=== PATIENT | female | born 1930 | race Caucasian/White ===

== ENCOUNTER → 2017-08-15 | Outpatient (CLI) | payer MEDICARE ==
--- NOTE | 2017-08-18 09:15 | Diagnostic Imaging Report ---
Bilateral screening mammogram 2D views with tomosynthesis The current study was also evaluated with a Computer Aided Detection (CAD) system. Indication: Screening. No current complaints stated on the questionnaire. COMPARISON: 08/09/2016. Findings: The breasts are composed of suggested dense parenchyma which may decrease mammographic sensitivity. Benign-appearing calcifications are seen. Allowing for technique and positional differences, no suspicious change is seen. IMPRESSION: Dense breasts with no definite change. ACR BI-RADS Category 2: Benign findings. Result letter will be mailed to the patient. Note: At least 10% of breast cancer is not imaged by mammography. Dictated by: Dictated on workstation # [id number]
== END ==
LOC: RAD 10:02
PROVIDERS: ATTEND Internal Medicine
DX: Z12.31 Encounter for screening mammogram for malignant neoplasm of breast (principal)
CPT/HCPCS: 77067

== ENCOUNTER 2017-08-25 09:01 | Emergency (ER) | payer MEDICARE ==
[~2017-08-25] VITALS: Ht 154.9 cm; Wt 49.9 kg
--- OUTSIDE RECORDS SUMMARY | 2017-08-25 09:06 | XMS REPORT | Continuity of Care Document ---
Author Author [facility] Organization [facility] Address Unknown Phone Unavailable Allergies There is no data. Medications There is no data. Problems Date Dx Coded Attending Type Code Diagnosis Diagnosed By 08/08/2014 ELVIA ARAUJO APRN Ot V76.12 02/02/2015 AI SYED MD Ot 599.0 08/08/2015 Ot V76.12 08/08/2015 Ot 611.72 08/08/2015 Ot V76.12 08/08/2015 Ot 793.80 08/08/2015 Ot V76.12 08/08/2015 AI SYED MD Ot 786.2 08/08/2015 Heena PASTRANA MD Ot 595.2 08/08/2015 GUERITA CID DO Ot 590.9 08/08/2015 Heena PASTRANA MD Ot 595.9 08/08/2015 AI SYED MD Ot V76.12 08/08/2015 ELVIA ARAUJO APRN Ot V76.12 08/08/2015 AI SYED MD Ot 599.0 08/31/2015 ELVIA ARAUJO APRN Ot Z12.31 05/16/2016 Ot 611.72 LUMP OR MASS IN BREAST 05/16/2016 Ot V76.12 OTH SCREEN MAMMO-MALIGN NEOPLASM OF EVA 05/16/2016 Ot 793.80 UNSPEC ABNORMAL MAMMOGRAM 05/16/2016 Ot V76.12 OTH SCREEN MAMMO-MALIGN NEOPLASM OF EVA 05/16/2016 AI SYED MD Ot 786.2 COUGH 05/16/2016 Heena PASTRANA MD Ot 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 05/16/2016 GUERITA CID DO Ot 590.9 INFECTION OF KIDNEY NOS 05/16/2016 Heena PASTRANA MD Ot 595.9 CYSTITIS NOS 05/16/2016 AI SYED MD Ot V76.12 OTH SCREEN MAMMO-MALIGN NEOPLASM OF EVA 05/16/2016 ELVIA ARAUJO APRN Ot V76.12 OTH SCREEN MAMMO-MALIGN NEOPLASM OF EVA 05/16/2016 AI SYED MD Ot 599.0 URIN TRACT INFECTION NOS 05/16/2016 ELVIA ARAUJO APRN Ot Z12.31 ENCNTR SCREEN MAMMOGRAM FOR MALIGNANT NE 05/20/2016 Heena PASTRANA MD Ot N39.0 URINARY TRACT INFECTION, SITE NOT SPECIF 05/20/2016 Heena PASTRANA MD Ot N95.2 POSTMENOPAUSAL ATROPHIC VAGINITIS 05/20/2016 Heena PASTRANA MD Ot R39.14 FEELING OF INCOMPLETE BLADDER EMPTYING 05/21/2016 Heena PASTRANA MD Ot N39.0 URINARY TRACT INFECTION, SITE NOT SPECIF 05/21/2016 Heena PASTRANA MD Ot N95.2 POSTMENOPAUSAL ATROPHIC VAGINITIS 05/21/2016 Heena PASTRANA MD Ot R39.14 FEELING OF INCOMPLETE BLADDER EMPTYING 06/06/2016 Heena PASTRANA MD Ot N39.0 URINARY TRACT INFECTION, SITE NOT SPECIF 06/06/2016 Heena PASTRANA MD Ot N95.2 POSTMENOPAUSAL ATROPHIC VAGINITIS 06/06/2016 Heena PASTRANA MD Ot R39.14 FEELING OF INCOMPLETE BLADDER EMPTYING 06/13/2016 Heena PASTRANA MD Ot N39.0 URINARY TRACT INFECTION, SITE NOT SPECIF 06/13/2016 Heena PASTRANA MD Ot N95.2 POSTMENOPAUSAL ATROPHIC VAGINITIS 06/13/2016 Heena PASTRANA MD Ot R39.14 FEELING OF INCOMPLETE BLADDER EMPTYING 08/09/2016 Ot 611.72 LUMP OR MASS IN BREAST 08/09/2016 Ot V76.12 OTH SCREEN MAMMO-MALIGN NEOPLASM OF EVA 08/09/2016 Ot 793.80 UNSPEC ABNORMAL MAMMOGRAM 08/09/2016 Ot V76.12 OTH SCREEN MAMMO-MALIGN NEOPLASM OF EVA 08/09/2016 AI SYED MD Ot 786.2 COUGH 08/09/2016 Heena PASTRANA MD Ot 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 08/09/2016 GUERITA CID DO Ot 590.9 INFECTION OF KIDNEY NOS 08/09/2016 Heena PASTRANA MD Ot 595.9 CYSTITIS NOS 08/09/2016 AI SYED MD Ot V76.12 OTH SCREEN MAMMO-MALIGN NEOPLASM OF EVA 08/09/2016 ELVIA ARAUJO APRN Ot V76.12 OTH SCREEN MAMMO-MALIGN NEOPLASM OF EVA 08/09/2016 AI SYED MD Ot 599.0 URIN TRACT INFECTION NOS 08/09/2016 ELVIA ARAUJO FIRE PROTECTION FABRICATOR Ot Z12.31 ENCNTR SCREEN MAMMOGRAM FOR MALIGNANT NE 08/09/2016 Heena PASTRANA MD Ot N39.0 URINARY TRACT INFECTION, SITE NOT SPECIF 08/09/2016 Heena PASTRANA MD Ot N95.2 POSTMENOPAUSAL ATROPHIC VAGINITIS 08/09/2016 Heena PASTRANA MD Ot R39.14 FEELING OF INCOMPLETE BLADDER EMPTYING 08/09/2016 ELVIA ARAUJO FIRE PROTECTION FABRICATOR Ot Z12.31 ENCNTR SCREEN MAMMOGRAM FOR MALIGNANT NE 08/12/2016 ELVIA ARAUJO APRN Ot Z12.31 ENCNTR SCREEN MAMMOGRAM FOR MALIGNANT NE 08/13/2016 ELVIA ARAUJO APRN Ot Z12.31 ENCNTR SCREEN MAMMOGRAM FOR MALIGNANT NE 08/15/2016 ELVIA ARAUJO APRN Ot Z12.31 ENCNTR SCREEN MAMMOGRAM FOR MALIGNANT NE 09/06/2016 ELVIA ARAUJO APRN Ot Z12.31 ENCNTR SCREEN MAMMOGRAM FOR MALIGNANT NE Procedures There is no data. Results There is no data. Encounters ACCT No. Visit Date/Time Discharge Status Pt. Type Provider Facility Loc./Unit Complaint [id number] 08/07/2017 15:15:00 08/07/2017 23:59:59 CLS Preadmit AI SYED MD [facility] RAD SCREENING [id number] 08/09/2016 10:29:00 08/09/2016 23:59:59 CLS Outpatient ELVIA ARAUJO APRN [facility] RAD SCREENING [id number] 05/16/2016 10:22:00 05/16/2016 23:59:59 CLS Outpatient Heena PASTRANA MD [facility] RAD UTI, INCOMPLETE BLADDER EMPTYING, VAGINAL ATROPHY [id number] 08/08/2015 13:57:00 08/08/2015 23:59:59 CLS Outpatient ELVIA ARAUJO APRN [facility] RAD SCREENING [id number] 01/11/2015 11:21:00 01/11/2015 23:59:59 CLS Outpatient AI SYED MD [facility] LAB UTI [id number] 07/13/2014 09:16:00 07/13/2014 23:59:59 CLS Outpatient ELVIA ARAUJO APRN [facility] RAD SCREENING [id number] 07/12/2013 11:23:00 07/12/2013 23:59:59 CLS Outpatient Heena PASTRANA MD [facility] RAD BLADDER INFECTION [id number] 07/12/2013 11:21:00 07/12/2013 23:59:59 CLS Outpatient AI SYED MD [facility] RAD SCREENING [id number] 06/07/2013 13:47:00 06/07/2013 23:59:59 CLS Outpatient GUERITA CID DO [facility] LAB FREQUENT KIDNEY INFECTIONS [id number] 05/04/2013 10:46:00 05/04/2013 23:59:59 CLS Outpatient Heena PASTRANA MD [facility] RAD CHRONIC CYSTITIS [id number] 04/12/2013 13:01:00 04/12/2013 23:59:59 CLS Outpatient AI SYED MD [facility] RAD PERSISTANT COUGH [id number] 07/10/2012 10:51:00 Document Registration [id number] 07/02/2011 14:11:00 Document Registration [id number] 06/14/2011 09:17:00 Document Registration [id number] 06/11/2010 07:31:00 Document Registration
[2017-08-25] MEDS ORDERED: ATOR20TA66 (09:25)
[2017-08-25] MEDS ORDERED: TRIM100T (09:25)
--- NOTE | 2017-08-25 10:01 | Diagnostic Imaging Report ---
INDICATION: Cough and cold. Study compared 04/12/2013 FINDINGS: Air trapping and COPD are chronic findings. No focal pneumonia is evident. There is no failure, effusion or pneumothorax. IMPRESSION: COPD, no acute finding. Dictated by: Dictated on workstation # [id number]
--- NOTE | 2017-08-25 10:13 | ED Respiratory ---
General Chief Complaint: Cough/Cold/Flu Symptoms Stated Complaint: COUGH;FLU SYMPTOMS Nursing Triage Note: PT CO OF OF COLD AND COUGH SX SINCE FRIDAY, DENIES FEVER Source: patient Exam Limitations: no limitations Allergies and Home Medications Allergies Coded Allergies: No Known Drug Allergies (Unverified , 08/25/17) Home Medications Atorvastatin Calcium 20 Mg Tablet, (Reported) Trimethoprim 100 Mg Tablet, (Reported) Past Fapnxpf-Tytelz-Zaidzb Hx Patient Social History Alcohol Use: Denies Use Recreational Drug Use: No Smoking Status: Never a Smoker Recent Foreign Travel: No Contact w/Someone Who Travel: No Recent Infectious Disease Expo: No Recent Hopitalizations: No Physical Abuse: No Sexual Abuse: No Surgeries History of Surgeries: Yes Surgeries: Gallbladder, Hysterectomy Respiratory History of Respiratory Disorde: No Cardiovascular History of Cardiac Disorders: Yes Cardiac Disorders: High Cholesterol Neurological History of Neurological Disord: No Genitourinary History of Genitourinary Disor: Yes (UNSURE OF WHAT KIND TAKES MEDS DAILY FOR URINARY SX) Gastrointestinal History of Gastrointestinal Di: No Musculoskeletal History of Musculoskeletal Dis: No Endocrine History of Endocrine Disorders: No HEENT History of HEENT Disorders: No Cancer History of Cancer: No Psychosocial History of Psychiatric Problem: No Suicide Risk Score: 0 Integumentary History of Skin or Integumenta: No Physical Exam Vital Signs Vital Sign - Last 12Hours 08/25/17 09:05 Temp 96.2 Pulse 104 Resp 18 B/P (MAP) 145/89 (107) Pulse Ox 98 Capillary Refill : Less Than 3 Seconds Progress/Results/Core Measures Suspected Sepsis Recent Fever Within 48 Hours: No Infection Criteria Present: None New/Unexplained Altered Menta: No Sepsis Screen: No Definite Risk Sepsis Diagnosis: SIRS Temperature:96.2 Pulse: 104 Respiratory Rate: 18 Blood Pressure 145 /89 Mean: 107 Results/Orders My Orders Orders - GIBRAN JOSHI MD Chest Pa/Lat (2 View) (08/25/17 09:17) Vital Signs/I&O Vital Sign - Last 12Hours 08/25/17 09:05 Temp 96.2 Pulse 104 Resp 18 B/P (MAP) 145/89 (107) Pulse Ox 98 Capillary Refill : Less Than 3 Seconds Blood Pressure Mean: 107 Diagnostic Imaging Diagonstic Imaging: Xray Plain Films/CT/US/NM/MRI: chest Comments Chest x-ray viewed by me and report reviewed. See report below: NAME: LORRIE CHAVEZ [facility] REC#: [id number] PT STATUS: REG ER : 1930 PHYSICIAN: GIBRAN JOSHI MD ADMIT DATE: 08/25/17/ER Draft Date of Exam:08/25/17 CHEST PA/LAT (2 VIEW) INDICATION: Cough and cold. Study compared 04/12/2013 FINDINGS: Air trapping and COPD are chronic findings. No focal pneumonia is evident. There is no failure, effusion or pneumothorax. IMPRESSION: COPD, no acute finding. Dictated on workstation # [id number] Dict: 08/25/17 0958 Trans: 08/25/17 1000 RAVINDER [id number] Interpreted by: RAZA HEBERT Departure Impression Impression: Primary Impression: Upper respiratory infection Qualified Codes: J06.9 - Acute upper respiratory infection, unspecified Additional Impression: Cough Disposition: HOME, SELF-CARE Condition: Improved Departure-Patient Inst. Decision time for Depature: 10:10 Referrals: AI SYED MD (PCP/Family) Primary Care Physician Patient Instructions: Viral Upper Respiratory Infection, Adult (DC) Add. Discharge Instructions: Drink plenty of clear liquids, especially water. You may continue using over- the-counter cough and cold medications as prescribed. Fill the prescription for Tessalon Perles if you feel necessary. Return to the ER if symptoms worsen. All discharge instructions reviewed with patient and/or family. Voiced understanding. Scripts Benzonatate (Benzonatate) 200 Mg Capsule 200 MG PO TID Y for COUGH, #20 CAP Prov: GIBRAN JOSHI MD 08/25/17 GIBRAN JOSHI MD Aug 25, 2017 10:13
[2017-08-25] MEDS ORDERED: BENZ200C51 PO (10:21)
[2017-08-25 10:25] VITALS: BP 145/89
== END 2017-08-25 10:25 | disposition home or self-care (01) ==
LOC: EDUNIT# 09:01 → ER 09:03
DX: J06.9 Acute upper respiratory infection, unspecified (principal); E78.00 Pure hypercholesterolemia, unspecified; Z90.710 Acquired absence of both cervix and uterus
CPT/HCPCS: 71046; 99282

== ENCOUNTER 2017-11-18 16:17 | Emergency (ER) | payer MEDICARE ==
[~2017-11-18] VITALS: Ht 152.4 cm; Wt 49.9 kg
[~2017-11-18 16:17] MED LIST: ATOR20TA66; BENZ200C51 PO; TRIM100T
--- NOTE | 2017-11-18 16:31 | ED Head Injury ---
General Chief Complaint: Head/Cervical Problems Stated Complaint: FALL;HEAD INJ History of Present Illness Date Seen by Provider: Nov 18, 2017 Time Seen by Provider: 16:29 Initial Comments Patient is an 86-year-old female who presents to emergency room with complaints of all and hitting her head just prior to arrival. She reports that she was walking up the steps in her garage when she slipped causing her to fall backwards and hit her head. She denies LOC, dizziness, lightheadedness, and nausea and vomiting. Occurred: just prior to arrival Severity: mild Associated Systoms: Denies Symptoms Allergies and Home Medications Allergies Coded Allergies: No Known Drug Allergies (Unverified , 08/25/17) Home Medications Benzonatate 200 Mg Capsule, 200 MG PO TID PRN for COUGH Prescribed by: GIBRAN KING on 08/25/17 1021 Patient Home Medication List Home Medication List Reviewed: Yes Constitutional: no symptoms reported, see HPI Eyes: No Symptoms Reported, See HPI Ears, Nose, Mouth, Throat: no symptoms reported, see HPI Respiratory: no symptoms reported, see HPI Cardiovascular: no symptoms reported, see HPI Gastrointestinal: no symptoms reported, see HPI Genitourinary: no symptoms reported, see HPI Musculoskeletal: no symptoms reported, see HPI Skin: no symptoms reported, see HPI Psychiatric/Neurological: No Symptoms Reported, See HPI Endocrine: No Symptoms Reported Hematologic/Lymphatic: No Symptoms Reported Past Tduovxl-Vccmda-Zmpvuc Hx Patient Social History Recent Foreign Travel: No Contact w/Someone Who Travel: No Recent Hopitalizations: No Surgeries History of Surgeries: Yes Surgeries: Gallbladder, Hysterectomy Respiratory History of Respiratory Disorde: No Cardiovascular History of Cardiac Disorders: Yes Cardiac Disorders: High Cholesterol Neurological History of Neurological Disord: No Genitourinary History of Genitourinary Disor: Yes (UNSURE OF WHAT KIND TAKES MEDS DAILY FOR URINARY SX) Gastrointestinal History of Gastrointestinal Di: No Musculoskeletal History of Musculoskeletal Dis: No Endocrine History of Endocrine Disorders: No HEENT History of HEENT Disorders: No Cancer History of Cancer: No Psychosocial History of Psychiatric Problem: No Integumentary History of Skin or Integumenta: No Physical Exam Vital Signs Capillary Refill : General Appearance: WD/WN, no apparent distress HEENT: PERRL/EOMI Neck: non-tender, full range of motion, supple, normal inspection Cardiovascular: normal peripheral pulses, regular rate, rhythm, no edema, no gallop, no JVD, no murmur Respiratory: chest non-tender, lungs clear, normal breath sounds, no respiratory distress, no accessory muscle use Gastrointestinal: normal bowel sounds, non tender, soft, no organomegaly, no pulsatile mass Back: normal inspection, no CVA tenderness, no vertebral tenderness Extremities: normal range of motion, non-tender, normal inspection, no pedal edema, no calf tenderness, normal capillary refill Psychiatric: alert, oriented x 3 Crainal Nerves: normal hearing, normal speech Skin: normal color, warm/dry Lymphatic: no adenopathy Progress/Results/Core Measures Results/Orders My Orders Orders - JC GONZALEZ APRN Ct Head/Cervical Spine Wo (11/18/17 16:32) Departure Impression Impression: Primary Impression: Contusion of head Disposition: 01 HOME, SELF-CARE Condition: Stable/Unchanged Departure-Patient Inst. Referrals: AI SYED MD (PCP/Family) Primary Care Physician Patient Instructions: Minor Head Injury (DC) Add. Discharge Instructions: Follow up with you doctor in one week for a recheck. Return back to the emergency room if symptoms worsen. All discharge instructions reviewed with patient and/or family. Voiced understanding. JC GONZALEZ APRN Nov 18, 2017 16:31
--- NOTE | 2017-11-18 17:13 | Diagnostic Imaging Report ---
CLINICAL INDICATION: Patient fell this p.m. and struck posterior aspect of the head. Patient has no complaints. EXAM: Head CT without IV contrast. Axial CT scan of the cervical spine with sagittal and coronal reformations. COMPARISON: None. FINDINGS: HEAD CT: There is no evidence of acute cerebral infarct, intracranial hemorrhage, or gross mass effect. There is diffuse brain parenchymal volume loss. 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 There is normal cuellar-white matter distinction. There is no significant midline shift or herniation. There is no evidence of hydrocephalus. The basal cisterns are unremarkable. The skull, extracranial soft tissue, and orbits are unremarkable. There is mild mucosal thickening in the sphenoid sinus. Temporal bones show no significant abnormality. CERVICAL SPINE CT: There is no evidence of acute cervical spine fracture. There is grade 1 anterolisthesis of C3 on C4, C4 on C5, and C7 on T1. There is grade 1 retrolisthesis of C5 on C6. There is multilevel cervical spine degenerative disease which is worse at the C5-C6 level. There is severe loss of intervertebral disc height, endplate irregularity and hypertrophic spurs involving the C5-C6 level with at least moderate central canal narrowing and severe right neural foraminal narrowing. There is bilateral apical pleural-parenchymal thickening/scarring. There is no significant neck soft tissue abnormality. IMPRESSION: 1: There is no evidence of acute intracranial process. There is no skull fracture. 2: There is no acute cervical spine fracture. 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 4: There is multilevel cervical spine degenerative disease which is worse at the C5-C6 level. There is multilevel anterolisthesis seen from the C3-C4, C4-C5, and C7-T1 levels. There is grade 1 retrolisthesis of C5 on C6. Dictated by: Dictated on workstation # [id number]
[2017-11-18 17:23] VITALS: BP 152/90
== END 2017-11-18 17:23 | disposition home or self-care (01) ==
LOC: EDUNIT# 16:17 → ER 16:18
DX: S00.83XA Contusion of other part of head, initial encounter (principal); E78.00 Pure hypercholesterolemia, unspecified; Z90.710 Acquired absence of both cervix and uterus; W10.9XXA Fall (on) (from) unspecified stairs and steps, initial encounter; Y92.008 Other place in unspecified non-institutional (private) residence as the place of occurrence of the external cause
CPT/HCPCS: 70450; 72125; 99282

== ENCOUNTER 2018-01-14 10:59 | Emergency (ER) | payer MEDICARE ==
[~2018-01-14] VITALS: Ht 152.4 cm; Wt 48.5 kg
--- OUTSIDE RECORDS SUMMARY | 2018-01-14 11:06 | XMS REPORT | Continuity of Care Document ---
Author Author [facility] Organization [facility] Address Unknown Phone Unavailable Allergies Active Description Code Type Severity Reaction Onset Reported/Identified Relationship to Patient Clinical Status Yes No Known Drug Allergies [id number] Drug Allergy Unknown N/A 08/25/2017 Medications There is no data. 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 05/16/2016 JOSE ROBERTO DRISCOLL GUERITA Ot 590.9 INFECTION OF KIDNEY NOS 05/16/2016 Heena PASTRANA MD Ot 595.9 CYSTITIS NOS 05/16/2016 AI SYED MD Ot V76.12 OTH SCREEN MAMMO-MALIGN NEOPLASM OF EVA 05/16/2016 ELVIA ARAUJO APRN Ot V76.12 OTH SCREEN MAMMO-MALIGN NEOPLASM OF EVA 05/16/2016 AI SYED MD Ot 599.0 URIN TRACT INFECTION NOS 05/16/2016 ELVIA ARAUJO PAPER MACHINE BACK TENDER Ot Z12.31 ENCNTR SCREEN MAMMOGRAM FOR MALIGNANT NE 05/20/2016 Heena PASTRNAA MD Ot N39.0 URINARY TRACT INFECTION, SITE [...] URIN TRACT INFECTION NOS 08/09/2016 ELVIA ARAUJO PAPER MACHINE BACK TENDER Ot Z12.31 ENCNTR SCREEN MAMMOGRAM FOR MALIGNANT NE 08/09/2016 Heena PASTRANA MD Ot N39.0 URINARY TRACT INFECTION, SITE NOT SPECIF 08/09/2016 Heena PASTRANA MD Ot N95.2 POSTMENOPAUSAL ATROPHIC VAGINITIS 08/09/2016 Heena PASTRANA MD Ot R39.14 FEELING OF INCOMPLETE BLADDER EMPTYING 08/09/2016 ELVIA ARAUJO PAPER MACHINE BACK TENDER Ot Z12.31 ENCNTR SCREEN MAMMOGRAM FOR MALIGNANT NE 08/12/2016 ELVIA ARAUJO PAPER MACHINE BACK TENDER Ot Z12.31 ENCNTR SCREEN MAMMOGRAM FOR MALIGNANT NE 08/13/2016 ELVIA ARAUJO PAPER MACHINE BACK TENDER Ot Z12.31 ENCNTR SCREEN MAMMOGRAM FOR MALIGNANT NE 08/15/2016 ELVIA ARAUJO PAPER MACHINE BACK TENDER Ot Z12.31 ENCNTR SCREEN MAMMOGRAM FOR MALIGNANT NE 09/06/2016 ELVIA ARAUJO PAPER MACHINE BACK TENDER Ot Z12.31 ENCNTR SCREEN MAMMOGRAM FOR MALIGNANT NE 08/25/2017 GIBRAN JOSHI MD Ot E78.00 PURE HYPERCHOLESTEROLEMIA, UNSPECIFIED 08/25/2017 GIBRAN JOSHI MD Ot J06.9 ACUTE UPPER RESPIRATORY INFECTION, UNSPE 08/25/2017 GIBRAN JOSHI MD T Ot R05 COUGH 08/25/2017 GIBRAN JOSHI MD Ot Z90.710 ACQUIRED ABSENCE OF BOTH CERVIX AND UTER 08/31/2017 GIBRAN JOSHI MD Ot E78.00 PURE HYPERCHOLESTEROLEMIA, UNSPECIFIED 08/31/2017 GIBRAN JOSHI MD Ot J06.9 ACUTE UPPER RESPIRATORY INFECTION, UNSPE 08/31/2017 GIBRAN JOSHI MD Ot R05 COUGH 08/31/2017 GIBRAN JOSHI MD Ot Z90.710 ACQUIRED ABSENCE OF BOTH CERVIX AND UTER 09/05/2017 AI SYED MD Ot Z12.31 ENCNTR SCREEN MAMMOGRAM FOR MALIGNANT NE 11/18/2017 JC GONZALEZ APRN Ot E78.00 PURE HYPERCHOLESTEROLEMIA, UNSPECIFIED 11/18/2017 JC GONZALEZ APRN Ot S00.83XA CONTUSION OF OTHER PART OF HEAD, INITIAL 11/18/2017 JC GONZALEZ APRN Ot S09.90XA UNSPECIFIED INJURY OF HEAD, INITIAL ENCO 11/18/2017 JC GONZALEZ APRN Ot W10.9XXA FALL (ON) (FROM) UNSPECIFIED STAIRS AND 11/18/2017 JC GONZALEZ APRN Ot Y92.[address] [facility] (PRIVATE) 11/18/2017 JC GONZALEZ APRN Ot Z90.710 ACQUIRED ABSENCE OF BOTH CERVIX AND UTER 11/20/2017 JC GONZALEZ APRN Ot E78.00 PURE HYPERCHOLESTEROLEMIA, UNSPECIFIED 11/20/2017 JC GONZALEZ APRN Ot S00.83XA CONTUSION OF OTHER PART OF HEAD, INITIAL 11/20/2017 JC GONZALEZ APRN Ot S09.90XA UNSPECIFIED INJURY OF HEAD, INITIAL ENCO 11/20/2017 JC GONZALEZ APRN Ot W10.9XXA FALL (ON) (FROM) UNSPECIFIED STAIRS AND 11/20/2017 JC GONZALEZ APRN Ot Y92.[address] [facility] 11/20/2017 JC GONZALEZ APRN Ot Z90.710 ACQUIRED ABSENCE OF BOTH CERVIX AND UTER Procedures There is no data. Results There is no data. Encounters ACCT No. Visit Date/Time Discharge Status Pt. Type Provider Facility Loc./Unit Complaint [id number] 11/18/2017 16:18:00 11/18/2017 17:23:00 DIS Emergency JC GONZALEZ APRN [facility] ER FALL;HEAD INJ [id number] 08/25/2017 09:03:00 08/25/2017 10:25:00 DIS Emergency GIBRAN JOSHI MD [facility] ER COUGH;FLU SYMPTOMS [id number] 08/15/2017 10:02:00 08/15/2017 23:59:59 CLS Outpatient AI SYED MD [facility] RAD SCREENING [id number] 08/09/2016 10:29:00 08/09/2016 23:59:59 CLS Outpatient ELVIA ARAUJO PAPER MACHINE BACK TENDER [facility] RAD SCREENING [id number] 05/16/2016 10:22:00 05/16/2016 23:59:59 CLS Outpatient Heena PASTRANA MD [facility] RAD UTI, INCOMPLETE BLADDER EMPTYING, VAGINAL ATROPHY [id number] 08/08/2015 13:57:00 08/08/2015 23:59:59 CLS Outpatient ELVIA ARAUJO APRN [facility] RAD SCREENING [id number] 01/11/2015 11:21:00 01/11/2015 23:59:59 CLS Outpatient AI SYED MD [facility] LAB UTI [id number] 07/13/2014 09:16:00 07/13/2014 23:59:59 CLS Outpatient ELVIA ARAUJO APRN [facility] RAD SCREENING [id number] 07/12/2013 11:23:00 07/12/2013 23:59:59 CLS Outpatient Heena PASTRANA MD [facility] RAD BLADDER INFECTION [id number] 07/12/2013 11:21:00 07/12/2013 23:59:59 CLS Outpatient AI SYED MD [facility] RAD SCREENING [id number] 06/07/2013 13:47:00 06/07/2013 23:59:59 CLS Outpatient GUERITA CID DO [facility] LAB FREQUENT KIDNEY INFECTIONS [id number] 05/04/2013 10:46:00 05/04/2013 23:59:59 CLS Outpatient Heena PASTRANA MD [facility] RAD CHRONIC CYSTITIS [id number] 04/12/2013 13:01:00 04/12/2013 23:59:59 CLS Outpatient AI SYED MD [facility] RAD PERSISTANT COUGH [id number] 07/10/2012 10:51:00 Document Registration [id number] 07/02/2011 14:11:00 Document Registration [id number] 06/14/2011 09:17:00 Document Registration [id number] 06/11/2010 07:31:00 Document Registration [id number] 01/11/2015 11:24:22 ACT Document Registration
--- NOTE | 2018-01-14 12:27 | ED Neurological Problem ---
General Chief Complaint: Dizziness/Syncope Stated Complaint: DIZZINESS Nursing Triage Note: AMBULATED TO ROOM 07 WITHOUT DIFFICULTY. COMPLAINS OF OFF AND ON DIZZINESS X3 DAYS ALONG WITH NECK PAIN. FELL AND HIT HEAD 2 MONTHS AGO AND WAS SEEN HERE THEN. Nursing Sepsis Screen: No Definite Risk Source: patient, spouse Exam Limitations: no limitations History of Present Illness Date Seen by Provider: January 14, 2018 Time Seen by Provider: 12:15 Initial Comments The patient resistance to the room with a chief complaint of dizziness feeling the room spinning around her. She has no near-syncope or imbalance issues. Says these occur usually episodes of about 10:15 seconds usually after changing positions such as standing or rolling from one side or the other in bed. She's never been prescribed with vertigo before but she has been prescribed meclizine which she took her last dose today. She says 2 months ago she had dizziness episodes similar to this because her to fall and strike her head against the concrete floor. She was seen at the ER worked up and did not have any problems fractures or bleeds at that time but she is to having some soreness in her neck specially when she takes her head all the way to the left or right. She's not having any nausea, fevers, chills, weakness, facial droop, speech changes. She' s never had a stroke or heart attack. She does not take aspirin. She is not on any blood thinners. For the grittiness and tenderness in her neck is made worse by movement she has been taking Tylenol. She says it gives marginal relief. She reports she's been having these dizzy spells for many months off and on. She feels that recently they've become more frequent. Allergies and Home Medications Allergies Coded Allergies: No Known Drug Allergies (Unverified , 08/25/17) Home Medications Benzonatate 200 Mg Capsule, 200 MG PO TID PRN for COUGH Prescribed by: GIBARN KING on 08/25/17 1021 Patient Home Medication List Home Medication List Reviewed: Yes Review of Systems Constitutional: No chills, No diaphoresis Eyes: Denies Blindness, Denies Blurred Vision, Denies Drainage, Denies Pain, Denies Photophobia Ears, Nose, Mouth, Throat: denies ear pain, denies ear discharge, denies nose pain, denies nose discharge Respiratory: No cough, No short of breath Cardiovascular: No chest pain, No edema Gastrointestinal: No abdominal pain, No constipation, No diarrhea, No nausea Genitourinary: No discharge, No dysuria Musculoskeletal: No back pain, No joint pain; neck pain Skin: No pruritus, No rash Past Mctldub-Nnahhl-Bzjywz Hx Patient Social History Alcohol Use: Denies Use Recreational Drug Use: No Smoking Status: Never a Smoker Recent Foreign Travel: No Contact w/Someone Who Travel: No Recent Infectious Disease Expo: No Recent Hopitalizations: No Past Medical History Surgeries: Yes Gallbladder, Hysterectomy Respiratory: No Cardiac: Yes High Cholesterol Neurological: No Genitourinary: Yes (UNSURE OF WHAT KIND TAKES MEDS DAILY FOR URINARY SX) Gastrointestinal: No Musculoskeletal: No Endocrine: No HEENT: No Cancer: No Psychosocial: No Integumentary: No Physical Exam Vital Signs Vital Signs - First Documented 01/14/18 11:25 Temp 98.0 Pulse 82 Resp 18 B/P (MAP) 135/87 (103) Pulse Ox 99 O2 Delivery Room Air Capillary Refill : Less Than 3 Seconds General Appearance: WD/WN, no apparent distress HEENT: PERRL/EOMI, normal ENT inspection, TMs normal, pharynx normal Neck: full range of motion, supple, normal inspection, tender lateral (brittney) Respiratory: chest non-tender, lungs clear, normal breath sounds, no respiratory distress, no accessory muscle use Cardiovascular: normal peripheral pulses, regular rate, rhythm, no edema Peripheral Pulses: 2+ Radial Pulses (R), 2+ Radial Pulses (L) Gastrointestinal: normal bowel sounds, non tender, soft 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 No crepitus could be palpated nor was there any step-off or deformity. CT scan from November 18 demonstrated osteoarthritic changes but no fracture. She had no positive nystagmus and a normal chest askew. She has no other neurologic symptoms. This likely is a peripheral lesion. Both of her Jimenez-Hallpike left and right were positive after about 30 seconds, mild with only mild nystagmus seen torsionally on the left gaze. Were happy to refill her meclizine as well as teach her how to do Giuseppe's and have her follow-up with Dr. Ortiz outpatient because she will likely need physical therapy to help her with this due to frailty. We have encouraged her to use ibuprofen in addition to Tylenol, heating pads, Capsaicin oil or Biofreeze for her neck. Departure Impression Primary Impression: BPPV (benign paroxysmal positional vertigo) Qualified Codes: H81.13 - Benign paroxysmal vertigo, bilateral Disposition: 01 HOME, SELF-CARE Condition: Stable Departure-Patient Inst. Decision time for Depature: 12:31 Referrals: AI ORTIZ MD (PCP/Family) Primary Care Physician Patient Instructions: Vertigo (a Type of Dizziness) (DC) Add. Discharge Instructions: Review the Giuseppe maneuvers and up attempt to perform them up to 10 times with every episode of dizziness to help treat your dizziness. Make an appointment to follow-up with Dr. Ortiz and discussed the role of physical therapy and a tilt table test. You can also use the meclizine as prescribed. Your neck pain seems to be from worsened arthritis probably due to your recent fall 2 months ago. You can use Tylenol 1000 g every 8 hours in addition to ibuprofen 800 mg every 8 hours and heating pads, Capsaicin oil or Biofreeze. All discharge instructions reviewed with patient and/or family. Voiced understanding. Scripts Meclizine HCl (Meclizine HCl) 25 Mg Tablet 25 MG PO Q6H PRN for DIZZINESS, #30 TAB 0 Refills Prov: ANIBAL BELL 01/14/18 Copy Copies To 1: AI ORTIZ MD, TITUS J January 14, 2018 12:27
[2018-01-14] MEDS ORDERED: MECL-106 PO (12:34)
[2018-01-14 12:45] VITALS: BP 120/68
== END 2018-01-14 12:45 | disposition home or self-care (01) ==
LOC: EDUNIT# 10:59 → ER 11:00
DX: H81.10 Benign paroxysmal vertigo, unspecified ear (principal); E78.00 Pure hypercholesterolemia, unspecified; Z90.710 Acquired absence of both cervix and uterus

== ENCOUNTER → 2018-08-20 | Outpatient (CLI) | payer MEDICARE ==
[~2018-08-20] MED LIST changes: +MECL-106 PO
--- NOTE | 2018-08-20 19:11 | Diagnostic Imaging Report ---
INDICATION: Routine screening. Comparison is made with prior mammograms from 08/15/2017 and 08/09/2016. 2-D and 3-D bilateral screening mammography was performed with Computer Aided Detection (CAD) system. FINDINGS: Both breasts are heterogeneously dense, limiting the sensitivity of mammography. Benign calcifications are identified bilaterally. The overall parenchymal pattern is stable. No dominant mass or malignant-appearing microcalcifications are seen. The axillae are unremarkable. IMPRESSION: No mammographic features suspicious for malignancy are identified. ACR BI-RADS Category 2: Benign findings. Result letter will be mailed to the patient. Note: At least 10% of breast cancer is not imaged by mammography. Dictated by: Dictated on workstation # [id number]
== END ==
LOC: RAD 10:19
PROVIDERS: ATTEND Physician Assistant
DX: Z12.31 Encounter for screening mammogram for malignant neoplasm of breast (principal)
CPT/HCPCS: 77067

== ENCOUNTER → 2018-11-26 | Outpatient (CLI) | payer MEDICARE ==
--- NOTE | 2018-11-26 20:09 | Diagnostic Imaging Report ---
EXAMINATION: Cervical spine. INDICATION: Neck pain. AP, lateral, and odontoid views were obtained. FINDINGS: The previous CT cervical spine exam performed on 11/18/2017 noted multilevel degenerative disease including severe degenerative disc and bony disease at C5-6. On the lateral view of this exam, those degenerative changes are again evident and do not seem to have progressed significantly. There is no fracture or acute bony abnormality appreciated. There is no sign of retropharyngeal edema. The lung apices are clear. IMPRESSION: 1. There is no evidence for an acute bony abnormality. 2. There is degenerative disc and bony disease throughout the cervical spine, particularly at the C5-6 level. These findings seem similar to the previous exam. 3. If there is clinical concern regarding spinal stenosis or nerve root encroachment, then MRI would be recommended for further evaluation. Dictated by: Dictated on workstation # [id number]
== END ==
LOC: RAD 11:20
PROVIDERS: ATTEND Internal Medicine
DX: M50.322 Other cervical disc degeneration at C5-C6 level (principal); M89.9 Disorder of bone, unspecified
CPT/HCPCS: 72040

== ENCOUNTER → 2018-12-03 | Outpatient (CLI) | payer MEDICARE ==
--- NOTE | 2018-12-03 19:29 | Diagnostic Imaging Report ---
PROCEDURE: MR imaging of the brain without contrast. TECHNIQUE: Multiplanar, multisequence MR imaging of the brain was performed without contrast. INDICATION: Head and neck pain after fall. FINDINGS: There is prominence of the ventricles and sulci. There is marked abnormal increased T2 signal intensity within the periventricular white matter and subcortical white matter bilaterally. There are no areas of diffusion restriction appreciated to suggest an acute CVA. There is no hydrocephalus. There is no midline shift. There is no intracranial mass, hemorrhage, or extra-axial fluid collection. Sinuses and mastoid air cells are clear. The globes and intraorbital structures are unremarkable. The central arterial and dural venous sinus flow voids are preserved. IMPRESSION: 1. Atrophy and [id number] chronic microvascular ischemic disease without evidence of diffusion restriction to suggest an acute CVA. 2. No other acute intracranial abnormality. Dictated by: Dictated on workstation # [id number]
== END ==
LOC: RAD 15:19
PROVIDERS: ATTEND Internal Medicine
DX: G31.9 Degenerative disease of nervous system, unspecified (principal); I67.82 Cerebral ischemia; R51 Headache; W19.XXXA Unspecified fall, initial encounter
CPT/HCPCS: 70551

== ENCOUNTER → 2019-02-23 | Outpatient (CLI) | payer MEDICARE ==
--- NOTE | 2019-02-23 15:26 | Diagnostic Imaging Report ---
INDICATION: Low back pain. Three views were obtained. FINDINGS: The bones are osteopenic. There is an age-indeterminate compression fracture involving the inferior endplate of L4. There is no spondylolysis or spondylolisthesis. There is some lower lumbar hypertrophic degenerative facet disease. IMPRESSION: Age-indeterminate compression fracture involving the inferior endplate of L4. If there is high clinical concern that this may be acute, further evaluation with MRI should be considered. Osteopenia with some diffuse lumbar spondylosis. Dictated by: Dictated on workstation # [id number]
== END ==
LOC: RAD 14:34
PROVIDERS: ATTEND Nurse Practitioner
DX: S32.040A Wedge compression fracture of fourth lumbar vertebra, initial encounter for closed fracture (principal); M47.816 Spondylosis without myelopathy or radiculopathy, lumbar region; M85.88 Other specified disorders of bone density and structure, other site
CPT/HCPCS: 72100

== ENCOUNTER 2019-03-10 03:27 | Observation (INO) | payer MEDICARE ==
[~2019-03-10] VITALS: Ht 152.4 cm; Wt 46.9 kg
[~2019-03-10 03:27] MED LIST changes: -ATOR20TA66; +ATOR20TA66 PO; -TRIM100T; +TRIM100T PO
[2019-03-10] MEDS ORDERED: LACTATED RINGERS 1,000 ML IV ONE (03:33)
[2019-03-10] MEDS ORDERED: fentaNYL INJECTION 100 MCG/2 ML AMP IVP STA (03:38)
[2019-03-10 03:43] LABS: BASOPHILS % (AUTO) 0 % (0-10); EOSINOPHILS % (AUTO) 1 % (0-10); HEMATOCRIT 38 % (35-52); HEMOGLOBIN 12.6 G/DL (11.5-16.0); LYMPHOCYTES # (AUTO) 0.5 X 10^3 (1.0-4.0); LYMPHOCYTES % (AUTO) 7 % (12-44); MEAN CORPUSCULAR HEMOGLOBIN 30 PG (25-34); MEAN CORPUSCULAR HGB CONC 33 G/DL (32-36); MEAN CORPUSCULAR VOLUME 91 FL (80-99); MEAN PLATELET VOLUME 9.1 FL (7.4-10.4); MONOCYTES # (AUTO) 0.5 X 10^3 (0.0-1.0); MONOCYTES % (AUTO) 8 % (0-12); NEUTROPHILS % (AUTO) 85 % (42-75); PLATELET COUNT 183 10^3/uL (130-400); RED CELL DISTRIBUTION WIDTH 13.6 % (10.0-14.5); WHITE BLOOD COUNT 7.1 10^3/uL (4.3-11.0)
[2019-03-10] MEDS ORDERED: ONDANSETRON 4 MG/2 ML (SDV) Z0FRAN IVP ONE (03:45)
[2019-03-10 04:02] LABS: ALANINE AMINOTRANSFERASE 32 U/L (0-55); ALKALINE PHOSPHATASE 123 U/L (40-136); BILIRUBIN,TOTAL 0.8 MG/DL (0.1-1.0); BUN/CREATININE RATIO 13; CALCIUM 10.2 MG/DL (8.5-10.1); CARBON DIOXIDE 24 MMOL/L (21-32); CHLORIDE 88 MMOL/L (98-107); CREATININE SERUM 0.83 MG/DL (0.60-1.30); GFR ESTIMATED > 60; GLUCOSE 152 MG/DL (70-105); POTASSIUM 3.7 MMOL/L (3.6-5.0); SODIUM 126 MMOL/L (135-145); TOTAL PROTEIN 7.2 GM/DL (6.4-8.2)
[2019-03-10] MEDS ORDERED: NS IV 1000 ML 1,000 ML IV ONE (04:09)
--- NOTE | 2019-03-10 04:20 | ED Back Pain ---
General Chief Complaint: Back Problems Stated Complaint: BACK PAIN,WEAKNESS Nursing Triage Note: PT PRESENTS FROM HOME, STATES SHE WAS RELEASED FROM [facility] STATES YESTERDAY FOLLOWING A FUSION OF L4 AND L5, STATES HER PAIN IS UNCONTROLLED BY HER PERSCRIBED PAIN MEDS. PT ALSO VERBALIZES INTERMITTENT NAUSEA THAT OCCURRED SHORTLY AFTER SHE TOOK HER PAIN MEDS ON AN EMPTY STOMACH. Nursing Sepsis Screen: No Definite Risk Source of Information: Patient, Family History of Present Illness Date Seen by Provider: Mar 10, 2019 Time Seen by Provider: 03:33 Initial Comments PT ARRIVES VIA EMS FROM HOME, WITH AND SON ARRIVING SHORTLY AFTERWARD PT HAD L4 KYPHOPLASTY FOR COMPRESSION FRACTURE DONE YESTERDAY BY DR. HOLM AT [facility] STATES PT HAS CHRONIC BACK PAIN AND TAKES TRAMADOL 1 PILL EVERY 4-6 HOURS NORMALLY ( STATES IT DOES NOT WORK WELL ANYWAY, FOR HER PAIN) , AND TRIED TO TAKE IT YESTERDAY AFTER SURGERY, BUT HAS HAD NAUSEA AND DRY HEAVES FROM PAIN, AFTER TAKING HER TRAMADOL ON EMPTY STOMACH YESTERDAY AFTERNOON STATES SHE IS ABLE TO KEEP LIQUIDS DOWN, AND IS VOIDING NORMALLY HAS NOT HAD BM SINCE SURGERY NO FEVER NO PARESTHESIAS OR MOTOR DEFICITS PT WITH GENERALIZED WEAKNESS, AND IS UNABLE TO AMBULATE ON HER OWN ( TRIED USING A WALKER YESTERDAY) AND HAVING DIFFICULTY MAKING IT TO BATHROOM Other Comments PCP: DR. SYED ORTHOPEDIC SURGEON: DR. HOLM Allergies and Home Medications Allergies Coded Allergies: cephalexin (Verified Allergy, Mild, 03/10/19) ciprofloxacin (Verified Allergy, Mild, 03/10/19) nitrofurantoin (Verified Allergy, Mild, 03/10/19) Uncoded Allergies: BACTRIUM (Allergy, Mild, 03/10/19) CODIENE (Allergy, Mild, 03/10/19) Home Medications Benzonatate 200 Mg Capsule, 200 MG PO TID PRN for COUGH Prescribed by: GIBRAN KING on 08/25/17 1021 Meclizine HCl 25 Mg Tablet, 25 MG PO Q6H PRN for DIZZINESS Prescribed by: ANIBAL BELL on 01/14/18 1234 Patient Home Medication List Home Medication List Reviewed: Yes Review of Systems Constitutional: no symptoms reported Respiratory: no symptoms reported Gastrointestinal: see HPI; No abdominal pain; nausea (DRY HEAVES) Genitourinary: no symptoms reported Musculoskeletal: see HPI, back pain Skin: no symptoms reported Psychiatric/Neurological: No Symptoms Reported Past Skmtjpj-Qmeksm-Xicmpm Hx Patient Social History Recent Foreign Travel: No Contact w/Someone Who Travel: No Recent Infectious Disease Expo: No Recent Hopitalizations: No Past Medical History Surgeries: Yes (L4 KYPHOPLASTY 03/09/[address] 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 oz. 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 as Tested Skin: Normal Color, Warm/Dry Progress/Results/Core Measures Results/Orders Lab Results Laboratory Tests Test 03/10/19 03:35 Range/Units White Blood Count 7.1 4.3-11.0 10^3/uL Red Blood Count 4.14 L 4.35-5.85 10^6/uL Hemoglobin 12.6 11.5-16.0 G/DL Hematocrit 38 35-52 % Mean Corpuscular Volume 91 80-99 FL Mean Corpuscular Hemoglobin 30 25-34 PG Mean Corpuscular Hemoglobin Concent 33 32-36 G/DL Red Cell Distribution Width 13.6 10.0-14.5 % Platelet Count 183 130-400 10^3/uL Mean Platelet Volume 9.1 7.4-10.4 FL Neutrophils (%) (Auto) 85 H 42-75 % Lymphocytes (%) (Auto) 7 L 12-44 % Monocytes (%) (Auto) 8 0-12 % Eosinophils (%) (Auto) 1 0-10 % Basophils (%) (Auto) 0 0-10 % Neutrophils # (Auto) 6.0 1.8-7.8 X 10^3 Lymphocytes # (Auto) 0.5 L 1.0-4.0 X 10^3 Monocytes # (Auto) 0.5 0.0-1.0 X 10^3 Eosinophils # (Auto) 0.0 0.0-0.3 10^3/uL Basophils # (Auto) 0.0 0.0-0.1 10^3/uL Sodium Level 126 L 135-145 MMOL/L Potassium Level 3.7 3.6-5.0 MMOL/L Chloride Level 88 L 98-107 MMOL/L Carbon Dioxide Level 24 21-32 MMOL/L Anion Gap 14 5-14 MMOL/L Blood Urea Nitrogen 11 7-18 MG/DL Creatinine 0.83 0.60-1.30 MG/DL Estimat Glomerular Filtration Rate > 60 BUN/Creatinine Ratio 13 Glucose Level 152 H 70-105 MG/DL Calcium Level 10.2 H 8.5-10.1 MG/DL Corrected Calcium 10.2 H 8.5-10.1 MG/DL Total Bilirubin 0.8 0.1-1.0 MG/DL Aspartate Amino Transf (AST/SGOT) 39 H 5-34 U/L Alanine Aminotransferase (ALT/SGPT) 32 0-55 U/L Alkaline Phosphatase 123 40-136 U/L Total Protein 7.2 6.4-8.2 GM/DL Albumin 4.0 3.2-4.5 GM/DL My Orders Orders - TONA AUGUSTINE DO Ed Iv/Invasive Line Start (03/10/19 03:33) Cbc With Automated Diff (03/10/19 03:33) Comprehensive Metabolic Panel (03/10/19 03:33) Ed Iv/Invasive Line Start (03/10/19 03:33) Lactated Ringers (Lr 1000 Ml Iv Solution (03/10/19 03:33) Ondansetron Injection (Zofran Injectio (03/10/19 03:45) Fentanyl Injection (Sublimaze Injection (03/10/19 03:38) Ed Iv/Invasive Line Start (03/10/19 04:09) Ns Iv 1000 Ml (Sodium Chloride 0.9%) (03/10/19 04:09) Medications Given in ED Current Medications Medications Dose Ordered Sig/Suleman Route Start Time Stop Time Status Last Admin Dose Admin Lactated Ringer's 1,000 ml @ 0 mls/hr Q0M ONCE IV 03/10/19 03:33 03/10/19 03:34 DC 03/10/19 04:15 1,000 MLS/HR Ondansetron HCl 4 mg ONCE ONCE IVP 03/10/19 03:45 03/10/19 03:46 DC 03/10/19 04:12 4 MG Sodium Chloride 1,000 ml @ 0 mls/hr Q0M ONCE IV 03/10/19 04:09 03/10/19 04:42 DC 03/10/19 04:50 1,000 MLS/HR Vital Signs/I&O 03/10/19 03:33 Temp 97.8 Pulse 94 Resp 20 B/P (MAP) 186/102 (130) Pulse Ox 96 O2 Delivery Room Air Blood Pressure Mean: 130 Progress Progress Note : Progress Note NAUSEA RESOLVED WITH ZOFRAN, AND PAIN SIGNIFICANTLY IMPROVED WITH FENTANYL PT STILL WITH GENERALIZED WEAKNESS, AND UNABLE TO STAND OR USE WALKER WITHOUT A SSIST PT INCONTINENT OF URINE--STATES IS NORMAL FOR HER, ESPECIALLY ON STANDING PT AND FAMILY DO NOT FEEL COMFORTABLE TAKING HER HOME DUE TO GENERALIZED WEAKNESS, AND CONCERNS FOR PAIN CONTROL AT HOME Departure Communication (Admissions) [id number]--SPOKE WITH DR. MAYA, HOSPITALIST SIGNAL OPERATOR TECHNICAL. ACCEPTS PT FOR ADMIT Impression Primary Impression: Post-op pain Additional Impressions: Postoperative back pain Hyponatremia Nausea and vomiting Generalized weakness Disposition: ADMITTED INPATIENT Condition: Improved Admissions Decision to Admit Reason: Admit from ER (General) Decision to Admit/Date: Mar 10, 2019 Time/Decision to Admit Time: 05:15 Departure-Patient Inst. Referrals: AI SEYD MD (PCP/Family) Primary Care Physician TONA AUGUSTINE DO Mar 10, 2019 04:20
[2019-03-10 05:31] LABS: BILIRUBIN,URINE NEGATIVE (NEGATIVE); CLARITY,URINE CLEAR; COLOR,URINE YELLOW; GLUCOSE, URINE (UA) NEGATIVE (NEGATIVE); KETONES,URINE 2+ (NEGATIVE); LEUKOCYTE ESTERASE ,URINE NEGATIVE (NEGATIVE); NITRITE,URINE NEGATIVE (NEGATIVE); PH,URINE 7 (5-9); PROTEIN,URINE NEGATIVE (NEGATIVE); UROBILINOGEN,URINE NORMAL (NORMAL)
--- OUTSIDE RECORDS SUMMARY | 2019-03-10 05:34 | XMS REPORT | Continuity of Care Document ---
Author Organization Unknown Address Unknown Allergies Active Description Code Type Severity Reaction Onset Reported/Identified Relationship to Patient Clinical Status Yes No Known Drug Allergies [id number] Drug Allergy Unknown N/A 08/25/2017 Medications There is no data. Problems Date Dx Coded Attending Type Code Diagnosis Diagnosed By 07/24/1623 AI SYED MD Ot R26.81 UNSTEADINESS ON FEET 07/24/1623 AI SYED MD Ot R42 DIZZINESS AND GIDDINESS 08/08/2014 ELVIA ARAUJO APRN Ot V76.12 02/02/2015 [...] IN BREAST 05/16/2016 Ot V76.12 OTH SCREEN MAMMO- MALIGN NEOPLASM OF EVA 05/16/2016 Ot 793.80 UNSPEC ABNORMAL MAMMOGRAM 05/16/2016 Ot V76.12 OTH SCREEN MAMMO- MALIGN NEOPLASM OF EVA 05/16/2016 AI SYED MD [...] IN BREAST 08/09/2016 Ot V76.12 OTH SCREEN MAMMO- MALIGN NEOPLASM OF EVA 08/09/2016 Ot 793.80 UNSPEC ABNORMAL MAMMOGRAM 08/09/2016 Ot V76.12 OTH SCREEN MAMMO- MALIGN NEOPLASM OF EVA 08/09/2016 AI SYED MD Ot 786.2 COUGH 08/09/2016 Heena PASTRANA MD Ot 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 08/09/2016 GUERITA CID DO Ot 590.9 INFECTION OF KIDNEY NOS 08/09/2016 VICTORIANO MATTHEWS, Heena ERAZO Ot 595.9 CYSTITIS NOS 08/09/2016 YAHAIRA MATTHEWS, AI Bowers Ot V76.12 OTH SCREEN MAMMO-MALIGN NEOPLASM OF EVA 08/09/2016 ELVIA ARAUJO APRN Ot V76.12 OTH SCREEN MAMMO-MALIGN NEOPLASM OF EVA 08/09/2016 YAHAIRA MATTHEWS, AI Bowers Ot 599.0 URIN TRACT INFECTION NOS 08/09/2016 ELVIA ARAUJO APRN Ot Z12.31 ENCNTR SCREEN MAMMOGRAM FOR MALIGNANT NE 08/09/2016 VICTORIANO MATTHEWS, Heena ERAZO Ot N39.0 URINARY TRACT INFECTION, SITE NOT SPECIF 08/09/2016 VICTORIANO MATTHEWS, Heena ERAZO Ot N95.2 POSTMENOPAUSAL ATROPHIC VAGINITIS 08/09/2016 VICTORIANO MATTHEWS, Heena ERAZO Ot R39.14 FEELING OF INCOMPLETE BLADDER EMPTYING 08/09/2016 ELVIA ARAUJO SIGN POSTER Ot Z12.31 ENCNTR SCREEN MAMMOGRAM FOR MALIGNANT NE 08/12/2016 ELVIA ARAUJO SIGN POSTER Ot Z12.31 ENCNTR SCREEN MAMMOGRAM FOR MALIGNANT NE 08/13/2016 ELVIA ARAUJO APRN Ot Z12.31 ENCNTR SCREEN MAMMOGRAM FOR MALIGNANT NE 08/15/2016 ELVIA ARAUJO SIGN POSTER Ot Z12.31 ENCNTR SCREEN MAMMOGRAM FOR MALIGNANT NE 09/06/2016 ELVIA ARAUJO APRN Ot Z12.31 ENCNTR SCREEN MAMMOGRAM FOR MALIGNANT NE 08/25/2017 ADI MATTHEWS, GIBRAN Stubbs Ot E78.00 PURE HYPERCHOLESTEROLEMIA, UNSPECIFIED 08/25/2017 GIBRAN JOSHI MD Ot J06.9 ACUTE UPPER RESPIRATORY INFECTION, UNSPE 08/25/2017 GIBRAN JOSHI MD Ot R05 COUGH 08/25/2017 GIBRAN JOSHI MD Ot Z90.710 ACQUIRED ABSENCE OF BOTH CERVIX AND UTER 08/31/2017 GIBRAN JOSHI MD Ot E78.00 PURE HYPERCHOLESTEROLEMIA, UNSPECIFIED 08/31/2017 GIBRAN JOSHI MD Ot J06.9 ACUTE UPPER RESPIRATORY INFECTION, UNSPE 08/31/2017 GIBRAN JOSHI MD Ot R05 COUGH 08/31/2017 GIBRAN JOSHI MD T Ot Z90.710 ACQUIRED ABSENCE OF BOTH CERVIX AND UTER 09/05/2017 YAHAIRA MATTHEWS, AI Bowers Ot Z12.31 ENCNTR SCREEN MAMMOGRAM FOR MALIGNANT NE 11/18/2017 JC GONZALEZ APRN Ot E78.00 PURE HYPERCHOLESTEROLEMIA, UNSPECIFIED 11/18/2017 JC GONZALEZ APRN Ot S00.83XA CONTUSION OF OTHER PART OF HEAD, INITIAL 11/18/2017 JC GONZALEZ APRN Ot S09.90XA UNSPECIFIED INJURY OF HEAD, INITIAL ENCO 11/18/2017 JC GONZALEZ APRN Ot W10.9XXA FALL (ON) (FROM) UNSPECIFIED STAIRS AND 11/18/2017 JC GONZALEZ APRN Ot Y92.[address] IN [facility] NON-INSTITUT (PRIVATE) 11/18/2017 JC GONZALEZ APRN Ot Z90.710 [...] GONZALEZ APRN Ot Y92.[address] IN [facility] NON-INSTITUT (PRIVATE) 11/20/2017 JC GONZALEZ APRN Ot Z90.710 ACQUIRED ABSENCE OF BOTH CERVIX AND UTER 01/14/2018 ANIBAL BELL MD Ot E78.00 PURE HYPERCHOLESTEROLEMIA, UNSPECIFIED 01/14/2018 ANIBAL BELL MD Ot H81.10 BENIGN PAROXYSMAL VERTIGO, UNSPECIFIED E 01/14/2018 ANIBAL BELL MD Ot R42 DIZZINESS AND GIDDINESS 01/14/2018 ANIBAL BELL MD Ot Z90.710 ACQUIRED ABSENCE OF BOTH CERVIX AND UTER 01/16/2018 ANIBAL BELL MD Ot E78.00 PURE HYPERCHOLESTEROLEMIA, UNSPECIFIED 01/16/2018 ANIBAL BELL MD Ot H81.10 BENIGN PAROXYSMAL VERTIGO, UNSPECIFIED E 01/16/2018 ANIBAL BELL MD Ot R42 DIZZINESS AND GIDDINESS 01/16/2018 ANIBAL BELL MD Ot Z90.710 ACQUIRED ABSENCE OF BOTH CERVIX AND UTER 03/13/2018 AI SYED MD Ot R26.81 UNSTEADINESS ON FEET 03/13/2018 AI SYED MD Ot R42 DIZZINESS AND GIDDINESS 04/14/2018 AI SYED MD Ot R26.81 UNSTEADINESS ON FEET 04/14/2018 AI SYED MD, Ot R42 DIZZINESS AND GIDDINESS 08/19/2018 DEUCE ASHLEY Ot Z12.31 ENCNTR SCREEN MAMMOGRAM FOR MALIGNANT NE 08/21/2018 DEUCE ASHLEY Ot Z12.31 ENCNTR SCREEN MAMMOGRAM FOR MALIGNANT NE 09/15/2018 DEUCE ASHLEY Ot Z12.31 ENCNTR SCREEN MAMMOGRAM FOR MALIGNANT NE 12/02/2018 Heena PASTRANA MD Ot 595.9 CYSTITIS NOS 12/02/2018 AI SYED MD Ot V76.12 OTH SCREEN MAMMO-MALIGN NEOPLASM OF EVA 12/02/2018 ELVIA ARAUJO APRN Ot V76.12 OTH SCREEN MAMMO-MALIGN NEOPLASM OF EVA 12/02/2018 AI SYED MD Ot 599.0 URIN TRACT INFECTION NOS 12/02/2018 ELVIA ARAUJO SIGN POSTER Ot Z12.31 ENCNTR SCREEN MAMMOGRAM FOR MALIGNANT NE 12/02/2018 Heena PASTRANA MD Ot N39.0 URINARY TRACT INFECTION, SITE NOT SPECIF 12/02/2018 Heena PASTRANA MD Ot N95.2 POSTMENOPAUSAL ATROPHIC VAGINITIS 12/02/2018 Heena PASTRANA MD Ot R39.14 FEELING OF INCOMPLETE BLADDER EMPTYING 12/02/2018 ELVIA ARAUJO SIGN POSTER Ot Z12.31 ENCNTR SCREEN MAMMOGRAM FOR MALIGNANT NE 12/02/2018 AI SYED MD Ot Z12.31 ENCNTR SCREEN MAMMOGRAM FOR MALIGNANT NE 12/02/2018 DEUCE ASHLEY Ot Z12.31 ENCNTR SCREEN MAMMOGRAM FOR MALIGNANT NE 12/02/2018 AI SYED MD Ot 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 12/02/2018 AI SYED MD Ot M89.9 DISORDER OF BONE, UNSPECIFIED 12/02/2018 Heena PASTRANA MD Ot 595.9 CYSTITIS NOS 12/02/2018 AI SYED MD Ot V76.12 OTH SCREEN MAMMO-MALIGN NEOPLASM OF EVA 12/02/2018 ELVIA ARAUJO APRN Ot V76.12 OTH SCREEN MAMMO-MALIGN NEOPLASM OF EVA 12/02/2018 AI SYED MD Ot 599.0 URIN TRACT INFECTION NOS 12/02/2018 ELVIA ARAUJO SIGN POSTER Ot Z12.31 ENCNTR SCREEN MAMMOGRAM FOR MALIGNANT NE 12/02/2018 Heena PASTRANA MD Ot N39.0 URINARY TRACT INFECTION, SITE NOT SPECIF 12/02/2018 Heena PASTRANA MD Ot N95.2 POSTMENOPAUSAL ATROPHIC VAGINITIS 12/02/2018 Heena PASTRANA MD Ot R39.14 FEELING OF INCOMPLETE BLADDER EMPTYING 12/02/2018 ELVIA ARAUJO SIGN POSTER Ot Z12.31 ENCNTR SCREEN MAMMOGRAM FOR MALIGNANT NE 12/02/2018 AI SYED MD Ot Z12.31 ENCNTR SCREEN MAMMOGRAM FOR MALIGNANT NE 12/02/2018 DEUCE ASHLEY Ot Z12.31 ENCNTR SCREEN MAMMOGRAM FOR MALIGNANT NE 12/02/2018 AI SYED MD Ot 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 12/02/2018 AI SYED MD Ot M89.9 DISORDER OF BONE, UNSPECIFIED 12/04/2018 AI SYED MD Ot 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, 12/04/2018 AI SYED MD Ot I67.82 CEREBRAL ISCHEMIA 12/04/2018 AI SYED MD Ot R51 HEADACHE 12/04/2018 AI SYED MD Ot W19.XXXA UNSPECIFIED FALL, INITIAL ENCOUNTER 12/18/2018 AI SYED MD Ot 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 12/18/2018 AI SYED MD Ot M89.9 DISORDER OF BONE, UNSPECIFIED 12/24/2018 AI SYED MD Ot 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 Results There is no data. Encounters ACCT No. Visit Date/Time Discharge Status Pt. Type Provider Facility Loc./Unit Complaint [id number] 02/23/2019 14:34:00 02/23/2019 23:59:59 CLS Outpatient ELVIA ARAUJO APRN [facility] RAD LOW BACK PAIN [id number] 12/03/2018 15:19:00 12/03/2018 23:59:59 CLS Outpatient AI SYED MD [facility] RAD DIZZINESS [id number] 11/26/2018 11:20:00 11/26/2018 23:59:59 CLS Outpatient AI SYED MD [facility] RAD NECK PAIN [id number] 08/20/2018 10:19:00 08/20/2018 23:59:59 CLS Outpatient DEUCE ASHLEY [facility] RAD SCREENING [id number] 04/14/2018 14:12:00 04/14/2018 16:24:00 DIS Outpatient AI SYED MD [facility] REHAB VERTIGO;GAIT STABILIZATION [id number] 01/14/2018 11:00:00 01/14/2018 12:45:00 DIS Emergency ANIBAL BELL MD [facility] ER DIZZINESS [id number] 11/18/2017 16:18:00 11/18/2017 17:23:00 DIS Emergency JC GONZALEZ APRN [facility] ER FALL;HEAD INJ [id number] 08/25/2017 09:03:00 08/25/2017 10:25:00 DIS Emergency GIBRAN JOSHI MD [facility] ER COUGH;FLU SYMPTOMS [id number] 08/15/2017 10:02:00 08/15/2017 23:59:59 CLS Outpatient AI SYED MD [facility] RAD SCREENING [id number] 08/09/2016 10:29:00 08/09/2016 23:59:59 CLS Outpatient ELVIA ARAUJO APRN [facility] RAD SCREENING [id number] 05/16/2016 10:22:00 05/16/2016 23:59:59 CLS Outpatient Heena PASTRANA MD [facility] RAD UTI, INCOMPLETE BLADDER EMPTYING, VAGINAL ATROPHY [id number] 08/08/2015 13:57:00 08/08/2015 23:59:59 CLS Outpatient ELVIA ARAUJO APRN [facility] RAD SCREENING [id number] 01/11/2015 11:21:00 01/11/2015 23:59:59 CLS Outpatient AI SYED MD [facility] LAB UTI [id number] 07/13/2014 09:16:00 07/13/2014 23:59:59 CLS Outpatient ELVIA ARAUJO APRN [facility] RAD SCREENING [id number] 07/12/2013 11:23:00 07/12/2013 23:59:59 CLS Outpatient Heena PASTRANA MD [facility] RAD BLADDER INFECTION [id number] 07/12/2013 11:21:00 07/12/2013 23:59:59 CLS Outpatient AI SYED MD [facility] RAD SCREENING [id number] 06/07/2013 13:47:00 06/07/2013 23:59:59 CLS Outpatient GUERITA CID DO [facility] LAB FREQUENT KIDNEY INFECTIONS [id number] 05/04/2013 10:46:00 05/04/2013 23:59:59 CLS Outpatient Heena PASTRANA MD [facility] RAD CHRONIC CYSTITIS [id number] 04/12/2013 13:01:00 04/12/2013 23:59:59 CLS Outpatient AI SYED MD [facility] RAD PERSISTANT COUGH [id number] 07/10/2012 10:51:00 Document Registration [id number] 07/02/2011 14:11:00 Document Registration [id number] 06/14/2011 09:17:00 Document Registration [id number] 06/11/2010 07:31:00 Document Registration
[2019-03-10 05:43] LABS: BACTERIA,URINE LARGE /HPF; SQUAMOUS EPITHELIAL CELL,UR 0-2 /HPF; WBC,URINE 0-2 /HPF
[2019-03-10 06:00] VITALS: BP_SYST 132; BP_SYST 152; BP_DIAS 66
--- NOTE | 2019-03-10 06:00 | NUR ---
LORRIE CHAVEZ admitted to room 433-1, with an admitting diagnosis of Postop back pain; s/p L4 Kyphoplasty; hyponatremia, generalized weakness; nausea/vomiting, on 03/10/19 from ER via bed, accompanied by KAMRAN Wall. LORRIE CHAVEZ introduced to surroundings, call light, bed controls, phone, TV, temperature control, lights, meal times, smoking policy, visitor policy, side rail policy, bathrooms and showers. Patient Rights given to patient in the handbook. LORRIE CHAVEZ verbalizes understanding that [facility] is not responsible for the loss or damage to any personal effects or valuables that are kept in the patients possession during their hospitalization.
[2019-03-10 06:15] VITALS: BP 152/66
[2019-03-10] MEDS ORDERED: NS IV 1000 ML 1,000 ML ONE (06:22)
[2019-03-10] MEDS ORDERED: NS IV 1000 ML 1,000 ML IV SCH (06:45)
[2019-03-10] MEDS ORDERED: ONDANSETRON 4 MG/2 ML (SDV) Z0FRAN IV PRN (06:45)
[2019-03-10] MEDS ORDERED: fentaNYL INJECTION 100 MCG/2 ML AMP IV PRN (06:45)
--- NOTE | 2019-03-10 06:54 | NUR ---
SUDEEP Pitts notified of Dr. Moreno consult.
[2019-03-10 08:00] VITALS: BP 148/65
[2019-03-10] MEDS ORDERED: POLY15DR14 OU (09:34)
[2019-03-10] MEDS ORDERED: MECL-106 PO (09:34)
[2019-03-10] MEDS ORDERED: TRAM50TA2 PO (09:34)
[2019-03-10] MEDS ORDERED: EST30C VG (09:34)
--- NOTE | 2019-03-10 09:35 | NUR ---
SPOKE WITH THE PATIENT ABOUT HER MEDICATIONS. SHE LISTED WHAT SHE IS TAKING AND I VERIFIED IT WITH THE EXT MED HX. SHE STATES SHE IS NO LONGER TAKING TIZANIDINE. SHE TAKES MECLIZINE PRN AND ARTIFICIAL TEARS OTC PRN.
--- NOTE | 2019-03-10 10:25 | Short Stay Summary-Hospitalist ---
History of Present Illness HPI/Chief Complaint Pt is an 88yoCF who underwent lumbar surgery at [place] [address] Moreno presented to the ER due to weakness. She states that she was discharged following surgery and had progressive generalized weakness. Her helped her to the bathroom and it took around 20m to do this so they decided to bring her to the ER for evaluation. She states her pain is better today and rates it a 5/10 whereas yesterday it was 10/10. She has not yet worked with therapy but is already requesting discharge home. Source: patient Exam Limitations: no limitations Date Seen 03/10/19 Time Seen by a Provider: 10:21 Attending Physician Eduardo Ozuna MD PCP Reji Ortiz MD Referring Physician Date of Admission Mar 10, 2019 at 5:15 am Home Medications & Allergies Home Medications Reviewed patient Home Medication Reconciliation performed by pharmacy medication reconciliations air and hydronic balancing technician and/or nursing. Patients Allergies have been reviewed. Allergies Allergies Coded Allergies cephalexin (Verified Allergy, Mild, 03/10/19) ciprofloxacin (Verified Allergy, Mild, 03/10/19) nitrofurantoin (Verified Allergy, Mild, 03/10/19) codeine (Verified Allergy, Unknown, 03/10/19) sulfamethoxazole (Verified Allergy, Unknown, 03/10/19) trimethoprim (Verified Allergy, Unknown, 03/10/19) Past [place] Hx Past Med/Social Hx: Reviewed Nursing Past Med/Soc Hx Patient Social History Marrital Status: Alcohol Use: Denies Use Recreational Drug Use: No Smoking Status: Never a Smoker Recent Foreign Travel: No Contact w/other who traveled: No Recent Hopitalizations: No Recent Infectious Disease Expo: No Immunizations Up To Date Tetanus Booster (TDap): Less than 5yrs Pediatric: Yes Date of Pneumonia Vaccine: May 25, 2015 Past Medical History Surgeries: Gallbladder, Hysterectomy, Orthopedic Cardiac: High Cholesterol : No Menopausal Musculoskeletal: Chronic Back Pain, Fractures Family History Reviewed Nursing Family Hx Arthritis 19 FATHER Kidney disease 19 MOTHER Review of Systems Constitutional: No fever; weakness EENTM: no symptoms reported Respiratory: no symptoms reported Cardiovascular: no symptoms reported Gastrointestinal: no symptoms reported Genitourinary: no symptoms reported Musculoskeletal: back pain, muscle weakness Skin: no symptoms reported Psychiatric/Neurological: No Symptoms Reported Physical Exam Physical Exam Vital Signs Vital Signs - First Documented 03/10/19 03:33 Temp 97.8 Pulse 94 Resp 20 B/P (MAP) 186/102 (130) Pulse Ox 96 O2 Delivery Room Air Capillary Refill : NONELess Than 3 Seconds Height, Weight, BMI Height: 5'0.00" Weight: 103lbs. 6.4oz. 46.547671qn; 20.2 BMI Method:Stated General Appearance: No Apparent Distress, WD/WN HEENT: Moist Mucous Membranes; No Scleral Icterus (L), No Scleral Icterus (R) Neck: Normal Inspection, Supple; No Thyromegaly Respiratory: Lungs Clear, No Accessory Muscle Use, No Respiratory Distress Cardiovascular: Regular Rate, Rhythm, No Edema, No Murmur Gastrointestinal: Normal Bowel Sounds, Non Tender, Soft Back: Other (TENDERNESS TO LUMBAR AREA./SURGICAL SITE) Extremity: Normal Inspection, No Calf Tenderness, No Pedal Edema Neurologic/Psychiatric: Alert, Oriented x3, Normal Mood/Affect; No Aphasia, No Facial Droop Skin: Normal Color, Warm/Dry Results Results/Procedures Labs Laboratory Tests 03/10/19 03:35 Patient resulted labs reviewed. Short Stay Diagnosis Discharge Diagnosis-Short Stay Admission Diagnosis Postoperative pain Final Discharge Diagnosis Postoperative pain Conclusion Plan Postoperative pain Generalized weakness Plan PT/OT Pain control Appropriate candidate for IRU which I recommended to patient Can DC to IRU if agreeable Diagnosis/Problems Diagnosis/Problems (1) Postoperative back pain Status: Acute Clinical Quality Measures DVT/VTE Risk/Contraindication: Risk Factor Score Per Nursin RFS Level Per Nursing on Admit: 4+=Very High ANASTASIA BROTHERS MD Mar 10, 2019 10:25 am
[2019-03-10] MEDS ORDERED: MECLIZINE 25 MG (ANTIVERT) TAB PO PRN (11:00)
[2019-03-10] MEDS ORDERED: ARTIFICAL TEARS 0.4 ML UNIT DOSE (REFRESH PLUS) OU PRN (11:15)
[2019-03-10 12:00] VITALS: BP 164/91
--- NOTE | 2019-03-10 13:39 | NUR ---
CM/SS patient is a candidate for IRF and is agreeable to go after some consideration and conversations with her spouse and her son. Attempted to refer patient's spouse to the Meals on Wheels program with no answer. Provided the number for [employer] Whe[employer] to the son for them to make arrangements. Patient's son also stops in on a daily basis to check on them.
[2019-03-10] MEDS ORDERED: ATORVASTATIN 20 MG (LIPITOR) TABLET PO SCH (21:00)
[2019-03-15] MEDS ORDERED: POTA10TA36 PO (09:07)
[2019-03-15] MEDS ORDERED: ACET-77 PO (09:07)
== END 2019-03-10 13:15 ==
LOC: EDUNIT# 03:27 → ER 03:29 → UNDOADMOB 05:15 → 4TH 05:15 → UNDODISOB 14:00
PROVIDERS: ADMIT Internal Medicine; ATTEND Internal Medicine
DX: G89.18 Other acute postprocedural pain (principal); M62.81 Muscle weakness (generalized); M54.9 Dorsalgia, unspecified; E87.1 Hypo-osmolality and hyponatremia; E78.00 Pure hypercholesterolemia, unspecified; Z98.1 Arthrodesis status; Z90.710 Acquired absence of both cervix and uterus; Z88.1 Allergy status to other antibiotic agents; Z88.2 Allergy status to sulfonamides; Z88.5 Allergy status to narcotic agent; Z79.52 Long term (current) use of systemic steroids; Z82.61 Family history of arthritis; Z84.1 Family history of disorders of kidney and ureter; Z79.891 Long term (current) use of opiate analgesic; Z79.899 Other long term (current) drug therapy
CPT/HCPCS: 36415; 80053; 81000; 85025; 87077; 87088; 87186; 96361; 96374; 96375; G0378

== ENCOUNTER 2019-03-10 13:00 | Inpatient (IN) | payer MEDICARE ==
[~2019-03-10] VITALS: Ht 152.4 cm; Wt 50.9 kg
[~2019-03-10 13:00] MED LIST changes: +EST30C VG; +POLY15DR14 OU; +TRAM50TA2 PO
[2019-03-10 14:30] VITALS: BP 173/91
--- NOTE | 2019-03-10 14:30 | NUR ---
LORRIE CHAVEZ admitted to room 227-1, with an admitting diagnosis of S/P KYPHOPLASTY, on 03/10/[address] [facility] [address] via , accompanied by STAFF AND FAMILY. LORRIE CHAVEZ introduced to surroundings, call light, bed controls, phone, TV, temperature control, lights, meal times, smoking policy, visitor policy, side rail policy, bathrooms and showers. Patient Rights given to patient in the handbook.LORRIE CHAVEZ verbalizes understanding that [facility] is not responsible for the loss or damage to any personal effects or valuables that are kept in the patients posession during their hospitalization. The following Patient Care Plans were discussed with the PT: Discharge Planning AND BACK PAIN. LORRIE CHAVEZ verbalizes understanding of Interdisciplinary Patient Education. Patient received Patient Rights Booklet, which includes Privacy Act Statement and Data Collection Information Summary. FAMILY AT BEDSIDE. DENIES PAIN AT THIS TIME. IS HYPERTENSIVE AT 194/74 - WILL CONTINUE TO MONITOR.
[2019-03-10 14:45] VITALS: BP 152/53
--- NOTE | 2019-03-10 14:48 | NUR ---
REVIEWED MED REC IT WAS REPORTED UPON ADMISSION TO 4TH FLOOR. NO CHANGES WERE MADE WHEN THE PATIENT DISCHARGED TO REHAB.
--- OUTSIDE RECORDS SUMMARY | 2019-03-10 14:59 | XMS REPORT | Continuity of Care Document ---
Author Organization Unknown Address Unknown Allergies Active Description Code Type Severity Reaction Onset Reported/Identified Relationship to Patient Clinical Status Yes No Known Drug Allergies [id number] Drug Allergy Unknown N/A 08/25/2017 Medications There [...] SCREEN MAMMO-MALIGN NEOPLASM OF EVA 08/09/2016 YAHAIRA MATTHESW, AI Bowers Ot 599.0 URIN TRACT INFECTION NOS 08/09/2016 ELVIA ARAUJO APRN Ot Z12.31 ENCNTR SCREEN MAMMOGRAM FOR MALIGNANT NE 08/09/2016 VICTORIANO MATTHEWS, Heena ERAZO Ot N39.0 URINARY TRACT INFECTION, SITE NOT SPECIF 08/09/2016 VICTORIANO MATTHEWS, Heena ERAZO Ot N95.2 POSTMENOPAUSAL ATROPHIC VAGINITIS 08/09/2016 VICTORIANO MATTHEWS, Heena ERAZO Ot R39.14 FEELING OF INCOMPLETE BLADDER EMPTYING 08/09/2016 ELVIA ARAUJO ASSOCIATE FINANCIAL ANALYST Ot Z12.31 ENCNTR SCREEN MAMMOGRAM FOR MALIGNANT NE 08/12/2016 ELVIA ARAUJO ASSOCIATE FINANCIAL ANALYST Ot Z12.31 ENCNTR SCREEN MAMMOGRAM FOR MALIGNANT NE 08/13/2016 ELVIA ARAUJO APRN Ot Z12.31 ENCNTR SCREEN MAMMOGRAM FOR MALIGNANT NE 08/15/2016 ELVIA ARAUJO ASSOCIATE FINANCIAL ANALYST Ot Z12.31 ENCNTR SCREEN MAMMOGRAM FOR MALIGNANT [...] GONZALEZ APRN Ot Y92.[address] IN [facility] NON-INSTIT[facility] (PRIVATE) 11/18/2017 JC GONZALEZ APRN Ot [...] GONZALEZ APRN Ot Y92.[address] IN [facility] NON[facility] (PRIVATE) 11/20/2017 JC GONZALEZ APRN Ot [...] URIN TRACT INFECTION NOS 12/02/2018 ELVIA ARAUJO ASSOCIATE FINANCIAL ANALYST Ot Z12.31 ENCNTR SCREEN MAMMOGRAM FOR MALIGNANT NE 12/02/2018 Heena PASTRANA MD Ot N39.0 URINARY TRACT INFECTION, SITE NOT SPECIF 12/02/2018 Heena PASTRANA MD Ot N95.2 POSTMENOPAUSAL ATROPHIC VAGINITIS 12/02/2018 Heena PASTRANA MD Ot R39.14 FEELING OF INCOMPLETE BLADDER EMPTYING 12/02/2018 ELVIA ARAUJO ASSOCIATE FINANCIAL ANALYST Ot Z12.31 ENCNTR SCREEN MAMMOGRAM FOR MALIGNANT [...] 599.0 URIN TRACT INFECTION NOS 12/02/2018 ELVIA RAAUJO ASSOCIATE FINANCIAL ANALYST Ot Z12.31 ENCNTR SCREEN MAMMOGRAM FOR MALIGNANT NE 12/02/2018 Heena PASTRANA MD Ot N39.0 URINARY TRACT INFECTION, SITE NOT SPECIF 12/02/2018 Heena PASTRANA MD Ot N95.2 POSTMENOPAUSAL ATROPHIC VAGINITIS 12/02/2018 Heena PASTRANA MD Ot R39.14 FEELING OF INCOMPLETE BLADDER EMPTYING 12/02/2018 ELVIA ARAUJO ASSOCIATE FINANCIAL ANALYST Ot Z12.31 ENCNTR SCREEN MAMMOGRAM FOR MALIGNANT [...] LUM Procedures There is no data. Results Test Result Range Complete blood count (CBC) with automated white blood cell (WBC) differential - 03/10/19 03:35 Blood leukocytes automated count (number/volume) 7.1 10*3/uL 4.3-11.0 Blood erythrocytes automated count (number/volume) 4.14 10*6/uL 4.35-5.85 Venous blood hemoglobin measurement (mass/volume) 12.6 g/dL 11.5-16.0 Blood hematocrit (volume fraction) 38 % 35-52 Automated erythrocyte mean corpuscular volume 91 [foz_us] 80-99 Automated erythrocyte mean corpuscular hemoglobin (mass per erythrocyte) 30 pg 25-34 Automated erythrocyte mean corpuscular hemoglobin concentration measurement (mass/volume) 33 g/dL 32-36 Automated erythrocyte distribution width ratio 13.6 % 10.0- 14.5 Automated blood platelet count (count/volume) 183 10*3/uL 130-400 Automated blood platelet mean volume measurement 9.1 [foz_us] 7.4-10.4 Automated blood neutrophils/100 leukocytes 85 % 42-75 Automated blood lymphocytes/100 leukocytes 7 % 12-44 Blood monocytes/100 leukocytes 8 % 0-12 Automated blood eosinophils/100 leukocytes 1 % 0-10 Automated blood basophils/100 leukocytes 0 % 0-10 Blood neutrophils automated count (number/volume) 6.0 10*3 1.8-7.8 Blood lymphocytes automated count (number/volume) 0.5 10*3 1.0-4.0 Blood monocytes automated count (number/volume) 0.5 10*3 0.0- 1.0 Automated eosinophil count 0.0 10*3/uL 0.0-0.3 Automated blood basophil count (count/volume) 0.0 10*3/uL 0.0-0.1 Comprehensive metabolic panel - 03/10/19 03:35 Serum or plasma sodium measurement (moles/volume) 126 mmol/L 135-145 Serum or plasma potassium measurement (moles/volume) 3.7 mmol/L 3.6-5.0 Serum or plasma chloride measurement (moles/volume) 88 mmol/L 98-107 Carbon dioxide 24 mmol/L 21-32 Serum or plasma anion gap determination (moles/volume) 14 mmol/L 5-14 Serum or plasma urea nitrogen measurement (mass/volume) 11 mg/dL 7-18 Serum or plasma creatinine measurement (mass/volume) 0.83 mg/dL 0.60-1.30 Serum or plasma urea nitrogen/creatinine mass ratio 13 NRG Serum or plasma creatinine measurement with calculation of estimated glomerular filtration rate > NRG Serum or plasma glucose measurement (mass/volume) 152 mg/dL 70-105 Serum or plasma calcium measurement (mass/volume) 10.2 mg/dL 8.5-10.1 Serum or plasma total bilirubin measurement (mass/volume) 0.8 mg/dL 0.1-1.0 Serum or plasma alkaline phosphatase measurement (enzymatic activity/volume) 123 U/L 40-136 Serum or plasma aspartate aminotransferase measurement (enzymatic activity/volume) 39 U/L 5-34 Serum or plasma alanine aminotransferase measurement (enzymatic activity/volume) 32 U/L 0-55 Serum or plasma protein measurement (mass/volume) 7.2 g/dL 6.4-8.2 Serum or plasma albumin measurement (mass/volume) 4.0 g/dL 3.2-4.5 CALCIUM CORRECTED 10.2 mg/dL 8.5-10.1 Complete urinalysis with reflex to culture - 03/10/19 05:22 Urine color determination YELLOW NRG Urine clarity determination CLEAR NRG Urine pH measurement by test strip 7 5-9 Specific gravity of urine by test strip 1.010 1.016-1.022 Urine protein assay by test strip, semi-quantitative NEGATIVE NEGATIVE Urine glucose detection by automated test strip NEGATIVE NEGATIVE Erythrocytes detection in urine sediment by light microscopy NEGATIVE NEGATIVE Urine ketones detection by automated test strip 2+ NEGATIVE Urine nitrite detection by test strip NEGATIVE NEGATIVE Urine total bilirubin detection by test strip NEGATIVE NEGATIVE Urine urobilinogen measurement by automated test strip (mass/volume) NORMAL NORMAL Urine leukocyte esterase detection by dipstick NEGATIVE NEGATIVE Automated urine sediment erythrocyte count by microscopy (number/high power field) NONE NRG Automated urine sediment leukocyte count by microscopy (number/high power field) [HPF] NRG Bacteria detection in urine sediment by light microscopy LARGE NRG Squamous epithelial cells detection in urine sediment by light microscopy 0-2 NRG Crystals detection in urine sediment by light microscopy NONE NRG Casts detection in urine sediment by light microscopy NONE NRG Mucus detection in urine sediment by light microscopy NEGATIVE NRG Complete urinalysis with reflex to culture YES NRG Encounters ACCT No. Visit Date/Time Discharge Status Pt. Type Provider Facility Loc./Unit Complaint [id number] 02/23/2019 14:34:00 02/23/2019 23:59:59 CLS Outpatient ELVIA ARAUJO APRN [facility] RAD LOW BACK PAIN [id number] 12/03/2018 15:19:00 12/03/2018 23:59:59 CLS Outpatient AI SYED MD [facility] RAD DIZZINESS [id number] 11/26/2018 11:20:00 11/26/2018 23:59:59 CLS Outpatient AI SYED MD [facility] RAD NECK PAIN [id number] 08/20/2018 10:19:00 08/20/2018 23:59:59 CLS Outpatient EDUCE ASHLEY [facility] RAD SCREENING [id number] 04/14/2018 14:12:00 04/14/2018 16:24:00 DIS Outpatient AI SYED MD [facility] REHAB VERTIGO;GAIT STABILIZATION [id number] 01/14/2018 11:00:00 01/14/2018 12:45:00 DIS Emergency ANIBAL BELL MD [facility] ER DIZZINESS [id number] 11/18/2017 16:18:00 11/18/2017 17:23:00 DIS Emergency JC GONZALEZ APRN [facility] ER FALL;HEAD INJ [id number] 08/25/2017 09:03:00 08/25/2017 10:25:00 DIS Emergency GIBRAN JOSHI MD [facility] ER COUGH;FLU SYMPTOMS [id number] 08/15/2017 10:02:00 08/15/2017 23:59:59 CLS Outpatient AI SYED MD [facility] RAD SCREENING [id number] 08/09/2016 10:29:00 08/09/2016 23:59:59 CLS Outpatient ELVIA ARAUJO APRN [facility] RAD SCREENING [id number] 05/16/2016 10:22:00 05/16/2016 23:59:59 CLS Outpatient Heena PASTRANA MD [facility] RAD UTI, INCOMPLETE BLADDER EMPTYING, VAGINAL ATROPHY [id number] 08/08/2015 13:57:00 08/08/2015 23:59:59 CLS Outpatient ELVIA ARAUJO APRN [facility] RAD SCREENING [id number] 01/11/2015 11:21:00 01/11/2015 23:59:59 CLS Outpatient AI SYED MD [facility] LAB UTI [id number] 07/13/2014 09:16:00 07/13/2014 23:59:59 CLS Outpatient ELVIA ARAUJO APRN [facility] RAD SCREENING [id number] 07/12/2013 11:23:00 07/12/2013 23:59:59 CLS Outpatient Heena PASTRANA MD [facility] RAD BLADDER INFECTION [id number] 07/12/2013 11:21:00 07/12/2013 23:59:59 CLS Outpatient AI SYED MD [facility] RAD SCREENING [id number] 06/07/2013 13:47:00 06/07/2013 23:59:59 CLS Outpatient GUERITA CID DO [facility] LAB FREQUENT KIDNEY INFECTIONS [id number] 05/04/2013 10:46:00 05/04/2013 23:59:59 CLS Outpatient Heena PASTRANA MD [facility] RAD CHRONIC CYSTITIS [id number] 04/12/2013 13:01:00 04/12/2013 23:59:59 CLS Outpatient AI SYED MD [facility] RAD PERSISTANT COUGH [id number] 03/10/2019 03:44:00 Document Registration [id number] 07/10/2012 10:51:00 Document Registration [id number] 07/02/2011 14:11:00 Document Registration [id number] 06/14/2011 09:17:00 Document Registration [id number] 06/11/2010 07:31:00 Document Registration
--- NOTE | 2019-03-10 15:40 | Occupational Therapy Eval ---
OT Evaluation-General/PLF Medical Diagnosis Admission Date Mar 10, 2019 at 14:00 Medical Diagnosis: Kyphoplasty Onset Date: Mar 09, 2019 Therapy Diagnosis Therapy Diagnosis: Weakness Height/Weight Height (Feet): 5 Height (Inches): 0.00 Weight (Pounds): 103 Weight (Ounces): 6.4 Weight Bear Status Weight Bearing Restriction: Weight Bearing/Tolerated Referral Physician: Giovani Referral Reason: Activity Tolerance, Self Care, Evaluation/Treatment, Strengthe jeni/ROM Medical History Current History Per pt. and family report, pt. has had significant back pain for three weeks. Underwent kyphoplasty and then released home. Became very weak and nauseated. Family called ambulance at 3:00 in a.m. Reviewed History: Yes Social History Home: Single Level Current Living Status: Spouse Entry Into Home: Stairs With Railing Steps Into Home: 2 ADL-Prior Level of Function Therapy Code Descriptions/Definitions Functional Bryan Measure: 0=Not Assessed/NA 4=Minimal Assistance 1=Total Assistance 5=Supervision or Setup 2=Maximal Assistance 6=Modified Bryan 3=Moderate Assistance 7=Complete Bryan Therapy Quality Codes: 6 Independent with activity with or without an assistive device 5 Patient requires set up or clean up by helper. Patient completes activity by themselves 4 Supervision or touching assist (CGA). [place] provide cues , steadying assist 3 The helper provides less than half the effort to complete the activity 2 The helper provides more than half the effort to complete the activity 1 Dependent. The helper does all the effort to complete an activity 7 Patient refused to complete or attempt activity 9 The patient did not perform the activity before the current illness or injury 88 Not attempted due to Medical conditions or safety concerns Functional Abilities and Goals: Independent: Patient completed the activities by him/herself, with or without an assistive device, with no assistance from a helper. Needed Some Help: Patient needed partial assistance from another person to co mplete activities. Dependent: A helper completed the activities for the patient. Unknown: Not Applicable: ADL PLOF Comments Pt. was independent previous to this hospitalization with basic ADL skills. Self Care: Independent Functional Cognition: Independent DME/Equipment: Bath Chair, Tub/Shower DME/Equipment Comments Pt. has a 4 wheeled walker and cane. 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 reports no pain, but states that she feels nauseated and weak. Nursing aware and monitoring pt. Appearance Pt. up in chair when OT entered room. Mental Status/Objective Patient Orientation: Person Current Glasses/Contacts: Yes ADL-Treatment Lower Body Dressing (FIM): 4 (CGA while seated to bring foot up to her to doff/don slipper socks. CGA on toilet to don fresh depend brief.) Lower Body Dressing (QC): 4 On/Off Footwear (QC): 4 Toileting (FIM): 4 Toileting Hygiene (QC): 4 Transfers (B, C, W/C) (FIM): 4 Toilet/Commode Transfer (FIM): 4 Toilet Transfer (QC): 4 Pt. declines showering or sponge bathing, as she is nauseated. OT/PT completed co-treat due to pt's fatigue and illness issues. OT facilitated transfer training with LE ADLs, toileting, while PT initiated balance strategies while in stance for ADLs, as well as mobility for independence. PT initiated correct transfer training while OT encouraged back safety and proper precautions to keep back from hurting. At end of treatment, pt. back in bed with all needs met. Pt. and family is educated about OT goals and rehab goals. Education OT Patient Education: Correct positioning, Energy conservation, Modified ADL techniques, Progress toward Goal/Update tx plan, Purpose of tx/functional activities, Reviewed precautions, Rehab process, Transfer techniques Teaching Recipient: Patient Teaching Methods: Demonstration, Discussion Response to Teaching: Verbalize Understanding, Return Demonstration OT Short Term Goals Short Term Goals Time Frame: Mar 17, 2019 Eating(FIM): 6 Grooming(FIM): 5 Bathing(FIM): 4 Upper Body Dressing(FIM): 5 Lower Body Dressing(FIM): 5 Toileting(FIM): 5 Transfers (B,C,W/C) (FIM): 5 Toilet/Commode Transfer(FIM): 5 Shower Transfer(FIM): 4 Additional Short Term Goals: 1-Demonstrate ADL Tasks, 2-Verbalize Understanding, 3-ImproveStrength/Ayleen 1=Demonstrate adherence to instructed precautions during ADL tasks. 2=Patient will verbalize/demonstrate understanding of assistive devices/m odifications for ADL. 3=Patient will improve strength/tolerance for activity to enable patient to perform ADL's. OT Penitentiary Goals Penitentiary Goals Time Frame: Mar 24, 2019 Eating (FIM): 6 Eating (QC): 6 Groomin Oral Hygiene (QC): 6 Bathing(FIM): 5 Shower/Bathe Self (QC): 4 Upper Body Dressing(FIM): 6 Upper Body Dressing (QC): 6 Lower Body Dressing(FIM): 6 Lower Body Dressing (QC): 6 On/Off Footwear (QC): 6 Toileting(FIM): 6 Toileting Hygiene (QC): 6 Transfers (B,C,W/C) (FIM): 6 Toilet/Commode Transfer(FIM): 6 Toilet/Commode Transfer (QC): 6 Shower Transfer(FIM): 5 Additional Goals: 1-Demonstrate ADL Tasks, 2-Verbalize Understanding, 3- ImproveStrength/Ayleen 1=Demonstrate adherence to instructed precautions during ADL tasks. 2=Patient will verbalize/demonstrate understanding of assistive devices/modifications for ADL. 3=Patient will improve strength/tolerance for activity to enable patient to perform ADL's. OT Education/Plan Problem List/Assessment Assessment: Decreased Activ Tolerance, Decreased UE Strength, Dependent Transfers, Impaired Bed Mobility, Impaired Funct Balance, Impaired I ADL's, Impaired Self-Care Skills Discharge Recommendations Plan/Recommendations: Continue POC Therapy D/C Recommendations: Home w/ Family Support, Occupational Therapy Home Care Treatment Plan/Plan of Care Treatment,Training & Education: Yes Patient would benefit from OT for education, treatment and training to promote independence in ADL's, mobility, safety and/or upper extremity function for ADL's. Plan of Care: ADL Retraining, Functional Mobility, Group Exercise/Act as Ind, UE Funct Exercise/Act Treatment Duration: Mar 24, 2019 Frequency: At least 5 of 7 days/Wk (IRF) Estimated Hrs Per Day: 1.5 hours per day Agreement: Yes Rehab Potential: Good Time/GCodes Start Time: 14:10 Stop Time: 15:30 Total Time Billed (hr/min): 80 Billed Treatment Time [id number] 1, EVM x 10minutes [id number] ADL x 35minutes, FA x 35minutes- co-treat with PT. Please see above note for designated roles. JOSE RAMON CÁRDENAS OT Mar 10, 2019 15:40
--- NOTE | 2019-03-10 15:48 | Physical Therapy Evaluation ---
PT Evaluation-General Medical Diagnosis Admission Date Mar 10, 2019 at 14:00 Medical Diagnosis: Lumbar kyphoplasty (L4) Onset Date: Mar 10, 2019 Therapy Diagnosis Therapy Diagnosis: abnormal gait Height/Weight Height (Feet): 5 Height (Inches): 0.00 Weight (Pounds): 112 Weight (Ounces): 4.0 Precautions Precautions/Isolations: Standard Precautions Referral Physician: Giovani Reason for Referral: Evaluation/Treatment Medical History Additional Medical History High cholesterol Current History Pt reports she sustained a fall approximately 1 year ago and has experienced back pain since that time. She reports that she underwent a L4 kyphoplasty at [address] yesterday (03/09/19) and was discharged home post operatively. She reports in the night, she was experiencing weakness, pain and nausea and was transported to [facility] via ambulance. She has been admitted to ARU for skilled therapy services Reviewed History: Yes Social History Home: Single Level Current Living Status: Spouse Entry Into Home: Stairs With Railing PT Steps Into Home: 3 Prior/Core FIM Prior Level of Function Therapy Code Descriptions/Definitions Functional [place] Measure: 0=Not Assessed/NA 4=Minimal Assistance 1=Total Assistance 5=Supervision or Setup 2=Maximal Assistance 6=Modified [place] 3=Moderate Assistance 7=Complete [place] Therapy Quality Codes: 6 Independent with activity with or without an assistive device 5 Patient requires set up or clean up by helper. Patient completes activity by themselves 4 Supervision or touching assist (CGA). [place] provide cues , steadying assist 3 The helper provides less than half the effort to complete the activity 2 The helper provides more than half the effort to complete the activity 1 Dependent. The helper does all the effort to complete an activity 7 Patient refused to complete or attempt activity 9 The patient did not perform the activity before the current illness or injury 88 Not attempted due to Medical conditions or safety concerns Functional Abilities and Goals: Independent: Patient completed the activities by him/herself, with or without an assistive device, with no assistance from a helper. Needed Some Help: Patient needed partial assistance from another person to compl ete activities. Dependent: A helper completed the activities for the patient. Unknown: Not Applicable: Bed Mobility: 7 Transfers (B,C,W/C) (FIM): 7 Gait: 6 (has recently began using a cane for mobility and it eased her back pain with gait) Stairs: 6 Indoor Mobility (Ambulation): Independent Prior Devices Use: Walker Prior Device Use: Pt has a 4WW and a cane at home Pt is mobile in her home and has been using a cane. She and her spouse report her out of home mobility has decreased in the recent past but she reports they do still go to hoahaoism as often as possible. PT Evaluation-Current Subjective Pt agreeable to PT. Reports intermittent nausea throughout treatment. Objective Patient Orientation: Person, Place, Time, Situation Problem Solving: Fair ROM/Strength ROM Lower Extremities WFL Strenght Lower Extremities grossly 4-/5 throughout Integumentary/Posture Integumentary refer to nursing notes Bowel Incontinence: No Bladder Incontinence: Yes Posture rounded shoulders with slight thoracic kyphosis Neuromuscular (Tone, Coordination, Reflexes) intact and functional Sensory Vision: Functional Hearing: Functional Hand Dominance: Right Sensation Right Lower Extremit: Intact Sensation Left Lower Extremity: Intact Transfers Therapy Code Descriptions/Definitions Functional [place] Measure: 0=Not Assessed/NA 4=Minimal Assistance 1=Total Assistance 5=Supervision or Setup 2=Maximal Assistance 6=Modified [place] 3=Moderate Assistance 7=Complete [place] Therapy Quality Codes: 6 Independent with activity with or without an assistive device 5 Patient requires set up or clean up by helper. Patient completes activity by themselves 4 Supervision or touching assist (CGA). [place] provide cues , steadying assist 3 The helper provides less than half the effort to complete the activity 2 The helper provides more than half the effort to complete the activity 1 Dependent. The helper does all the effort to complete an activity 7 Patient refused to complete or attempt activity 9 The patient did not perform the activity before the current illness or injury 88 Not attempted due to Medical conditions or safety concerns Transfers (B, C, W/C) (FIM): 2 Scootin Rollin Roll Left to Right (QC): 3 Supine to/from Sit: 3 Sit to/from Stand: 4 Sit to Lying (QC): 3 Lying to Sitting/Side of Bed(Q: 3 Sit to Stand (QC): 4 Chair/Cyk-wk-Bzdms Xfer(QC): 4 Car Transfer (QC): 88 Pt requires heavy cues to sequence and for technique with transfers. ; Worked on bed mobility and pt had difficulty carrying out the cues provided for log roll technique. Gait Does the Patient Walk?: Yes Mode of Locomotion: Walk Anticipated Mode of Locomotion: Walk Gait (FIM): 2 Distance (FIM): 8=644-83 ft Walk 10 feet (QC): 4 Walk 50 ft with 2 Turns(QC): 4 Walk 150 ft (QC): 88 Walking 10ft/uneven surface-QC: 4 Distance: 50 ft x 2 Gait Level of Assist: 4 Gait Assistive Device: FWW Comments/Gait Description slow gait with intermittent assist to guide walker, especially with turning. Wheelchair Training Does the Pt Use a Wheelchair?: No Stairs Stairs (FIM): 1 #of Steps: 1 Level of Assist: 4 1 Step (curb) (QC): 4 4 Steps (QC): 88 Assistive Device: Walker 12 Steps (QC): 88 skilled cues for sequencing and safety Balance Sitting Static: Fair Sitting Dynamic: Fair Standing Static: Fair Standing Dynamic: Fair Picking up an Object (QC): 88 (lumbar surgery) Treatment Co treat with OT due to need for 2 clinicians due to decreased problem solving skills and heavy cues / assist needed. As pt completed ADL tasks such as toilet transfer or seated dressing tasks PT addressed functional balance in sitting and standing as well as static and dynamic; between OT and PT heavy cues provided for sequencing and problem solving. For bed mobility as PT provided skilled cues to complete the task, OT assisted with the mobilty. Multiple transfers completed during the course of treatment. Pt required skill of 2 clinicians to safely and effectively carry out tasks this date. Assessment/Needs Pt presents post lumbar kyphoplasty with failed managment at home after discharge from [address] She presents with functional weakness and tramaine ce deficits as well as difficulty with task initiation and problem solving that all impact functional transfers, bed mobilty and gait; rendering her unsafe to be home at this time. She will benefit from skilled services to address her deficits to allow her to become mod indep with mobility to allow her to return home with her spouse as before. Rehab Potential: Good PT Short Term Goals Short Term Goals Time Frame: Mar 17, 2019 Transfers (B,C,W/C) (FIM): 4 Gait (FIM): 4 PT Fci Goals Riverboat Master Goals PT Riverboat Master Goals Time Frame: Mar 31, 2019 Transfers (B,C,W/C) (FIM): 7 Sit to Lying (QC): 6 Lying-Sitting on Side/Bed(QC): 6 Sit to Stand (QC): 6 Roll Left to Right (QC): 6 Chair/Cmx-xn-Qlkmw Xfer(QC): 6 Car Transfer (QC): 5 Does the Patient Walk: Yes Gait (FIM): 6 Gait distance (FIM): 3=150 ft Walk 10 feet (QC): 6 Walk 10ft-Uneven Surface(QC): 5 Walk 50ft with 2 Turns (QC): 6 Walk 150 ft (QC): 6 Gait Assistive Device: FWW Does the Pt use WC or Scooter?: No Stairs (FIM): 5 # of Steps: 4 1 Step (curb) (QC): 6 4 Steps (QC): 6 12 Steps (QC): 88 Picking up an Object (QC): 88 goal is for pt to be mod indep withfunctional mobiltiy to allow her to return home with her spouse. PT Plan Problem List Problem List: Activity Tolerance, Functional Strength, Safety, Balance, Gait, Transfer, Bed Mobility Treatment/Plan Treatment Plan: Continue Plan of Care Treatment Plan: Bed Mobility, Education, Functional Activity [place], Functional Strength, Group Therapy, Gait, Safety, Therapeutic Exercise, Transfers Treatment Duration: Mar 31, 2019 Frequency: At least 5 of 7 days/Wk (IRF) Estimated Hrs Per Day: 1.5 hours per day Patient and/or Family Agrees t: Yes Safety Risks/Education Patient Education: Gait Training, Transfer Techniques, Safety Issues Teaching Recipient: Patient Teaching Methods: Demonstration, Discussion Response to Teaching: Reinforcement Needed Discharge Recommendations Therapy D/C Recommendations: Physical Therapy Home Care Time/GCodes Time In: 1400 Time Out: 1530 (OT eval 1410-1420Co treat [id number]) Total Billed Treatment Time: 80 Total Billed Treatment visit EVM 10 FA 70 VENITA FISCHER PT Mar 10, 2019 15:48
--- NOTE | 2019-03-10 15:56 | ST Cognitive Linguistic Eval ---
Speech Evaluation-General Medical Diagnosis Kyphoplasty Onset Date: Mar 09, 2019 Therapy Diagnosis Therapy Diagnosis: Cognitive-communication Medical History Reviewed History: Yes Speech PLF-Current Status Prior Level of Function The patient lives at home with her . She has other family support. Subjective The patient was pleasant and cooperative with the cognitive evaluation, Language Eval: Auditory Comprehends Simple Yes/No Ques: Functional Indent/Objects Multiple Zaidi: Functional Ident/Pics in Multiple Zaidi: Functional Follows 1-Step Commands: Functional Follows Complex Directions: Mild Follows General Conversations: Mild Language Eval: Verbal Language Completes Spontaneous Greeting: Functional Produces Auto, Serial Info: Functional Imitates Simple Words/Phrases: Functional Word Finding: Mild Requests Basic Needs: Functional States Basic Personal Info: Functional Expresses Complex Ideas: Moderate Objective Cognitive Domain Attention: WNL Memory: Mild Problem Solving: Mild Executive Functions: Mild Visuospatial Skills: Mild Composite Severity Rating: Mild Clock Drawing Severity Rating: Mild Objective Formal/Standardized Tests [facility] Status ([facility]) Results The patient scored 16/30 which places her in the dementia range of function. Oral Motor/Speech Production Within Functional Limits Impression The patient is a pleasant 88 year old woman who was admitted to the [facility] s/p kyphoplasty on 03/09/19. The patient was given the SLUMS with a score of 16/30, placing her in the dementia range of function. The patient has deficits in the areas of memory, problem solving and safety awareness. The patient will receive skilled ST services in order for her to return home safely. Communication/Social Cognition Comprehension: 5 Expression: 5 Social Interaction: 5 Problem Solvin Memory: 4 Speech Patient Assess Expression of Ideas/Wants: Exhibits (3) Understanding Verbal Content: Sometimes Understands(2) Brief Interview-Mental Status: Yes Repetition of Three Words: Three (3) Temporal Orientation: Year: Missed by 1 year (2) Temporal Orientation: Month: Accurate within 5 days(2) Temporal Orientation: Day: Incorrect or No Answer(0) Recall : Wear to say "Sock": No, could not recall (0) Recall : Color: No, could not recall (0) Recall : Bed: Yes,after cueing (1) Memory/Recall Ability: Current season, That he or she is in a hsp/hsp unit Speech Short Term Goals Short Term Goals Short Term Goals 1) The patient will complete memory tasks with 80% or greater with minimal cues. 2) The patient will complete problem solving tasks with 80% or greater with minimal cues. 3) The patient will complete safety awareness tasks with 80% or greater with minimal cues. Speech Draw Tender Goals Draw Tender Goals The patient will improve safety awareness and independence in order to return home safely. Speech-Plan Patient/Family Goals Patient/Family Goals: The patient plans on returning to her home with her . She will have other family support as well. Treatment Plan Speech Therapy Treatment Plan: Continue Plan of Care The patient will receive skilled ST services for cognitive function Treatment Duration: Mar 19, 2019 Frequency: 5 times per week Estimated Hrs Per Day: .5 hour per day Rehab Potential: Good Barriers to Learning: Patient has cognitive deficits in the dementia range. Pt/Family Agrees to Plan: Yes Safety Risks/Education Teaching Recipient: Patient, Family, Significant Other Teaching Methods: Discussion Response to Teaching: Verbalize Understanding Education Topics Provided: Safety within her room and utilization of the call light as needed. Time Speech Therapy Time In: 15:30 Speech Therapy Time Out: 15:50 Total Billed Time: 20 Billed Treatment Time 1, VANNDLEV Ward Mar 10, 2019 15:56
--- NOTE | 2019-03-10 16:12 | PM&R H&P / Post Admit Assess ---
History of Present Illness HPI/Chief Complaint CC: Debility following kyphoplasty of L4 HPI: This is an 88yoWF who resides at home with her who has a PMH of HTN and HLP who presents after uncomplicated kyphoplasty of L4 by Dr. Moreno at [address]. She reports that the back pain was acute on chronic back pain that she had presented to her doctor's office Dr. Ortiz who preceded on with getting an MRI on 02/23/19 showing a possible subacute compression fracture. She was given pain medication and conservative support which continued to plague her causing significant problems with ambulation and just overall getting around and remaining at home and repeat MRI showed compression fracture that was continuing to progress and worsens so she underwent the uncomplicated procedure with Dr. Moreno at [facility] in [place] yesterday and was discharged at 1100 and at 0300 she was unable to get to the bathroom because she was so sore and had so much pain. She was found to have nausea and vomiting, placed in the hospital for pain control and currently, she is in need of inpatient rehab, an intensive regimen in order to return home with her and family. Her two sons are at the bedside and very involved in her care. She was noted to have a sodium level of [address] on fluid restriction and will restart her home meds. She has not had a BM for two days so will initiate bowel regimen and monitor closely in the meantime. 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 Source: patient, family, RN/MD, old records Exam Limitations: no limitations Date Seen 03/10/19 Time Seen by a Provider: 15:00 Attending Physician Breanna Matute DO PCP Reji Ortiz MD Referring Physician Date of Admission Mar 10, 2019 at 14:00 Home Medications & Allergies Home Medications Reviewed patient Home Medication Reconciliation performed by pharmacy medication reconciliations offshore wind turbine technician and/or nursing. Patients Allergies have been reviewed. Allergies Allergies Coded Allergies cephalexin (Verified Allergy, Mild, 03/10/19) ciprofloxacin (Verified Allergy, Mild, 03/10/19) nitrofurantoin (Verified Allergy, Mild, 03/10/19) codeine (Verified Allergy, Unknown, pt takes Tramadol at home, 03/10/19) sulfamethoxazole (Verified Allergy, Unknown, 03/10/19) trimethoprim (Verified Allergy, Unknown, 03/10/19) Past Zorurbc-Fytsxs-Kgwirw Hx Past Med/Social Hx: Reviewed Nursing Past Med/Soc Hx, Reviewed and Corrections made Patient Social History Marrital Status: Employed/Student: retired Alcohol Use: Denies Use Smoking Status: Never a Smoker Recent Foreign Travel: No Contact w/other who traveled: No Recent Hopitalizations: No Recent Infectious Disease Expo: No Immunizations Up To Date Tetanus Booster (TDap): Less than 5yrs Pediatric: Yes Date of Pneumonia Vaccine: May 25, 2015 Past Medical History Surgeries: Gallbladder, Hysterectomy, Orthopedic Cardiac: High Cholesterol Neurological: Dementia (just dx on admit IRF) Menopausal Genitourinary: Bladder Infection Musculoskeletal: Degenerate Disk Disease, Osteoporosis, Arthritis, Chronic Back Pain, Fractures Family History Arthritis 19 FATHER Kidney disease 19 MOTHER Review of Systems Constitutional: see HPI, dizziness, malaise, weakness EENTM: no symptoms reported Respiratory: no symptoms reported Cardiovascular: no symptoms reported Gastrointestinal: constipation Genitourinary: no symptoms reported Musculoskeletal: back pain Skin: no symptoms reported Psychiatric/Neurological: Anxiety, Depressed, Emotional Problems All Other Systems Reviewed Negative Unless Noted: Yes Physical Exam Exam Vital Signs Vital Signs Date Time Temp Pulse Resp B/P (MAP) Pulse Ox O2 Delivery O2 Flow Rate FiO2 03/10/19 18:17 Room Air 03/10/19 17:46 99.4 69 20 152/76 (101) 96 Capillary Refill : General Appearance: No Apparent Distress, Anxious, Chronically ill, Thin HEENT: PERRL/EOMI, Normal ENT Inspection, Pharynx Normal, Moist Mucous Membranes Neck: Full Range of Motion, Normal Inspection, Non Tender, Supple Respiratory: Chest Non Tender, Lungs Clear, Normal Breath Sounds, No Accessory Muscle Use, No Respiratory Distress Cardiovascular: Regular Rate, Rhythm, No Edema, No Gallop, No JVD, No Murmur Gastrointestinal: Normal Bowel Sounds, No Organomegaly, No Pulsatile Mass, Non Tender, Soft Back: Decreased Range of Motion, Muscle Spasm, Vertebral Tenderness Extremity: Normal Capillary Refill, Normal Inspection, Normal Range of Motion, Non Tender, No Calf Tenderness, No Pedal Edema Neurologic/Psychiatric: Alert, Oriented x3, No Motor/Sensory Deficits, Normal Mood/Affect, Disoriented (subtle poor recall) Skin: Normal Color, Warm/Dry Lymphatic: No Adenopathy Results Results/Procedures Labs Patient resulted labs reviewed. Assessment/Plan Assessment and Plan Assess & Plan/Chief Complaint Assessment: s/p kyphoplasty POD # 1 Compression fracture L4 Dementia high risk for delirium and slow recovery HLP Recurrent UTI Constipation Debility Frail status Hyponatremia Plan: Pain control Delirium management BM regimen PT/OT Frail status Fluid restriction (1) S/P kyphoplasty (2) Dementia (3) Hyperlipidemia (4) Osteoporosis (5) Constipation (6) Recurrent UTI (7) Delirium (8) Postoperative back pain (9) Nausea and vomiting (10) Hyponatremia (11) Generalized weakness Post Admission Physician Asses Date seen by provider: Mar 10, 2019 Time seen by provider: 15:00 Admisison Dx: (1) S/P kyphoplasty The preadmission screen agrees with the post admission assessment that the patient is a good candidate for inpatient rehabilitation. The patient will have a comprehensive program of inpatient rehabilitation with a goal of maximizing level of functional independence prior to discharge home with family. The patient will have PT/OT ninety minutes per day, each discipline, five days a week for gait, strengthening, conditioning, balance, ADLs, any patient/family/caregiver training as necessary. Speech therapy to do cognitive assessment and treat as indicated. Rehabilitation nursing to assist with bowel, bladder, skin, wound care, medication administration, pain management. Proofsheet Corrector to assist with discharge planning, community reentry. SCD's for DVT prophylaxis. She appears to be well motivated to participate in three hours of therapy a day. She should be able to tolerate three hours of therapy a day from a medical standpoint. She should benefit from the three hours of therapy a day. She has a reasonable discharge plan, reasonable discharge rehabilitation goals and a supportive family. She has various comorbidities that need to be closely monitored with medications and treatments adjusted on a daily basis as needed. These include: Barriers to discharge for this patient who had been independent prior to this are for her to be modified independent to supervision for ADLs and mobility s kills prior to discharge home with family, so as to lessen the burden of the caregivers. Risks for this patient include: 1. Fall 2. Fracture 3. DVT 4. Pulmonary embolism 5. Wound infection 6. Skin breakdown 7. Contractures 8. Poorly controlled pain 9. Urinary retention 10. UTI 11. Respiratory infection 12. Aspiration Estimated Length of Stay: 7 days Prognosis: Rehab prognosis appears good for goal of discharge home with family modified independent to supervision for ADLs and mobility skills. BREANNA MATUET DO Mar 10, 2019 16:12
[2019-03-10] MEDS ORDERED: CALCIUM CARBONATE 500 MG (TUMS) TAB.CHEW PO PRN (16:15)
[2019-03-10] MEDS ORDERED: diphenhydrAMINE 25 MG TAB (BENADRYL) PO PRN (16:15)
[2019-03-10] MEDS ORDERED: MECLIZINE 25 MG (ANTIVERT) TAB PO PRN (16:15)
[2019-03-10] MEDS ORDERED: RX-TRAMADOL 50 MG (ULTRAM) TAB PPK#4 PO PRN (16:15)
[2019-03-10] MEDS ORDERED: NON-FORMULARY MEDICATION 1 EA EA (Polyvinyl Alcohol/Povidone (Artificial Tears Drops) 1 DR OU PRN (16:15)
[2019-03-10] MEDS ORDERED: ARTIFICAL TEARS 0.4 ML UNIT DOSE (REFRESH PLUS) OU PRN (16:30)
[2019-03-10] MEDS ORDERED: PATIENT MAY USE OWN MED,SINGLE MED PO SCH (17:15)
[2019-03-10 17:46] VITALS: BP 152/76
[2019-03-10] MEDS: DOCUSATE SODIUM 100 MG (COLACE) CAP PO SCH ×2 (18:08→21:47)
--- NOTE | 2019-03-10 18:30 | NUR ---
PATIENT ASSISTED UP TO BATHROOM WITH WALKER. DID NOT VOID. BRIEF DRY. INFORMED OF FLUID RESTRICTION. LOWER EXT. EDEMA NOTED. BP STABLE. CONTINUES TO DENY PAIN AND NAUSEA. LOW GRADE TEMP.
--- NOTE | 2019-03-10 19:10 | NUR ---
bedside report received from ELENA ANDREW
--- NOTE | 2019-03-10 19:30 | NUR ---
TRIMETHOPRIM IS LISTED ON ALLERGIES, BUT PATIENT IS TAKING THIS MED AND HAS BEEN ON IT SINCE NOVEMBER. SON STATES WILL DOUBLE-CHECK WITH NURSE PRACTITIONER TOMORROW TO CLARIFY.
[2019-03-10] MEDS ORDERED: NON-FORMULARY MEDICATION 1 EA EA (Trimethoprim 100 MG) PO SCH (21:00)
--- NOTE | 2019-03-10 21:00 | NUR ---
assessments & interventions completed, see assessments & interventions
--- NOTE | 2019-03-10 21:10 | NUR ---
c/o neck pain level 03/03 offered Ultram 50mg, son at bedside states told him she could have ultram 50-100mg & feels like 50mg just will not be enough
--- NOTE | 2019-03-10 21:24 | NUR ---
contacted & told sons wishes orders received for ultram 50-100mg or hydrocodone 2.5mg po q 6hrs son felt like she needed Ultram 100mg, pt refused Colace & Senokot stating already took Colace this evening, ultram 100mg given
[2019-03-10] MEDS: ATORVASTATIN 20 MG (LIPITOR) TABLET PO SCH (21:27)
[2019-03-10] MEDS: MELATONIN 3 MG TABLET PO PRN (21:27)
[2019-03-10] MEDS: ESTROGENS CONJ. CREAM 30 GM (PREMARIN) TUBE VG SCH (21:30)
--- NOTE | 2019-03-10 21:40 | NUR ---
pt now nauseated after taking meds & few sips of miralax, refused anymore miralax & vag suppository now
[2019-03-10] MEDS: TRIMETHOPRIM 100 MG TAB (PROLOPRIM) NON-FORMULARY PO SCH (21:43)
[2019-03-10] MEDS: ONDANSETRON 4 MG (ZOFRAN) ORAL DISSOLVE TAB PO PRN (21:46)
--- NOTE | 2019-03-10 21:46 | NUR ---
zofran 4mg po given
[2019-03-10] MEDS: SENNA W/DOCUSATE (SENOKOT S) TABLET PO SCH (21:47)
[2019-03-10] MEDS: POLYETHYLENE GLYCOL 17 GM (MIRALAX) PACK PO SCH (21:47)
[2019-03-10] MEDS ORDERED: risperiDONE 0.25 MG (RisperDAL) TAB PO PRN (22:00)
[2019-03-10] MEDS ORDERED: HYDROcodone/APAP 5 MG/325 MG (LORTAB) TAB PO PRN (22:00)
[2019-03-10] MEDS ORDERED: HALOPERIDOL 5 MG/ML (HALDOL) AMP IM PRN (22:00)
--- NOTE | 2019-03-10 22:30 | NUR ---
resting quietly in bed, pain level 0/10 on flacc scale
--- NOTE | 2019-03-10 23:50 | NUR ---
got pt up to commode too drowsy to ambulate to bathroom, pt wakes up but goes immediately back to sleep, back to bed, repositioned on side
[2019-03-11] MEDS: HYDROcodone/APAP 5 MG/325 MG (LORTAB) TAB PO PRN ×2 (03:22→10:34)
--- NOTE | 2019-03-11 03:22 | NUR ---
up to commode to void, back to bed, son wanting pt to have pain med, pt states pain level 7/10 on numeric scale, hydrocodone 2.5mg given
--- NOTE | 2019-03-11 04:10 | NUR ---
resting quietly in bed, pain level 0/10 on flacc scale
[2019-03-11 05:40] VITALS: BP 140/71
[2019-03-11 06:14] LABS: BASOPHILS % (AUTO) 0 % (0-10); EOSINOPHILS % (AUTO) 0 % (0-10); HEMATOCRIT 34 % (35-52); HEMOGLOBIN 11.2 G/DL (11.5-16.0); LYMPHOCYTES # (AUTO) 0.4 X 10^3 (1.0-4.0); LYMPHOCYTES % (AUTO) 7 % (12-44); MEAN CORPUSCULAR HEMOGLOBIN 30 PG (25-34); MEAN CORPUSCULAR HGB CONC 33 G/DL (32-36); MEAN CORPUSCULAR VOLUME 91 FL (80-99); MEAN PLATELET VOLUME 9.6 FL (7.4-10.4); MONOCYTES # (AUTO) 0.3 X 10^3 (0.0-1.0); MONOCYTES % (AUTO) 5 % (0-12); NEUTROPHILS # (AUTO) 5.3 X 10^3 (1.8-7.8); NEUTROPHILS % (AUTO) 88 % (42-75); PLATELET COUNT 155 10^3/uL (130-400); RED CELL DISTRIBUTION WIDTH 13.9 % (10.0-14.5)
[2019-03-11 06:42] LABS: ALANINE AMINOTRANSFERASE 31 U/L (0-55); ALBUMIN 3.2 GM/DL (3.2-4.5); ALKALINE PHOSPHATASE 101 U/L (40-136); BILIRUBIN,TOTAL 0.5 MG/DL (0.1-1.0); BUN/CREATININE RATIO 17; CARBON DIOXIDE 26 MMOL/L (21-32); CHLORIDE 91 MMOL/L (98-107); CREATININE SERUM 0.71 MG/DL (0.60-1.30); GFR ESTIMATED > 60; GLUCOSE 134 MG/DL (70-105); TOTAL PROTEIN 5.8 GM/DL (6.4-8.2)
[2019-03-11 06:55] LABS: SODIUM 125 MMOL/L (135-145)
--- NOTE | 2019-03-11 07:08 | NUR ---
bedside report given to RAVEN ANDREW
[2019-03-11 07:13] LABS: BAND NEUTROPHILS 14 %; BASOPHILS % (MANUAL) 0 %; EOSINOPHILS % (MANUAL) 1 %; LYMPHOCYTES % (MANUAL) 8 %; MONOCYTES % (MANUAL) 3 %; NEUTROPHILS % (MANUAL) 74 %; RBC MORPH NORMAL
[2019-03-11] MEDS: ATORVASTATIN 20 MG (LIPITOR) TABLET PO SCH ×2 (07:34→21:17)
[2019-03-11] MEDS: DOCUSATE SODIUM 100 MG (COLACE) CAP PO SCH ×2 (07:34→21:17)
[2019-03-11] MEDS: POLYETHYLENE GLYCOL 17 GM (MIRALAX) PACK PO SCH ×2 (07:35→21:17)
[2019-03-11] MEDS: SENNA W/DOCUSATE (SENOKOT S) TABLET PO SCH ×2 (08:51→21:17)
--- NOTE | 2019-03-11 08:51 | PM&R Progress Note ---
Subjective HPI/CC On Admission Date Seen by Provider: Mar 11, 2019 Time Seen by Provider: 08:45 CC: Debility following kyphoplasty of L4 HPI: This is an 88yoWF who resides at home with her who has a PMH of HTN and HLP who presents after uncomplicated kyphoplasty of L4 by Dr. Moreno at [address] She reports that the back pain was acute on chronic back pain that she had presented to her doctor's office Dr. Ortiz who preceded on with getting an MRI on 02/23/19 showing a possible subacute compression fracture. She was given pain medication and conservative support which continued to plague her causing significant problems with ambulation and just overall getting around and remaining at home and repeat MRI showed compression fracture that was continuing to progress and worsens so she underwent the uncomplicated procedure with Dr. Moreno at [facility] in [place] yesterday and was discharged at 1100 and at 0300 she was unable to get to the bathroom because she was so sore and had so much pain. She was found to have nausea and vomiting, placed in the hospital for pain control and currently, she is in need of inpatient rehab, an intensive regimen in order to return home with her and family. Her two sons are at the bedside and very involved in her care. She was noted to have a sodium level of [address] on fluid restriction and will restart her home meds. She has not had a BM for two days so will initiate bowel regimen and monitor closely in the meantime. 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 Subjective/Events-last exam Pt had a pretty rough night with the pain, Ultram of 100 Mg given and she was sleeping for five hours but did kind of over-sedate her per her son. SIDH diagnosed with sodium level 125 maintain on fluid restriction. No BM yet but medications are given she refused Senna but accepts the MiraLax and other meds. Dementia noted so will monitor for delirium, get her back in the rhythm and control pain and participate in all therapy. Checked meds and labs. Conferred with RN. Reviewed therapy noted. Updated Pt and family. Review of Systems General: Fatigue Musculoskeletal: back pain Neurological: Confusion Objective Exam Vital Signs Vital Signs Date Time Temp Pulse Resp B/P (MAP) Pulse Ox O2 Delivery O2 Flow Rate FiO2 03/11/19 15:41 98.6 78 14 130/72 (91) 95 Room Air Capillary Refill : General Appearance: No Apparent Distress, Anxious, Chronically ill, Thin HEENT: PERRL/EOMI, Normal ENT Inspection, Pharynx Normal, Moist Mucous Membranes Neck: Full Range of Motion, Normal Inspection, Non Tender, Supple Respiratory: Chest Non Tender, Lungs Clear, Normal Breath Sounds, No Accessory Muscle Use, No Respiratory Distress Cardiovascular: Regular Rate, Rhythm, No Edema, No Gallop, No JVD, No Murmur Gastrointestinal: Normal Bowel Sounds, No Organomegaly, No Pulsatile Mass, Non Tender, Soft Back: Decreased Range of Motion, Muscle Spasm, Vertebral Tenderness Extremity: Normal Capillary Refill, Normal Inspection, Normal Range of Motion, Non Tender, No Calf Tenderness, No Pedal Edema Neurologic/Psychiatric: Alert, Oriented x3, No Motor/Sensory Deficits, Normal Mood/Affect, Disoriented (subtle poor recall) Skin: Normal Color, Warm/Dry Lymphatic: No Adenopathy Results/Procedures Lab Laboratory Tests 03/11/19 05:35 Patient resulted labs reviewed. FIM Transfers Therapy Code Descriptions/Definitions Functional [place] Measure: 0=Not Assessed/NA 4=Minimal Assistance 1=Total Assistance 5=Supervision or Setup 2=Maximal Assistance 6=Modified [place] 3=Moderate Assistance 7=Complete [place] Therapy Quality Codes: 6 Independent with activity with or without an assistive device 5 Patient requires set up or clean up by helper. Patient completes activity by themselves 4 Supervision or touching assist (CGA). [place] provide cues , steadying assist 3 The helper provides less than half the effort to complete the activity 2 The helper provides more than half the effort to complete the activity 1 Dependent. The helper does all the effort to complete an activity 7 Patient refused to complete or attempt activity 9 The patient did not perform the activity before the current illness or injury 88 Not attempted due to Medical conditions or safety concerns Transfers (B, C, W/C) (FIM): 2 Scootin Rollin Roll Left to Right (QC): 3 Supine to/from Sit: 3 Sit to/from Stand: 4 Sit to Lying (QC): 3 Sit to Stand (QC): 4 Chair/Qga-bi-Wqmme Xfer(QC): 4 Car Transfer (QC): 88 Gait Training Does the Patient Walk?: Yes Gait (FIM): 2 Distance (FIM): 4=720-03 ft Walk 10 feet (QC): 4 Walk 50 ft with 2 Turns(QC): 4 Walk 150 ft (QC): 88 Walking 10ft/uneven surface-QC: 4 Gait Level of Assist: 4 Gait Assistive Device: FWW Wheelchair Training Does the Pt Use a Wheelchair?: No Stair Training Stairs (FIM): 1 #of Steps: 1 1 Step (curb) (QC): 4 4 Steps (QC): 88 12 Steps (QC): 88 Level of Assist: 4 Balance Picking up an Object (QC): 88 (lumbar surgery) Mental Status/Objective Comprehension: 5 Expression: 5 Social Interaction: 5 Problem Solvin Memory: 4 ADL-Treatment Lower Extremity Dressin (CGA while seated to bring foot up to her to doff/don slipper socks. CGA on toilet to don fresh depend brief.) Lower Body Dressing (QC): 4 On/Off Footwear (QC): 4 Toiletin Toileting Hygiene (QC): 4 Toilet/Commode Transfer: 4 Toilet Transfer (QC): 4 Assessment/Plan Assessment and Plan Assess & Plan/Chief Complaint Assessment: s/p kyphoplasty POD # 2 Compression fracture L4 Dementia high risk for delirium and slow recovery HLP Recurrent UTI Constipation Debility Frail status Hyponatremia Plan: Pain control Delirium management BM regimen PT/OT Frail status Fluid restriction (1) S/P kyphoplasty (2) Constipation (3) Osteoporosis (4) Delirium (5) Dementia (6) Hyperlipidemia (7) Recurrent UTI (8) Hyponatremia (9) Nausea and vomiting (10) Postoperative back pain (11) Generalized weakness ROSSI WASHINGTON DO Mar 11, 2019 08:51
--- NOTE | 2019-03-11 08:51 | Individualized Plan of Care ---
Individualized Plan of Care Rehab Nursing IPOC Order Admission Date Mar 10, 2019 at 14:00 Current Orders Orders Admission Order(Inpt,Obs,Sdc) (03/10/19 13:13) Vital Signs: Per Unit Policy ( 08,16,00 (03/10/19 13:13) Technical Sourcing Recruiter-Inpt Rehab Con (03/10/19 13:13) Rehab Nursing Orders-Ipoc (03/10/19 13:13) Physical Therapy Rehab Orders (03/10/19 13:13) Occupational Therapy Rehab Ord (03/10/19 13:13) Speech Therapy Rehab Orders (03/10/19 13:13) Intake & Output 06,14,22 (03/10/19 13:13) Precautions (Aru) (03/10/19 13:13) Weekly Weight (Lbs) WEEK (03/10/19 13:13) Rehab-Intensity Of Therapy (03/10/19 13:13) Initiate Admission Nursing Pro .admission (03/10/19 13:13) Admission Arrival Bed Request (03/10/19 14:00) General/Regular (03/10/19 Dinner) Patient Visit (03/10/19 ) Pt Eval Moderate Complexity (03/10/19 ) Functional Activities, Ea 15 (03/10/19 ) Patient Visit (03/10/19 ) Speech Sound Lang Comp (03/10/19 ) Fluid Restriction (03/10/19 16:07) Acetaminophen Tablet (Tylenol Tablet) (03/10/19 16:15) Calcium Carbonate Chew Tablet (Antacid C (03/10/19 16:15) Diphenhydramine Tablet (Benadryl Tablet) (03/10/19 16:15) Docusate Sodium Capsule (Colace Capsule) (03/10/19 16:15) Melatonin Tablet (Melatonin Tablet) (03/10/19 16:15) Polyethylene Glycol Powder Pkt (Miralax (03/10/19 21:00) Ondansetron Oral Dissolve Tab (Zofran (03/10/19 16:15) Rx-Tramadol Hcl (Rx-Ultram) (03/10/19 16:15) Senna S Tablet (Senokot S Tablet) (03/10/19 21:00) Cbc With Automated Diff (03/11/19 06:00) Comprehensive Metabolic Panel (03/11/19 06:00) Atorvastatin Tablet (Lipitor Tablet) (03/10/19 21:00) Estrogens Conjugated Vag Cream (Premarin (03/10/19 21:00) Meclizine Tablet (Antivert Tablet) (03/10/19 16:15) Tramadol Tablet (Ultram Tablet) (03/10/19 16:15) (Nf) Polyvinyl Alcohol/Povidone (Artific (03/10/19 16:15) (Nf) Trimethoprim (03/10/19 21:00) Tramadol Tablet (Ultram Tablet) (03/10/19 16:30) Carboxymethylcell Ophth Soln (Refresh Pl (03/10/19 16:30) Code/Resuscitation (03/10/19 16:29) Ambulate 08,12,20 (03/10/19 16:42) Sequential Compression Device 08,20 (03/10/19 16:42) Dvt/Vte Risk - Notifiy Physici 08 (03/10/19 16:42) Patient May Use Own Med,Single (Patient (03/10/19 17:15) Trimethoprim (Non-Formulary) (Proloprim (03/10/19 21:00) Tramadol Tablet (Ultram Tablet) (03/10/19 21:45) Tramadol Tablet (Ultram Tablet) (03/10/19 22:00) Hydrocodone/Apap 5/325 Tablet (Lortab 5 (03/10/19 22:00) Hydrocodone/Apap 5/325 Tablet (Lortab 5 (03/10/19 22:00) Risperidone Tablet (Risperdal Tablet) (03/10/19 22:00) Haloperidol Injection (Haldol Injectio (03/10/19 22:00) Manual Differential (03/11/19 05:35) Potassium Chloride (Tablet) (Klor Con Ta (03/11/19 17:00) Potassium Chloride (Tablet) (Klor Con Ta (03/11/19 13:15) Patient Visit (03/11/19 ) Treat. Speech/Lang/Voice (03/11/19 ) Patient Visit (03/11/19 ) Gait Training, Ea 15 Min (03/11/19 ) Functional Activities, Ea 15 (03/11/19 ) Patient Visit (03/11/19 ) Exercise Therap, Ea 15 Min (03/11/19 ) Functional Activities, Ea 15 (03/11/19 ) Rehab Nursing Orders: Ongoing Assess. of Cognitive Status, Ongoing Assess. of Function Status, Bladder Training, Bowel Management, Disease Management & Educaiton, DVT Prophylaxis, Fall Prevention, Fluid/Electrolyte/Nutrition Mgmt, Medication Management & Education, Management of Risks & Complications, Management of Skin Intergrity, Nutrition Management, Pain Management, Patient/Family Support, Safety Management Intensity of Therapy to be met Patient to be seen: Min.3h per day/5 of 7d PT IPOC Problem List: Activity Tolerance, Functional Strength, Safety, Balance, Gait, Transfer, Bed Mobility Treatment Plan: Continue Plan of Care Bed Mobility, Education, Functional Activity Ayleen, Functional Strength, Group Therapy, Gait, Safety, Therapeutic Exercise, Transfers Treatment Duration: Mar 31, 2019 Frequency: At least 5 of 7 days/Wk (IRF) Estimated Hrs Per Day: 1.5 hours per day OT IPOC Problems: Decreased Activ Tolerance, Decreased UE Strength, Dependent Transfers, Impaired Bed Mobility, Impaired Funct Balance, Impaired I ADL's, Impaired Self-Care Skills OT Treatment, Training and Edu: Yes Plan of Care: ADL Retraining, Functional Mobility, Group Exercise/Act as Ind, UE Funct Exercise/Act Treatment Duration: Mar 24, 2019 Frequency: At least 5 of 7 days/Wk (IRF) Estimated Hrs Per Day: 1.[address] IPOC Speech Therapy Treatment Plan: Continue Plan of Care Treatment Duration: Mar 19, 2019 Frequency: 5 times per week Estimated Hrs Per Day: .5 hour per day Technical Sourcing Recruiter/Case Mgmt Technical Sourcing Recruiter/Case Managemen: Discharge Planning Dietitian/Welding Machine Operator Helper Gas Dietitian/Welding Machine Operator Helper Gas to monitor nutritional status and make changes and/or recommendations as needed and work with speech pathology on dietary upgrades as the occur. Physician IPOC Medical Issues being managed closely and that require the 24 hour availability of a physician: Advanced age individual with frail status with hyponatremia high risk for severe delirium with additional falls and high risk for bowel dysfunction Medical Issues: Bowel/Bladder Function, DVT Prophylaxis, Falls Precautions, Fluid/Electrolyte/Nutrition Balance, Infection Protection, Pain Management Brief Synthesis of Preadmission Screen, Post-Admission Evaluation, and Therapy Evaluations: Nursing staff will monitor fluid restriction and try to reorient to treat delirium Physical therapy will work on ambulation and work through back pain from kyphoplasty Occupational Therapy will focus on independent ADLs and additional skills to help independence to lessen the burden on family Speech therapy will focus on confusion and cognition Medical Prognosis: Good Anticipated Length of Stay: 10 days ROSSI WASHINGTON DO Mar 11, 2019 08:51
--- NOTE | 2019-03-11 10:18 | Physical Therapy Daily Note ---
PT Daily Note-Current Subjective Patient in bed pre tx, agrees to PT, has 5/10 pain in her back, has to use the restroom. She needs mod assist to get brief on/off, needs new brief, she is able to wipe herself. Appearance Patient in wheelchair post tx with nurse call, phone, tray, all needs met, family in the room. Mental Status Patient Orientation: Person, Confused Transfers Therapy Code Descriptions/Definitions Functional [place] Measure: 0=Not Assessed/NA 4=Minimal Assistance 1=Total Assistance 5=Supervision or Setup 2=Maximal Assistance 6=Modified [place] 3=Moderate Assistance 7=Complete [place] Therapy Quality Codes: 6 Independent with activity with or without an assistive device 5 Patient requires set up or clean up by helper. Patient completes activity by themselves 4 Supervision or touching assist (CGA). [place] provide cues , steadying assist 3 The helper provides less than half the effort to complete the activity 2 The helper provides more than half the effort to complete the activity 1 Dependent. The helper does all the effort to complete an activity 7 Patient refused to complete or attempt activity 9 The patient did not perform the activity before the current illness or injury 88 Not attempted due to Medical conditions or safety concerns Transfers (B, C, W/C) (FIM): 4 Scootin Rollin Supine to/from Sit: 4 Sit to/from Stand: 4 Bed to/from Chair: 4 Car Transfer (QC): 3 (min assist) Min assist for sit to stand, cues for hand placement with every transfer or s tand, patient seems to get stuck/confused and needs cues and sometimes tactile cues on how to turn or to keep doing what she is doing, etc. Gait Training Gait (FIM): 1 Distance: 40'x2 Gait Level of Assist: 4 Gait Persons Needed: 1 Gait Assistive Device: FWW very slow, gets distracted easily, needs assist to help guide walker Wheelchair Training Does the Pt Use a Wheelchair?: Yes Wheelchair (FIM): 1 Exercises Seated Therapy Exercises: Ankle pumps, Long arc quads, Hip flexion Seated Reps: 20 Treatments bed mobility and transfers, ambulation, toileting, LE exercise, car transfer Assessment Current Status: Fair Progress patient gets distracted easily, very slow mobility, gets confused about what she is supposed to do PT Short Term Goals Short Term Goals Time Frame: Mar 17, 2019 Transfers (B,C,W/C) (FIM): 4 Gait (FIM): 4 PT Intermediate Goals Cutter Operator Helper Goals PT Cutter Operator Helper Goals Time Frame: Mar 31, 2019 Transfers (B,C,W/C) (FIM): 7 Sit to Lying (QC): 6 Lying-Sitting on Side/Bed(QC): 6 Sit to Stand (QC): 6 Rollin Roll Left to Right (QC): 6 Chair/Zns-kp-Msyob Xfer(QC): 6 Car Transfer (QC): 5 Does the Patient Walk: Yes Gait (FIM): 6 Gait distance (FIM): 3=150 ft Walk 10 feet (QC): 6 Walk 10ft-Uneven Surface(QC): 5 Walk 50ft with 2 Turns (QC): 6 Walk 150 ft (QC): 6 Gait Assistive Device: FWW Does the Pt use WC or Scooter?: No Stairs (FIM): 5 # of Steps: 4 1 Step (curb) (QC): 6 4 Steps (QC): 6 12 Steps (QC): 88 Picking up an Object (QC): 88 PT Plan Problem List Problem List: Activity Tolerance, Functional Strength, Safety, Balance, Gait, Transfer, Bed Mobility, ROM Treatment/Plan Treatment Plan: Continue Plan of Care Treatment Plan: Bed Mobility, Education, Functional Activity Ayleen, Functional Strength, Group Therapy, Gait, Safety, Therapeutic Exercise, Transfers Treatment Duration: Mar 31, 2019 Frequency: At least 5 of 7 days/Wk (IRF) Estimated Hrs Per Day: 1.5 hours per day Patient and/or Family Agrees t: Yes Safety Risks/Education Patient Education: Gait Training, Transfer Techniques, Correct Positioning, Safety Issues Teaching Recipient: Patient Teaching Methods: Demonstration, Discussion Response to Teaching: Reinforcement Needed Time/GCodes Time In: 0915 Time Out: 1000 Total Billed Treatment Time: 45 Total Billed Treatment 1 visit GT 25' FA 20' ENOC ZHAO PT Mar 11, 2019 10:18
--- NOTE | 2019-03-11 10:39 | Speech Therapy Daily Note ---
Speech Daily Progress Note Subjective Date Seen by Provider: Mar 11, 2019 Time Seen by Provider: 00:30 The patient was resting in her wheelchair following her PT. Her and a family friend were present. Objective The patient completed general information memory tasks with 80% given min to mod verbal cues. Assessment Assessment Current Status: Good Progress Treatment Plan Continue Plan of Care Communication Comprehension: 5 Expression: 5 Social Cognition Social Interaction: 5 Problem Solvin Memory: 4 Speech Short Term Goals Short Term Goals Short Term Goals 1) The patient will complete memory tasks with 80% or greater with minimal cues. 2) The patient will complete problem solving tasks with 80% or greater with minimal cues. 3) The patient will complete safety awareness tasks with 80% or greater with minimal cues. Speech Net Programmer Analyst Goals Half-Way Goals The patient will improve safety awareness and independence in order to return home safely. Speech-Plan Patient/Family Goals Patient/Family Goals: The patient plans on returning home with her post rehab. Treatment Plan Speech Therapy Treatment Plan: Continue Plan of Care The patient is progressing well. Treatment Duration: Mar 19, 2019 Frequency: 5 times per week Estimated Hrs Per Day: .5 hour per day Rehab Potential: Good Barriers to Learning: The patient has mild cognitive deficits. Pt/Family Agrees to Plan: Yes Safety Risks/Education Teaching Recipient: Patient Teaching Methods: Discussion Response to Teaching: Verbalize Understanding Education Topics Provided: Safety within her room. Time Speech Therapy Time In: 10:00 Speech Therapy Time Out: 10:30 Total Billed Time: 30 Billed Treatment Time [address] Mar 11, 2019 10:39
--- NOTE | 2019-03-11 12:04 | Occupational Ther Daily Note ---
OT Current Status-Daily Note Subjective Pt seen in room, up in wheelchair, agreeable to OT. Pain reported 0/10. Appearance Somewhat sleepy, cooperative Mental Status/Objective Patient Orientation: Person, Confused, Place, Situation Therapy Code Descriptions/Definitions Functional [place] Measure: 0=Not Assessed/NA 4=Minimal Assistance 1=Total Assistance 5=Supervision or Setup 2=Maximal Assistance 6=Modified [place] 3=Moderate Assistance 7=Complete [place] ADL-Treatment Pt brushed teeth at sink, with supervision, setup. Very sleepy and moved toothbrush extremely slowly. Transferred from w/c to shower with CGA, cues for hand placement. Cues for sequencing for undressing for shower. Washed and dried all parts except back, using shower bench, grab bars, hand held shower, with CGA when standing. Cues for sequencing and next steps. Assist to put soap on washcloth and help with washing her hair. Cues for drying. Transferred back to w/c with CGA, grab bars, cues for hand placement. In room, put on top with setup. Needed help to get R foot into Depends and pants. CGA for standing to pull pants up, FWW, cues for hand placement. Able to get slipper socks on with setup. Stood with CGA, FWW, cues and walked a few steps to bed, cues for hand placement. Able to get feet into bed herself and scoot over. 4 rails up, all needs met. Pt reported that she has been able to feed herself but friend said that she needs prompting. Lunch ordered. Therapy Code Descriptions/Definitions Functional [place] Measure: 0=Not Assessed/NA 4=Minimal Assistance 1=Total Assistance 5=Supervision or Setup 2=Maximal Assistance 6=Modified [place] 3=Moderate Assistance 7=Complete [place] Therapy Quality Codes: 6 Independent with activity with or without an assistive device 5 Patient requires set up or clean up by helper. Patient completes activity by themselves 4 Supervision or touching assist (CGA). [place] provide cues , steadying assist 3 The helper provides less than half the effort to complete the activity 2 The helper provides more than half the effort to complete the activity 1 Dependent. The helper does all the effort to complete an activity 7 Patient refused to complete or attempt activity 9 The patient did not perform the activity before the current illness or injury 88 Not attempted due to Medical conditions or safety concerns Eating (FIM): 5 (supervision (prompting)) Eating (QC): 4 (Supervision) Grooming (FIM): 5 (Supervision, seated at sink, to brush teeth. Setup to brush hair.) Oral Hygiene (QC): 4 Bathing (FIM): 4 (CGA, supervision, cues) Shower/Bathe Self (QC): 4 (supervision, cues) Upper Body (FIM): 5 (setup) Upper Body Dressing (QC): 5 Lower Body Dressing (FIM): 3 (Help to get R foot into Depends and pants. CGA for standing, FWW) Lower Body Dressing (QC): 4 (CGA) On/Off Footwear (QC): 5 (setup) Transfers (B, C, W/C) (FIM): 4 (CGA, FWW) Shower Transfer(FIM): 4 (CGA, cues) Education OT Patient Education: Modified ADL techniques, Progress toward Goal/Update tx plan, Purpose of tx/functional activities, Safety issues, Transfer techniques Teaching Recipient: Patient Teaching Methods: Demonstration, Discussion Response to Teaching: Verbalize Understanding, Return Demonstration, Reinforc ement Needed OT Short Term Goals Short Term Goals Time Frame: Mar 17, 2019 Eating(FIM): 6 Grooming(FIM): 5 Bathing(FIM): 4 Upper Body Dressing(FIM): 5 Lower Body Dressing(FIM): 5 Toileting(FIM): 5 Transfers (B,C,W/C) (FIM): 4 Toilet/Commode Transfer(FIM): 5 Shower Transfer(FIM): 4 Additional Short Term Goals: 1-Demonstrate ADL Tasks, 2-Verbalize Understanding, 3-ImproveStrength/Ayleen 1=Demonstrate adherence to instructed precautions during ADL tasks. 2=Patient will verbalize/demonstrate understanding of assistive devices/modifications for ADL. 3=Patient will improve strength/tolerance for activity to enable patient to perf orm ADL's. OT Cobol Developer Goals Care Home Goals Time Frame: Mar 24, 2019 Eating (FIM): 6 Eating (QC): 6 Groomin Oral Hygiene (QC): 6 Bathing(FIM): 5 Shower/Bathe Self (QC): 4 Upper Body Dressing(FIM): 6 Upper Body Dressing (QC): 6 Lower Body Dressing(FIM): 6 Lower Body Dressing (QC): 6 On/Off Footwear (QC): 6 Toileting(FIM): 6 Toileting Hygiene (QC): 6 Transfers (B,C,W/C) (FIM): 6 Toilet/Commode Transfer(FIM): 6 Toilet/Commode Transfer (QC): 6 Shower Transfer(FIM): 5 Additional Goals: 1-Demonstrate ADL Tasks, 2-Verbalize Understanding, 3- ImproveStrength/Ayleen 1=Demonstrate adherence to instructed precautions during ADL tasks. 2=Patient will verbalize/demonstrate understanding of assistive devices/mo difications for ADL. 3=Patient will improve strength/tolerance for activity to enable patient to perform ADL's. OT Education/Plan Discharge Recommendations Plan/Recommendations: Continue POC Treatment Plan/Plan of Care Patient would benefit from OT for education, treatment and training to promote independence in ADL's, mobility, safety and/or upper extremity function for ADL's. Plan of Care: ADL Retraining, Functional Mobility, Group Exercise/Act as Ind, UE Funct Exercise/Act Treatment Duration: Mar 24, 2019 Frequency: At least 5 of 7 days/Wk (IRF) Estimated Hrs Per Day: 1.5 hours per day Agreement: Yes Rehab Potential: Good Time/GCodes Start Time: 10:30 Stop Time: 11:45 Total Time Billed (hr/min): 75 Billed Treatment Time visit, 75 minutes ADL VIKAS ELLISON OT Mar 11, 2019 12:04
--- NOTE | 2019-03-11 12:13 | NUR ---
EXAMINATION PROCTOR met with patient and spouse to complete initial assessment. Patient was alert, oriented and agreeable to assessment. Prior to current hospitalization, patient and spouse resided in [place], [place]. The home is one level with two steps with railing at the entrance. [facility] home yesterday, following an outpatient Kyphoplasty at [facility]. Patient presented to [facility] ED with nausea and increased pain. Patient now presents to ARU for strengthening. Prior to surgery, patient was independent with ADLs and ambulation with use of a cane. Patient also has a rollator walker, and shower seat. PCP identified as Dr. Reji Ortiz. Patient identifies primary contacts as spouse, Leroy at [phone] and secondary contacts as sonBoy of [place] at [phone] and sonMatt of [place] at [phone]. Insurance verified as Medicare and BCBS Supplement with [employer] prescription coverage. Patient and spouse also have a medical terminologist care policy. Patient utilizes [facility] for local pharmacy needs. EXAMINATION PROCTOR reviewed typical rehabilitation length of stay and weekly team conferences with patient, she expressed no concerns at this time, but states she was told she could discharge on 03/15. EXAMINATION PROCTOR will follow patients progress to determine appropriate length of stay and appropriate discharge needs.
[2019-03-11] MEDS ORDERED: KCL 10 MEQ TAB (MICRO K) PO NR (13:15)
--- NOTE | 2019-03-11 14:14 | Physical Therapy Daily Note ---
PT Daily Note-Current Subjective Agrees to PT. Transfers Therapy Code Descriptions/Definitions Functional [place] Measure: 0=Not Assessed/NA 4=Minimal Assistance 1=Total Assistance 5=Supervision or Setup 2=Maximal Assistance 6=Modified [place] 3=Moderate Assistance 7=Complete [place] Therapy Quality Codes: 6 Independent with activity with or without an assistive device 5 Patient requires set up or clean up by helper. Patient completes activity by themselves 4 Supervision or touching assist (CGA). [place] provide cues , steadying assist 3 The helper provides less than half the effort to complete the activity 2 The helper provides more than half the effort to complete the activity 1 Dependent. The helper does all the effort to complete an activity 7 Patient refused to complete or attempt activity 9 The patient did not perform the activity before the current illness or injury 88 Not attempted due to Medical conditions or safety concerns Treatments Supine to from sit with min assist. CGA sit to stand. Sit to stand from multiple surfaces with CGA including the toilet. Pt walked x 50 ft x 2 with FWW with CGA. Nu step x 10 minutes to increase functional activity tolerance. Pt in bed post treatment with needs met. Assessment Current Status: Good Progress Improved bed mobility and transfers. PT Short Term Goals Short Term Goals Time Frame: Mar 17, 2019 Transfers (B,C,W/C) (FIM): 4 Gait (FIM): 4 PT Meter Changes Records Clerk Goals [facility] Goals PT Meter Changes Records Clerk Goals Time Frame: Mar 31, 2019 Transfers (B,C,W/C) (FIM): 7 Sit to Lying (QC): 6 Lying-Sitting on Side/Bed(QC): 6 Sit to Stand (QC): 6 Rollin Roll Left to Right (QC): 6 Chair/Lpk-jh-Exlpe Xfer(QC): 6 Car Transfer (QC): 5 Does the Patient Walk: Yes Gait (FIM): 6 Gait distance (FIM): 3=150 ft Walk 10 feet (QC): 6 Walk 10ft-Uneven Surface(QC): 5 Walk 50ft with 2 Turns (QC): 6 Walk 150 ft (QC): 6 Gait Assistive Device: FWW Does the Pt use WC or Scooter?: No Stairs (FIM): 5 # of Steps: 4 1 Step (curb) (QC): 6 4 Steps (QC): 6 12 Steps (QC): 88 Picking up an Object (QC): 88 PT Plan Problem List Problem List: Activity Tolerance, Functional Strength, Safety Treatment/Plan Treatment Plan: Continue Plan of Care Treatment Plan: Bed Mobility, Education, Functional Activity Ayleen, Functional Strength, Group Therapy, Gait, Safety, Therapeutic Exercise, Transfers Treatment Duration: Mar 31, 2019 Frequency: At least 5 of 7 days/Wk (IRF) Estimated Hrs Per Day: 1.5 hours per day Patient and/or Family Agrees t: Yes Safety Risks/Education Patient Education: Safety Issues Teaching Recipient: Patient Teaching Methods: Discussion Response to Teaching: Reinforcement Needed Discharge Recommendations Therapy D/C Recommendations: Physical Therapy Home Care Time/GCodes Time In: 1245 Time Out: 1315 Total Billed Treatment Time: 30 Total Billed Treatment visit EX 10 FA 20 VENITA FISCHER PT Mar 11, 2019 14:14
[2019-03-11 15:41] VITALS: BP 130/72
[2019-03-11] MEDS: KCL 10 MEQ TAB (MICRO K) PO SCH (17:17)
[2019-03-11] MEDS: ONDANSETRON 4 MG (ZOFRAN) ORAL DISSOLVE TAB PO PRN (19:10)
[2019-03-11] MEDS: TRIMETHOPRIM 100 MG TAB (PROLOPRIM) NON-FORMULARY PO SCH (21:18)
[2019-03-11] MEDS ORDERED: BISACODYL 10 MG SUPP (DULCOLAX) ONE (23:20)
--- NOTE | 2019-03-11 23:20 | NUR ---
Pt up to bathroom to try to have bm. Pt has been nauseous on and off all day and and pt think it's because pt has not had a bm in almost 5 days.
--- NOTE | 2019-03-11 23:22 | NUR ---
Pt unable to have bm. Dr. Matute notified and new order received for dulcolax supp. Cont to monitor.
[2019-03-11] MEDS ORDERED: BISACODYL 10 MG SUPP (DULCOLAX) PR PRN (23:30)
--- NOTE | 2019-03-12 00:05 | NUR ---
Pt vomited 100 cc of emesis at this time. Cont to monitor.
--- NOTE | 2019-03-12 00:46 | NUR ---
Up to bathroom. Small bm noted. Cont to monitor.
[2019-03-12 05:10] VITALS: BP 183/82
[2019-03-12] MEDS: KCL 10 MEQ TAB (MICRO K) PO SCH ×2 (06:10→20:36)
[2019-03-12] MEDS: ONDANSETRON 4 MG (ZOFRAN) ORAL DISSOLVE TAB PO PRN ×2 (06:11→19:00)
--- NOTE | 2019-03-12 09:01 | PM&R Progress Note ---
Subjective HPI/CC On Admission Date Seen by Provider: Mar 12, 2019 Time Seen by Provider: 09:00 CC: Debility following kyphoplasty of L4 HPI: This is an 88yoWF who resides at home with her who has a PMH of HTN and HLP who presents after uncomplicated kyphoplasty of L4 by Dr. Moreno at [address] She reports that the back pain was acute on chronic back pain that she had presented to her doctor's office Dr. Ortiz who preceded on with getting an MRI on 02/23/19 showing a possible subacute compression fracture. She was given pain medication and conservative support which continued to plague her causing significant problems with ambulation and just overall getting around and rem aining at home and repeat MRI showed compression fracture that was continuing to progress and worsens so she underwent the uncomplicated procedure with Dr. Moreno at [facility] in [place] yesterday and was discharged at 1100 and at 0300 she was unable to get to the bathroom because she was so sore and had so much pain. She was found to have nausea and vomiting, placed in the hospital for pain control and currently, she is in need of inpatient rehab, an intensive regimen in order to return home with her and family. Her two sons are at the bedside and very involved in her care. She was noted to have a sodium level of [address] on fluid restriction and will restart her home meds. She has not had a BM for two days so will initiate bowel regimen and monitor closely in the meantime. 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 Subjective/Events-last exam Nausea continues likely result from Ultram use Talked to patient and she is willing to do only Tylenol to prevent the nausea Son and states the night and her with her 17/03 which appears to be affecting her therapy performance Patient and looking at assisted living since they do have long-term care insurance Sodium level will be monitored but on fluid restriction and we are supplementing potassium Had a small bowel movement the nurse requested a suppository 1 o'clock this morning so we'll continue working towards resolution of that Family very protective and it appears that she does have significant cognitive deficits with slums score of 16/30 which family is compensating for Tried to reassure the family and patient and she was working very well with therapy and not complaining of any back pain Checked meds and labs Review therapy notes Conferred with stereotyper of Systems Gastrointestinal: Nausea, Constipation Musculoskeletal: back pain Objective Exam Vital Signs Vital Signs Date Time Temp Pulse Resp B/P (MAP) Pulse Ox O2 Delivery O2 Flow Rate FiO2 03/12/19 08:00 Room Air 03/12/19 05:10 98.3 71 18 183/82 (115) 93 Capillary Refill : General Appearance: No Apparent Distress, Anxious, Chronically ill, Thin HEENT: PERRL/EOMI, Normal ENT Inspection, Pharynx Normal, Moist Mucous Membranes Neck: Full Range of Motion, Normal Inspection, Non Tender, Supple Respiratory: Chest Non Tender, Lungs Clear, Normal Breath Sounds, No Accessory Muscle Use, No Respiratory Distress Cardiovascular: Regular Rate, Rhythm, No Edema, No Gallop, No JVD, No Murmur Gastrointestinal: Normal Bowel Sounds, No Organomegaly, No Pulsatile Mass, Non Tender, Soft Back: Decreased Range of Motion, Muscle Spasm, Vertebral Tenderness Extremity: Normal Capillary Refill, Normal Inspection, Normal Range of Motion, Non Tender, No Calf Tenderness, No Pedal Edema Neurologic/Psychiatric: Alert, Oriented x3, No Motor/Sensory Deficits, Normal Mood/Affect, Disoriented (subtle poor recall) Skin: Normal Color, Warm/Dry Lymphatic: No Adenopathy Results/Procedures Lab Patient resulted labs reviewed. FIM Transfers Therapy Code Descriptions/Definitions Functional [place] Measure: 0=Not Assessed/NA 4=Minimal Assistance 1=Total Assistance 5=Supervision or Setup 2=Maximal Assistance 6=Modified [place] 3=Moderate Assistance 7=Complete [place] Therapy Quality Codes: 6 Independent with activity with or without an assistive device 5 Patient requires set up or clean up by helper. Patient completes activity by themselves 4 Supervision or touching assist (CGA). [place] provide cues , steadying assist 3 The helper provides less than half the effort to complete the activity 2 The helper provides more than half the effort to complete the activity 1 Dependent. The helper does all the effort to complete an activity 7 Patient refused to complete or attempt activity 9 The patient did not perform the activity before the current illness or injury 88 Not attempted due to Medical conditions or safety concerns Transfers (B, C, W/C) (FIM): 4 (CGA, FWW) Scootin Rollin Roll Left to Right (QC): 3 Supine to/from Sit: 4 Sit to/from Stand: 4 Sit to Lying (QC): 3 Sit to Stand (QC): 4 Chair/Uyb-ow-Hcnld Xfer(QC): 4 Bed to/from Chair: 4 Car Transfer (QC): 3 (min assist) Gait Training Does the Patient Walk?: Yes Gait (FIM): 1 Distance (FIM): 3=291-54 ft Distance: 40'x2 Walk 10 feet (QC): 4 Walk 50 ft with 2 Turns(QC): 4 Walk 150 ft (QC): 88 Walking 10ft/uneven surface-QC: 4 Gait Level of Assist: 4 Gait Persons Needed: 1 Gait Assistive Device: FWW Wheelchair Training Does the Pt Use a Wheelchair?: Yes Wheelchair (FIM): 1 Stair Training Stairs (FIM): 1 #of Steps: 1 1 Step (curb) (QC): 4 4 Steps (QC): 88 12 Steps (QC): 88 Level of Assist: 4 Balance Picking up an Object (QC): 88 (lumbar surgery) Mental Status/Objective Comprehension: 5 Expression: 5 Social Interaction: 5 Problem Solvin Memory: 4 ADL-Treatment Feedin (supervision (prompting)) Eating (QC): 4 (Supervision) Groomin (Supervision, seated at sink, to brush teeth. Setup to brush hair.) Oral Hygiene (QC): 4 Bathin (CGA, supervision, cues) Shower/Bathe Self (QC): 4 (supervision, cues) Upper Extremity Dressin (setup) Upper Body Dressing (QC): 5 Lower Extremity Dressin (Help to get R foot into Depends and pants. CGA for standing, FWW) Lower Body Dressing (QC): 4 (CGA) On/Off Footwear (QC): 5 (setup) Toiletin Toileting Hygiene (QC): 4 Toilet/Commode Transfer: 4 Toilet Transfer (QC): 4 Shower: 4 (CGA, cues) Assessment/Plan Assessment and Plan Assess & Plan/Chief Complaint Assessment: s/p kyphoplasty POD # 3 Compression fracture L4 Dementia high risk for delirium and slow recovery HLP Recurrent UTI Constipation Debility Frail status Hyponatremia Plan: Pain control Delirium management BM regimen to continue until resolved PT/OT Frail status and family very protective Fluid restriction to continue (1) S/P kyphoplasty (2) Constipation (3) Osteoporosis (4) Delirium (5) Dementia (6) Hyperlipidemia (7) Recurrent UTI (8) Hyponatremia (9) Nausea and vomiting (10) Postoperative back pain (11) Generalized weakness ROSSI WASHINGTON DO Mar 12, 2019 09:01
--- NOTE | 2019-03-12 09:14 | NUR ---
WATERWORKS EMPLOYEE received notification from RN that patient has complaints of nausea and that family has decided that she will not work with therapy until nausea resolves and until she has a bm. WATERWORKS EMPLOYEE and Dr. Matute met with patient and family to discuss potential causes for constipation and nausea, and the need for patient to participate in all therapies. It was decided that Dr. Matute would dc Tramadol and intervene as needed for a bm. Patient's son inquired about potential arrangements for [facility] for both patient and spouse. Spouse states they toured [facility] over a year ago and had their LTC policy reviewed. They were fond of the facility, and were informed that their LTC policy would cover all costs. They have requested WATERWORKS EMPLOYEE to send referral. Per Tena at [facility], they do have two single rooms available and can install a door in between the two. WATERWORKS EMPLOYEE has requested that patient and family discuss further if this is the option they would like to move forward with, and has asked family to provide the LTC to [place] for further review. Addendum: 03/12/19 at 1530 by JEFF WALDRON Per therapy progress today, patient may be appropriate for discharge on Friday.
--- NOTE | 2019-03-12 10:05 | Physical Therapy Daily Note ---
PT Daily Note-Current Subjective Pt. up in recliner, agrees to Rx, states her family are far more concerned about her not having a BM than she is, stating she just doesnt eat that much so she wouldnt have that many BMs. Pain Location: No Pain Reported Mental Status Patient Orientation: Normal For Age Transfers Therapy Code Descriptions/Definitions Functional [place] Measure: 0=Not Assessed/NA 4=Minimal Assistance 1=Total Assistance 5=Supervision or Setup 2=Maximal Assistance 6=Modified [place] 3=Moderate Assistance 7=Complete [place] Therapy Quality Codes: 6 Independent with activity with or without an assistive device 5 Patient requires set up or clean up by helper. Patient completes activity by themselves 4 Supervision or touching assist (CGA). [place] provide cues , steadying assist 3 The helper provides less than half the effort to complete the activity 2 The helper provides more than half the effort to complete the activity 1 Dependent. The helper does all the effort to complete an activity 7 Patient refused to complete or attempt activity 9 The patient did not perform the activity before the current illness or injury 88 Not attempted due to Medical conditions or safety concerns Transfers (B, C, W/C) (FIM): 5 Scootin Rollin Supine to/from Sit: 5 Sit to/from Stand: 5 Gait Training Does the Patient Walk?: Yes Gait (FIM): 4 Distance (FIM): 3=150 ft (160x2) Gait Level of Assist: 4 Gait Persons Needed: 1 Gait Assistive Device: FWW needs assist to steer FWW at times, and instruction for position in FWW as well as velocity and step length Exercises Supine Ex: Bridging, Ankle pumps, Quad Set, Rolling, Glut sets, Heel Slides, Short Arc Quads, Scooting, Straight leg raise, Hip abd/add Supine Reps: 15 Seated Therapy Exercises: Ankle pumps, Sit to stand, Long arc quads, Hip f lexion Seated Reps: 12 NuStep Minutes: 9 NuStep Workload: 4 Assessment Current Status: Good Progress PT Short Term Goals Short Term Goals Time Frame: Mar 17, 2019 Transfers (B,C,W/C) (FIM): 4 Gait (FIM): 4 PT Usp Goals Reinforcing Steel Worker Wire Mesh Goals PT Usp Goals Time Frame: Mar 31, 2019 Transfers (B,C,W/C) (FIM): 7 Sit to Lying (QC): 6 Lying-Sitting on Side/Bed(QC): 6 Sit to Stand (QC): 6 Rollin Roll Left to Right (QC): 6 Chair/Mly-ly-[place]gz[place] Xfer(QC): 6 Car Transfer (QC): 5 Does the Patient Walk: Yes Gait (FIM): 6 Gait distance (FIM): 3=150 ft Walk 10 feet (QC): 6 Walk 10ft-Uneven Surface(QC): 5 Walk 50ft with 2 Turns (QC): 6 Walk 150 ft (QC): 6 Gait Assistive Device: FWW Does the Pt use WC or Scooter?: No Stairs (FIM): 5 # of Steps: 4 1 Step (curb) (QC): 6 4 Steps (QC): 6 12 Steps (QC): 88 Picking up an Object (QC): 88 PT Plan Treatment/Plan Treatment Plan: Continue Plan of Care Treatment Plan: Bed Mobility, Education, Functional Activity A[place], Functional Strength, Group Therapy, Gait, Safety, Therapeutic Exercise, Transfers Treatment Duration: Mar 31, 2019 Frequency: At least 5 of 7 days/Wk (IRF) Estimated Hrs Per Day: 1.5 hours per day Patient and/or Family Agrees t: Yes Safety Risks/Education Patient Education: Gait Training, Transfer Techniques, Correct Positioning, Disease Process, Safety Issues Teaching Recipient: Patient Teaching Methods: Demonstration, Discussion Response to Teaching: Verbalize Understanding, Return Demonstration, Reinforcement Needed Time/GCodes Time In: 900 Time Out: 1000 Total Billed Treatment Time: 60 Total Billed Treatment 1,EX15,GT15,FA15 G Codes Necessary: No CHRIS CISNEROS EMERGENCY SERVICE WORKER Mar 12, 2019 10:05
[2019-03-12] MEDS: POLYETHYLENE GLYCOL 17 GM (MIRALAX) PACK PO SCH ×2 (10:55→21:13)
[2019-03-12] MEDS: SENNA W/DOCUSATE (SENOKOT S) TABLET PO SCH ×2 (10:57→21:13)
[2019-03-12] MEDS: DOCUSATE SODIUM 100 MG (COLACE) CAP PO SCH ×2 (10:57→21:14)
--- NOTE | 2019-03-12 11:11 | Occupational Ther Daily Note ---
OT Current Status-Daily Note Subjective Pt seen in room, up in recliner, agreeable to OT. No pain mentioned. Appearance More alert, cooperative Mental Status/Objective Therapy Code Descriptions/Definitions Functional [place] Measure: 0=Not Assessed/NA 4=Minimal Assistance 1=Total Assistance 5=Supervision or Setup 2=Maximal Assistance 6=Modified [place] 3=Moderate Assistance 7=Complete [place] ADL-Treatment Pt got up from recliner with CGA and walked to bathroom with CGA, FWW. Cues for hand placement x 2. Cues for hand placement toilet transfer (BSC over toilet, CGA) and cue to lower pants before sitting on toilet. Pt needed max assist to get wet Depends off. Pt educ to dress R leg first and was able to get Depends and slacks on with Supervision, CGA for standing. Dressed upper body with supervision, setup. Walked CGA, FWW to sink and stood SBA, leaning on counter to brush teeth. Cues for hand placement to sit in w/c. Therapy Code Descriptions/Definitions Functional [place] Measure: 0=Not Assessed/NA 4=Minimal Assistance 1=Total Assistance 5=Supervision or Setup 2=Maximal Assistance 6=Modified [place] 3=Moderate Assistance 7=Complete [place] Therapy Quality Codes: 6 Independent with activity with or without an assistive device 5 Patient requires set up or clean up by helper. Patient completes activity by themselves 4 Supervision or touching assist (CGA). [place] provide cues , steadying assist 3 The helper provides less than half the effort to complete the activity 2 The helper provides more than half the effort to complete the activity 1 Dependent. The helper does all the effort to complete an activity 7 Patient refused to complete or attempt activity 9 The patient did not perform the activity before the current illness or injury 88 Not attempted due to Medical conditions or safety concerns Grooming (FIM): 5 (SBA) Upper Body (FIM): 5 (supervision) Lower Body Dressing (FIM): 3 (Max assist to get pants off. Cues and pt educ mod technique to don pants and Depends. FWW.) Toileting (FIM): 4 (CGA for clothing management, with cues. Able to complete hygiene with supervision) Other Treatment Pt transported to gym and completed bilat arc activity with 1/2# weight on each arm, 2 sets. To strengthen arms to help with transfers. Pt returned to room and got up from w/c with CGA, recalling hand placement, and walked CGA, FWW to bed. Able to get feet into bed herself and scoot over. Pt left up in bed, 4 rails up, all needs met. Education OT Patient Education: Modified ADL techniques, Progress toward Goal/Update tx plan, Purpose of tx/functional activities, Safety issues, Transfer techniques Teaching Recipient: Patient Teaching Methods: Demonstration, Discussion Response to Teaching: Verbalize Understanding, Return Demonstration, Reinf orcement Needed OT Short Term Goals Short Term Goals Time Frame: Mar 17, 2019 Eating(FIM): 6 Grooming(FIM): 5 Bathing(FIM): 4 Upper Body Dressing(FIM): 5 Lower Body Dressing(FIM): 5 Toileting(FIM): 5 Transfers (B,C,W/C) (FIM): 4 Toilet/Commode Transfer(FIM): 5 Shower Transfer(FIM): 4 Additional Short Term Goals: 1-Demonstrate ADL Tasks, 2-Verbalize Understanding, 3-ImproveStrength/[place]en 1=Demonstrate adherence to instructed precautions during ADL tasks. 2=Patient will verbalize/demonstrate understanding of assistive devices/modifications for ADL. 3=Patient will improve strength/tolerance for activity to enable patient to p erform ADL's. OT Asset Management Lead Goals Half-Way Goals Time Frame: Mar 24, 2019 Eating (FIM): 6 Eating (QC): 6 Groomin Oral Hygiene (QC): 6 Bathing(FIM): 5 Shower/Bathe Self (QC): 4 Upper Body Dressing(FIM): 6 Upper Body Dressing (QC): 6 Lower Body Dressing(FIM): 6 Lower Body Dressing (QC): 6 On/Off Footwear (QC): 6 Toileting(FIM): 6 Toileting Hygiene (QC): 6 Transfers (B,C,W/C) (FIM): 6 Toilet/Commode Transfer(FIM): 6 Toilet/Commode Transfer (QC): 6 Shower Transfer(FIM): 5 Additional Goals: 1-Demonstrate ADL Tasks, 2-Verbalize Understanding, 3- ImproveStrength/[place]yleen 1=Demonstrate adherence to instructed precautions during ADL tasks. 2=Patient will verbalize/demonstrate understanding of assistive devices /modifications for ADL. 3=Patient will improve strength/tolerance for activity to enable patient to perform ADL's. OT Education/Plan Discharge Recommendations Plan/Recommendations: Continue POC Treatment Plan/Plan of Care Patient would benefit from OT for education, treatment and training to promote independence in ADL's, mobility, safety and/or upper extremity function for ADL's. Plan of Care: ADL Retraining, Functional Mobility, Group Exercise/Act as Ind, UE Funct Exercise/Act Treatment Duration: Mar 24, 2019 Frequency: At least 5 of 7 days/Wk (IRF) Estimated Hrs Per Day: 1.5 hours per day Agreement: Yes Rehab Potential: Good Time/GCodes Start Time: 10:05 Stop Time: 10:55 Total Time Billed (hr/min): 50 Billed Treatment Time visit, 30 minutes ADL, 20 minutes exercise VIKAS ELLISON OT Mar 12, 2019 11:11
--- NOTE | 2019-03-12 14:22 | Therapy Group Daily Note ---
Therapy Daily Group Note Patient Education Topic Other List Below (ARU orientation and expectations) Exercises LE Seated Exercise, UE Exercise Session Ratio (pt:therapist): 3:1 Goal of Session: Education on ARU Expectations, UE/LE Strengthing Goal Met for this Session: Yes Pt Benefit of Group: Contributions to Others, Increased Functional Strength, Recognition of Peers, Socialization Other/Notes Pt. participated in group PT OT session this date. Pt. required CGA for gait to and from group. Pt. was pleasant, introducing herself and participating in pt. lead exercises she read form written illustrated cardex. Pts. each rolled large foam dice to determine the # of reps the exercise they demonstrated would requi re. Pt.s were jovial sharing their names, home town as well as their favorite refreshing drink. ARU education was covered with regard to expectations , schedule, 3 hr requirement and goals. pt to room after group with assist, in bed with call swain at hand. Start Time: 12:45 Stop Time: 13:00 Total Billed Treatment Time: 75 Total Billed Treatment 1,GRP CHRIS CISNEROS AIR CARGO AGENT Mar 12, 2019 14:22
--- NOTE | 2019-03-12 16:11 | Speech Therapy Daily Note ---
Speech Daily Progress Note Subjective Date Seen by Provider: Mar 12, 2019 Time Seen by Provider: 00:15 The patient was tired after group and was taking a nap when I entered her room. Objective The patient completed a series of memory tasks related to her daily routine with 80% accuracy given min verbal and/or visual cues. Assessment Assessment Current Status: Good Progress Treatment Plan Continue Plan of Care Communication Comprehension: 5 Expression: 5 Social Cognition Social Interaction: 5 Problem Solvin Memory: 4 Speech Short Term Goals Short Term Goals Short Term Goals 1) The patient will complete memory tasks with 80% or greater with minimal cues. 2) The patient will complete problem solving tasks with 80% or greater with minimal cues. 3) The patient will complete safety awareness tasks with 80% or greater with minimal cues. Speech Snf Goals Snf Goals The patient will improve safety awareness and independence in order to return home safely. Speech-Plan Patient/Family Goals Patient/Family Goals: The patient plans on returning to her home where she lives with her post rehab. Treatment Plan Speech Therapy Treatment Plan: Continue Plan of Care The patient is progressing. Treatment Duration: Mar 19, 2019 Frequency: 5 times per week Estimated Hrs Per Day: .5 hour per day Rehab Potential: Good Barriers to Learning: Patient is experiencing a lot of pain. Pt/Family Agrees to Plan: Yes Safety Risks/Education Teaching Recipient: Patient Teaching Methods: Discussion Response to Teaching: Verbalize Understanding Education Topics Provided: Continued safety within her room. Time Speech Therapy Time In: 15:45 Speech Therapy Time Out: 16:00 Total Billed Time: 15 Billed Treatment Time [address] Mar 12, 2019 16:10
[2019-03-12 17:05] VITALS: BP 169/71
[2019-03-12] MEDS: ESTROGENS CONJ. CREAM 30 GM (PREMARIN) TUBE VG SCH (21:15)
[2019-03-12] MEDS: TRIMETHOPRIM 100 MG TAB (PROLOPRIM) NON-FORMULARY PO SCH (21:15)
[2019-03-12] MEDS: ACETAMINOPHEN 500 MG TAB (TYLENOL) PO PRN (21:49)
[2019-03-13 05:07] LABS: BASOPHILS % (AUTO) 0 % (0-10); EOSINOPHILS # (AUTO) 0.1 10^3/uL (0.0-0.3); EOSINOPHILS % (AUTO) 1 % (0-10); HEMATOCRIT 37 % (35-52); HEMOGLOBIN 12.5 G/DL (11.5-16.0); LYMPHOCYTES # (AUTO) 0.8 X 10^3 (1.0-4.0); LYMPHOCYTES % (AUTO) 11 % (12-44); MEAN CORPUSCULAR HEMOGLOBIN 30 PG (25-34); MEAN CORPUSCULAR HGB CONC 34 G/DL (32-36); MEAN CORPUSCULAR VOLUME 90 FL (80-99); MEAN PLATELET VOLUME 9.4 FL (7.4-10.4); MONOCYTES # (AUTO) 0.5 X 10^3 (0.0-1.0); MONOCYTES % (AUTO) 6 % (0-12); NEUTROPHILS % (AUTO) 81 % (42-75); PLATELET COUNT 157 10^3/uL (130-400); RED CELL DISTRIBUTION WIDTH 13.8 % (10.0-14.5); WHITE BLOOD COUNT 7.4 10^3/uL (4.3-11.0)
[2019-03-13 05:16] LABS: ALANINE AMINOTRANSFERASE 41 U/L (0-55); ALBUMIN 3.2 GM/DL (3.2-4.5); ALKALINE PHOSPHATASE 111 U/L (40-136); BILIRUBIN,TOTAL 0.8 MG/DL (0.1-1.0); BUN/CREATININE RATIO 14; CARBON DIOXIDE 31 MMOL/L (21-32); CHLORIDE 87 MMOL/L (98-107); CREATININE SERUM 0.74 MG/DL (0.60-1.30); GFR ESTIMATED > 60; GLUCOSE 110 MG/DL (70-105); MAGNESIUM 1.5 MG/DL (1.8-2.4); POTASSIUM 3.7 MMOL/L (3.6-5.0); SODIUM 128 MMOL/L (135-145); TOTAL PROTEIN 5.8 GM/DL (6.4-8.2)
[2019-03-13 05:55] VITALS: BP 142/70
[2019-03-13] MEDS: KCL 10 MEQ TAB (MICRO K) PO SCH ×2 (08:31→17:24)
[2019-03-13] MEDS: POLYETHYLENE GLYCOL 17 GM (MIRALAX) PACK PO SCH ×2 (08:32→20:08)
[2019-03-13] MEDS: DOCUSATE SODIUM 100 MG (COLACE) CAP PO SCH ×2 (08:32→20:08)
[2019-03-13] MEDS: SENNA W/DOCUSATE (SENOKOT S) TABLET PO SCH ×2 (08:32→20:08)
[2019-03-13] MEDS: ACETAMINOPHEN 500 MG TAB (TYLENOL) PO PRN ×2 (10:20→19:39)
--- NOTE | 2019-03-13 12:52 | PM&R Progress Note ---
Subjective HPI/CC On Admission Date Seen by Provider: Mar 13, 2019 Time Seen by Provider: 11:30 CC: Debility following kyphoplasty of L4 HPI: This is an 88yoWF who resides at home with her who has a PMH of HTN and HLP who presents after uncomplicated kyphoplasty of L4 by Dr. Moreno at [address] She reports that the back pain was acute on chronic back pain that she had presented to her doctor's office Dr. Ortiz who preceded on with getting an MRI on 02/23/19 showing a possible subacute compression fracture. She was given pain medication and conservative support which continued to plague her causing significant problems with ambulation and just overall getting around and remaining at home and repeat MRI showed compression fracture that was continuing to progress and worsens so she underwent the uncomplicated procedure with Dr. Moreno at [facility] in [place] yesterday and was discharged at 1100 and at 0300 she was unable to get to the bathroom because she was so sore and had so much pain. She was found to have nausea and vomiting, placed in the hospital for pain control and currently, she is in need of inpatient rehab, an intensive regimen in order to return home with her and family. Her two sons are at the bedside and very involved in her care. She was noted to have a sodium level of [address] on fluid restriction and will restart her home meds. She has not had a BM for two days so will initiate bowel regimen and monitor closely in the meantime. 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 Subjective/Events-last exam Nausea improved since discontinuing Ultram and now relying on Tylenol for pain which is adequate Multiple family members at the bedside including and son and other relatives Patient and looking at assisted living since they do have long-term care insurance and that was discussed yesterday and I think that is a good plan Sodium level much improved at 128 with fluid restriction along the potassium of 3.7 was supplemented Now having loose stools since constipation resolved and multiple metastases were given to get that started Dementia noted on slum score Checked meds and labs Review therapy notes Conferred with mining helper of Systems General: Fatigue Musculoskeletal: back pain Neurological: Confusion Objective Exam Vital Signs Vital Signs Date Time Temp Pulse Resp B/P (MAP) Pulse Ox O2 Delivery O2 Flow Rate FiO2 03/13/19 09:00 Room Air 03/13/19 05:55 97.9 63 18 142/70 (94) 95 Capillary Refill : General Appearance: No Apparent Distress, Anxious, Chronically ill, Thin HEENT: PERRL/EOMI, Normal ENT Inspection, Pharynx Normal, Moist Mucous Membranes Neck: Full Range of Motion, Normal Inspection, Non Tender, Supple Respiratory: Chest Non Tender, Lungs Clear, Normal Breath Sounds, No Accessory Muscle Use, No Respiratory Distress Cardiovascular: Regular Rate, Rhythm, No Edema, No Gallop, No JVD, No Murmur Gastrointestinal: Normal Bowel Sounds, No Organomegaly, No Pulsatile Mass, Non Tender, Soft Back: Decreased Range of Motion, Muscle Spasm, Vertebral Tenderness Extremity: Normal Capillary Refill, Normal Inspection, Normal Range of Motion, Non Tender, No Calf Tenderness, No Pedal Edema Neurologic/Psychiatric: Alert, Oriented x3, No Motor/Sensory Deficits, Normal Mood/Affect, Disoriented (subtle poor recall) Skin: Normal Color, Warm/Dry Lymphatic: No Adenopathy Results/Procedures Lab Laboratory Tests 03/13/19 04:50 Patient resulted labs reviewed. FIM Transfers Therapy Code Descriptions/Definitions Functional [place] Measure: 0=Not Assessed/NA 4=Minimal Assistance 1=Total Assistance 5=Supervision or Setup 2=Maximal Assistance 6=Modified [place] 3=Moderate Assistance 7=Complete [place] Therapy Quality Codes: 6 Independent with activity with or without an assistive device 5 Patient requires set up or clean up by helper. Patient completes activity by themselves 4 Supervision or touching assist (CGA). [place] provide cues , steadying assist 3 The helper provides less than half the effort to complete the activity 2 The helper provides more than half the effort to complete the activity 1 Dependent. The helper does all the effort to complete an activity 7 Patient refused to complete or attempt activity 9 The patient did not perform the activity before the current illness or injury 88 Not attempted due to Medical conditions or safety concerns Transfers (B, C, W/C) (FIM): 5 Scootin Rollin Roll Left to Right (QC): 3 Supine to/from Sit: 5 Sit to/from Stand: 5 Sit to Lying (QC): 3 Sit to Stand (QC): 4 Chair/Nip-qj-Figad Xfer(QC): 4 Bed to/from Chair: 4 Car Transfer (QC): 3 (min assist) Gait Training Does the Patient Walk?: Yes Gait (FIM): 4 Distance (FIM): 3=150 ft (160x2) Distance: 40'x2 Walk 10 feet (QC): 4 Walk 50 ft with 2 Turns(QC): 4 Walk 150 ft (QC): 88 Walking 10ft/uneven surface-QC: 4 Gait Level of Assist: 4 Gait Persons Needed: 1 Gait Assistive Device: FWW Wheelchair Training Does the Pt Use a Wheelchair?: Yes Wheelchair (FIM): 1 Stair Training Stairs (FIM): 1 #of Steps: 1 1 Step (curb) (QC): 4 4 Steps (QC): 88 12 Steps (QC): 88 Level of Assist: 4 Balance Picking up an Object (QC): 88 (lumbar surgery) Mental Status/Objective Comprehension: 5 Expression: 5 Social Interaction: 5 Problem Solvin Memory: 4 ADL-Treatment Feedin (supervision (prompting)) Eating (QC): 4 (Supervision) Groomin (SBA) Oral Hygiene (QC): 4 Bathin (CGA, supervision, cues) Shower/Bathe Self (QC): 4 (supervision, cues) Upper Extremity Dressin (supervision) Upper Body Dressing (QC): 5 Lower Extremity Dressin (Max assist to get pants off. Cues and pt educ mod technique to don pants and Depends. FWW.) Lower Body Dressing (QC): 4 (CGA) On/Off Footwear (QC): 5 (setup) Toiletin (CGA for clothing management, with cues. Able to complete hygiene with supervision) Toileting Hygiene (QC): 4 Toilet/Commode Transfer: 4 Toilet Transfer (QC): 4 Shower: 4 (CGA, cues) Assessment/Plan Assessment and Plan Assess & Plan/Chief Complaint Assessment: s/p kyphoplasty POD # 4 Compression fracture L4 Dementia high risk for delirium and slow recovery HLP Recurrent UTI Constipation Debility Frail status Hyponatremia improved Hypokalemia Plan: Pain control Delirium management BM regimen to continue PT/OT Frail status and family very protective Fluid restriction to continue (1) S/P kyphoplasty (2) Constipation (3) Osteoporosis (4) Delirium (5) Dementia (6) Hyperlipidemia (7) Recurrent UTI (8) Hyponatremia (9) Nausea and vomiting (10) Postoperative back pain (11) Generalized weakness ROSSI WASHINGTON DO Mar 13, 2019 12:52
--- NOTE | 2019-03-13 13:43 | Physical Therapy Daily Note ---
PT Daily Note-Current Subjective Pt declines out of bed stating " I have been constipated. They gave me medicine and it just broke loose last night. I have been up/down to the bathroom several times already." Pt agrees to ther ex in bed reluctantly. Pt rates (R) hip pain 8/10 and requests pain med. Nurse notified. Pt did not voice complaint of pain during the ther ex. Mental Status Patient Orientation: Person, Place, Situation Transfers Therapy Code Descriptions/Definitions Functional [place] Measure: 0=Not Assessed/NA 4=Minimal Assistance 1=Total Assistance 5=Supervision or Setup 2=Maximal Assistance 6=Modified [place] 3=Moderate Assistance 7=Complete [place] Therapy Quality Codes: 6 Independent with activity with or without an assistive device 5 Patient requires set up or clean up by helper. Patient completes activity by themselves 4 Supervision or touching assist (CGA). [place] provide cues , steadying assist 3 The helper provides less than half the effort to complete the activity 2 The helper provides more than half the effort to complete the activity 1 Dependent. The helper does all the effort to complete an activity 7 Patient refused to complete or attempt activity 9 The patient did not perform the activity before the current illness or injury 88 Not attempted due to Medical conditions or safety concerns Treatments Pt performed AP, QS, hip abd, hip add isometrics, SAQ, marches x 15 each Assessment Current Status: Fair Progress Pt perez ther ex in bed well. Pt in bed resting post therapy with all needs met. Call light in reach PT Short Term Goals Short Term Goals Time Frame: Mar 17, 2019 Transfers (B,C,W/C) (FIM): 4 Gait (FIM): 4 PT Molding Utility Worker Goals Molding Utility Worker Goals PT Chcf Goals Time Frame: Mar 31, 2019 Transfers (B,C,W/C) (FIM): 7 Sit to Lying (QC): 6 Lying-Sitting on Side/Bed(QC): 6 Sit to Stand (QC): 6 Rollin Roll Left to Right (QC): 6 Chair/Tso-ma-Zyulh Xfer(QC): 6 Car Transfer (QC): 5 Does the Patient Walk: Yes Gait (FIM): 6 Gait distance (FIM): 3=150 ft Walk 10 feet (QC): 6 Walk 10ft-Uneven Surface(QC): 5 Walk 50ft with 2 Turns (QC): 6 Walk 150 ft (QC): 6 Gait Assistive Device: FWW Does the Pt use WC or Scooter?: No Stairs (FIM): 5 # of Steps: 4 1 Step (curb) (QC): 6 4 Steps (QC): 6 12 Steps (QC): 88 Picking up an Object (QC): 88 PT Plan Treatment/Plan Treatment Plan: Continue Plan of Care Treatment Plan: Bed Mobility, Education, Functional Activity Ayleen, Functional Strength, Group Therapy, Gait, Safety, Therapeutic Exercise, Transfers Treatment Duration: Mar 31, 2019 Frequency: At least 5 of 7 days/Wk (IRF) Estimated Hrs Per Day: 1.5 hours per day Patient and/or Family Agrees t: Yes Time/GCodes Time In: 940 Time Out: 1003 Total Billed Treatment Time: 23 Total Billed Treatment 1, ther ex 23' KWASI SCHROEDER CPTA Mar 13, 2019 13:43
--- NOTE | 2019-03-13 14:28 | NUR ---
Vidhya is an 88 yo female currently present on ARU kyphoplasty completed by Dr. Moreno on 03/09. Patient is currently A&O X 3 and has reported mild pain in right hip, relieved by Tylenol. Patient has been experiencing diarrhea today due to previously being constipated and receiving bowel medications. Dr. Matute aware and no new orders. Patient is also currently on a fluid restrictions of 1500ml due to hyponatremia, which has improved since , Current sodium level is 128, Dr. Matute aware and no new orders received, continuing with current treatment of fluid restrictions. No further issues noted with patient, this nurse will continue to monitor patient throughout shift.
[2019-03-13 15:46] VITALS: BP 126/60
[2019-03-13] MEDS: TRIMETHOPRIM 100 MG TAB (PROLOPRIM) NON-FORMULARY PO SCH (20:55)
[2019-03-13] MEDS: ATORVASTATIN 20 MG (LIPITOR) TABLET PO SCH (20:56)
[2019-03-14] MEDS: ACETAMINOPHEN 500 MG TAB (TYLENOL) PO PRN ×4 (00:54→20:26)
[2019-03-14] MEDS: MELATONIN 3 MG TABLET PO PRN ×2 (00:54→20:27)
[2019-03-14 05:06] VITALS: BP 159/84
--- NOTE | 2019-03-14 06:00 | NUR ---
pt rested most of noc with eyes closed resp reg et easy, assist to b/r amb with slow steady gait with walker sba. pt cheerful. pt son at bedside. lower back dressing d/i. tylenol po given for pain with relief noted.
[2019-03-14] MEDS: SENNA W/DOCUSATE (SENOKOT S) TABLET PO SCH ×2 (08:19→19:41)
[2019-03-14] MEDS: POLYETHYLENE GLYCOL 17 GM (MIRALAX) PACK PO SCH ×2 (08:19→19:41)
[2019-03-14] MEDS: DOCUSATE SODIUM 100 MG (COLACE) CAP PO SCH ×2 (08:19→19:40)
[2019-03-14] MEDS: KCL 10 MEQ TAB (MICRO K) PO SCH ×2 (08:30→16:46)
--- NOTE | 2019-03-14 08:30 | NUR ---
MEDICATED WITH TYLENOL FOR BACK AND RIGHT HIP DISCOMFORT. STATES ADEQUATE PAIN RELIEF WITH TYLENOL. DENIES ANY FURTHER NAUSEA. SON AT BEDSIDE STATES THEY HAVE DECIDED AGAINST SKILLED FACILITY AT THIS TIME AND WILL REMAIN AT HOME LONG POSSIBLE. PATIENT HAS A POOR APPETITE - SON STATES WAS THIS WAY AT HOME ALSO.
--- NOTE | 2019-03-14 12:37 | PM&R Progress Note ---
Subjective HPI/CC On Admission Date Seen by Provider: Mar 14, 2019 Time Seen by Provider: 12:15 CC: Debility following kyphoplasty of L4 HPI: This is an 88yoWF who resides at home with her who has a PMH of HTN and HLP who presents after uncomplicated kyphoplasty of L4 by Dr. Moreno at [address] She reports that the back pain was acute on chronic back pain that she had presented to her doctor's office Dr. Ortiz who preceded on with getting an MRI on 02/23/19 showing a possible subacute compression fracture. She was given pain medication and conservative support which continued to plague her causing significant problems with ambulation and just overall getting around and rem aining at home and repeat MRI showed compression fracture that was continuing to progress and worsens so she underwent the uncomplicated procedure with Dr. Moreno at [facility] in [place] yesterday and was discharged at 1100 and at 0300 she was unable to get to the bathroom because she was so sore and had so much pain. She was found to have nausea and vomiting, placed in the hospital for pain control and currently, she is in need of inpatient rehab, an intensive regimen in order to return home with her and family. Her two sons are at the bedside and very involved in her care. She was noted to have a sodium level of [address] on fluid restriction and will restart her home meds. She has not had a BM for two days so will initiate bowel regimen and monitor closely in the meantime. 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 Subjective/Events-last exam Nausea improved since discontinuing Ultram and now relying on Tylenol for pain which is adequate Q6hrs scheduled at the bedside asking multiple questions They have decided against assisted living and patient will return home at [place] from [facility] Sodium level along with potassium will be checked prn Loose stools improved after laxatives stopped Frail status noted and falls back a lot when she is at the bedside sitting and when in bathroom SCD's for DVT PPx Mag is 1.5 so will start a small supplement Mag Ox 400mg daily Dementia noted on slum score Checked meds and labs Review therapy notes Conferred with rack production worker of Systems General: Fatigue Musculoskeletal: back pain Neurological: Confusion Objective Exam Vital Signs Vital Signs Date Time Temp Pulse Resp B/P (MAP) Pulse Ox O2 Delivery O2 Flow Rate FiO2 7/21/19 09:00 Room Air 03/14/19 05:06 97.7 66 16 159/84 (109) 94 Capillary Refill : General Appearance: No Apparent Distress, Anxious, Chronically ill, Thin HEENT: PERRL/EOMI, Normal ENT Inspection, Pharynx Normal, Moist Mucous Membranes Neck: Full Range of Motion, Normal Inspection, Non Tender, Supple Respiratory: Chest Non Tender, Lungs Clear, Normal Breath Sounds, No Accessory Muscle Use, No Respiratory Distress Cardiovascular: Regular Rate, Rhythm, No Edema, No Gallop, No JVD, No Murmur Gastrointestinal: Normal Bowel Sounds, No Organomegaly, No Pulsatile Mass, Non Tender, Soft Back: Decreased Range of Motion, Muscle Spasm, Vertebral Tenderness Extremity: Normal Capillary Refill, Normal Inspection, Normal Range of Motion, Non Tender, No Calf Tenderness, No Pedal Edema Neurologic/Psychiatric: Alert, Oriented x3, No Motor/Sensory Deficits, Normal Mood/Affect, Disoriented (subtle poor recall) Skin: Normal Color, Warm/Dry Lymphatic: No Adenopathy Results/Procedures Lab Patient resulted labs reviewed. FIM Transfers Therapy Code Descriptions/Definitions Functional [place] Measure: 0=Not Assessed/NA 4=Minimal Assistance 1=Total Assistance 5=Supervision or Setup 2=Maximal Assistance 6=Modified [place] 3=Moderate Assistance 7=Complete [place] Therapy Quality Codes: 6 Independent with activity with or without an assistive device 5 Patient requires set up or clean up by helper. Patient completes activity by themselves 4 Supervision or touching assist (CGA). [place] provide cues , steadying assist 3 The helper provides less than half the effort to complete the activity 2 The helper provides more than half the effort to complete the activity 1 Dependent. The helper does all the effort to complete an activity 7 Patient refused to complete or attempt activity 9 The patient did not perform the activity before the current illness or injury 88 Not attempted due to Medical conditions or safety concerns Transfers (B, C, W/C) (FIM): 5 Scootin Rollin Roll Left to Right (QC): 3 Supine to/from Sit: 5 Sit to/from Stand: 5 Sit to Lying (QC): 3 Sit to Stand (QC): 4 Chair/Ksf-su-Rkiuy Xfer(QC): 4 Bed to/from Chair: 4 Car Transfer (QC): 3 (min assist) Gait Training Does the Patient Walk?: Yes Gait (FIM): 4 Distance (FIM): 3=150 ft (160x2) Distance: 40'x2 Walk 10 feet (QC): 4 Walk 50 ft with 2 Turns(QC): 4 Walk 150 ft (QC): 88 Walking 10ft/uneven surface-QC: 4 Gait Level of Assist: 4 Gait Persons Needed: 1 Gait Assistive Device: FWW Wheelchair Training Does the Pt Use a Wheelchair?: Yes Wheelchair (FIM): 1 Stair Training Stairs (FIM): 1 #of Steps: 1 1 Step (curb) (QC): 4 4 Steps (QC): 88 12 Steps (QC): 88 Level of Assist: 4 Balance Picking up an Object (QC): 88 (lumbar surgery) Mental Status/Objective Comprehension: 5 Expression: 5 Social Interaction: 5 Problem Solvin Memory: 4 ADL-Treatment Feedin (supervision (prompting)) Eating (QC): 4 (Supervision) Groomin (SBA) Oral Hygiene (QC): 4 Bathin (CGA, supervision, cues) Shower/Bathe Self (QC): 4 (supervision, cues) Upper Extremity Dressin (supervision) Upper Body Dressing (QC): 5 Lower Extremity Dressin (Max assist to get pants off. Cues and pt educ mod technique to don pants and Depends. FWW.) Lower Body Dressing (QC): 4 (CGA) On/Off Footwear (QC): 5 (setup) Toiletin (CGA for clothing management, with cues. Able to complete hygiene with supervision) Toileting Hygiene (QC): 4 Toilet/Commode Transfer: 4 Toilet Transfer (QC): 4 Shower: 4 (CGA, cues) Assessment/Plan Assessment and Plan Assess & Plan/Chief Complaint Assessment: s/p kyphoplasty POD # 5 Compression fracture L4 Dementia high risk for delirium and slow recovery HLP Recurrent UTI Constipation Debility Frail status Hyponatremia improved Hypokalemia Plan: Pain control Delirium management BM regimen to continue PT/OT Frail status and family very protective Fluid restriction to continue (1) S/P kyphoplasty (2) Constipation (3) Osteoporosis (4) Delirium (5) Dementia (6) Hyperlipidemia (7) Recurrent UTI (8) Hyponatremia (9) Nausea and vomiting (10) Postoperative back pain (11) Generalized weakness ROSSI WASHINGTON DO Mar 14, 2019 12:37
[2019-03-14] MEDS: MAGNESIUM OXIDE (MAG-OX)400 MG TAB PO SCH (13:03)
[2019-03-14 17:04] VITALS: BP 150/75
[2019-03-14] MEDS: ATORVASTATIN 20 MG (LIPITOR) TABLET PO SCH (20:26)
[2019-03-14] MEDS: TRIMETHOPRIM 100 MG TAB (PROLOPRIM) NON-FORMULARY PO SCH (20:27)
[2019-03-15] MEDS: ACETAMINOPHEN 500 MG TAB (TYLENOL) PO PRN ×2 (02:03→09:58)
[2019-03-15 05:42] VITALS: BP 147/79
[2019-03-15 07:02] LABS: BUN/CREATININE RATIO 16; CALCIUM 9.2 MG/DL (8.5-10.1); CARBON DIOXIDE 29 MMOL/L (21-32); CHLORIDE 94 MMOL/L (98-107); CREATININE SERUM 0.82 MG/DL (0.60-1.30); GFR ESTIMATED > 60; GLUCOSE 100 MG/DL (70-105); POTASSIUM 4.2 MMOL/L (3.6-5.0); SODIUM 133 MMOL/L (135-145)
[2019-03-15 07:49] VITALS: BP 157/81
[2019-03-15] MEDS: KCL 10 MEQ TAB (MICRO K) PO SCH (07:58)
--- NOTE | 2019-03-15 08:00 | NUR ---
DENIES PAIN AT THIS TIME. IS EMOTIONAL. WENT TO ED LAST NIGHT AND IS BACK AT HOME NOW, BUT PATIENT WORRIED ABOUT HIM. WANTS TO GO HOME.
[2019-03-15] MEDS: MAGNESIUM OXIDE (MAG-OX)400 MG TAB PO SCH (08:06)
[2019-03-15] MEDS: SENNA W/DOCUSATE (SENOKOT S) TABLET PO SCH (08:09)
[2019-03-15] MEDS: DOCUSATE SODIUM 100 MG (COLACE) CAP PO SCH (08:09)
[2019-03-15] MEDS: POLYETHYLENE GLYCOL 17 GM (MIRALAX) PACK PO SCH (08:09)
--- NOTE | 2019-03-15 08:47 | Physical Therapy Daily Note ---
PT Daily Note-Current Subjective Pt. up in chair with nursing at her side, pt. emotional and states her has been in the ER and is now at home and she is very concerned and anxious to go home. Pt. states their anniversary is Friday. Pain Location: No Pain Reported Appearance emotional Mental Status Patient Orientation: Normal For Age Transfers Therapy Code Descriptions/Definitions Functional [place] Measure: 0=Not Assessed/NA 4=Minimal Assistance 1=Total Assistance 5=Supervision or Setup 2=Maximal Assistance 6=Modified [place] 3=Moderate Assistance 7=Complete [place] Therapy Quality Codes: 6 Independent with activity with or without an assistive device 5 Patient requires set up or clean up by helper. Patient completes activity by themselves 4 Supervision or touching assist (CGA). [place] provide cues , steadying assist 3 The helper provides less than half the effort to complete the activity 2 The helper provides more than half the effort to complete the activity 1 Dependent. The helper does all the effort to complete an activity 7 Patient refused to complete or attempt activity 9 The patient did not perform the activity before the current illness or injury 88 Not attempted due to Medical conditions or safety concerns Transfers (B, C, W/C) (FIM): 6 Scootin Rollin Roll Left to Right (QC): 6 Supine to/from Sit: 6 Sit to/from Stand: 6 Sit to Lying (QC): 6 Sit to Stand (QC): 6 Chair/Nhe-mb-Kcoln Xfer(QC): 6 Bed to/from Chair: 6 Car Transfer (QC): 5 Gait Training Does the Patient Walk?: Yes Gait (FIM): 5 Distance (FIM): 3=150 ft (165x2, 50) Walk 10 feet (QC): 5 Walk 50 ft with 2 Turns(QC): 5 Walk 150 ft (QC): 5 Walking 10ft/uneven surface-QC: 5 Gait Level of Assist: 5 Gait Persons Needed: 1 Gait Assistive Device: FWW pts. gait improved this date with some veering to the left but greatly improved. Pt. needs SBA to guide to destination but this PUBLIC RELATIONS feels this would be better in her own home environment which pt. is very familiar with Stair Training Stair Training: Handrails/: 2 handrails Stairs (FIM): 5 #of Steps: 4 1 Step (curb) (QC): 5 4 Steps (QC): 5 Stairs: Pattern: Reciprocal Level of Assist: 5 household exception Balance Picking up an Object (QC): 5 Exercises Supine Ex: Bridging, Rolling, Heel Slides, Scooting, Straight leg raise, Hip abd/add Supine Reps: 8 Seated Therapy Exercises: Sit to stand, Long arc quads Seated Reps: 8 Assessment Current Status: Good Progress This pt. is very emotional and would likely profit from DC to home with under familys watch at this time PT Short Term Goals Short Term Goals Time Frame: Mar 17, 2019 Transfers (B,C,W/C) (FIM): 4 Gait (FIM): 4 PT Skilled Nursing Goals Skilled Nursing Goals PT Guest Service Supervisor Goals Time Frame: Mar 31, 2019 Transfers (B,C,W/C) (FIM): 7 Sit to Lying (QC): 6 Lying-Sitting on Side/Bed(QC): 6 Sit to Stand (QC): 6 Rollin Roll Left to Right (QC): 6 Chair/Hvz-kg-Euiji Xfer(QC): 6 Car Transfer (QC): 5 Does the Patient Walk: Yes Gait (FIM): 6 Gait distance (FIM): 3=150 ft Walk 10 feet (QC): 6 Walk 10ft-Uneven Surface(QC): 5 Walk 50ft with 2 Turns (QC): 6 Walk 150 ft (QC): 6 Gait Assistive Device: FWW Does the Pt use WC or Scooter?: No Stairs (FIM): 5 # of Steps: 4 1 Step (curb) (QC): 6 4 Steps (QC): 6 12 Steps (QC): 88 Picking up an Object (QC): 88 PT Plan Treatment/Plan Treatment Plan: Continue Plan of Care Treatment Plan: Bed Mobility, Education, Functional Activity Ayleen, Functional Strength, Group Therapy, Gait, Safety, Therapeutic Exercise, Transfers Treatment Duration: Mar 31, 2019 Frequency: At least 5 of 7 days/Wk (IRF) Estimated Hrs Per Day: 1.5 hours per day Patient and/or Family Agrees t: Yes Safety Risks/Education Patient Education: Gait Training, Transfer Techniques, Steps, Correct Positioning, Disease Process, Safety Issues Teaching Recipient: Patient Teaching Methods: Demonstration, Discussion Response to Teaching: Verbalize Understanding, Return Demonstration, Reinforcement Needed Time/GCodes Time In: 805 Time Out: 850 Total Billed Treatment Time: 45 Total Billed Treatment 1,GT15m,FA30m G Codes Necessary: CHRIS Lion PUBLIC RELATIONS Mar 15, 2019 08:47
--- NOTE | 2019-03-15 08:54 | NUR ---
SEED TESTER met with team to discuss patient's progress and tentative discharge. Team feels patient is appropriate to discharge home today, which is also what the patient prefers. SEED TESTER will meet with patient and son to discuss.
[2019-03-15] MEDS ORDERED: ACET-77 PO (09:07)
[2019-03-15] MEDS ORDERED: POTA10TA36 PO (09:07)
--- NOTE | 2019-03-15 09:10 | D/C HH Face to Face Order ---
D/C Face to Face Orders Instructions for Patient Via [facility], Patient Instructions/FollowUp: Dr Ortiz in 1 week Physician to follow Patient: Dr Ortiz Discharge Diet for Home: No Restrictions Patient Problems: Compression fracture lumbar spine Goals for Patient: Return to independent living Patient Data-Allergies,Ht & Wt Patient Allergies: Coded Allergies: cephalexin (Verified Allergy, Mild, 03/10/19) ciprofloxacin (Verified Allergy, Mild, 03/10/19) nitrofurantoin (Verified Allergy, Mild, 03/10/19) codeine (Verified Allergy, Unknown, pt takes Tramadol at home, 03/10/19) sulfamethoxazole (Verified Allergy, Unknown, 03/10/19) trimethoprim (Verified Allergy, Unknown, 03/10/19) Height (Feet): 5 Height (Inches): 0.00 Weight (Pounds): 112 Weight (Ounces): 4.0 Home Health Need/Face to Face Date of Face to Face: Mar 15, 2019 Clinical Findings: Generalized weakness and fatigue, Instability, Muscle weakness, Pain with ambulation, Unsteady gait I have seen Pt [id number]: Yes Discharged To: Home Diagnosis/Conditions: Compression fracture lumbar spine Patient is Homebound due to: CognItive deficits, Gideon fall risk due to instabilty, Muscle weakness, Pain w/ambulation Homebound Status Due to the above stated illness, injury or surgical procedure (medical condition or diagnosis) and associated clinical findings, the patient is homebound because of his/her inability to leave home except with aid of a supportive device and/or person AND leaving the home requires a considerable and taxing effort or is medically contraindicated. Pt req the following assistanc: Walker Home Health Nursing Orders Home Health Services Order: Nursing Services (monintor BP, Maintain fluid restriction 1500cc/daily), Residential Team Leader-Evaluate & Treat, Physical Therapy- Evaluate & Treat Certify Stmt I certify that this patient is under my care and that I, a nurse practitioner or a physician; a blood bank assistant working with me, had a face to face encounter that - meets the physician face to face encounter requirements with this patient as dated. ROSSI WASHINGTON DO Mar 15, 2019 09:10
--- NOTE | 2019-03-15 09:11 | Discharge Summary ---
Diagnosis/Chief Complaint Date of Admission Mar 10, 2019 at 14:00 Date of Discharge Discharge Date: Mar 15, 2019 Discharge Diagnosis Assessment: s/p kyphoplasty POD # 6 Compression fracture L4 Dementia high risk for delirium and slow recovery HLP Recurrent UTI Constipation Debility Frail status Hyponatremia improved Hypokalemia Plan: Pain control Delirium management BM regimen to continue PT/OT Frail status and family very protective Fluid restriction to continue (1) S/P kyphoplasty (2) Constipation (3) Osteoporosis (4) Delirium (5) Dementia (6) Hyperlipidemia (7) Recurrent UTI (8) Hyponatremia (9) Nausea and vomiting (10) Postoperative back pain (11) Generalized weakness Discharge Summary Discharge Physical Examination Allergies: Coded Allergies: cephalexin (Verified Allergy, Mild, 03/10/19) ciprofloxacin (Verified Allergy, Mild, 03/10/19) nitrofurantoin (Verified Allergy, Mild, 03/10/19) codeine (Verified Allergy, Unknown, pt takes Tramadol at home, 03/10/19) sulfamethoxazole (Verified Allergy, Unknown, 03/10/19) trimethoprim (Verified Allergy, Unknown, 03/10/19) Vitals & I&Os Vital Signs Date Time Temp Pulse Resp B/P (MAP) Pulse Ox O2 Delivery O2 Flow Rate FiO2 03/15/19 13:53 75 20 157/81 93 Room Air 03/15/19 05:42 99.1 General Appearance: Alert, Oriented X3, Cooperative Respiratory: Clear to Auscultation, Normal Air Movement Cardiovascular: Regular Rate, Normal S1, Normal S2 Neuro: Normal Gait, Normal Speech, Strength at 5/5 X4 Ext Psych/Mental Status: Mental Status NL, Mood NL Hospital Course Was the Problem List Reviewed?: Yes Hospital course: Pt had an uneventful hospital course in inpatient rehab, she was admitted due to debility and severe constipation from kyphoplasty procedure by Dr. Moreno and hyponatremia with nausea and vomiting. Fluid restriction in itiated which ultimately was successful in raising the sodium level from 125 to 133 at time of discharge and potassium was supplemented in the meantime. BP was slightly elevated in the 150 range, she will have home health nurse monitor that and notify her PCP Dr. Ortiz if meds need to be initiated. 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 She was able to regain enough function although not to prior level of functioning yet she will resume walking with a walker and Tylenol for pain. Labs (last 24 hrs) Laboratory Tests 03/11/19 05:35: White Blood Count 6.0, Red Blood Count 3.68L, Hemoglobin 11.2L, Hematocrit 34L, Mean Corpuscular Volume 91, Mean Corpuscular Hemoglobin 30, Mean Corpuscular Hemoglobin Concent 33, Red Cell Distribution Width 13.9, Platelet Count 155, Mean Platelet Volume 9.6, Neutrophils (%) (Auto) 88H, Lymphocytes (%) (Auto) 7L, Monocytes (%) (Auto) 5, Eosinophils (%) (Auto) 0, Basophils (%) (Auto) 0, Neutrophils # (Auto) 5.3, Lymphocytes # (Auto) 0.4L, Monocytes # (Auto) 0.3, Eosinophils # (Auto) 0.0, Basophils # (Auto) 0.0, Neutrophils % (Manual) 74, Lymphocytes % (Manual) 8, Monocytes % (Manual) 3, Eosinophils % (Manual) 1, Basophils % (Manual) 0, Band Neutrophils 14, Blood Morphology Comment NORMAL, Sodium Level 125*L, Potassium Level 3.0L, Chloride Level 91L, Carbon Dioxide Level 26, Anion Gap 8, Blood Urea Nitrogen 12, Creatinine 0.71, Estimat Glomerular Filtration Rate > 60, BUN/Creatinine Ratio 17, Glucose Level 134H, Calcium Level 9.0, Corrected Calcium 9.6, Total Bilirubin 0.5, Aspartate Amino Transf (AST/SGOT) 36H, Alanine Aminotransferase (ALT/SGPT) 31, Alkaline Phosphatase 101, Total Protein 5.8L, Albumin 3.2 03/13/19 04:50: White Blood Count 7.4, Red Blood Count 4.11L, Hemoglobin 12.5, Hematocrit 37, Mean Corpuscular Volume 90, Mean Corpuscular Hemoglobin 30, Mean Corpuscular Hemoglobin Concent 34, Red Cell Distribution Width 13.8, Platelet Count 157, Mean Platelet Volume 9.4, Neutrophils (%) (Auto) 81H, Lymphocytes (%) (Auto) 11L , Monocytes (%) (Auto) 6, Eosinophils (%) (Auto) 1, Basophils (%) (Auto) 0, Neutrophils # (Auto) 6.0, Lymphocytes # (Auto) 0.8L, Monocytes # (Auto) 0.5, Eosinophils # (Auto) 0.1, Basophils # (Auto) 0.0, Sodium Level 128L, Potassium Level 3.7, Chloride Level 87L, Carbon Dioxide Level 31, Anion Gap 10, Blood Urea Nitrogen 10, Creatinine 0.74, Estimat Glomerular Filtration Rate > 60, BUN/Creatinine Ratio 14, Glucose Level 110H, Calcium Level 9.0, Corrected Calcium 9.6, Total Bilirubin 0.8, Aspartate Amino Transf (AST/SGOT) 54H, Alanine Aminotransferase (ALT/SGPT) 41, Alkaline Phosphatase 111, Total Protein 5.8L, Albumin 3.2, Magnesium Level 1.5L 03/15/19 06:31: Sodium Level 133L, Potassium Level 4.2, Chloride Level 94L, Carbon Dioxide Level 29, Anion Gap 10, Blood Urea Nitrogen 13, Creatinine 0.82, Estimat Glomerular Filtration Rate > 60, BUN/Creatinine Ratio 16, Glucose Level 100, Calcium Level 9.2 Pending Labs Laboratory Tests 03/11/19 05:35: White Blood Count 6.0, Red Blood Count 3.68, Hemoglobin 11.2, Hematocrit 34, Mean Corpuscular Volume 91, Mean Corpuscular Hemoglobin 30, Mean Corpuscular Hemoglobin Concent 33, Red Cell Distribution Width 13.9, Platelet Count 155, Mean Platelet Volume 9.6, Neutrophils (%) (Auto) 88, Lymphocytes (%) (Auto) 7, Monocytes (%) (Auto) 5, Eosinophils (%) (Auto) 0, Basophils (%) (Auto) 0, Neutrophils # (Auto) 5.3, Lymphocytes # (Auto) 0.4, Monocytes # (Auto) 0.3, Eosinophils # (Auto) 0.0, Basophils # (Auto) 0.0, Neutrophils % (Manual) 74, Lymphocytes % (Manual) 8, Monocytes % (Manual) 3, Eosinophils % (Manual) 1, Basophils % (Manual) 0, Band Neutrophils 14, Blood Morphology Comment NORMAL, Sodium Level 125, Potassium Level 3.0, Chloride Level 91, Carbon Dioxide Level 26, Anion Gap 8, Blood Urea Nitrogen 12, Creatinine 0.71, Estimat Glomerular Filtration Rate > 60, BUN/Creatinine Ratio 17, Glucose Level 134, Calcium Level 9.0, Corrected Calcium 9.6, Total Bilirubin 0.5, Aspartate Amino Transf (AST/SGOT) 36, Alanine Aminotransferase (ALT/SGPT) 31, Alkaline Phosphatase 101, Total Protein 5.8, Albumin 3.2 03/13/19 04:50: White Blood Count 7.4, Red Blood Count 4.11, Hemoglobin 12.5, Hematocrit 37, Mean Corpuscular Volume 90, Mean Corpuscular Hemoglobin 30, Mean Corpuscular Hemoglobin Concent 34, Red Cell Distribution Width 13.8, Platelet Count 157, Mean Platelet Volume 9.4, Neutrophils (%) (Auto) 81, Lymphocytes (%) (Auto) 11, Monocytes (%) (Auto) 6, Eosinophils (%) (Auto) 1, Basophils (%) (Auto) 0, Neutrophils # (Auto) 6.0, Lymphocytes # (Auto) 0.8, Monocytes # (Auto) 0.5, Eosinophils # (Auto) 0.1, Basophils # (Auto) 0.0, Sodium Level 128, Potassium Level 3.7, Chloride Level 87, Carbon Dioxide Level 31, Anion Gap 10, Blood Urea Nitrogen 10, Creatinine 0.74, Estimat Glomerular Filtration Rate > 60, BUN/Creatinine Ratio 14, Glucose Level 110, Calcium Level 9.0, Corrected Calcium 9.6, Total Bilirubin 0.8, Aspartate Amino Transf (AST/SGOT) 54, Alanine Aminotransferase (ALT/SGPT) 41, Alkaline Phosphatase 111, Total Protein 5.8, Albumin 3.2, Magnesium Level 1.5 03/15/19 06:31: Sodium Level 133, Potassium Level 4.2, Chloride Level 94, Carbon Dioxide Level 29, Anion Gap 10, Blood Urea Nitrogen 13, Creatinine 0.82, Estimat Glomerular Filtration Rate > 60, BUN/Creatinine Ratio 16, Glucose Level 100, Calcium Level 9.2 Discharge Home Medications: Active Scripts Active Potassium Chloride 10 Meq Tab.er.prt 10 Meq PO DAILY Acetaminophen 500 Mg Tablet 500 Mg PO Q4H PRN 14 Days Reported Artificial Tears Drops (Polyvinyl Alcohol/Povidone) 15 Ml Drops 1 Drop OU TID PRN Meclizine HCl 25 Mg Tablet 25 Mg PO Q6H PRN Premarin (Estrogens Conjugated) 30 Gm Cr VG MOWEFR Trimethoprim 100 Mg Tablet 100 Mg PO HS Atorvastatin Calcium 20 Mg Tablet 20 Mg PO HS Instructions to patient/family Please see electronic discharge instructions given to patient. Diagnosis/Problems Diagnosis/Problems (1) S/P kyphoplasty (2) Constipation (3) Osteoporosis (4) Delirium (5) Dementia (6) Hyperlipidemia (7) Recurrent UTI (8) Hyponatremia Status: Acute (9) Nausea and vomiting Status: Acute (10) Postoperative back pain Status: Acute (11) Generalized weakness Status: Acute Clinical Quality Measures DVT/VTE Risk/Contraindication: Risk Factor Score Per Nursin RFS Level Per Nursing on Admit: 4+=Very High ROSSI WASHINGTON DO Mar 15, 2019 09:11
--- NOTE | 2019-03-15 10:50 | Speech Therapy Daily Note ---
Speech Daily Progress Note Subjective Date Seen by Provider: Mar 15, 2019 Time Seen by Provider: 00:30 The patient was sitting in her chair after just finishing her breakfast when I entered. Objective The patient completed problem solving tasks related to her return home with 90% accuracy given minimal cues. Assessment Assessment Current Status: Good Progress Treatment Plan Continue Plan of Care Communication Comprehension: 5 Expression: 5 Social Cognition Social Interaction: 5 Problem Solvin Memory: 4 Speech Short Term Goals Short Term Goals Short Term Goals 1) The patient will complete memory tasks with 80% or greater with minimal cues. 2) The patient will complete problem solving tasks with 80% or greater with minimal cues. 3) The patient will complete safety awareness tasks with 80% or greater with minimal cues. Speech Fpc Goals Fpc Goals The patient will improve safety awareness and independence in order to return home safely. Speech-Plan Patient/Family Goals Patient/Family Goals: The patient plans on returning home with her post rehab. Their sons will be near for support of their needs. The patient will also be receiving home health services. Treatment Plan Speech Therapy Treatment Plan: Continue Plan of Care The patient's has been in the ER over the weekend which has made her more anxious to return home. Treatment Duration: Mar 19, 2019 Frequency: 5 times per week Estimated Hrs Per Day: .5 hour per day Rehab Potential: Good Barriers to Learning: The patient has slight memory deficits. Pt/Family Agrees to Plan: Yes Safety Risks/Education Teaching Recipient: Patient Teaching Methods: Demonstration, Discussion Response to Teaching: Verbalize Understanding, Return Demonstration Education Topics Provided: Continued safety when she returns home. Time Speech Therapy Time In: 09:00 Speech Therapy Time Out: 09:30 Total Billed Time: 30 Billed Treatment Time [address] Mar 15, 2019 10:50
--- NOTE | 2019-03-15 11:15 | NUR ---
HOSPICE RN met with patient and son to review recommendations for discharge today, as patient insists and as she is completing all activities with supervision to modified independence. Initially, son expressed concerns regarding discharge home today as he feels the patient is not strong enough to return home at this time. HOSPICE RN reviewed most recent therapy documentation supporting the patient's level of independence, but the need for continued therapies once returning home. As patient has been emotionally distraught due to 's recent ER visit, ANA MARIA Mena, believes patient would thrive better in her home environment. Although son felt patient should remain in a RU longer, he complied with her adamant request to return home today. HOSPICE RN sent HOSPICE RN W[facility] [employer] [facility] for son to pick out hand following discharge. HOSPICE RN provided a home health provider list to patient and son, they wish to review with other family members and will contact HOSPICE RN later today to inform of provider choice. HOSPICE RN reviewed IM in with patient and son, patient provided signature. HOSPICE RN will send home health referral upon receiving information from son. Please see discharge summary for further information. Addendum: 03/16/19 at 1254 by JEFF LEIVA SS error in previous sentence. HOSPICE RN sent FWW order to [facility] [employer]....
--- NOTE | 2019-03-15 11:40 | Occupational Ther Daily Note ---
OT Current Status-Daily Note Subjective Pt seen in room, up in chair, agreeable to OT. No pain reported. Pt reportedly wants to go home tomorrow. Appearance Alert, cooperative, more confident Mental Status/Objective Therapy Code Descriptions/Definitions Functional [place] Measure: 0=Not Assessed/NA 4=Minimal Assistance 1=Total Assistance 5=Supervision or Setup 2=Maximal Assistance 6=Modified [place] 3=Moderate Assistance 7=Complete [place] ADL-Treatment Pt got up from chair with arms without help but needed cues for hand placement. Walked SBA, FWW to bathroom and transferred on to BSC over toilet with SBA. Cues for hand placement. Pt managed clothing and hygiene with no LOB, SBA. Pt undressed for shower on [facility]. Cue to take slipper socks off with pants, then she was able to undress herself. She placed clothing on front of walker to put on again after shower. Walked SBA, FWW to shower. Pt recognized that walker would not go into shower and placed it outside the shower stall. Transferred in/out of shower and off/on shower bench with SBA, using grab bars. Setup for shower. Pt washed and dried all parts with supervision, occasional cues to sit to wash feet, dry feet. Pt dressed with SBA, including Depends, pants and slipper socks, standing with FWW. Stood at sink to brush teeth with SBA for safety. Pt reported that she is able to feed herself but needs occasional setup and encouragement. Pt walked back to sit in chair with arms, cues for hand placement. Discussed with pt and son that supervision is recommended for bathing at home, fir safety. Also shared with social work. Pt left up in chair, all needs met. Therapy Code Descriptions/Definitions Functional [place] Measure: 0=Not Assessed/NA 4=Minimal Assistance 1=Total Assistance 5=Supervision or Setup 2=Maximal Assistance 6=Modified [place] 3=Moderate Assistance 7=Complete [place] Therapy Quality Codes: 6 Independent with activity with or without an assistive device 5 Patient requires set up or clean up by helper. Patient completes activity by themselves 4 Supervision or touching assist (CGA). Mcneal provide cues , steadying assist 3 The helper provides less than half the effort to complete the activity 2 The helper provides more than half the effort to complete the activity 1 Dependent. The helper does all the effort to complete an activity 7 Patient refused to complete or attempt activity 9 The patient did not perform the activity before the current illness or injury 88 Not attempted due to Medical conditions or safety concerns Eating (FIM): 5 (occasional setup) Eating (QC): 5 Grooming (FIM): 5 (SBA at sink, FWW. Washed face and hands in shower) Oral Hygiene (QC): 4 (SBA) Bathing (FIM): 5 (supervision, occasional cues, setup. Shower bench, grab bars, hand held shower. Washed and dried all parts) Bathing Location: L Arm, R Arm, L Upper Leg, R Upper Leg, L Lower Leg (including foot), R Lower Leg (including foot), Chest, Abdomen, Buttocks, Perineal Area Shower/Bathe Self (QC): 4 (supervision) Upper Body (FIM): 5 (setup) Upper Body Dressing (QC): 5 Lower Body Dressing (FIM): 5 (SBA, supervision, cues, FWW) Lower Body Dressing (QC): 4 (supervision) On/Off Footwear (QC): 4 (supervision) Toileting (FIM): 5 (SBA, supervision. BSC over toilet. Managed clothing and hygiene) Toileting Hygiene (QC): 4 (Supervision) Toilet/Commode Transfer (FIM): 5 (SBA, BSC over toilet, grab bar, FWW) Toilet Transfer (QC): 4 (SBA) Shower Transfer(FIM): 5 (Supervision, SBA. Shower bench) Education OT Patient Education: Modified ADL techniques, Progress toward Goal/Update tx plan, Purpose of tx/functional activities, Safety issues, Transfer techniques Teaching Recipient: Patient Teaching Methods: Discussion Response to Teaching: Verbalize Understanding, Return Demonstration, Reinforcement Needed OT Short Term Goals Short Term Goals Time Frame: Mar 17, 2019 Eating(FIM): 6 Grooming(FIM): 5 Bathing(FIM): 4 Upper Body Dressing(FIM): 5 Lower Body Dressing(FIM): 5 Toileting(FIM): 5 Transfers (B,C,W/C) (FIM): 4 Toilet/Commode Transfer(FIM): 5 Shower Transfer(FIM): 4 Additional Short Term Goals: 1-Demonstrate ADL Tasks, 2-Verbalize Understanding, 3-ImproveStrength/Ayleen 1=Demonstrate adherence to instructed precautions during ADL tasks. 2=Patient will verbalize/demonstrate understanding of assistive devices/modifications for ADL. 3=Patient will improve strength/tolerance for activity to enable patient to perform ADL's. OT Bridge Crane Operator Goals Bridge Crane Operator Goals Time Frame: Mar 24, 2019 Eating (FIM): 6 Eating (QC): 6 Groomin Oral Hygiene (QC): 6 Bathing(FIM): 5 Shower/Bathe Self (QC): 4 Upper Body Dressing(FIM): 6 Upper Body Dressing (QC): 6 Lower Body Dressing(FIM): 6 Lower Body Dressing (QC): 6 On/Off Footwear (QC): 6 Toileting(FIM): 6 Toileting Hygiene (QC): 6 Transfers (B,C,W/C) (FIM): 6 Toilet/Commode Transfer(FIM): 6 Toilet/Commode Transfer (QC): 6 Shower Transfer(FIM): 5 Additional Goals: 1-Demonstrate ADL Tasks, 2-Verbalize Understanding, 3- ImproveStrength/Ayleen 1=Demonstrate adherence to instructed precautions during ADL tasks. 2=Patient will verbalize/demonstrate understanding of assistive devices/modifications for ADL. 3=Patient will improve strength/tolerance for activity to enable patient to perform ADL's. OT Education/Plan Discharge Recommendations Plan/Recommendations: Continue POC Treatment Plan/Plan of Care Patient would benefit from OT for education, treatment and training to promote independence in ADL's, mobility, safety and/or upper extremity function for ADL's. Plan of Care: ADL Retraining, Functional Mobility, Group Exercise/Act as Ind, UE Funct Exercise/Act Treatment Duration: Mar 24, 2019 Frequency: At least 5 of 7 days/Wk (IRF) Estimated Hrs Per Day: 1.5 hours per day Agreement: Yes Rehab Potential: Good Time/GCodes Start Time: 10:05 Stop Time: 11:00 Total Time Billed (hr/min): 55 Billed Treatment Time visit, 55 minutes ADL VIKAS ELLISON OT Mar 15, 2019 11:39
[2019-03-15 13:53] VITALS: BP 157/81
--- NOTE | 2019-03-15 16:14 | Therapy Team Discharge Summary ---
Therapy Discharge Summary Discharge Recommendations Date of Discharge Mar 15, 2019 at 13:00 Therapy D/C Recommendations: Occupational Therapy Home Care, Physical Therapy Home Care Occupational Therapy Pt was seen for skilled OT to increase her independence in basic self care after kyphoplasty, with weakness, decreased self care and decreased functional mobility. On admission she needed setup for eating and upper body dressing, SBA for grooming and CGA/min A for bathing, lower body dressing, toileting, toilet transfer and shower transfer. She needed some cues for sequencing and safety. By discharge she had improved to supervision/SBA for bathing, lower body dressing, toileting, toilet transfer and shower transfer. She still required setup for eating, grooming and upper body dressing and occasional cues for hand placement. OT recommended someone be with her while she bathes - info shared with family, patient and SW. See tx plan for goals met. Home health OT recommended. Pt discharged to home with family today. DC OT. Decreased Activ Tolerance, Decreased UE Strength, Dependent Transfers, Impaired Bed Mobility, Impaired Funct Balance, Impaired I ADL's, Impaired Self-Care Skills PT Prison Goals Network Professional Goals PT Prison Goals Time Frame: Mar 31, 2019 Transfers (B,C,W/C) (FIM): 7 Roll Left to Right (QC): 6 Sit to Lying (QC): 6 Lying-Sitting on Side/Bed(QC): 6 Sit to Stand (QC): 6 Chair/Lhy-vz-Obowf Xfer(QC): 6 Car Transfer (QC): 5 Does the Patient Walk: Yes Gait (FIM): 6 Gait distance (FIM): 3=150 ft Walk 10 feet (QC): 6 Walk 10ft-Uneven Surface(QC): 5 Walk 50ft with 2 Turns (QC): 6 Walk 150 ft (QC): 6 Gait Assistive Device: FWW Does the Pt use WC or Scooter?: No Stairs (FIM): 5 # of Steps: 4 1 Step (curb) (QC): 6 4 Steps (QC): 6 12 Steps (QC): 88 Picking up an Object (QC): 88 OT Prison Goals Prison Goals Time Frame: Mar 24, 2019 Eating (FIM): 6 (not met 03-15-19) Eating (QC): 6 (not met 03-15-19) Oral Hygiene (QC): 6 (not met 03-15-19) Grooming(FIM): 6 (not met 03-15-19) Bathing(FIM): 5 (met 03-15-19) Shower/Bathe Self (QC): 4 (met 03-15-19) Upper Body Dressing(FIM): 6 (not met 03-15-19) Upper Body Dressing (QC): 6 (not met 03-15-19) Lower Body Dressing(FIM): 6 (not met 03-15-19) Lower Body Dressing (QC): 6 (not met 03-15-19) On/Off Footwear (QC): 6 (not met 03-15-19) Toileting(FIM): 6 (not met 03-15-19) Toileting Hygiene (QC): 6 (not met 03-15-19) Transfers (B,C,W/C) (FIM): 6 (not met 03-15-19) Toilet/Commode Transfer(FIM): 6 (not met 03-15-19) Toilet/Commode Transfer (QC): 6 (not met 03-15-19) Shower Transfer(FIM): 5 (met 03-15-19) Additional Goals: 1-Demonstrate ADL Tasks, 2-Verbalize Understanding, 3-ImproveStrength/Ayleen 1=Demonstrate adherence to instructed precautions during ADL tasks. 2=Patient will verbalize/demonstrate understanding of assistive devices/modifications for ADL. 3=Patient will improve strength/tolerance for activity to enable patient to perform ADL's. Speech Network Professional Goals Prison Goals The patient will improve safety awareness and independence in order to return home safely. VIKAS ELLISON OT Mar 15, 2019 16:14
--- NOTE | 2019-03-15 16:17 | Therapy Team Discharge Summary ---
Therapy Discharge Summary Discharge Recommendations Date of Discharge Mar 15, 2019 at 13:00 Therapy D/C Recommendations: Physical Therapy Home Care Physical Therapy This patient was admitted to ARU post kyphoplasty (Lumbar) in which she was discharged home from [facility] in [place] and ended up in [facility] ER a few hours later due to inability to safely manage at home. Prior to her surgery, she was indep at home. Upon admission to ARU, she was max assist with transfers, walked 50 ft with assist and up/down a step. Treatment consisted of functional strength to improve transfers and gait. She has made good progress and is desiring to discharge this date. At discharge, she was mod indep with transfers, SBA with gait and up/down steps at a mod indep level. She achieved goals to a satisfactory level due to her desire to discharge. Recommend [facility] PT to follow. Occupational Therapy Decreased Activ Tolerance, Decreased UE Strength, Dependent Transfers, Impaired Bed Mobility, Impaired Funct Balance, Impaired I ADL's, Impaired Self-Care Skil ls PT Jail Goals Inspector [place] Goals PT Jail Goals Time Frame: Mar 31, 2019 Transfers (B,C,W/C) (FIM): 7 (scored a 6) Roll Left to Right (QC): 6 Sit to Lying (QC): 6 Lying-Sitting on Side/Bed(QC): 6 Sit to Stand (QC): 6 Chair/Nha-xy-Zfvkb Xfer(QC): 6 Car Transfer (QC): 5 Does the Patient Walk: Yes Gait (FIM): 6 (scored a 5) Gait distance (FIM): 3=150 ft Walk 10 feet (QC): 6 Walk 10ft-Uneven Surface(QC): 5 Walk 50ft with 2 Turns (QC): 6 Walk 150 ft (QC): 6 Gait Assistive Device: FWW Does the Pt use WC or Scooter?: No Stairs (FIM): 5 (met) # of Steps: 4 1 Step (curb) (QC): 6 4 Steps (QC): 6 12 Steps (QC): 88 Picking up an Object (QC): 88 OT Inspector Raw Quartz Goals Inspector Raw Quartz Goals Time Frame: Mar 24, 2019 Eating (FIM): 6 Eating (QC): 6 Oral Hygiene (QC): 6 Grooming(FIM): 6 Bathing(FIM): 5 Shower/Bathe Self (QC): 4 Upper Body Dressing(FIM): 6 Upper Body Dressing (QC): 6 Lower Body Dressing(FIM): 6 Lower Body Dressing (QC): 6 On/Off Footwear (QC): 6 Toileting(FIM): 6 Toileting Hygiene (QC): 6 Transfers (B,C,W/C) (FIM): 6 Toilet/Commode Transfer(FIM): 6 Toilet/Commode Transfer (QC): 6 Shower Transfer(FIM): 5 Additional Goals: 1-Demonstrate ADL Tasks, 2-Verbalize Understanding, 3-ImproveStrength/Ayleen 1=Demonstrate adherence to instructed precautions during ADL tasks. 2=Patient will verbalize/demonstrate understanding of assistive devices/modifications for ADL. 3=Patient will improve strength/tolerance for activity to enable patient to perform ADL's. Speech Jail Goals Jail Goals The patient will improve safety awareness and independence in order to return home safely. VENITA FISCHER PT Mar 15, 2019 16:17
--- NOTE | 2019-03-15 16:46 | Therapy Team Discharge Summary ---
Therapy Discharge Summary Discharge Recommendations Date of Discharge Mar 15, 2019 at 13:00 Therapy D/C Recommendations: Occupational Therapy Home Care, Physical Therapy Home Care Occupational Therapy Decreased Activ Tolerance, Decreased UE Strength, Dependent Transfers, Impaired Bed Mobility, Impaired Funct Balance, Impaired I ADL's, Impaired Self-Care Skills Speech-Language Pathology The patient was admitted to the ARU s/p kyphoplasty. She was evaluated and had a mild cognitive decline for which she received skilled ST services. She was discharged to home today with all goals met for ST. She is being discharged from ST this date as well. PT Half-Way Goals Affirmative Action Specialist Goals PT Affirmative Action Specialist Goals Time Frame: Mar 31, 2019 Transfers (B,C,W/C) (FIM): 7 (scored a 6) Roll Left to Right (QC): 6 Sit to Lying (QC): 6 Lying-Sitting on Side/Bed(QC): 6 Sit to Stand (QC): 6 Chair/Mrh-rt-Lazve Xfer(QC): 6 Car Transfer (QC): 5 Does the Patient Walk: Yes Gait (FIM): 6 (scored a 5) Gait distance (FIM): 3=150 ft Walk 10 feet (QC): 6 Walk 10ft-Uneven Surface(QC): 5 Walk 50ft with 2 Turns (QC): 6 Walk 150 ft (QC): 6 Gait Assistive Device: FWW Does the Pt use WC or Scooter?: No Stairs (FIM): 5 (met) # of Steps: 4 1 Step (curb) (QC): 6 4 Steps (QC): 6 12 Steps (QC): 88 Picking up an Object (QC): 88 OT Half-Way Goals Affirmative Action Specialist Goals Time Frame: Mar 24, 2019 Eating (FIM): 6 (not met 03-15-19) Eating (QC): 6 (not met 03-15-19) Oral Hygiene (QC): 6 (not met 03-15-19) Grooming(FIM): 6 (not met 03-15-19) Bathing(FIM): 5 (met 03-15-19) Shower/Bathe Self (QC): 4 (met 03-15-19) Upper Body Dressing(FIM): 6 (not met 03-15-19) Upper Body Dressing (QC): 6 (not met 03-15-19) Lower Body Dressing(FIM): 6 (not met 03-15-19) Lower Body Dressing (QC): 6 (not met 03-15-19) On/Off Footwear (QC): 6 (not met 03-15-19) Toileting(FIM): 6 (not met 03-15-19) Toileting Hygiene (QC): 6 (not met 03-15-19) Transfers (B,C,W/C) (FIM): 6 (not met 03-15-19) Toilet/Commode Transfer(FIM): 6 (not met 03-15-19) Toilet/Commode Transfer (QC): 6 (not met 03-15-19) Shower Transfer(FIM): 5 (met 03-15-19) Additional Goals: 1-Demonstrate ADL Tasks, 2-Verbalize Understanding, 3- ImproveStrength/Ayleen 1=Demonstrate adherence to instructed precautions during ADL tasks. 2=Patient will verbalize/demonstrate understanding of assistive devices/modifications for ADL. 3=Patient will improve strength/tolerance for activity to enable patient to perform ADL's. Speech Affirmative Action Specialist Goals Half-Way Goals The patient will improve safety awareness and independence in order to return home safely. Met LEV SKELTON Mar 15, 2019 16:46
--- NOTE | 2019-03-17 12:56 | Therapy Team Discharge Summary ---
Therapy Discharge Summary Discharge Recommendations Date of Discharge Mar 15, 2019 at 13:00 Therapy D/C Recommendations: Home w/ Family Support, Occupational Therapy Home Care, Physical Therapy Home Care Occupational Therapy Pt. was seen by occupational therapy to increase overall strength and i ndependence with daily tasks. Pt. discharged at SBA level due to wanting to be home with family, and with spouse who is in poor health. Family supportive and assist as needed. Pt. required SBA with ADLS, and ADL transfers. Recommend home health OT to continue working toward independence and strength. Decreased Activ Tolerance, Decreased UE Strength, Impaired Funct Balance, Impa ired I ADL's, Impaired Self-Care Skills PT Skilled Nursing Goals Instrument Designer Goals PT Skilled Nursing Goals Time Frame: Mar 31, 2019 Transfers (B,C,W/C) (FIM): 7 (scored a 6) Roll Left to Right (QC): 6 Sit to Lying (QC): 6 Lying-Sitting on Side/Bed(QC): 6 Sit to Stand (QC): 6 Chair/Siw-tm-Kgklg Xfer(QC): 6 Car Transfer (QC): 5 Does the Patient Walk: Yes Gait (FIM): 6 (scored a 5) Gait distance (FIM): 3=150 ft Walk 10 feet (QC): 6 Walk 10ft-Uneven Surface(QC): 5 Walk 50ft with 2 Turns (QC): 6 Walk 150 ft (QC): 6 Gait Assistive Device: FWW Does the Pt use WC or Scooter?: No Stairs (FIM): 5 (met) # of Steps: 4 1 Step (curb) (QC): 6 4 Steps (QC): 6 12 Steps (QC): 88 Picking up an Object (QC): 88 OT Instrument Designer Goals Instrument Designer Goals Time Frame: Mar 24, 2019 Eating (FIM): 6 (not met 03-15-) Eating (QC): 6 (not met 03-15-19) Oral Hygiene (QC): 6 (not met 03-15-19) Grooming(FIM): 6 (not met 03-15-) Bathing(FIM): 5 (met 03-15-) Shower/Bathe Self (QC): 4 (met 03-15-19) Upper Body Dressing(FIM): 6 (not met 03-15-19) Upper Body Dressing (QC): 6 (not met 03-15-19) Lower Body Dressing(FIM): 6 (not met 03-15-19) Lower Body Dressing (QC): 6 (not met 03-15-19) On/Off Footwear (QC): 6 (not met 03-15-19) Toileting(FIM): 6 (not met 03-15-19) Toileting Hygiene (QC): 6 (not met 03-15-19) Transfers (B,C,W/C) (FIM): 6 (not met 03-15-19) Toilet/Commode Transfer(FIM): 6 (not met 03-15-19) Toilet/Commode Transfer (QC): 6 (not met 03-15-19) Shower Transfer(FIM): 5 (met 03-15-19) Additional Goals: 1-Demonstrate ADL Tasks, 2-Verbalize Understanding, 3- ImproveStrength/Ayleen 1=Demonstrate adherence to instructed precautions during ADL tasks. 2=Patient will verbalize/demonstrate understanding of assistive devices/modifications for ADL. 3=Patient will improve strength/tolerance for activity to enable patient to perform ADL's. Speech Instrument Designer Goals Skilled Nursing Goals The patient will improve safety awareness and independence in order to return home safely. Met JOSE RAMON CÁRDENAS OT Mar 17, 2019 12:56
== END 2019-03-15 13:00 | disposition home health service (06) | DRG 560 ==
PROVIDERS: ADMIT Internal Medicine; ATTEND Internal Medicine
DX: M80.08XD Age-related osteoporosis with current pathological fracture, vertebra(e), subsequent encounter for fracture with routine healing (principal); G89.18 Other acute postprocedural pain; E22.2 Syndrome of inappropriate secretion of antidiuretic hormone; E87.6 Hypokalemia; I10 Essential (primary) hypertension; E78.5 Hyperlipidemia, unspecified; F03.90 Unspecified dementia, unspecified severity, without behavioral disturbance, psychotic disturbance, mood disturbance, and anxiety; F41.9 Anxiety disorder, unspecified; F32.9 Major depressive disorder, single episode, unspecified; K59.00 Constipation, unspecified
CPT/HCPCS: 36415; 80048; 80053; 83735; 85007; 85025; 85027

== ENCOUNTER 2019-06-25 21:22 | Emergency (ER) | payer MEDICARE ==
[~2019-06-25] VITALS: Ht 152.4 cm; Wt 48.0 kg
[~2019-06-25 21:22] MED LIST changes: +ACET-78 PO; +POTA10TA36 PO; -TRAM50TA2 PO; +TRM50T PO
--- NOTE | 2019-06-25 21:25 | NUR ---
ALERTED MIRZA OF CHEST PAIN
[2019-06-25 21:40] LABS: BASOPHILS # (AUTO) 0.1 10^3/uL (0.0-0.1); BASOPHILS % (AUTO) 1 % (0-10); EOSINOPHILS % (AUTO) 0 % (0-10); HEMATOCRIT 38 % (35-52); HEMOGLOBIN 12.6 G/DL (11.5-16.0); LYMPHOCYTES % (AUTO) 19 % (12-44); MEAN CORPUSCULAR HEMOGLOBIN 31 PG (25-34); MEAN CORPUSCULAR HGB CONC 33 G/DL (32-36); MEAN CORPUSCULAR VOLUME 94 FL (80-99); MEAN PLATELET VOLUME 9.5 FL (7.4-10.4); MONOCYTES # (AUTO) 0.8 X 10^3 (0.0-1.0); MONOCYTES % (AUTO) 8 % (0-12); NEUTROPHILS # (AUTO) 7.7 X 10^3 (1.8-7.8); NEUTROPHILS % (AUTO) 72 % (42-75); PLATELET COUNT 271 10^3/uL (130-400); RED CELL DISTRIBUTION WIDTH 12.5 % (10.0-14.5); WHITE BLOOD COUNT 10.6 10^3/uL (4.3-11.0)
--- NOTE | 2019-06-25 21:42 | ED Chest Pain ---
General Chief Complaint: Chest Pain Stated Complaint: CHEST PAIN Source: patient, family Exam Limitations: no limitations History of Present Illness Date Seen by Provider: Jun 25, 2019 Time Seen by Provider: 21:39 Initial Comments To ER from home accompanied by son with reports of chest pain that began earlier this afternoon while sitting down" doing nothing". The pain is in the middle of her chest but it actually seems to originate in the mid thoracic spine and radiate forward. The pain is worsened with movement and deep breathing. She denies any cough or shortness of breath, denies any nausea or sweating. 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 (one full dose aspirin one hour prior to arrival at home) Allergies and Home Medications Allergies Coded Allergies: cephalexin (Verified Allergy, Mild, 03/10/19) ciprofloxacin (Verified Allergy, Mild, 03/10/19) nitrofurantoin (Verified Allergy, Mild, 03/10/19) codeine (Verified Allergy, Unknown, pt takes Tramadol at home, 03/10/19) sulfamethoxazole (Verified Allergy, Unknown, 03/10/19) trimethoprim (Verified Allergy, Unknown, 03/10/19) Home Medications Acetaminophen 500 Mg Tablet, 500 MG PO Q4H PRN for PAIN-MILD Prescribed by: ROSSI WASHINGTON on 03/15/19 0907 Atorvastatin Calcium 20 Mg Tablet, 20 MG PO HS, (Reported) Estrogens Conjugated 30 Gm Cr, VG MoWeFr, (Reported) Hydrocodone/Acetaminophen 1 Each Tablet, 1 TAB PO Q4-6HR Prescribed by: JC GONZALEZ on 06/25/19 2225 Meclizine HCl 25 Mg Tablet, 25 MG PO Q6H PRN for DIZZINESS, (Reported) Polyvinyl Alcohol/Povidone 15 Ml Drops, 1 DROP OU TID PRN for DRY EYES, (Reported) Potassium Chloride 10 Meq Tab.er.prt, 10 MEQ PO DAILY Prescribed by: ROSSI WASHINGTON on 03/15/19 0907 Trimethoprim 100 Mg Tablet, 100 MG PO HS, (Reported) Patient Home Medication List Home Medication List Reviewed: Yes Review of Systems Review of Systems Constitutional: see HPI EENTM: No Symptoms Reported Respiratory: No Symptoms Reported Cardiovascular: See HPI, Chest Pain Gastrointestinal: See HPI Genitourinary: No Symptoms Reported Musculoskeletal: no symptoms reported Skin: no symptoms reported Psychiatric/Neurological: No Symptoms Reported Endocrine: No Symptoms Reported Hematologic/Lymphatic: No Symptoms Reported Past Hozvqgn-Otbybn-Ytxlyw Hx Patient Social History Recent Foreign Travel: No Contact w/Someone Who Travel: No Recent Hopitalizations: Yes (KYPHOPLASTY) Immunizations Up To Date Tetanus Booster (TDap): Less than 5yrs PED Vaccines UTD: No Date of Pneumonia Vaccine: May 25, 2015 Seasonal Allergies Seasonal Allergies: No Past Medical History Surgeries: Yes (L4 KYPHOPLASTY 03/09/[address] 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 Genitourinary: Yes (UNSURE OF WHAT KIND TAKES MEDS DAILY FOR URINARY SX) Bladder Infection Gastrointestinal: No Musculoskeletal: Yes (L4 COMPRESSION FRACTURE--S/P KYPHOPLASTY 03/09/17) Degenerate Disk Disease, Osteoporosis, Arthritis, Chronic Back Pain, Fractures Endocrine: No HEENT: No Cancer: No Psychosocial: No Integumentary: No Family Medical History Arthritis 19 FATHER Kidney disease 19 MOTHER Physical Exam Vital Signs Vital Signs - First Documented 06/25/19 21:30 Temp 36.6 Pulse 86 Resp 18 B/P (MAP) 150/90 (110) O2 Delivery Room Air Capillary Refill : Less Than 3 Seconds Height, Weight, BMI Height: 5'0.00" Weight: 112lbs. 4.0oz. [id number]; 21.9 BMI Method:Stated General Appearance: No Apparent Distress, WD/WN HEENT: PERRL/EOMI, TMs Normal Respiratory: Lungs Clear, Normal Breath Sounds, No Accessory Muscle Use, No Respiratory Distress Cardiovascular: Regular Rate, Rhythm, Normal Peripheral Pulses Gastrointestinal: Normal Bowel Sounds, Non Tender, Soft Extremity: Normal Capillary Refill, Normal Inspection Neurologic/Psychiatric: Alert, Oriented x3 (alert and oriented very pleasant no distress) Skin: Normal Color, Warm/Dry Other comments Midthoracic spine is somewhat tender to palpation Progress/Results/Core Measures Results/Orders Lab Results Laboratory Tests Test 06/25/19 21:35 Range/Units White Blood Count 10.6 4.3-11.0 10^3/uL Red Blood Count 4.10 L 4.35-5.85 10^6/uL Hemoglobin 12.6 11.5-16.0 G/DL Hematocrit 38 35-52 % Mean Corpuscular Volume 94 80-99 FL Mean Corpuscular Hemoglobin 31 25-34 PG Mean Corpuscular Hemoglobin Concent 33 32-36 G/DL Red Cell Distribution Width 12.5 10.0-14.5 % Platelet Count 271 130-400 10^3/uL Mean Platelet Volume 9.5 7.4-10.4 FL Neutrophils (%) (Auto) 72 42-75 % Lymphocytes (%) (Auto) 19 12-44 % Monocytes (%) (Auto) 8 0-12 % Eosinophils (%) (Auto) 0 0-10 % Basophils (%) (Auto) 1 0-10 % Neutrophils # (Auto) 7.7 1.8-7.8 X 10^3 Lymphocytes # (Auto) 2.0 1.0-4.0 X 10^3 Monocytes # (Auto) 0.8 0.0-1.0 X 10^3 Eosinophils # (Auto) 0.0 0.0-0.3 10^3/uL Basophils # (Auto) 0.1 0.0-0.1 10^3/uL Prothrombin Time 13.2 12.2-14.7 SEC INR Comment 1.0 0.8-1.4 Activated Partial Thromboplast Time 35 24-35 SEC Sodium Level 135 135-145 MMOL/L Potassium Level 3.7 3.6-5.0 MMOL/L Chloride Level 97 L 98-107 MMOL/L Carbon Dioxide Level 23 21-32 MMOL/L Anion Gap 15 H 5-14 MMOL/L Blood Urea Nitrogen 17 7-18 MG/DL Creatinine 0.97 0.60-1.30 MG/DL Estimat Glomerular Filtration Rate 54 BUN/Creatinine Ratio 18 Glucose Level 126 H 70-105 MG/DL Calcium Level 10.3 H 8.5-10.1 MG/DL Corrected Calcium 9.9 8.5-10.1 MG/DL Magnesium Level 2.0 1.6-2.4 MG/DL Total Bilirubin 0.6 0.1-1.0 MG/DL Aspartate Amino Transf (AST/SGOT) 25 5-34 U/L Alanine Aminotransferase (ALT/SGPT) 16 0-55 U/L Alkaline Phosphatase 100 40-136 U/L Myoglobin 34.2 10.0-92.0 NG/ML Troponin I < 0.028 <0.028 NG/ML B-Type Natriuretic Peptide 68.5 <100.0 PG/ML Total Protein 8.2 6.4-8.2 GM/DL Albumin 4.5 3.2-4.5 GM/DL My Orders Orders - JC GONZALEZ TRANSITIONS RN CARE COORDINATOR Cbc With Automated Diff (06/25/19) Magnesium (06/25/19) Chest 1 View, Ap/Pa Only (06/25/19) Ekg Tracing (06/25/19:) Cardiac Profile 1 (06/25/19) Comprehensive Metabolic Panel (06/25/19) Myoglobin Serum (06/25/19) Protime With Inr (06/25/19:) Partial Thromboplastin Time (06/25/19:) O2 (06/25/19) Monitor-Rhythm Ecg Trace Only (06/25/19) Lipid Panel (06/26/19 06:00) Ed Iv/Invasive Line Start (06/25/19:28) BNP (06/25/19:) Ct Thoracic Spine Wo (06/25/19 21:38) Enoxaparin Injection (Lovenox Injection) (06/25/19 22:00) Ketorolac Injection (Toradol Injection) (06/25/19 22:30) Fentanyl Injection (Sublimaze Injection (06/25/19 22:30) Medications Given in ED Current Medications Medications Dose Ordered Sig/Suleman Route Start Time Stop Time Status Last Admin Dose Admin Fentanyl Citrate 25 mcg ONCE PRN IVP 06/25/19 22:30 06/25/19 22:25 25 MCG Ketorolac Tromethamine 15 mg ONCE ONCE IVP 06/25/19 22:30 06/25/19 22:31 06/25/19 22:25 15 MG Vital Signs/I&O 06/25/19 06/25/19 21:30 21:30 Temp 36.6 Pulse 86 Resp 18 B/P (MAP) 150/90 (110) O2 Delivery Room Air Room Air Diagnostic Imaging Diagonstic Imaging: Xray Comments NAME: LORRIE CHAVEZ [facility] REC#: [id number] PT STATUS: REG ER : 1930 PHYSICIAN: JC GONZALEZ APRN ADMIT DATE: 06/25/19/ER Signed POSDate of Exam:06/25/19 CT THORACIC SPINE WO EXAMINATION: CT thoracic spine without contrast. TECHNIQUE: Multiple contiguous axial images were obtained through the thoracic spine without the use of intravenous contrast. Sagittal and coronal reformations were then performed. All CT scans use one or more of the following dose optimizing techniques: automated exposure control, MA and/or KvP adjustment based on a patient size and exam type, or iterative reconstruction. HISTORY: Back pain COMPARISON: None available. FINDINGS: There is exaggerated kyphosis of the thoracic spine. There is a mild T7 compression fracture which is age-indeterminate. There is no retropulsion. Remaining vertebral bodies are normal in height. No listhesis is seen. Severe lower cervical spine degenerative disc disease is incompletely evaluated. Facet joints are normal. Disk heights are normal. There is no spinal canal stenosis. Limited views of the soft tissues show no abnormality. The aorta is normal. IMPRESSION: 1. Age-indeterminate mild T7 compression fracture. Dictated by: Dictated on workstation # [id number] Dict: 06/25/192200 Trans: 06/25/192202 [facility] [id number] Interpreted by: AI ARAUJO MD Electronically signed by: AI ARAUJO MD 06/25/192202 Departure Impression Primary Impression: Compression fracture of T7 vertebra Qualified Codes: S22.060A - Wedge compression fracture of T7-t8 vertebra, initial encounter for closed fracture Disposition: HOME, SELF-CARE Condition: Stable Departure-Patient Inst. Decision time for Depature: 22:13 Referrals: AI SYED MD (PCP/Family) Primary Care Physician Patient Instructions: Vertebral Compression Fracture Add. Discharge Instructions: One half tablet of hydrocodone every 4 hours as needed for pain. If one half tablet is not helpful then you can do 1 whole tablet every 4-[address] Moreno on Friday to make an appointment for follow-up. All discharge instructions reviewed with patient and/or family. Voiced understanding. Scripts Hydrocodone/Acetaminophen ([place] 5-325 Tablet) 1 Each Tablet 1 TAB PO Q4-6HR for Pain MDD 10 TABS for 7 Days, #20 TAB Prov: JC GONZALEZ APRN 06/25/19 Copy Copies To 1: MIREYA MORENO MD, PETER J APRN Jun 25, 2019 21:42 POS
[2019-06-25 21:51] LABS: PROTHROMBIN TIME PATIENT 13.2 SEC (12.2-14.7)
[2019-06-25 22:00] LABS: ALANINE AMINOTRANSFERASE 16 U/L (0-55); ALBUMIN 4.5 GM/DL (3.2-4.5); ALKALINE PHOSPHATASE 100 U/L (40-136); BILIRUBIN,TOTAL 0.6 MG/DL (0.1-1.0); BUN/CREATININE RATIO 18; CALCIUM 10.3 MG/DL (8.5-10.1); CARBON DIOXIDE 23 MMOL/L (21-32); CHLORIDE 97 MMOL/L (98-107); CREATININE SERUM 0.97 MG/DL (0.60-1.30); GFR ESTIMATED 54; GLUCOSE 126 MG/DL (70-105); POTASSIUM 3.7 MMOL/L (3.6-5.0); SODIUM 135 MMOL/L (135-145); TOTAL PROTEIN 8.2 GM/DL (6.4-8.2)
[2019-06-25] MEDS ORDERED: ENOXAPARIN 60 MG/0.6 ML (LOVENOX) SYR SC ONE (22:00)
--- NOTE | 2019-06-25 22:04 | Diagnostic Imaging Report ---
EXAMINATION: CT thoracic spine without contrast. TECHNIQUE: Multiple contiguous axial images were obtained through the thoracic spine without the use of intravenous contrast. Sagittal and coronal reformations were then performed. All CT scans use one or more of the following dose optimizing techniques: automated exposure control, MA and/or KvP adjustment based on a patient size and exam type, or iterative reconstruction. HISTORY: Back pain COMPARISON: None available. FINDINGS: There is exaggerated kyphosis of the thoracic spine. There is a mild T7 compression fracture which is age-indeterminate. There is no retropulsion. Remaining vertebral bodies are normal in height. No listhesis is seen. Severe lower cervical spine degenerative disc disease is incompletely evaluated. Facet joints are normal. Disk heights are normal. There is no spinal canal stenosis. Limited views of the soft tissues show no abnormality. The aorta is normal. IMPRESSION: 1. Age-indeterminate mild T7 compression fracture. Dictated by: Dictated on workstation # [id number]
--- NOTE | 2019-06-25 22:09 | Diagnostic Imaging Report ---
EXAMINATION: Chest 1 view HISTORY: Chest pain FINDINGS: Comparison is 08/25/2017. There has been vertebroplasty of the lumbar spine compression fracture. The lungs are clear. No edema. No pneumonia. No pleural effusion. No pneumothorax. Heart is normal in size. IMPRESSION: 1. Clear lungs. Dictated by: Dictated on workstation # [id number]
[2019-06-25] MEDS ORDERED: HYDR-4226 PO (22:25)
[2019-06-25] MEDS ORDERED: RX-HYDROCODONE/APAP 5/325 MG #4 TAB PK PO PRN (22:30)
[2019-06-25] MEDS ORDERED: KETOROLAC 30 MG/ML VIAL IVP ONE (22:30)
[2019-06-25] MEDS ORDERED: fentaNYL INJECTION 100 MCG/2 ML AMP IVP PRN (22:30)
[2019-06-25 22:37] VITALS: BP 168/88
--- OUTSIDE RECORDS SUMMARY | 2019-07-19 19:42 | XMS REPORT | Continuity of Care Document ---
Author Organization Unknown POS Address Unknown SP Phone Unavailable SP Allergies Active Description Code Type Severity POS Reaction Onset Reported/Identified POS to Patient Clinical Status POS Yes No Known Drug Allergies [id number] Drug SP Unknown N/A 08/25/2017 SP SP Yes BACTRIUM BACTRIUM Mild SP 03/10/2019 SP Yes cephalexin [id number] Drug Allerg y SP N/A 03/10/2019 SP Yes ciprofloxacin [id number] Pato g Allergy SP Mild N/A 03/10/2019 SP Yes CODIENE CODIENE Mild N/A SP 03/10/2019 SP Yes nitrofurantoin [id number] Dr ug Allergy SP Mild N/A 03/10/2019 SP Yes codeine [id number] Drug Allergy SP N/A 03/10/2019 SP Yes codeine [id number] Drug Allergy SP pt takes Tramad 03/10/2019 SP SP Yes sulfamethoxazole [id number] Drug Allergy SP Unknown N/A 03/10/2019 SP SP Yes trimethoprim [id number] Drug Allergy SP Unknown N/A 03/10/2019 SP Medications There is no data. Problems Date Dx Coded Attending Type Code POS Diagnosed By POS 07/24/1623 YAHAIRA MATTHEWS, AI Bowers Ot R26.8 1 SP ON FEET SP 07/24/1623 AI SYED MD Ot R42 SP AND GIDDINESS SP 08/08/2014 ELVIA ARAUJO APRN Ot V76.12 SP SP 02/02/2015 AI SYED MD Ot 599.0 SP SP 08/08/2015 Ot V76.12 SP 08/08/2015 Ot 611.72 SP 08/08/2015 Ot V76.12 SP 08/08/2015 Ot 793.80 SP 08/08/2015 Ot V76.12 SP 08/08/2015 AI SYED MD Ot 786.2 SP SP 08/08/2015 Heena PASTRANA MD Ot 595.2 SP SP 08/08/2015 JOSE ROBERTO DRISCOLL GUERITA Ot 590 .9 SP SP 08/08/2015 Heena PASTRANA MD Ot 595.9 SP SP 08/08/2015 AI SYED MD Ot V76.1 2 SP SP 08/08/2015 ELVIA ARAUJO APRN Ot V76.12 SP SP 08/08/2015 AI SYED MD Ot 599.0 SP SP 08/31/2015 ELVIA ARAUJO APRN Ot Z12.31 SP SP 05/16/2016 Ot 611.72 LUM P OR MASS IN SP SP 05/16/2016 Ot V76.12 OTH SCREEN MAMMO- SP NEOPLASM OF EVA SP 05/16/2016 Ot 793.80 UNS PEC ABNORMAL SP SP 05/16/2016 Ot V76.12 OTH SCREEN MAMMO- SP NEOPLASM OF EVA SP 05/16/2016 AI SYED MD Ot 786.2 SP SP 05/16/2016 Heena PASTRANA MD Ot 595.2 SP CYSTITIS NEC SP 05/16/2016 JOSE ROBERTO DRISCOLL GUERITA Ot 590 .9 SP OF KIDNEY NOS SP 05/16/2016 Heena PASTRANA MD Ot 595.9 SP NOS SP 05/16/2016 AI SYED MD Ot V76.1 2 SP SCREEN MAMMO-MALIGN NEOPLASM OF EVA SP 05/16/2016 ELVIA ARAUJO APRN Ot V76.12 SP OTH SCREEN MAMMO-MALIGN NEOPLASM OF EAV SP 05/16/2016 AI SYED MD Ot 599.0 SP TRACT INFECTION NOS SP 05/16/2016 ELVIA ARAUJO APRN Ot Z12.31 SP ENCNTR SCREEN MAMMOGRAM FOR MALIGNANT NE SP 05/20/2016 Heena PASTRANA MD Ot N39.0 SP TRACT INFECTION, SITE NOT SPECIF SP 05/20/2016 Heena PASTRANA MD Ot N95.2 SP ATROPHIC VAGINITIS SP 05/20/2016 Heena PASTRANA MD Ot R39.1 4 SP OF INCOMPLETE BLADDER EMPTYING SP 05/21/2016 Heena PASTRANA MD Ot N39.0 SP TRACT INFECTION, SITE NOT SPECIF SP 05/21/2016 Heena PASTRANA MD Ot N95.2 SP ATROPHIC VAGINITIS SP 05/21/2016 Heena PASTRANA MD Ot R39.1 4 SP OF INCOMPLETE BLADDER EMPTYING SP 06/06/2016 Heena PASTRANA MD Ot N39.0 SP TRACT INFECTION, SITE NOT SPECIF SP 06/06/2016 Heena PASTRANA MD Ot N95.2 SP ATROPHIC VAGINITIS SP 06/06/2016 Heena PASTRANA MD Ot R39.1 4 SP OF INCOMPLETE BLADDER EMPTYING SP 06/13/2016 Heena PASTRANA MD Ot N39.0 SP TRACT INFECTION, SITE NOT SPECIF SP 06/13/2016 Heena PASTRANA MD Ot N95.2 SP ATROPHIC VAGINITIS SP 06/13/2016 Heena PASTRANA MD Ot R39.1 4 SP OF INCOMPLETE BLADDER EMPTYING SP 08/09/2016 Ot 611.72 LUM P OR MASS IN SP SP 08/09/2016 Ot V76.12 OTH SCREEN MAMMO- SP NEOPLASM OF EVA SP 08/09/2016 Ot 793.80 UNS PEC ABNORMAL SP SP 08/09/2016 Ot V76.12 OTH SCREEN MAMMO- SP NEOPLASM OF EVA SP 08/09/2016 AI SYED MD Ot 786.2 SP SP 08/09/2016 Heena PASTRANA MD Ot 595.2 SP CYSTITIS NEC SP 08/09/2016 GUERITA CID DO Ot 590 .9 SP OF KIDNEY NOS SP 08/09/2016 Heena PASTRANA MD Ot 595.9 SP NOS SP 08/09/2016 AI SYED MD Ot V76.1 2 SP SCREEN MAMMO-MALIGN NEOPLASM OF EVA SP 08/09/2016 ELVIA ARAUJO APRN Ot V76.12 SP OTH SCREEN MAMMO-MALIGN NEOPLASM OF EVA SP 08/09/2016 AI SYED MD Ot 599.0 SP TRACT INFECTION NOS SP 08/09/2016 ELVIA ARAUJO AIR POLLUTION ANALYST Ot Z12.31 SP ENCNTR SCREEN MAMMOGRAM FOR MALIGNANT NE SP 08/09/2016 Heena PASTRANA MD Ot N39.0 SP TRACT INFECTION, SITE NOT SPECIF SP 08/09/2016 Heena PASTRANA MD Ot N95.2 SP ATROPHIC VAGINITIS SP 08/09/2016 Heena PASTRANA MD Ot R39.1 4 SP OF INCOMPLETE BLADDER EMPTYING SP 08/09/2016 ELVIA ARAUJO AIR POLLUTION ANALYST Ot Z12.31 SP ENCNTR SCREEN MAMMOGRAM FOR MALIGNANT NE SP 08/12/2016 ELVIA ARAUJO AIR POLLUTION ANALYST Ot Z12.31 SP ENCNTR SCREEN MAMMOGRAM FOR MALIGNANT NE SP 08/13/2016 ELVIA ARAUJO R AIR POLLUTION ANALYST Ot Z12.31 SP ENCNTR SCREEN MAMMOGRAM FOR MALIGNANT NE SP 08/15/2016 ELVIA ARAUJO AIR POLLUTION ANALYST Ot Z12.31 SP ENCNTR SCREEN MAMMOGRAM FOR MALIGNANT NE SP 09/06/2016 ELVIA ARAUJO APRN Ot Z12.31 SP ENCNTR SCREEN MAMMOGRAM FOR MALIGNANT NE SP 08/25/2017 ADI MATTHEWS, GIBRNA Stubbs Ot E78.00 SP PURE HYPERCHOLESTEROLEMIA, UNSPECIFIED SP 08/25/2017 ADI MATTHEWS, GIBRAN Stubbs Ot J06.9 SP ACUTE UPPER RESPIRATORY INFECTION, UNSPE SP 08/25/2017 ADI MATTHEWS, GIBRAN Stubbs Ot R05 SP COUGH SP 08/25/2017 GIBRAN JOSHI MD Ot Z90.710 SP ACQUIRED ABSENCE OF BOTH CERVIX AND UTER SP 08/31/2017 GIBRAN JOSHI MD Ot E78.00 SP PURE HYPERCHOLESTEROLEMIA, UNSPECIFIED SP 08/31/2017 ADI MATTHEWS, GIBRAN Stubbs Ot J06.9 SP ACUTE UPPER RESPIRATORY INFECTION, UNSPE SP 08/31/2017 GIBRAN JOHSI MD Ot R05 SP COUGH SP 08/31/2017 GIBRAN JOSHI MD Ot Z90.710 SP ACQUIRED ABSENCE OF BOTH CERVIX AND UTER SP 09/05/2017 YAHAIRA MATTHEWS, AI Bowers Ot Z12.3 1 SP SCREEN MAMMOGRAM FOR MALIGNANT NE SP 11/18/2017 JC GONZALEZ APRN Ot E78.00 SP PURE HYPERCHOLESTEROLEMIA, UNSPECIFIED SP 11/18/2017 JC GONZALEZ APRN Ot S00.83XA SP CONTUSION OF OTHER PART OF HEAD, INITIAL SP 11/18/2017 JC GONZALEZ APRN Ot S09.90XA SP UNSPECIFIED INJURY OF HEAD, INITIAL ENCO SP 11/18/2017 JC GONZALEZ APRN Ot W10.9XXA SP FALL (ON) (FROM) UNSPECIFIED STAIRS AND SP 11/18/2017 JC GONZALEZ APRN Ot Y92.[address] IN [facility] NON[facility] (PRIVATE) SP 11/18/2017 JC GONZALEZ APRN Ot Z90.710 SP ACQUIRED ABSENCE OF BOTH CERVIX AND UTER SP 11/20/2017 JC GONZALEZ AIR POLLUTION ANALYST Ot E78.00 SP PURE HYPERCHOLESTEROLEMIA, UNSPECIFIED SP 11/20/2017 JC GONZALEZ AIR POLLUTION ANALYST Ot S00.83XA SP CONTUSION OF OTHER PART OF HEAD, INITIAL SP 11/20/2017 JC GONZALEZ AIR POLLUTION ANALYST Ot S09.90XA SP UNSPECIFIED INJURY OF HEAD, INITIAL ENCO SP 11/20/2017 JC GONZALEZ AIR POLLUTION ANALYST Ot W10.9XXA SP FALL (ON) (FROM) UNSPECIFIED STAIRS AND SP 11/20/2017 JC GONZALEZ AIR POLLUTION ANALYST Ot Y92.[address] IN [facility] NON[facility] (PRIVATE) SP 11/20/2017 JC GONZALEZ APRN Ot Z90.710 SP ACQUIRED ABSENCE OF BOTH CERVIX AND UTER SP 01/14/2018 ANIBAL BELL MD Ot E78. 00 SP HYPERCHOLESTEROLEMIA, UNSPECIFIED SP 01/14/2018 RAY MATTHEWS, ANIBAL Naik Ot H81. 10 SP PAROXYSMAL VERTIGO, UNSPECIFIED E SP 01/14/2018 ANIBAL BELL MD Ot R42 SP AND GIDDINESS SP 01/14/2018 ANIBAL BELL MD Ot Z90.710 SP ACQUIRED ABSENCE OF BOTH CERVIX AND UTER SP 01/16/2018 ANIBAL BELL MD Ot E78. 00 SP HYPERCHOLESTEROLEMIA, UNSPECIFIED SP 01/16/2018 RAY MATTHEWS, ANIBAL Naik Ot H81. 10 SP PAROXYSMAL VERTIGO, UNSPECIFIED E SP 01/16/2018 ANIBAL BELL MD Ot R42 SP AND GIDDINESS SP 01/16/2018 ANIBAL BELL MD Ot Z90.710 SP ACQUIRED ABSENCE OF BOTH CERVIX AND UTER SP 03/13/2018 AI SYED MD Ot R26.8 1 SP ON FEET SP 03/13/2018 AI SYED MD Ot R42 SP AND GIDDINESS SP 04/14/2018 AI SYED MD Ot R26.8 1 SP ON FEET SP 04/14/2018 AI SYED MD Ot R42 SP AND GIDDINESS SP 08/19/2018 DEUCE ASHLEY Ot Z12.31 SP ENCNTR SCREEN MAMMOGRAM FOR MALIGNANT NE SP 08/21/2018 DEUCE ASHLEY Ot Z12.31 SP ENCNTR SCREEN MAMMOGRAM FOR MALIGNANT NE SP 09/15/2018 DEUCE ASHLEY Ot Z12.31 SP ENCNTR SCREEN MAMMOGRAM FOR MALIGNANT NE SP 12/02/2018 Heena PASTRANA MD Ot 595.9 SP NOS SP 12/02/2018 AI SYED MD Ot V76.1 2 SP SCREEN MAMMO-MALIGN NEOPLASM OF EVA SP 12/02/2018 ELVIA ARAUJO APRN Ot V76.12 SP OTH SCREEN MAMMO-MALIGN NEOPLASM OF EVA SP 12/02/2018 AI SYED MD Ot 599.0 SP TRACT INFECTION NOS SP 12/02/2018 ELVIA ARAUJO AIR POLLUTION ANALYST Ot Z12.31 SP ENCNTR SCREEN MAMMOGRAM FOR MALIGNANT NE SP 12/02/2018 Heena PASTRANA MD Ot N39.0 SP TRACT INFECTION, SITE NOT SPECIF SP 12/02/2018 Heena PASTRANA MD Ot N95.2 SP ATROPHIC VAGINITIS SP 12/02/2018 Heena PASTRANA MD Ot R39.1 4 SP OF INCOMPLETE BLADDER EMPTYING SP 12/02/2018 ELVIA ARAUJO APRN Ot Z12.31 SP ENCNTR SCREEN MAMMOGRAM FOR MALIGNANT NE SP 12/02/2018 AI SYED MD Ot Z12.3 1 SP SCREEN MAMMOGRAM FOR MALIGNANT NE SP 12/02/2018 DEUCE ASHLEY Ot Z12.31 SP ENCNTR SCREEN MAMMOGRAM FOR MALIGNANT NE SP 12/02/2018 AI SYED MD Ot M50.3 22 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 SP 12/02/2018 AI SYED MD Ot M89.9 SP OF BONE, UNSPECIFIED SP 12/02/2018 Heena PASTRANA MD Ot 595.9 SP NOS SP 12/02/2018 AI SYED MD Ot V76.1 2 SP SCREEN MAMMO-MALIGN NEOPLASM OF EVA SP 12/02/2018 ELVIA ARAUJO APRN Ot V76.12 SP OTH SCREEN MAMMO-MALIGN NEOPLASM OF EVA SP 12/02/2018 AI SYED MD Ot 599.0 SP TRACT INFECTION NOS SP 12/02/2018 ELVIA ARAUJO AIR POLLUTION ANALYST Ot Z12.31 SP ENCNTR SCREEN MAMMOGRAM FOR MALIGNANT NE SP 12/02/2018 Heena PASTRANA MD Ot N39.0 SP TRACT INFECTION, SITE NOT SPECIF SP 12/02/2018 VICTORIANO MATTHEWS, Heena ERAZO Ot N95.2 SP ATROPHIC VAGINITIS SP 12/02/2018 Heena PASTRANA MD Ot R39.1 4 SP OF INCOMPLETE BLADDER EMPTYING SP 12/02/2018 ELVIA ARAUJO APRN Ot Z12.31 SP ENCNTR SCREEN MAMMOGRAM FOR MALIGNANT NE SP 12/02/2018 AI SYED MD Ot Z12.3 1 SP SCREEN MAMMOGRAM FOR MALIGNANT NE SP 12/02/2018 DEUCE ASHLEY Ot Z12.31 SP ENCNTR SCREEN MAMMOGRAM FOR MALIGNANT NE SP 12/02/2018 AI SYED MD Ot M50.3 22 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 SP 12/02/2018 AI SYED MD Ot M89.9 SP OF BONE, UNSPECIFIED SP 12/04/2018 AI SYED MD Ot G31.9 SP DISEASE OF NERVOUS SYSTEM, SP 12/04/2018 AI SYED MD Ot I67.8 2 SP ISCHEMIA SP 12/04/2018 AI SYED MD Ot R51 SP SP 12/04/2018 AI SYED MD Ot W19.XXXA SP UNSPECIFIED FALL, INITIAL ENCOUNTER SP 12/18/2018 AI SYED MD Ot M50.3 22 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 SP 12/18/2018 AI SYED MD Ot M89.9 SP OF BONE, UNSPECIFIED SP 12/24/2018 AI SYED MD Ot M50.3 22 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 SP 12/24/2018 AI SYED MD Ot M89.9 SP OF BONE, UNSPECIFIED SP 12/30/2018 AI SYED MD Ot G31.9 SP DISEASE OF NERVOUS SYSTEM, SP 12/30/2018 AI SYED MD Ot I67.8 2 SP ISCHEMIA SP 12/30/2018 AI SYED MD Ot R51 SP SP 12/30/2018 AI SYED MD Ot W19.XXXA SP UNSPECIFIED FALL, INITIAL ENCOUNTER SP 02/24/2019 ELVIA ARAUJO APRN Ot 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 SP 02/24/2019 ELVIA ARAUJO APRN Ot M85.88 SP OTH DISRD OF BONE DENSITY AND STRUCTURE, SP 02/24/2019 ELVIA ARAUJO APRN Ot S32.040A SP WEDGE COMPRESSION FRACTURE OF FOURTH LUM SP 03/10/2019 MICHELLE MAYA MD Ot E78.00 SP PURE HYPERCHOLESTEROLEMIA, UNSPECIFIED SP 03/10/2019 MICHELLE MAYA MD Ot E87 .1 SPOSMOLALITY AND HYPONATREMIA SP 03/10/2019 MICHELLE MAYA MD Ot G89.18 SP OTHER ACUTE POSTPROCEDURAL PAIN SP 03/10/2019 MICHELLE MAYA MD Ot M54 .9 SP UNSPECIFIED SP 03/10/2019 MICHELLE MAYA MD Ot M62.81 SP MUSCLE WEAKNESS (GENERALIZED) SP 03/10/2019 MICHELLE MAYA MD Ot 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 SP 03/10/2019 MICHELLE MAYA MD Ot Z79.891 SP [facility] (CURRENT) USE OF OPIATE ANALGE SP 03/10/2019 MICHELLE MAYA MD Ot Z79.899 SP OTHER [facility] (CURRENT) DRUG THERAPY SP 03/10/2019 MICHELLE MAYA MD Ot Z82.61 SP FAMILY HISTORY OF ARTHRITIS SP 03/10/2019 MICHELLE MAYA MD Ot Z84 .1 SP HISTORY OF DISORDERS OF KIDNEY AN SP 03/10/2019 MICHELLE MAYA MD Ot Z88 .1 SP STATUS TO OTHER ANTIBIOTIC AGENT SP 03/10/2019 MICHELLE MAYA MD Ot Z88 .2 SP STATUS TO SULFONAMIDES STATUS SP 03/10/2019 MICHELLE MAYA MD Ot Z88 .5 SP STATUS TO NARCOTIC AGENT STATUS SP 03/10/2019 MICHELLE MAYA MD Ot Z90.710 SP ACQUIRED ABSENCE OF BOTH CERVIX AND UTER SP 03/10/2019 MICHELLE MAYA MD Ot Z98 .1 SP STATUS SP 03/15/2019 PADMINI DO ROSSI Ot E22.2 SP OF INAPPROPRIATE SECRETION OF A SP 03/15/2019 PADMINI DO ROSSI Ot E78.5 SP UNSPECIFIED SP 03/15/2019 PADMINI DO ROSSI Ot E87.6 SP SP 03/15/2019 PADMINI DO ROSSI Ot 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 SP 03/15/2019 PADMINI DRISCOLL ROSSI Ot F32.9 SP DEPRESSIVE DISORDER, SINGLE EPISOD SP 03/15/2019 ROSSI WASHINGTON DO Ot F41.9 SP DISORDER, UNSPECIFIED SP 03/15/2019 WASHINGTONDNOI DRISCOLL ROSSI Ot G89.18 SP ACUTE POSTPROCEDURAL PAIN SP 03/15/2019 ROSSI WASHINGTNO DO Ot I10 SP (PRIMARY) HYPERTENSION SP 03/15/2019 ROSSI WASHINGTON DO Ot K59.00 SP UNSPECIFIED SP 03/15/2019 ROSSI WASHINGTON DO Ot 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, VERTEB, SP 03/18/2019 ELVIA ARAUJO AIR POLLUTION ANALYST Ot 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 SP 03/18/2019 ELVIA ARAUJO APRN Ot M85.88 SP OTH DISRD OF BONE DENSITY AND STRUCTURE, SP 03/18/2019 ELVIA ARAUJO APRN Ot S32.040A SP WEDGE COMPRESSION FRACTURE OF FOURTH LUM SP 06/29/2019 JC GONZALEZ APRN Ot E78.00 SP PURE HYPERCHOLESTEROLEMIA, UNSPECIFIED SP 06/29/2019 JC GONZALEZ APRN Ot F03.90 SP UNSPECIFIED DEMENTIA WITHOUT BEHAVIORAL SP 06/29/2019 JC GONZALEZ APRN Ot M54 .5 SP BACK PAIN SP 06/29/2019 JC GONZALEZ APRN Ot S22.060A SP WEDGE COMPRESSION FRACTURE OF T7-T8 VERT SP 06/29/2019 JC GONZALEZ APRN Ot X58.XXXA SP EXPOSURE TO OTHER SPECIFIED FACTORS, INI SP 06/29/2019 JC GONZALEZ APRN Ot Z88 .1 SP STATUS TO OTHER ANTIBIOTIC AGENT SP 06/29/2019 JC GONZALEZ APRN Ot Z88 .2 SP STATUS TO SULFONAMIDES STATUS SP 06/29/2019 JC GONZALEZ APRN Ot Z88 .5 SP STATUS TO NARCOTIC AGENT STATUS SP 06/29/2019 JC GONZALEZ APRN Ot Z88 .8 SP STATUS TO OT DRUG/MEDS/BIOL SUB SP 06/29/2019 JC GONZALEZ APRN Ot Z90.710 SP ACQUIRED ABSENCE OF BOTH CERVIX AND UTER SP 07/01/2019 ANASTASIA BROTHERS MD Ot 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 5 SP UNSPECIFIED SP 07/01/2019 ZEV MATTHEWS, ANASTASIA Velasquez Ot F03. 90 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 SP 07/01/2019 ZEV MATTHEWS, ANASTASIA Velasquez Ot F41. 9 SP DISORDER, UNSPECIFIED SP 07/01/2019 ZEV MATTHEWS, ANASTASIA Velasquez Ot M81. 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 0 SP TRACT INFECTION, SITE NOT SPECIF SP 07/01/2019 ZEV MATTHEWS, ANASTASIA Velasquez Ot S22.060A SP WEDGE COMPRESSION FRACTURE OF T7-T8 VERT SP 07/01/2019 ZEV MATTHEWS, ANASTASIA Velasuqez Ot S32.82XA SP MULTIPLE FX OF PELVIS W/O DISRUPT OF PEL SP 07/01/2019 ZEV MATTHEWS, ANASTASIA Velasquez Ot W06.XXXA SP FALL FROM BED, INITIAL ENCOUNTER SP 07/01/2019 ZEV MATTHEWS, ANASTASIA Velasquez Ot Y92.[address] IN [facility] (PRIVATE SP 07/02/2019 JC GONZALEZ APRN Ot E78.00 SP PURE HYPERCHOLESTEROLEMIA, UNSPECIFIED SP 07/02/2019 JC GONZALEZ APRN Ot F03.90 SP UNSPECIFIED DEMENTIA WITHOUT BEHAVIORAL SP 07/02/2019 JC GONZALEZ APRN Ot M54 .5 SP BACK PAIN SP 07/02/2019 JC GONZALEZ APRN Ot S22.060A SP WEDGE COMPRESSION FRACTURE OF T7-T8 VERT SP 07/02/2019 JC GONZALEZ APRN Ot X58.XXXA SP EXPOSURE TO OTHER SPECIFIED FACTORS, INI SP 07/02/2019 JC GONZALEZ APRN Ot Z88 .1 SP STATUS TO OTHER ANTIBIOTIC AGENT SP 07/02/2019 JC GONZALEZ APRN Ot Z88 .2 SP STATUS TO SULFONAMIDES STATUS SP 07/02/2019 JC GONZALEZ APRN Ot Z88 .5 SP STATUS TO NARCOTIC AGENT STATUS SP 07/02/2019 JC GONZALEZ APRN Ot Z88 .8 SP STATUS TO OTH DRUG/MEDS/BIOL SUB SP 07/02/2019 JC GONZALEZ APRN Ot Z90.710 SP ACQUIRED ABSENCE OF BOTH CERVIX AND UTER SP 07/03/2019 JC GONZALEZ APRN Ot E78.00 SP PURE HYPERCHOLESTEROLEMIA, UNSPECIFIED SP 07/03/2019 JC GONZALEZ APRN Ot F03.90 SP UNSPECIFIED DEMENTIA WITHOUT BEHAVIORAL SP 07/03/2019 JC GONZALEZ APRN Ot M54 .5 SP BACK PAIN SP 07/03/2019 JC GONZALEZ APRN Ot S22.060A SP WEDGE COMPRESSION FRACTURE OF T7-T8 VERT SP 07/03/2019 JC GONZALEZ APRN Ot X58.XXXA SP EXPOSURE TO OTHER SPECIFIED FACTORS, INI SP 07/03/2019 JC GONZALEZ APRN Ot Z88 .1 SP STATUS TO OTHER ANTIBIOTIC AGENT SP 07/03/2019 JC GONZALEZ APRN Ot Z88 .2 SP STATUS TO SULFONAMIDES STATUS SP 07/03/2019 JC GONZALEZ APRN Ot Z88 .5 SP STATUS TO NARCOTIC AGENT STATUS SP 07/03/2019 JC GONZALEZ APRN Ot Z88 .8 SP STATUS TO OTH DRUG/MEDS/BIOL SUB SP 07/03/2019 JC GONZALEZ APRN Ot Z90.710 SP ACQUIRED ABSENCE OF BOTH CERVIX AND UTER SP 07/14/2019 ROSSI WASHINGTON DO Ot E78.5 SP UNSPECIFIED SP 07/14/2019 ROSSI WASHINGTON DO Ot 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 SP 07/14/2019 ROSSI WASHINGTON DO Ot K59.00 SP UNSPECIFIED SP 07/14/2019 ROSSI WASHINGTON DO Ot M19.91 SP OSTEOARTHRITIS, UNSPECIFIED SITE SP 07/14/2019 ROSSI WASHINGTON DO Ot M81.0 SPRELATED OSTEOPOROSIS W/O CURRENT PAT SP 07/14/2019 ROSSI WASHINGTON DO Ot N39.0 SP TRACT INFECTION, SITE NOT SPECIF SP 07/14/2019 ROSSI WASHINGTON DO Ot S32.82 XD SP FX OF PELV W/O DISRUPT OF PELV RING SP 07/14/2019 ROSSI WASHINGTON DO Ot W06.XX XD SP FROM BED, SUBSEQUENT ENCOUNTER SP 07/14/2019 ROSSI WASHINGTON DO Ot Y92.[address] IN [facility] (PRIVATE SP 07/14/2019 ROSSI WASHINGTON DO Ot Z66 DO SP RESUSCITATE SP Procedures There is no data. Results Test Result Range POS Complete blood count (CBC) with automate d white blood cell (WBC) differential - POS 03:35 Blood leukocytes automated count (number/volume) 7.1 10*3/uL POS 4.3-11.0 SP Blood erythrocytes automated count (number/volume) 4.14 10*6/uL SP 4.35-5.85 SP Venous blood hemoglobin measurement (mass/volume) 12.6 g/dL SP16.0 Blood hematocrit (volume fraction) 38 % 35-52 SP Automated erythrocyte mean corpuscular volume 91 [ foz_us] SP99 Automated erythrocyte mean corpuscular h emoglobin (mass per erythrocyte) SP 30 pg 25-34 SP Automated erythrocyte mean corpuscular h emoglobin concentration measurement SP 33 g/dL 32-36 SP Automated erythrocyte distribution width ratio 13. 6 % 10.0- SP Automated blood platelet count (count/volume) 183 10*3/uL SP400 Automated blood platelet mean volume measurement 9.1 [foz_us] SP 7.4-10.4 SP Automated blood neutrophils/100 leukocytes 85 % 42-75 SP Automated blood lymphocytes/100 leukocytes 7 % 12-44 SP Blood monocytes/100 leukocytes 8 % 0-12 SP Automated blood eosinophils/100 leukocytes 1 % 0-10 SP Automated blood basophils/100 leukocytes 0 % 0-10 SP Blood neutrophils automated count (number/volume) 6.0 10*3 SP7.8 Blood lymphocytes automated count (number/volume) 0.5 10*3 SP4.0 Blood monocytes automated count (number/volume) 0. 5 10*3 SP1.0 Automated eosinophil count 0.0 10*3/uL 0 .0-0.3 SP Automated blood basophil count (count/volume) 0.0 10*3/uL SP0.1 Comprehensive metabolic panel - 03/10/19 03:35 POS Serum or plasma sodium measurement (moles/volume) 126 mmol/L SP 135-145 SP Serum or plasma potassium measurement (moles/volume) 3.7 mmol/L SP 3.6-5.0 SP Serum or plasma chloride measurement (moles/volume) 88 mmol/L SP 98-107 SP Carbon dioxide 24 mmol/L 21-32 SP Serum or plasma anion gap determination (moles/volume) 14 mmol/L SP 5-14 SP Serum or plasma urea nitrogen measurement (mass/volume ) 11 mg/dL SP 7-18 SP Serum or plasma creatinine measurement (mass/volume) 0.83 mg/dL SP 0.60-1.30 SP Serum or plasma urea nitrogen/creatinine mass ratio 13 NRG SP Serum or plasma creatinine measurement w ith calculation of estimated glomerular SP rate > NRG SP Serum or plasma glucose measurement (mass/volume) 152 mg/dL SP105 Serum or plasma calcium measurement (mass/volume) 10.2 mg/dL SP 8.5-10.1 SP Serum or plasma total bilirubin measurement (mass/volu me) 0.8 mg/dL SP 0.1-1.0 SP Serum or plasma alkaline phosphatase martin surement (enzymatic activity/volume) SP 123 U/L 40-136 SP Serum or plasma aspartate aminotransfera se measurement (enzymatic SP 39 U/L 5-34 SP Serum or plasma alanine aminotransferase measurement (enzymatic activity/volume) SP 32 U/L 0-55 SP Serum or plasma protein measurement (mass/volume) 7.2 g/dL SP8.2 Serum or plasma albumin measurement (mass/volume) 4.0 g/dL SP4.5 CALCIUM CORRECTED 10.2 mg/dL 8.5-10.1 SP Complete urinalysis with reflex to cultu re - 03/10/19 05:22 POS Urine color determination YELLOW NRG SP Urine clarity determination CLEAR NR G SP Urine pH measurement by test strip 7 5-9 SP Specific gravity of urine by test strip 1.010 1.016-1.022 SP Urine protein assay by test strip, semi-quantitative NEGATIVE SP NEGATIVE SP Urine glucose detection by automated test strip NE GATIVE SP Erythrocytes detection in urine sediment by light micr oscopy NEGATIVE SP NEGATIVE SP Urine ketones detection by automated test strip 2+ NEGATIVE SP Urine nitrite detection by test strip NEGATIVE NEGATIVE SP Urine total bilirubin detection by test strip NEGA TIVE SP Urine urobilinogen measurement by automated test strip (mass/volume) SP NORMAL SP Urine leukocyte esterase detection by dipstick NEG ATIVE SP Automated urine sediment erythrocyte cou nt by microscopy (number/high power SP NONE NRG SP Automated urine sediment leukocyte count by microscopy (number/high power field) SP [HPF] NRG SP Bacteria detection in urine sediment by light microsco py LARGE SP NRG SP Squamous epithelial cells detection in u rine sediment by light microscopy SP 0-2 NRG SP Crystals detection in urine sediment by light microsco py NONE SP NRG SP Casts detection in urine sediment by light microscopy NONE SP Mucus detection in urine sediment by light microscopy NEGATIVE SP NRG SP Complete urinalysis with reflex to culture YES NRG SP Bacterial urine culture - 03/10/19 05:22 POS Bacterial urine culture [id number] NRG SP COLONY COUNT 60,000 cfu/ml NRG SP FTX;REPORTABLE SUSCEPTIBILITIES REPORTED [id number]. NRG SP Dirithromycin susceptibility test by dis k diffusion - 03/10/19 05:22 POS Gentamicin susceptibility test by minimum inhibitory c oncentration <= SP NRG SP Levofloxacin susceptibility test by minimum inhibitory concentration SP NRG SP Tobramycin susceptibility test by minimum inhibitory c oncentration <= SP NRG SP Piperacillin/tazobactam susceptibility t est by minimum inhibitory concentration SP > NRG SP Ciprofloxacin susceptibility test by minimum inhibitor y concentration SP NRG SP Meropenem susceptibility test by minimum inhibitory co ncentration <= SP NRG SP Aztreonam susceptibility test by minimum inhibitory co ncentration 8 SP NRG SP Cefepime susceptibility test by minimum inhibitory con centration 2 SP NRG SP Imipenem susceptibility test by minimum inhibitory con centration 2 SP NRG SP Ceftazidime susceptibility test by minimum inhibitory concentration <= SP NRG SP Dirithromycin susceptibility test by dis k diffusion - 03/10/19 05:22 POS Gentamicin susceptibility test by minimum inhibitory c oncentration <= SP NRG SP Trimethoprim/sulfamethoxazole susceptibi lity test by minimum SP > NRG SP Levofloxacin susceptibility test by minimum inhibitory concentration 2 SP NRG SP Ampicillin susceptibility test by minimum inhibitory c oncentration > SP NRG SP Cefazolin susceptibility test by minimum inhibitory co ncentration > SP NRG SP Ceftriaxone susceptibility test by minimum inhibitory concentration <= SP NRG SP Ciprofloxacin susceptibility test by minimum inhibitor y concentration SP NRG SP Meropenem susceptibility test by minimum inhibitory co ncentration <= SP NRG SP Nitrofurantoin susceptibility test by mi nimum inhibitory concentration SP <= NRG SP Amoxicillin and clavulanate potassium susc KORI = NRG SP Complete blood count (CBC) with automate d white blood cell (WBC) differential - POS 05:35 Blood leukocytes automated count (number/volume) 6.0 10*3/uL POS 4.3-11.0 SP Blood erythrocytes automated count (number/volume) 3.68 10*6/uL SP 4.35-5.85 SP Venous blood hemoglobin measurement (mass/volume) 11.2 g/dL SP16.0 Blood hematocrit (volume fraction) 34 % 35-52 SP Automated erythrocyte mean corpuscular volume 91 [ foz_us] SP99 Automated erythrocyte mean corpuscular h emoglobin (mass per erythrocyte) SP 30 pg 25-34 SP Automated erythrocyte mean corpuscular h emoglobin concentration measurement SP 33 g/dL 32-36 SP Automated erythrocyte distribution width ratio 13. 9 % 10.0- SP Automated blood platelet count (count/volume) 155 10*3/uL SP400 Automated blood platelet mean volume measurement 9.6 [foz_us] SP 7.4-10.4 SP Automated blood neutrophils/100 leukocytes 88 % 42-75 SP Automated blood lymphocytes/100 leukocytes 7 % 12-44 SP Blood monocytes/100 leukocytes 5 % 0-12 SP Automated blood eosinophils/100 leukocytes 0 % 0-10 SP Automated blood basophils/100 leukocytes 0 % 0-10 SP Blood neutrophils automated count (number/volume) 5.3 10*3 SP7.8 Blood lymphocytes automated count (number/volume) 0.4 10*3 SP4.0 Blood monocytes automated count (number/volume) 0. 3 10*3 SP1.0 Automated eosinophil count 0.0 10*3/uL 0 .0-0.3 SP Automated blood basophil count (count/volume) 0.0 10*3/uL SP0.1 Comprehensive metabolic panel - 03/11/19 05:35 POS Serum or plasma sodium measurement (moles/volume) 125 mmol/L SP 135-145 SP Serum or plasma potassium measurement (moles/volume) 3.0 mmol/L SP 3.6-5.0 SP Serum or plasma chloride measurement (moles/volume) 91 mmol/L SP 98-107 SP Carbon dioxide 26 mmol/L 21-32 SP Serum or plasma anion gap determination (moles/volume) 8 mmol/L SP 5-14 SP Serum or plasma urea nitrogen measurement (mass/volume ) 12 mg/dL SP 7-18 SP Serum or plasma creatinine measurement (mass/volume) 0.71 mg/dL SP 0.60-1.30 SP Serum or plasma urea nitrogen/creatinine mass ratio 17 NRG SP Serum or plasma creatinine measurement w ith calculation of estimated glomerular SP rate > NRG SP Serum or plasma glucose measurement (mass/volume) 134 mg/dL SP105 Serum or plasma calcium measurement (mass/volume) 9.0 mg/dL SP10.1 Serum or plasma total bilirubin measurement (mass/volu me) 0.5 mg/dL SP 0.1-1.0 SP Serum or plasma alkaline phosphatase martin surement (enzymatic activity/volume) SP 101 U/L 40-136 SP Serum or plasma aspartate aminotransfera se measurement (enzymatic SP 36 U/L 5-34 SP Serum or plasma alanine aminotransferase measurement (enzymatic activity/volume) SP 31 U/L 0-55 SP Serum or plasma protein measurement (mass/volume) 5.8 g/dL SP8.2 Serum or plasma albumin measurement (mass/volume) 3.2 g/dL SP4.5 CALCIUM CORRECTED 9.6 mg/dL 8.5-10.1 SP Manual absolute plasma cell count - 02/22 04/12 05:35 POS Blood monocytes/100 leukocytes 3 % NRG SP Manual blood segmented neutrophils/100 leukocytes 74 % NRG SP Blood band neutrophils/100 leukocytes 14 % NRG SP Manual blood lymphocytes/100 leukocytes 8 % NRG SP Manual eosinophils/100 leukocytes in nose 1 % NRG SP Manual blood basophils/100 leukocytes 0 % NRG SP Blood erythrocyte morphology finding identification NORMAL SP Complete blood count (CBC) with automate d white blood cell (WBC) differential - POS 04:50 Blood leukocytes automated count (number/volume) 7.4 10*3/uL POS 4.3-11.0 SP Blood erythrocytes automated count (number/volume) 4.11 10*6/uL SP 4.35-5.85 SP Venous blood hemoglobin measurement (mass/volume) 12.5 g/dL SP16.0 Blood hematocrit (volume fraction) 37 % 35-52 SP Automated erythrocyte mean corpuscular volume 90 [ foz_us] SP99 Automated erythrocyte mean corpuscular h emoglobin (mass per erythrocyte) SP 30 pg 25-34 SP Automated erythrocyte mean corpuscular h emoglobin concentration measurement SP 34 g/dL 32-36 SP Automated erythrocyte distribution width ratio 13. 8 % 10.0- SP Automated blood platelet count (count/volume) 157 10*3/uL SP400 Automated blood platelet mean volume measurement 9.4 [foz_us] SP 7.4-10.4 SP Automated blood neutrophils/100 leukocytes 81 % 42-75 SP Automated blood lymphocytes/100 leukocytes 11 % 12-44 SP Blood monocytes/100 leukocytes 6 % 0-12 SP Automated blood eosinophils/100 leukocytes 1 % 0-10 SP Automated blood basophils/100 leukocytes 0 % 0-10 SP Blood neutrophils automated count (number/volume) 6.0 10*3 SP7.8 Blood lymphocytes automated count (number/volume) 0.8 10*3 SP4.0 Blood monocytes automated count (number/volume) 0. 5 10*3 SP1.0 Automated eosinophil count 0.1 10*3/uL 0 .0-0.3 SP Automated blood basophil count (count/volume) 0.0 10*3/uL SP0.1 Comprehensive metabolic panel - 03/13/19 04:50 POS Serum or plasma sodium measurement (moles/volume) 128 mmol/L SP 135-145 SP Serum or plasma potassium measurement (moles/volume) 3.7 mmol/L SP 3.6-5.0 SP Serum or plasma chloride measurement (moles/volume) 87 mmol/L SP 98-107 SP Carbon dioxide 31 mmol/L 21-32 SP Serum or plasma anion gap determination (moles/volume) 10 mmol/L SP 5-14 SP Serum or plasma urea nitrogen measurement (mass/volume ) 10 mg/dL SP 7-18 SP Serum or plasma creatinine measurement (mass/volume) 0.74 mg/dL SP 0.60-1.30 SP Serum or plasma urea nitrogen/creatinine mass ratio 14 NRG SP Serum or plasma creatinine measurement w ith calculation of estimated glomerular SP rate > NRG SP Serum or plasma glucose measurement (mass/volume) 110 mg/dL SP105 Serum or plasma calcium measurement (mass/volume) 9.0 mg/dL SP10.1 Serum or plasma total bilirubin measurement (mass/volu me) 0.8 mg/dL SP 0.1-1.0 SP Serum or plasma alkaline phosphatase martin surement (enzymatic activity/volume) SP 111 U/L 40-136 SP Serum or plasma aspartate aminotransfera se measurement (enzymatic SP 54 U/L 5-34 SP Serum or plasma alanine aminotransferase measurement (enzymatic activity/volume) SP 41 U/L 0-55 SP Serum or plasma protein measurement (mass/volume) 5.8 g/dL SP8.2 Serum or plasma albumin measurement (mass/volume) 3.2 g/dL SP4.5 CALCIUM CORRECTED 9.6 mg/dL 8.5-10.1 SP Magnesium - 03/13/19 04:50 POS Magnesium 1.5 mg/dL 1.8-2.4 SP Whole blood basic metabolic panel - 02/23 10/13 06:31 POS Serum or plasma sodium measurement (moles/volume) 133 mmol/L SP 135-145 SP Serum or plasma potassium measurement (moles/volume) 4.2 mmol/L SP 3.6-5.0 SP Serum or plasma chloride measurement (moles/volume) 94 mmol/L SP 98-107 SP Carbon dioxide 29 mmol/L 21-32 SP Serum or plasma anion gap determination (moles/volume) 10 mmol/L SP 5-14 SP Serum or plasma urea nitrogen measurement (mass/volume ) 13 mg/dL SP 7-18 SP Serum or plasma creatinine measurement (mass/volume) 0.82 mg/dL SP 0.60-1.30 SP Serum or plasma urea nitrogen/creatinine mass ratio 16 NRG SP Serum or plasma creatinine measurement w ith calculation of estimated glomerular SP rate > NRG SP Serum or plasma glucose measurement (mass/volume) 100 mg/dL SP105 Serum or plasma calcium measurement (mass/volume) 9.2 mg/dL SP10.1 Complete blood count (CBC) with automate d white blood cell (WBC) differential - POS 21:35 Blood leukocytes automated count (number/volume) 10.6 10*3/uL POS 4.3-11.0 SP Blood erythrocytes automated count (number/volume) 4.10 10*6/uL SP 4.35-5.85 SP Venous blood hemoglobin measurement (mass/volume) 12.6 g/dL SP16.0 Blood hematocrit (volume fraction) 38 % 35-52 SP Automated erythrocyte mean corpuscular volume 94 [ foz_us] SP99 Automated erythrocyte mean corpuscular h emoglobin (mass per erythrocyte) SP 31 pg 25-34 SP Automated erythrocyte mean corpuscular h emoglobin concentration measurement SP 33 g/dL 32-36 SP Automated erythrocyte distribution width ratio 12. 5 % 10.0- SP Automated blood platelet count (count/volume) 271 10*3/uL SP400 Automated blood platelet mean volume measurement 9.5 [foz_us] SP 7.4-10.4 SP Automated blood neutrophils/100 leukocytes 72 % 42-75 SP Automated blood lymphocytes/100 leukocytes 19 % 12-44 SP Blood monocytes/100 leukocytes 8 % 0-12 SP Automated blood eosinophils/100 leukocytes 0 % 0-10 SP Automated blood basophils/100 leukocytes 1 % 0-10 SP Blood neutrophils automated count (number/volume) 7.7 10*3 SP7.8 Blood lymphocytes automated count (number/volume) 2.0 10*3 SP4.0 Blood monocytes automated count (number/volume) 0. 8 10*3 SP1.0 Automated eosinophil count 0.0 10*3/uL 0 .0-0.3 SP Automated blood basophil count (count/volume) 0.1 10*3/uL SP0.1 PT panel in platelet poor plasma by coag ulation assay - 06/25/19 21:35 POS Prothrombin time (PT) in platelet poor plasma by coagu lation assay SP s 12.2-14.7 SP INR in platelet poor plasma or blood by coagulation as say 1.0 SP 0.8-1.4 SP Activated partial thromboplastin time (a PTT) in platelet poor plasma POS assay - 06/25/19 21:35 Activated partial thromboplastin time (a PTT) in platelet poor plasma POS assay 35 s 24-35 SP Comprehensive metabolic panel - 06/25/19 21:35 POS Serum or plasma sodium measurement (moles/volume) 135 mmol/L SP 135-145 SP Serum or plasma potassium measurement (moles/volume) 3.7 mmol/L SP 3.6-5.0 SP Serum or plasma chloride measurement (moles/volume) 97 mmol/L SP 98-107 SP Carbon dioxide 23 mmol/L 21-32 SP Serum or plasma anion gap determination (moles/volume) 15 mmol/L SP 5-14 SP Serum or plasma urea nitrogen measurement (mass/volume ) 17 mg/dL SP 7-18 SP Serum or plasma creatinine measurement (mass/volume) 0.97 mg/dL SP 0.60-1.30 SP Serum or plasma urea nitrogen/creatinine mass ratio 18 NRG SP Serum or plasma creatinine measurement w ith calculation of estimated glomerular SP rate 54 NRG SP Serum or plasma glucose measurement (mass/volume) 126 mg/dL SP105 Serum or plasma calcium measurement (mass/volume) 10.3 mg/dL SP 8.5-10.1 SP Serum or plasma total bilirubin measurement (mass/volu me) 0.6 mg/dL SP 0.1-1.0 SP Serum or plasma alkaline phosphatase martin surement (enzymatic activity/volume) SP 100 U/L 40-136 SP Serum or plasma aspartate aminotransfera se measurement (enzymatic SP 25 U/L 5-34 SP Serum or plasma alanine aminotransferase measurement (enzymatic activity/volume) SP 16 U/L 0-55 SP Serum or plasma protein measurement (mass/volume) 8.2 g/dL SP8.2 Serum or plasma albumin measurement (mass/volume) 4.5 g/dL SP4.5 CALCIUM CORRECTED 9.9 mg/dL 8.5-10.1 SP Magnesium - 06/25/19 21:35 POS Magnesium 2.0 mg/dL 1.6-2.4 SP Serum or plasma troponin i.cardiac measu rement (mass/volume) - 06/25/19 21:35 POS Serum or plasma troponin i.cardiac measurement (mass/v olume) < ng/mL POS <0.028 SP Myoglobin, serum - 06/25/19 21:35 POS Myoglobin, serum 34.2 ng/mL 10.0-92.0 SP Serum or plasma lithium measurement (mol es/volume) - 06/25/19 21:35 POS BNP PT 68.5 pg/mL <100.0 SP Complete blood count (CBC) with automate d white blood cell (WBC) differential - POS 14:35 Blood leukocytes automated count (number/volume) 12.5 10*3/uL POS 4.3-11.0 SP Blood erythrocytes automated count (number/volume) 3.83 10*6/uL SP 4.35-5.85 SP Venous blood hemoglobin measurement (mass/volume) 11.7 g/dL SP16.0 Blood hematocrit (volume fraction) 36 % 35-52 SP Automated erythrocyte mean corpuscular volume 93 [ foz_us] SP99 Automated erythrocyte mean corpuscular h emoglobin (mass per erythrocyte) SP 31 pg 25-34 SP Automated erythrocyte mean corpuscular h emoglobin concentration measurement SP 33 g/dL 32-36 SP Automated erythrocyte distribution width ratio 12. 4 % 10.0- SP Automated blood platelet count (count/volume) 212 10*3/uL SP400 Automated blood platelet mean volume measurement 9.8 [foz_us] SP 7.4-10.4 SP Automated blood neutrophils/100 leukocytes 87 % 42-75 SP Automated blood lymphocytes/100 leukocytes 6 % 12-44 SP Blood monocytes/100 leukocytes 6 % 0-12 SP Automated blood eosinophils/100 leukocytes 0 % 0-10 SP Automated blood basophils/100 leukocytes 0 % 0-10 SP Blood neutrophils automated count (number/volume) 10.9 10*3 SP7.8 Blood lymphocytes automated count (number/volume) 0.8 10*3 SP4.0 Blood monocytes automated count (number/volume) 0. 8 10*3 SP1.0 Automated eosinophil count 0.0 10*3/uL 0 .0-0.3 SP Automated blood basophil count (count/volume) 0.0 10*3/uL SP0.1 Comprehensive metabolic panel - 06/28/19 14:35 POS Serum or plasma sodium measurement (moles/volume) 132 mmol/L SP 135-145 SP Serum or plasma potassium measurement (moles/volume) 3.5 mmol/L SP 3.6-5.0 SP Serum or plasma chloride measurement (moles/volume) 95 mmol/L SP 98-107 SP Carbon dioxide 27 mmol/L 21-32 SP Serum or plasma anion gap determination (moles/volume) 10 mmol/L SP 5-14 SP Serum or plasma urea nitrogen measurement (mass/volume ) 10 mg/dL SP 7-18 SP Serum or plasma creatinine measurement (mass/volume) 0.80 mg/dL SP 0.60-1.30 SP Serum or plasma urea nitrogen/creatinine mass ratio 13 NRG SP Serum or plasma creatinine measurement w ith calculation of estimated glomerular SP rate > NRG SP Serum or plasma glucose measurement (mass/volume) 159 mg/dL SP105 Serum or plasma calcium measurement (mass/volume) 9.9 mg/dL SP10.1 Serum or plasma total bilirubin measurement (mass/volu me) 0.6 mg/dL SP 0.1-1.0 SP Serum or plasma alkaline phosphatase martin surement (enzymatic activity/volume) SP 92 U/L 40-136 SP Serum or plasma aspartate aminotransfera se measurement (enzymatic SP 23 U/L 5-34 SP Serum or plasma alanine aminotransferase measurement (enzymatic activity/volume) SP 19 U/L 0-55 SP Serum or plasma protein measurement (mass/volume) 7.5 g/dL SP8.2 Serum or plasma albumin measurement (mass/volume) 4.1 g/dL SP4.5 CALCIUM CORRECTED 9.8 mg/dL 8.5-10.1 SP Manual absolute plasma cell count - 12/11 14:35 POS Blood monocytes/100 leukocytes 3 % NRG SP Manual blood segmented neutrophils/100 leukocytes 80 % NRG SP Blood band neutrophils/100 leukocytes 7 % NRG SP Manual blood lymphocytes/100 leukocytes 10 % NRG SP Manual eosinophils/100 leukocytes in nose 0 % NRG SP Manual blood basophils/100 leukocytes 0 % NRG SP Blood erythrocyte morphology finding identification NORMAL SP Complete urinalysis with reflex to cultu re - 06/28/19 15:15 POS Urine color determination YELLOW NRG SP Urine clarity determination CLEAR NR G SP Urine pH measurement by test strip 8 5-9 SP Specific gravity of urine by test strip 1.015 1.016-1.022 SP Urine protein assay by test strip, semi-quantitative 1+ SP Urine glucose detection by automated test strip 2+ NEGATIVE SP Erythrocytes detection in urine sediment by light micr oscopy NEGATIVE SP NEGATIVE SP Urine ketones detection by automated test strip NE GATIVE SP Urine nitrite detection by test strip NEGATIVE NEGATIVE SP Urine total bilirubin detection by test strip NEGA TIVE SP Urine urobilinogen measurement by automated test strip (mass/volume) SP NORMAL SP Urine leukocyte esterase detection by dipstick 1+ NEGATIVE SP Automated urine sediment erythrocyte cou nt by microscopy (number/high power SP NONE NRG SP Automated urine sediment leukocyte count by microscopy (number/high power field) SP [HPF] NRG SP Bacteria detection in urine sediment by light microsco py MODERATE SP NRG SP Crystals detection in urine sediment by light microsco py NONE SP NRG SP Casts detection in urine sediment by light microscopy NONE SP Mucus detection in urine sediment by light microscopy NEGATIVE SP NRG SP Complete urinalysis with reflex to culture YES NRG SP Bacterial urine culture - 06/28/19 15:15 POS Bacterial urine culture [id number] NRG SP COLONY COUNT >100,000/ML NRG SP FTX;REPORTABLE SEE COMMENTS NRG SP Complete blood count (CBC) with automate d white blood cell (WBC) differential - POS 05:05 Blood leukocytes automated count (number/volume) 9.3 10*3/uL POS 4.3-11.0 SP Blood erythrocytes automated count (number/volume) 3.35 10*6/uL SP 4.35-5.85 SP Venous blood hemoglobin measurement (mass/volume) 10.2 g/dL SP16.0 Blood hematocrit (volume fraction) 32 % 35-52 SP Automated erythrocyte mean corpuscular volume 94 [ foz_us] SP99 Automated erythrocyte mean corpuscular h emoglobin (mass per erythrocyte) SP 30 pg 25-34 SP Automated erythrocyte mean corpuscular h emoglobin concentration measurement SP 32 g/dL 32-36 SP Automated erythrocyte distribution width ratio 12. 7 % 10.0- SP Automated blood platelet count (count/volume) 223 10*3/uL SP400 Automated blood platelet mean volume measurement 9.3 [foz_us] SP 7.4-10.4 SP Automated blood neutrophils/100 leukocytes 68 % 42-75 SP Automated blood lymphocytes/100 leukocytes 19 % 12-44 SP Blood monocytes/100 leukocytes 12 % 0-12 SP Automated blood eosinophils/100 leukocytes 1 % 0-10 SP Automated blood basophils/100 leukocytes 1 % 0-10 SP Blood neutrophils automated count (number/volume) 6.4 10*3 SP7.8 Blood lymphocytes automated count (number/volume) 1.7 10*3 SP4.0 Blood monocytes automated count (number/volume) 1. 1 10*3 SP1.0 Automated eosinophil count 0.1 10*3/uL 0 .0-0.3 SP Automated blood basophil count (count/volume) 0.1 10*3/uL SP0.1 Comprehensive metabolic panel - 07/02/19 05:05 POS Serum or plasma sodium measurement (moles/volume) 133 mmol/L SP 135-145 SP Serum or plasma potassium measurement (moles/volume) 4.1 mmol/L SP 3.6-5.0 SP Serum or plasma chloride measurement (moles/volume) 96 mmol/L SP 98-107 SP Carbon dioxide 27 mmol/L 21-32 SP Serum or plasma anion gap determination (moles/volume) 10 mmol/L SP 5-14 SP Serum or plasma urea nitrogen measurement (mass/volume ) 18 mg/dL SP 7-18 SP Serum or plasma creatinine measurement (mass/volume) 0.79 mg/dL SP 0.60-1.30 SP Serum or plasma urea nitrogen/creatinine mass ratio 23 NRG SP Serum or plasma creatinine measurement w ith calculation of estimated glomerular SP rate > NRG SP Serum or plasma glucose measurement (mass/volume) 116 mg/dL SP105 Serum or plasma calcium measurement (mass/volume) 9.1 mg/dL SP10.1 Serum or plasma total bilirubin measurement (mass/volu me) 1.0 mg/dL SP 0.1-1.0 SP Serum or plasma alkaline phosphatase martin surement (enzymatic activity/volume) SP 86 U/L 40-136 SP Serum or plasma aspartate aminotransfera se measurement (enzymatic SP 27 U/L 5-34 SP Serum or plasma alanine aminotransferase measurement (enzymatic activity/volume) SP 21 U/L 0-55 SP Serum or plasma protein measurement (mass/volume) 6.2 g/dL SP8.2 Serum or plasma albumin measurement (mass/volume) 3.5 g/dL SP4.5 CALCIUM CORRECTED 9.5 mg/dL 8.5-10.1 SP Complete blood count (CBC) with automate d white blood cell (WBC) differential - POS 05:00 Blood leukocytes automated count (number/volume) 7.7 10*3/uL POS 4.3-11.0 SP Blood erythrocytes automated count (number/volume) 3.16 10*6/uL SP 4.35-5.85 SP Venous blood hemoglobin measurement (mass/volume) 9.5 g/dL SP16.0 Blood hematocrit (volume fraction) 30 % 35-52 SP Automated erythrocyte mean corpuscular volume 95 [ foz_us] SP99 Automated erythrocyte mean corpuscular h emoglobin (mass per erythrocyte) SP 30 pg 25-34 SP Automated erythrocyte mean corpuscular h emoglobin concentration measurement SP 32 g/dL 32-36 SP Automated erythrocyte distribution width ratio 13. 2 % 10.0- SP Automated blood platelet count (count/volume) 319 10*3/uL SP400 Automated blood platelet mean volume measurement 8.9 [foz_us] SP 7.4-10.4 SP Automated blood neutrophils/100 leukocytes 68 % 42-75 SP Automated blood lymphocytes/100 leukocytes 20 % 12-44 SP Blood monocytes/100 leukocytes 11 % 0-12 SP Automated blood eosinophils/100 leukocytes 1 % 0-10 SP Automated blood basophils/100 leukocytes 0 % 0-10 SP Blood neutrophils automated count (number/volume) 5.2 10*3 SP7.8 Blood lymphocytes automated count (number/volume) 1.6 10*3 SP4.0 Blood monocytes automated count (number/volume) 0. 8 10*3 SP1.0 Automated eosinophil count 0.1 10*3/uL 0 .0-0.3 SP Automated blood basophil count (count/volume) 0.0 10*3/uL SP0.1 Comprehensive metabolic panel - 07/05/19 05:00 POS Serum or plasma sodium measurement (moles/volume) 133 mmol/L SP 135-145 SP Serum or plasma potassium measurement (moles/volume) 4.1 mmol/L SP 3.6-5.0 SP Serum or plasma chloride measurement (moles/volume) 99 mmol/L SP 98-107 SP Carbon dioxide 25 mmol/L 21-32 SP Serum or plasma anion gap determination (moles/volume) 9 mmol/L SP 5-14 SP Serum or plasma urea nitrogen measurement (mass/volume ) 18 mg/dL SP 7-18 SP Serum or plasma creatinine measurement (mass/volume) 0.77 mg/dL SP 0.60-1.30 SP Serum or plasma urea nitrogen/creatinine mass ratio 23 NRG SP Serum or plasma creatinine measurement w ith calculation of estimated glomerular SP rate > NRG SP Serum or plasma glucose measurement (mass/volume) 119 mg/dL SP105 Serum or plasma calcium measurement (mass/volume) 9.2 mg/dL SP10.1 Serum or plasma total bilirubin measurement (mass/volu me) 1.1 mg/dL SP 0.1-1.0 SP Serum or plasma alkaline phosphatase martin surement (enzymatic activity/volume) SP 84 U/L 40-136 SP Serum or plasma aspartate aminotransfera se measurement (enzymatic SP 33 U/L 5-34 SP Serum or plasma alanine aminotransferase measurement (enzymatic activity/volume) SP 28 U/L 0-55 SP Serum or plasma protein measurement (mass/volume) 6.5 g/dL SP8.2 Serum or plasma albumin measurement (mass/volume) 3.6 g/dL SP4.5 CALCIUM CORRECTED 9.5 mg/dL 8.5-10.1 SP Automated blood complete blood count (he mogram) panel - 07/08/19 06:18 POS Blood leukocytes automated count (number/volume) 7.4 10*3/uL SP 4.3-11.0 SP Blood erythrocytes automated count (number/volume) 3.35 10*6/uL SP 4.35-5.85 SP Venous blood hemoglobin measurement (mass/volume) 10.3 g/dL SP16.0 Blood hematocrit (volume fraction) 32 % 35-52 SP Automated erythrocyte mean corpuscular volume 95 [ foz_us] SP99 Automated erythrocyte mean corpuscular h emoglobin (mass per erythrocyte) SP 31 pg 25-34 SP Automated erythrocyte mean corpuscular h emoglobin concentration measurement SP 32 g/dL 32-36 SP Automated erythrocyte distribution width ratio 13. 6 % 10.0- SP Automated blood platelet count (count/volume) 393 10*3/uL SP400 Automated blood platelet mean volume measurement 8.9 [foz_us] SP 7.4-10.4 SP Serum or plasma creatinine measurement ( mass/volume) - 07/08/19 06:18 POS Serum or plasma creatinine measurement (mass/volume) 0.78 mg/dL SP 0.60-1.30 SP Comprehensive metabolic panel - 07/12/19 04:53 POS Serum or plasma sodium measurement (moles/volume) 136 mmol/L SP 135-145 SP Serum or plasma potassium measurement (moles/volume) 4.4 mmol/L SP 3.6-5.0 SP Serum or plasma chloride measurement (moles/volume) 101 mmol/L SP 98-107 SP Carbon dioxide 26 mmol/L 21-32 SP Serum or plasma anion gap determination (moles/volume) 9 mmol/L SP 5-14 SP Serum or plasma urea nitrogen measurement (mass/volume ) 17 mg/dL SP 7-18 SP Serum or plasma creatinine measurement (mass/volume) 0.79 mg/dL SP 0.60-1.30 SP Serum or plasma urea nitrogen/creatinine mass ratio 22 NRG SP Serum or plasma creatinine measurement w ith calculation of estimated glomerular SP rate > NRG SP Serum or plasma glucose measurement (mass/volume) 104 mg/dL SP105 Serum or plasma calcium measurement (mass/volume) 9.9 mg/dL SP10.1 Serum or plasma total bilirubin measurement (mass/volu me) 0.6 mg/dL SP 0.1-1.0 SP Serum or plasma alkaline phosphatase martin surement (enzymatic activity/volume) SP 162 U/L 40-136 SP Serum or plasma aspartate aminotransfera se measurement (enzymatic SP 31 U/L 5-34 SP Serum or plasma alanine aminotransferase measurement (enzymatic activity/volume) SP 31 U/L 0-55 SP Serum or plasma protein measurement (mass/volume) 6.9 g/dL SP8.2 Serum or plasma albumin measurement (mass/volume) 3.8 g/dL SP4.5 CALCIUM CORRECTED 10.1 mg/dL 8.5-10.1 SP Complete blood count (CBC) with automate d white blood cell (WBC) differential - POS 04:55 Blood leukocytes automated count (number/volume) 6.7 10*3/uL POS 4.3-11.0 SP Blood erythrocytes automated count (number/volume) 3.61 10*6/uL SP 4.35-5.85 SP Venous blood hemoglobin measurement (mass/volume) 11.0 g/dL SP16.0 Blood hematocrit (volume fraction) 35 % 35-52 SP Automated erythrocyte mean corpuscular volume 97 [ foz_us] SP99 Automated erythrocyte mean corpuscular h emoglobin (mass per erythrocyte) SP 30 pg 25-34 SP Automated erythrocyte mean corpuscular h emoglobin concentration measurement SP 32 g/dL 32-36 SP Automated erythrocyte distribution width ratio 14. 1 % 10.0- SP Automated blood platelet count (count/volume) 466 10*3/uL SP400 Automated blood platelet mean volume measurement 8.6 [foz_us] SP 7.4-10.4 SP Automated blood neutrophils/100 leukocytes 62 % 42-75 SP Automated blood lymphocytes/100 leukocytes 24 % 12-44 SP Blood monocytes/100 leukocytes 12 % 0-12 SP Automated blood eosinophils/100 leukocytes 1 % 0-10 SP Automated blood basophils/100 leukocytes 1 % 0-10 SP Blood neutrophils automated count (number/volume) 4.1 10*3 SP7.8 Blood lymphocytes automated count (number/volume) 1.6 10*3 SP4.0 Blood monocytes automated count (number/volume) 0. 8 10*3 SP1.0 Automated eosinophil count 0.1 10*3/uL 0 .0-0.3 SP Automated blood basophil count (count/volume) 0.0 10*3/uL SP0.1 Encounters ACCT No. Visit Date/Time Discharge Status POS Pt. Type Provider Facility Loc./Un it POS Complaint POS [id number] 07/01/2019 10:00:00 019 09:50:00 SP DIS Outpatient WASHINGTON DOROSSI [facility] IRF PELVIC FX SP [id number] 06/29/2019 10:00:00 019 10:08:00 SP DIS Inpatient ZEV MATTHEWS, ANASTASIA Velasquez [facility] 4TH L OBTURATOR RING FRACTURE SP [id number] 06/25/2019 21:23:00 22:38:00 SP DIS Outpatient JC GONZALEZ [employer] ANALY[employer] [facility] ER CHEST PAIN SP [id number] 03/10/2019 14:00:00 13:00:00 SP DIS Inpatient W[place] ROSSI V ia [facility] IRF S/P KYPHOPLASTY SP [id number] 03/10/2019 05:15:00 14:00:00 SP DIS Inpatient FRANCESCO MATTHEWS, MICHELLE Eckert Via [facility] 4TH POSTOP BACK PAIN;S/P L4 SP [id number] 02/23/2019 14:34:00 23:59:59 SP CLS Outpatient ELVIA ARAUJO [employer] ANALYST Via [facility] RAD LOW BACK PAIN SP [id number] 12/03/2018 15:19:00 23:59:59 SP CLS Outpatient AI SYED MD Via [facility] RAD DIZZINESS SP [id number] 11/26/2018 11:20:00 23:59:59 SP CLS Outpatient AI SYED MD Via [facility] RAD NECK PAIN SP [id number] 08/20/2018 10:19:00 23:59:59 SP CLS Outpatient DEUCE ASHLEY Via [facility] RAD SCREENING SP [id number] 04/14/2018 14:12:00 16:24:00 SP DIS Outpatient AI SYED MD Via [facility] REHAB VERTIGO;GAIT STABILIZATION SP [id number] 01/14/2018 11:00:00 12:45:00 SP DIS Emergency RAY MATTHEWS, ANIBAL Naik Via [facility] ER DIZZINESS SP [id number] 11/18/2017 16:18:00 018 17:23:00 SP DIS Emergency JC GONZALEZ APRN Via [facility] ER FALL;HEAD INJ SP [id number] 08/25/2017 09:03:00 018 10:25:00 SP DIS Emergency GIBRAN JOSHI MD Via [facility] ER COUGH;FLU SYMPTOMS SP [id number] 08/15/2017 10:02:00 017 23:59:59 SP CLS Outpatient AI SYED MD Via [facility] RAD SCREENING SP [id number] 08/09/2016 10:29:00 016 23:59:59 SP CLS Outpatient ELVIA ARAUJO APRN Via [facility] RAD SCREENING SP [id number] 05/16/2016 10:22:00 016 23:59:59 SP CLS Outpatient Heena PASTRANA MD Via [facility] RAD UTI, INCOMPLETE BLADDER EMPT SHAHEED, VAGINAL SPATROPHY [id number] 08/08/2015 13:57:00 015 23:59:59 SP CLS Outpatient ELVIA ARAUJO APRN Via [facility] RAD SCREENING SP [id number] 01/11/2015 11:21:00 015 23:59:59 SP CLS Outpatient AI SYED MD Via [facility] LAB UTI SP [id number] 07/13/2014 09:16:00 014 23:59:59 SP CLS Outpatient ELVIA ARAUJO APRN Via [facility] RAD SCREENING SP [id number] 07/12/2013 11:23:00 013 23:59:59 SP CLS Outpatient Heena PASTRANA MD Via [facility] RAD BLADDER INFECTION SP [id number] 07/12/2013 11:21:00 013 23:59:59 SP CLS Outpatient AI SYED MD [facility] RAD SCREENING SP [id number] 06/07/2013 13:47:00 013 23:59:59 SP CLS Outpatient GUERITA CID DO Via [facility] LAB FREQUENT KIDNEY INFEC TIONS SP [id number] 05/04/2013 10:46:00 23:59:59 SP CLS Outpatient Heena PASTRANA MD Via [facility] RAD CHRONIC CYSTITIS SP [id number] 04/12/2013 13:01:00 23:59:59 SP CLS Outpatient AI SYED MD Via [facility] RAD PERSISTANT COUGH SP [id number] 07/10/2012 10:51:00 SP Registration SP [id number] 07/02/2011 14:11:00 SP Registration SP [id number] 06/14/2011 09:17:00 SP Registration SP [id number] 06/11/2010 07:31:00 SP Registration SP
== END 2019-06-25 22:38 | disposition home or self-care (01) ==
LOC: EDUNIT# 21:22 → ER 21:23
DX: S22.060A Wedge compression fracture of T7-T8 vertebra, initial encounter for closed fracture (principal); E78.00 Pure hypercholesterolemia, unspecified; F03.90 Unspecified dementia, unspecified severity, without behavioral disturbance, psychotic disturbance, mood disturbance, and anxiety; Z88.1 Allergy status to other antibiotic agents; Z88.5 Allergy status to narcotic agent; Z88.2 Allergy status to sulfonamides; Z88.8 Allergy status to other drugs, medicaments and biological substances; Z90.710 Acquired absence of both cervix and uterus; X58.XXXA Exposure to other specified factors, initial encounter
CPT/HCPCS: 36415; 71045; 72128; 80053; 83735; 83874; 83880; 84484; 85025; 85610; 85730; 93005; 93041; 96374; 96375

== ENCOUNTER 2019-06-28 13:08 | Inpatient (IN) | payer MEDICARE ==
[~2019-06-28] VITALS: Ht 152.4 cm; Wt 50.0 kg
[~2019-06-28 13:08] MED LIST changes: +ACET-77 PO; -ACET-78 PO; +HYDR-4226 PO; +TRAM50TA2 PO; -TRM50T PO
--- NOTE | 2019-06-28 13:10 | NUR ---
Pt declined ice pack
[2019-06-28] MEDS ORDERED: ONDANSETRON 4 MG (ZOFRAN) ORAL DISSOLVE TAB PO ONE (13:15)
--- NOTE | 2019-06-28 13:40 | NUR ---
Pt reports currently being treated for UTI.
--- NOTE | 2019-06-28 14:00 | NUR ---
Pt's son to nurse's station stating he would like patient to have fentanyl injection. Abner Theodore notified.
--- NOTE | 2019-06-28 14:22 | ED Trauma-Multisystem ---
General Chief Complaint: Head/Cervical Problems Stated Complaint: FALL;L HIP/LEG PAIN Nursing Triage Note: Pt to ED via EMS. Pt reports reaching for phone while in bed and fell out of bed striking head on closet door. Pt denies LOC. Pt c/o HERNÁNDEZ and nausea. Pt also reports L leg/hip pain with movement. C-collar in place from EMS. Source of Information: Patient, EMS Exam Limitations: No Limitations History of Present Illness Date Seen by Provider: Jun 28, 2019 Time Seen by Provider: 13:10 Initial Comments 88-year-old female who was brought to the emergency room by [facility] for a fall that happened this morning. She reports that she was in bed when she received a phone call and was getting up to answer the phone when she fell out of her bed. She reports striking her head on the closet door and complains of left hip pain with movement. She denies loss of consciousness and is an alert and oriented on arrival to the emergency room. She does report headache and nausea but reports that she is being treated for UTI and medications are making her sick. She is unsure what medications the Dr. Mills started her on for her UTI. She does have a c-collar in place from EMS. Occurred: This Morning Loss of Consciousness: No Loss of Consciousness Associated Symptoms (Fall): Headache, Nausea/Vomiting Allergies and Home Medications Allergies Coded Allergies: cephalexin (Verified Allergy, Mild, 03/10/19) ciprofloxacin (Verified Allergy, Mild, 03/10/19) nitrofurantoin (Verified Allergy, Mild, 03/10/19) codeine (Verified Allergy, Unknown, pt takes Tramadol at home, 03/10/19) sulfamethoxazole (Verified Allergy, Unknown, 03/10/19) trimethoprim (Verified Allergy, Unknown, 03/10/19) Home Medications Acetaminophen 500 Mg Tablet, 500 MG PO Q4H PRN for PAIN-MILD Prescribed by: ROSSI WASHINGTON on 03/15/19 0907 Atorvastatin Calcium 20 Mg Tablet, 20 MG PO HS, (Reported) Estrogens Conjugated 30 Gm Cr, VG MoWeFr, (Reported) Hydrocodone/Acetaminophen 1 Each Tablet, 1 TAB PO Q4-6HR Prescribed by: JC GONZALEZ on 06/25/19 2225 Meclizine HCl 25 Mg Tablet, 25 MG PO Q6H PRN for DIZZINESS, (Reported) Polyvinyl Alcohol/Povidone 15 Ml Drops, 1 DROP OU TID PRN for DRY EYES, (Reported) Potassium Chloride 10 Meq Tab.er.prt, 10 MEQ PO DAILY Prescribed by: ROSSI WASHINGTON on 03/15/19 0907 Trimethoprim 100 Mg Tablet, 100 MG PO HS, (Reported) Patient Home Medication List Home Medication List Reviewed: Yes Review of Systems Review of Systems Constitutional: see HPI; No chills, No fever Gastrointestinal: see HPI, nausea, vomiting Musculoskeletal: see HPI, joint pain (left hip ) All Other Systems Reviewed Negative Unless Noted: Yes Past Iikldcm-Yypsgd-Cirrbt Hx Past Med/Social Hx: Reviewed Nursing Past Med/Soc Hx Patient Social History Alcohol Use: Denies Use Recreational Drug Use: No 2nd Hand Smoke Exposure: No Recent Foreign Travel: No Contact w/Someone Who Travel: No Recent Infectious Disease Expo: No Recent Hopitalizations: Yes (KYPHOPLASTY) Immunizations Up To Date Tetanus Booster (TDap): Less than 5yrs PED Vaccines UTD: No Date of Pneumonia Vaccine: May 25, 2015 Seasonal Allergies Seasonal Allergies: No Past Medical History Surgeries: Yes (L4 KYPHOPLASTY 03/09/[address] 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 4.0oz. [id number]; 20.00 BMI Method:Stated General Appearance: No Apparent Distress, WD/WN Head: No Evidence of Injury Eyes: Bilateral Eye Normal Inspection, Bilateral Eye PERRL, Bilateral Eye EOMI Ears, Nose, Throat: Hearing Grossly Normal, No Evidence of ENT Injury, No Dental Injury Cardiovascular: Regular Rate, Rhythm, No Edema, No Gallop, No JVD, No Murmur, Normal Peripheral Pulses Respiratory: Chest Non Tender, Lungs Clear, Normal Breath Sounds, No Accessory Muscle Use, No Respiratory Distress Gastrointestinal: Normal Bowel Sounds, No Organomegaly, No Pulsatile Mass, Non Tender, Soft Extremity: Normal Capillary Refill, Other (limited range of motion and left hip tenderness on exam.) Neurologic/Psychiatric: Alert, Oriented x3, Normal Mood/Affect Skin: Normal Color, Warm/Dry Tavernier Coma Score Best Eye Response (Henri): (4) Open Spontaneously Best Verbal Response (Tavernier): (5) Oriented Best Motor Response (Henri): (6) Obeys Commands Henri Total: 15 Progress/Results/Core Measures Results/Orders Lab Results Laboratory Tests Test 06/28/19 14:35 06/28/19 15:15 Range/Units White Blood Count 12.5 H 4.3-11.0 10^3/uL Red Blood Count 3.83 L 4.35-5.85 10^6/uL Hemoglobin 11.7 11.5-16.0 G/DL Hematocrit 36 35-52 % Mean Corpuscular Volume 93 80-99 FL Mean Corpuscular Hemoglobin 31 25-34 PG Mean Corpuscular Hemoglobin Concent 33 32-36 G/DL Red Cell Distribution Width 12.4 10.0-14.5 % Platelet Count 212 130-400 10^3/uL Mean Platelet Volume 9.8 7.4-10.4 FL Neutrophils (%) (Auto) 87 H 42-75 % Lymphocytes (%) (Auto) 6 L 12-44 % Monocytes (%) (Auto) 6 0-12 % Eosinophils (%) (Auto) 0 0-10 % Basophils (%) (Auto) 0 0-10 % Neutrophils # (Auto) 10.9 H 1.8-7.8 X 10^3 Lymphocytes # (Auto) 0.8 L 1.0-4.0 X 10^3 Monocytes # (Auto) 0.8 0.0-1.0 X 10^3 Eosinophils # (Auto) 0.0 0.0-0.3 10^3/uL Basophils # (Auto) 0.0 0.0-0.1 10^3/uL Neutrophils % (Manual) 80 % Lymphocytes % (Manual) 10 % Monocytes % (Manual) 3 % Eosinophils % (Manual) 0 % Basophils % (Manual) 0 % Band Neutrophils 7 % Blood Morphology Comment NORMAL Sodium Level 132 L 135-145 MMOL/L Potassium Level 3.5 L 3.6-5.0 MMOL/L Chloride Level 95 L 98-107 MMOL/L Carbon Dioxide Level 27 21-32 MMOL/L Anion Gap 10 5-14 MMOL/L Blood Urea Nitrogen 10 7-18 MG/DL Creatinine 0.80 0.60-1.30 MG/DL Estimat Glomerular Filtration Rate > 60 BUN/Creatinine Ratio 13 Glucose Level 159 H 70-105 MG/DL Calcium Level 9.9 8.5-10.1 MG/DL Corrected Calcium 9.8 8.5-10.1 MG/DL Total Bilirubin 0.6 0.1-1.0 MG/DL Aspartate Amino Transf (AST/SGOT) 23 5-34 U/L Alanine Aminotransferase (ALT/SGPT) 19 0-55 U/L Alkaline Phosphatase 92 40-136 U/L Total Protein 7.5 6.4-8.2 GM/DL Albumin 4.1 3.2-4.5 GM/DL Urine Color YELLOW Urine Clarity CLEAR Urine pH 8 5-9 Urine Specific [place] 1.015 L 1.016-1.022 Urine Protein 1+ H NEGATIVE Urine Glucose (UA) 2+ H NEGATIVE Urine Ketones NEGATIVE NEGATIVE Urine Nitrite NEGATIVE NEGATIVE Urine Bilirubin NEGATIVE NEGATIVE Urine Urobilinogen NORMAL NORMAL MG/DL Urine Leukocyte Esterase 1+ H NEGATIVE Urine RBC (Auto) NEGATIVE NEGATIVE Urine RBC NONE /HPF Urine WBC 5-10 H /HPF Urine Crystals NONE /LPF Urine Bacteria MODERATE H /HPF Urine Casts NONE /LPF Urine Mucus NEGATIVE /LPF Urine Culture Indicated YES My Orders Orders - VALERIY GÓMEZ Ct Head/Cervical Spine Wo (06/28/19 13:10) Pelvis With Left Hip 2-3 Views (06/28/19 13:10) Ondansetron Oral Dissolve Tab (Zofran (06/28/19 13:15) Ondansetron Injection (Zofran Injectio (06/28/19 14:45) Fentanyl Injection (Sublimaze Injection (06/28/19 14:45) Cbc With Automated Diff (06/28/19 14:32) Comprehensive Metabolic Panel (06/28/19 14:32) Ua Culture If Indicated (06/28/19 14:44) Manual Differential (06/28/19 14:35) Urine Culture (06/28/19 15:15) Medications Given in ED Current Medications Medications Dose Ordered Sig/Suleman Route Start Time Stop Time Status Last Admin Dose Admin Fentanyl Citrate 12.5 mcg ONCE ONCE IVP 06/28/19 14:45 06/28/19 14:46 DC 06/28/19 14:44 12.5 MCG Ondansetron HCl 4 mg ONCE ONCE IVP 06/28/19 14:45 06/28/19 14:46 DC 06/28/19 14:42 4 MG Ondansetron HCl 4 mg ONCE ONCE PO 06/28/19 13:15 06/28/19 13:16 DC 06/28/19 13:24 4 MG Vital Signs/I&O 06/28/19 13:08 Temp 36.9 Pulse 103 Resp 18 B/P (MAP) 179/101 (127) Pulse Ox 95 Blood Pressure Mean: 127 POS Progress Progress Note : Time: 16:00 Progress Note Discuss with Dr. Fam the patient's urinalysis. She does not recommend treating at this time due to recent antibiotics. She will monitor the patient and if needed will start IV antibiotics. Departure Communication (Admissions) Time/Spoke to Admitting Phy: 15:00 I discussed case with Eliazar Almonte's nurse practitioner and with Dr. Fam. They agreed to accept the patient. Dr. Almonte wants the patient to be admitted to Dr. Fam. She is in agreement with this. Impression Primary Impression: left pelvic ring fracture Disposition: ADMITTED INPATIENT Condition: Stable/Unchanged Admissions Decision to Admit Reason: Admit from ER (General) Decision to Admit/Date: Jun 28, 2019 Time/Decision to Admit Time: 15:00 Departure-Patient Inst. Referrals: AI SYED MD (PCP/Family) Primary Care Physician VALERIY GÓMEZ Jun 28, 2019 14:22 POS
--- NOTE | 2019-06-28 14:37 | Diagnostic Imaging Report ---
PROCEDURE: CT head and CT cervical spine without contrast. TECHNIQUE: Multiple contiguous axial images were obtained through the brain and cervical spine without the use of intravenous contrast. Sagittal and coronal reformations through the cervical spine were then performed. Auto Exposure Controls were utilized during the CT exam to meet ALARA standards for radiation dose reduction. INDICATION: Fall from bed. COMPARISON: 11/18/2017. FINDINGS: CT head: The ventricles and cortical sulci are diffusely prominent, compatible with age-related volume loss. There are confluent areas of abnormal, low attenuation in the periventricular white matter. This is consistent with chronic small vessel ischemic changes. There is no midline shift or mass-effect. No acute intra-axial hemorrhage is seen. There are no abnormal areas of increased or decreased density to suggest acute hemorrhage or edema. No extra-axial masses or collections are present. The bony calvarium is intact. The visualized paranasal sinuses are unremarkable. The mastoid air cells are clear. CT cervical spine: Evaluation of static alignment of cervical spine demonstrates mild grade 1 anterolisthesis at C2-C3, C3-C4, and C7-T1. There is also mild grade 1 retrolisthesis at the C5-C6 level. Findings may be related to positioning, as well as spasm, as well as underlying degenerative changes. There is no evidence of jumped facets. Vertebral body heights are maintained. There is no evidence of acute fracture. No bony fragments are seen within the spinal canal. There are moderate multilevel degenerative changes consistent with intervertebral disc height loss as well as anterior and posterior disc osteophyte complex formations and multilevel facet arthropathy. These changes appear greatest at the C5-C6 and C7-T1 levels. Pre and paravertebral soft tissue structures are unremarkable. Included portions of the lung bases are unremarkable. IMPRESSION: 1. No acute intracranial abnormality. No CT evidence of mass, acute infarct or intracranial hemorrhage. 2. Chronic small vessel ischemic changes in deep white matter. 3. No acute fracture or dislocation in cervical spine. 4. Multilevel degenerative changes in cervical spine, which appear greatest at C5-C6 and C7-T1 levels. Dictated by: Dictated on workstation # [id number]
--- NOTE | 2019-06-28 14:38 | Diagnostic Imaging Report ---
INDICATION: Hip pain after fall. FINDINGS: The proximal left femur is intact. There is a fracture of the left superior pubic ramus and left ischium which is minimally displaced. There is no other fracture or dislocation. IMPRESSION: Left obturator ring fractures as described. The findings were conveyed directly to the Emergency Room physician via telephone. Dictated by: Dictated on workstation # [id number]
[2019-06-28] MEDS ORDERED: fentaNYL INJECTION 100 MCG/2 ML AMP IVP ONE (14:45)
[2019-06-28] MEDS ORDERED: ONDANSETRON 4 MG/2 ML (SDV) Z0FRAN IVP ONE (14:45)
[2019-06-28 14:47] LABS: BASOPHILS % (AUTO) 0 % (0-10); EOSINOPHILS % (AUTO) 0 % (0-10); HEMATOCRIT 36 % (35-52); HEMOGLOBIN 11.7 G/DL (11.5-16.0); LYMPHOCYTES # (AUTO) 0.8 X 10^3 (1.0-4.0); LYMPHOCYTES % (AUTO) 6 % (12-44); MEAN CORPUSCULAR HEMOGLOBIN 31 PG (25-34); MEAN CORPUSCULAR HGB CONC 33 G/DL (32-36); MEAN CORPUSCULAR VOLUME 93 FL (80-99); MEAN PLATELET VOLUME 9.8 FL (7.4-10.4); MONOCYTES # (AUTO) 0.8 X 10^3 (0.0-1.0); MONOCYTES % (AUTO) 6 % (0-12); NEUTROPHILS # (AUTO) 10.9 X 10^3 (1.8-7.8); NEUTROPHILS % (AUTO) 87 % (42-75); PLATELET COUNT 212 10^3/uL (130-400); RED CELL DISTRIBUTION WIDTH 12.4 % (10.0-14.5); WHITE BLOOD COUNT 12.5 10^3/uL (4.3-11.0)
--- NOTE | 2019-06-28 14:50 | NUR ---
C-collar removed by Abner Theodore at this time.
[2019-06-28 15:04] LABS: ALANINE AMINOTRANSFERASE 19 U/L (0-55); ALBUMIN 4.1 GM/DL (3.2-4.5); ALKALINE PHOSPHATASE 92 U/L (40-136); BILIRUBIN,TOTAL 0.6 MG/DL (0.1-1.0); BUN/CREATININE RATIO 13; CALCIUM 9.9 MG/DL (8.5-10.1); CARBON DIOXIDE 27 MMOL/L (21-32); CHLORIDE 95 MMOL/L (98-107); GFR ESTIMATED > 60; GLUCOSE 159 MG/DL (70-105); POTASSIUM 3.5 MMOL/L (3.6-5.0); SODIUM 132 MMOL/L (135-145); TOTAL PROTEIN 7.5 GM/DL (6.4-8.2)
[2019-06-28 15:06] LABS: BAND NEUTROPHILS 7 %; BASOPHILS % (MANUAL) 0 %; EOSINOPHILS % (MANUAL) 0 %; LYMPHOCYTES % (MANUAL) 10 %; MONOCYTES % (MANUAL) 3 %; NEUTROPHILS % (MANUAL) 80 %; RBC MORPH NORMAL
[2019-06-28 15:26] LABS: BILIRUBIN,URINE NEGATIVE (NEGATIVE); CLARITY,URINE CLEAR; COLOR,URINE YELLOW; GLUCOSE, URINE (UA) 2+ (NEGATIVE); KETONES,URINE NEGATIVE (NEGATIVE); LEUKOCYTE ESTERASE ,URINE 1+ (NEGATIVE); NITRITE,URINE NEGATIVE (NEGATIVE); PH,URINE 8 (5-9); PROTEIN,URINE 1+ (NEGATIVE)
[2019-06-28 15:52] LABS: BACTERIA,URINE MODERATE /HPF
[2019-06-28 17:04] VITALS: BP 158/69
[2019-06-28] MEDS ORDERED: CATHETER FLUSH 10 ML SYR IV PRN (17:15)
[2019-06-28] MEDS: fentaNYL INJECTION 100 MCG/2 ML AMP IV PRN ×2 (17:27→20:27)
[2019-06-28] MEDS: hydrOXYzine (ATARAX) 10 MG TAB PO PRN (17:43)
--- NOTE | 2019-06-28 18:57 | NUR ---
LORRIE CHAVEZ admitted to room 416-1, with an admitting diagnosis of PELVIC FRACTURE, on 06/28/19 from ED via W/C, accompanied by ED STAFF. LORRIE CHAVEZ introduced to surroundings, call light, bed controls, phone, TV, temperature control, lights, meal times, smoking policy, visitor policy, side rail policy, bathrooms and showers. Patient Rights given to patient in the handbook. LORRIE CHAVEZ verbalizes understanding that [facility] is not responsible for the loss or damage to any personal effects or valuables that are kept in the patients possession during their hospitalization.
[2019-06-28 19:11] VITALS: BP 163/69
[2019-06-28] MEDS: ENOXAPARIN 40 MG/0.4 ML (LOVENOX) SYR SQ SCH (19:45)
[2019-06-28] MEDS: ONDANSETRON 4 MG/2 ML (SDV) Z0FRAN IV PRN (20:27)
[2019-06-28] MEDS: ACETAMINOPHEN 500 MG TAB (TYLENOL) PO PRN (21:27)
[2019-06-28] MEDS: CATHETER FLUSH 10 ML SYR IV SCH (22:00)
[2019-06-29] VITALS: BP 129/50
[2019-06-29] MEDS: fentaNYL INJECTION 100 MCG/2 ML AMP IV PRN ×5 (00:14→21:14)
[2019-06-29 04:00] VITALS: BP 119/60
[2019-06-29] MEDS: CATHETER FLUSH 10 ML SYR IV SCH ×3 (06:11→21:14)
[2019-06-29] MEDS: ONDANSETRON 4 MG/2 ML (SDV) Z0FRAN IV PRN ×4 (06:26→21:12)
--- NOTE | 2019-06-29 06:40 | NUR ---
pt has rested well tonight.. has been turned and repositioned. scds in place back rub with lotion . po fluids encouraged throughout the shift. sprite and water taken without nausea. zofran given with pain meds to prevent nausea. son upset that pt does not have iv fluids infusing. dr contreras had been notified earlier however pt does not want iv fluids and agrees to drink fluids. encouraged pt to ask for pain meds and not to wait until the pain is to great
[2019-06-29 08:00] VITALS: BP 149/82
[2019-06-29] MEDS ORDERED: ACET-2267 PO (09:20)
[2019-06-29] MEDS: ACETAMINOPHEN 500 MG TAB (TYLENOL) PO PRN (10:59)
--- NOTE | 2019-06-29 11:25 | History & Physical-Hospitalist ---
History of Present Illness HPI/Chief Complaint Significant 88-year-old female with past medical history of high cholesterol and chronic UTIs who presented to the emergency department after a fall. She reports she stood up to answer the phone when she lost her balance and fell. She reports she has been quite unstable on her feet for a while. Her son is at bedside and stated this has been going on since February and she fell and had a compression fracture. She follows with Dr. Larson for this. She also has been having increasing nausea has she's been on oxycodone and tramadol at home and has not tolerated that well. She states her pain is well-controlled today with fentanyl. She is having no nausea but is taking her Zofran. Her urine did show bacteria again yesterday and she had just completed treatment for a urinary tract infection with Levaquin. Source: patient, family Date Seen 06/29/19 Time Seen by a Provider: 11:19 Attending Physician Gale Fam MD PCP Ai Syed MD Referring Physician Date of Admission Jun 29, 2019 at 10:00 Home Medications & Allergies Home Medications Reviewed patient Home Medication Reconciliation performed by pharmacy medication reconciliations chemical production technician and/or nursing. Patients Allergies have been reviewed. Allergies Allergies Coded Allergies cephalexin (Verified Allergy, Mild, 03/10/19) nitrofurantoin (Verified Allergy, Mild, 03/10/19) codeine (Verified Allergy, Unknown, pt takes Tramadol at home, 03/10/19) sulfamethoxazole (Verified Allergy, Unknown, 03/10/19) Past Dfdrhsr-Xynydc-Xaknzl Hx Past Med/Social Hx: Reviewed Nursing Past Med/Soc Hx Patient Social History Marrital Status: Employed/Student: retired Alcohol Use: Denies Use Recreational Drug Use: No Smoking Status: Unknown if Ever Smoked 2nd Hand Smoke Exposure: No Recent Foreign Travel: No Contact w/other who traveled: No Recent Hopitalizations: Yes (KYPHOPLASTY) Recent Infectious Disease Expo: No Immunizations Up To Date Tetanus Booster (TDap): Less than 5yrs Pediatric: No Date of Pneumonia Vaccine: May 25, 2015 Seasonal Allergies Seasonal Allergies: No Past Medical History Surgeries: Gallbladder, Hysterectomy, Orthopedic Currently Using CPAP: No Currently Using BIPAP: No Cardiac: High Cholesterol Neurological: Dementia Menopausal Genitourinary: Bladder Infection Musculoskeletal: Degenerate Disk Disease, Osteoporosis, Arthritis, Chronic Back Pain, Fractures Family History Reviewed Nursing Family Hx Arthritis 19 FATHER Kidney disease 19 MOTHER Review of Systems Constitutional: no symptoms reported EENTM: no symptoms reported Respiratory: no symptoms reported Cardiovascular: no symptoms reported Gastrointestinal: no symptoms reported Genitourinary: No dysuria, No frequency Musculoskeletal: joint pain, muscle weakness, other (instability walking) Skin: no symptoms reported Psychiatric/Neurological: No Symptoms Reported Physical Exam Physical Exam Vital Signs Vital Signs - First Documented 06/28/19 06/28/19 13:08 17:04 Temp 36.9 Pulse 103 Resp 18 B/P (MAP) 179/101 (127) Pulse Ox 95 O2 Delivery Room Air Capillary Refill : Less Than 3 SecondsLess Than 3 Seconds Height, Weight, BMI Height: 5'0.00" Weight: 112lbs. 4.0oz. 50.233500dy; 21.52 BMI Method:Stated General Appearance: No Apparent Distress, WD/WN, Anxious HEENT: Moist Mucous Membranes; No Scleral Icterus (L), No Scleral Icterus (R) Respiratory: Lungs Clear, No Accessory Muscle Use, No Respiratory Distress Cardiovascular: Regular Rate, Rhythm, No Murmur Gastrointestinal: Normal Bowel Sounds, Soft Extremity: Normal Capillary Refill, No Calf Tenderness, No Pedal Edema Neurologic/Psychiatric: Alert, Oriented x3 Results Results/Procedures Labs Laboratory Tests 06/28/19 14:35 Patient resulted labs reviewed. Assessment/Plan Admission Diagnosis Pelvic fracture Admission Status: Inpatient Order (span 2 midnights) Reason for Inpatient Admission: IV pain control, PT/OT, will take more than two midnights to stabilize for DC Assessment and Plan Pelvic Fracture Discussed with Dr Almonte, will see today PT/OT IRF eval Continue current pain regimen Does not do well with tramadol Chronic UTIs Recently treated from UTI, grew somewhat resistant e coli Discussed with her granddaughter who is DELI BAKERY CLERK for her urologist Dr Bhardwaj- as she is asymptomatic will monitor for signs of infection and defer treatment Has previously tolerated macrobid, trimethoprim, and levaquin so will r emove from allergy list HLD Continue home lipitor Anxiety Family has requested anxiety medicine Hydroxyzine ordered Diagnosis/Problems Diagnosis/Problems (1) Pelvic fracture Status: Acute Qualifiers: Encounter type: initial encounter Pelvic bone location: other part of pelvis Fracture type: closed Qualified Codes: S32.89XA - Fracture of other parts of pelvis, initial encounter for closed fracture (2) Hyperlipidemia Status: Chronic Qualifiers: Hyperlipidemia type: unspecified Qualified Codes: E78.5 - Hyperlipidemia, unspecified (3) Dementia Qualifiers: Dementia type: unspecified type Dementia behavioral disturbance: without behavioral disturbance Qualified Codes: F03.90 - Unspecified dementia without behavioral disturbance (4) Recurrent UTI Status: Chronic (5) S/P kyphoplasty Status: Chronic Clinical Quality Measures DVT/VTE Risk/Contraindication: Risk Factor Score Per Nursin RFS Level Per Nursing on Admit: 4+=Very High Copy Copies To 1: AI SYED MD, KATELYN M MD Jun 29, 2019 11:25 POS
[2019-06-29 12:00] VITALS: BP 150/83
--- NOTE | 2019-06-29 12:24 | Consultation ---
History of Present Illness History of Present Illness Patient Consulted On(nuno/time) 06/29/19 12:17 Date Seen by Provider: Jun 29, 2019 Time Seen by Provider: 12:17 Reason for Visit: fall History of Present Illness fell at home on 06/28/19. She was seen in ER and dx with douglas pelvic ring fracture of left pelvis. She is resting in room with at bedside at this time. She does complain of left groin pain and pain with hip rotation. She has not yet been up to ambulate. Allergies and Home Medications Allergies Coded Allergies: cephalexin (Verified Allergy, Mild, 03/10/19) nitrofurantoin (Verified Allergy, Mild, 03/10/19) codeine (Verified Allergy, Unknown, pt takes Tramadol at home, 03/10/19) sulfamethoxazole (Verified Allergy, Unknown, 03/10/19) Home Medications Acetaminophen 500 Mg Tablet, 500 MG PO Q4H PRN for PAIN-MILD, (Reported) Atorvastatin Calcium 20 Mg Tablet, 20 MG PO HS, (Reported) Estrogens Conjugated 30 Gm Cr, VG MoWeFr, (Reported) Meclizine HCl 25 Mg Tablet, 25 MG PO Q6H PRN for DIZZINESS, (Reported) Polyvinyl Alcohol/Povidone 15 Ml Drops, 1 DROP OU TID PRN for DRY EYES, (Reported) Trimethoprim 100 Mg Tablet, 100 MG PO HS, (Reported) Patient Home Medication List Home Medication List Reviewed: Yes Past Rryobon-Ggvqsx-Nfuvxm Hx Past Med/Social Hx: Reviewed Nursing Past Med/Soc Hx Patient Social History Alcohol Use: Denies Use Recreational Drug Use: No Smoking Status: Unknown if Ever Smoked 2nd Hand Smoke Exposure: No Recent Foreign Travel: No Contact w/Someone Who Travel: No Recent Infectious Disease Expo: No Recent Hopitalizations: Yes (KYPHOPLASTY) Immunizations Up To Date Tetanus Booster (TDap): Less than 5yrs PED Vaccines UTD: No Date of Pneumonia Vaccine: May 25, 2015 Seasonal Allergies Seasonal Allergies: No Past Medical History Surgeries: Yes (L4 KYPHOPLASTY 03/09/[address] 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 Genitourinary: Yes Bladder Infection Gastrointestinal: No Musculoskeletal: Yes (L4 COMPRESSION FRACTURE--S/P KYPHOPLASTY 03/09/17) Degenerate Disk Disease, Osteoporosis, Arthritis, Chronic Back Pain, Fractures Endocrine: No HEENT: No Cancer: No Psychosocial: No Integumentary: No Family Medical History Reviewed Nursing Family Hx Arthritis 19 FATHER Kidney disease 19 MOTHER Review of Systems-General Constitutional: no symptoms reported EENTM: no symptoms reported Respiratory: no symptoms reported Cardiovascular: no symptoms reported Gastrointestinal: no symptoms reported Musculoskeletal: back pain, joint pain Skin: no symptoms reported Physical Exam-General Problems Physical Exam Vital Signs Vital Signs - First Documented 06/28/19 06/28/19 13:08 17:04 Temp 36.9 Pulse 103 Resp 18 B/P (MAP) 179/101 (127) Pulse Ox 95 O2 Delivery Room Air Capillary Refill : Less Than 3 SecondsLess Than 3 Seconds HEENT: PERRL/EOMI, normal ENT inspection Neck: non-tender, normal inspection Respiratory: chest non-tender, lungs clear, normal breath sounds, no respiratory distress Cardiovascular: regular rate, rhythm Peripheral Pulses: 2+ Dorsalis Pedis (R), 2+ Left Dors-Pedis (L) Gastrointestinal: non tender, soft Back: other (tenderness T7) Extremities: normal capillary refill, other (pain with internal and external rotation of left hip. 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 Moreno consulted for spine compression fracture. He was notified and plans to set up kyphoplasty this afternoon. data services developer consult for home health therapy vs IRF vs skilled. Admission Status: Inpatient Order (span 2 midnights) Clinical Quality Measures DVT/VTE Risk/Contraindication: Risk Factor Score Per Nursin RFS Level Per Nursing on Admit: 4+=Very High SAAD SIERRA APRN Jun 29, 2019 12:24 POS
--- NOTE | 2019-06-29 14:54 | Physical Therapy Evaluation ---
PT Evaluation-General Medical Diagnosis Admission Date Jun 29, 2019 at 10:00 Medical Diagnosis: L obturator ring fx Onset Date: Jun 29, 2019 Therapy Diagnosis Therapy Diagnosis: weakness, debility Height/Weight Height (Feet): 5 Height (Inches): 0.00 Weight (Pounds): 112 Weight (Ounces): 4.0 Precautions Precautions/Isolations: Fall Prevention, Standard Precautions Weight Bear Status Right Lower Extremity: Right Weight Bearing/Tolerated Left Lower Extremity: Left Weight Bearing/Tolerated Referral Physician: Selina Reason for Referral: Evaluation/Treatment Medical History Pertinent Medical History: Arthritis, Dementia Current History EMS secondary to falling while attempting to stand out of bed. Reviewed History: Yes Social History Home: Single Level Current Living Status: Spouse Entry Into Home: Stairs With Railing PT Steps Into Home: 3 Prior Prior Level of Function SCALE: Activities may be completed with or without assistive devices. 0-Qjbkqngghe-zxsytrr completes the activity by him/herself with no assistance from a helper. 5-Set-up or Clean-up Assistance-helper sets up or cleans up; patient completes activity. [place] assists only prior to or following the activity. 4-Supervision or Touching Assistance-helper provides verbal cues and/or touching/steadying and/or contact guard assistance as patient completes activity. Assistance may be provided throughout the activity or intermittently. 3-Partial/Moderate Assistance-helper does LESS THAN HALF the effort. [place] lifts, holds or supports trunk or limbs, but provides less than half the effort. 2-Substantial/Maximal Assistance-helper does MORE THAN HALF the effort. [place] lifts or holds trunk or limbs and provides more than half the effort. 9-Poegdcrej-apqsna does ALL the effort. Patient does none of the effort to complete the activity. Or, the assistance of 2 or more helpers is required for the patient to complete the activity. If activity was not attempted, code reason: 7-Patient Refused. 9-Not Applicable-not attempted and the patient did not perform the activity before the current illness, exacerbation or injury. 10-Not Attempted due to Environmental Limitations-(lack of equipment, weather restraints, etc.). 88-Not Attempted due to Medical Conditions or Safety Concerns. Bed Mobility: 6 Transfers (B,C,W/C): 6 Gait: 6 Stairs: 6 Indoor Mobility (Ambulation): Independent Stairs: Independent Prior Devices Use: Other-see list below Prior Device Use: cane, occassionally walker PT Evaluation-Current Subjective Patient and agree to PT eval at this time. is concerned about patient getting out of bed and walking on leg. Patient states she has not been out of the bed since arriving and agrees to sit in chair. Pain Numeric Pain Scale: 8 Location: Left Location Body Site: Hip Pain Description: Acute Objective Patient Orientation: Normal For Age Problem Solving: Fair Attachments: Bond Catheter ROM/Strength ROM Lower Extremities WFL Strength Lower Extremities Grossly 3/5 Integumentary/Posture Integumentary See nursing notes Bowel Incontinence: No Bladder Incontinence: Yes Posture WFL Neuromuscular (Tone, Coordination, Reflexes) Grossly intact Sensory Vision: Functional Hearing: Functional Transfers Roll Left to Right (QC): 4 Lying to Sitting/Side of Bed(Q: 4 Sit to Stand (QC): 5 Chair/Wlb-wy-Qwvra Xfer(QC): 5 Assistance with bed mobility to move LLE. Gait Does the Patient Walk?: Yes Mode of Locomotion: Walk Anticipated Mode of Locomotion: Walk Distance: 5' Gait Assistive Device: FWW Comments/Gait Description WBAT on LLE, patient hesitant to weight bear but able to walk approximately 10 steps from bed to chair. Balance Sitting Static: Normal Sitting Dynamic: Normal Standing Static: Normal Standing Dynamic: Normal Assessment/Needs Patient required minimal assistance with moving LLE to perform bed mobility to sit to EOB. Once sitting, patient able to stand with walker without assistance. Patient gingerly shifted weight onto LLE before beginning ambulation. Ambulated 10 steps from bed to chair with FWW with touching assistance. Patient seated in chair with legs elevated. Patient demonstrated equal ROM unlimited by pain but required assistance from RLE to move LLE. Rehab Potential: Fair PT Usp Goals Usp Goals PT Marine Oiler Goals Time Frame: Jul 06, 2019 Sit to Lying (QC): 6 Lying-Sitting on Side/Bed(QC): 6 Sit to Stand (QC): 6 Roll Left to Right (QC): 6 Chair/Iqy-jf-Vfalz Xfer(QC): 6 Does the Patient Walk: Yes Distance: 200' Walk 10 feet (QC): 6 Walk 10ft-Uneven Surface(QC): 6 Walk 50ft with 2 Turns (QC): 6 Walk 150 ft (QC): 6 Gait Assistive Device: FWW PT Plan Problem List Problem List: Activity Tolerance, Functional Strength, Safety, Balance, Gait, Transfer, Bed Mobility Treatment/Plan Treatment Plan: Continue Plan of Care Treatment Plan: Bed Mobility, Education, Functional Activity Ayleen, Functional Strength, Gait, Safety, Therapeutic Exercise, Transfers Treatment Duration: Jul 06, 2019 Frequency: 11 times per week Estimated Hrs Per Day: .5 hour per day Patient and/or Family Agrees t: Yes Safety Risks/Education Patient Education: Gait Training, Reviewed Precautions, Disease Process, Safety Issues Teaching Recipient: Patient, Significant Other Teaching Methods: Discussion Response to Teaching: Verbalize Understanding, Return Demonstration Time/GCodes Time In: 1422 Time Out: 1441 Total Billed Treatment Time: 19 Total Billed Treatment 1 visit EVLow 19min EVELIO TYSON PT Jun 29, 2019 14:54 POS
--- NOTE | 2019-06-29 15:07 | Occupational Therapy Eval ---
OT Evaluation-General/PLF Medical Diagnosis Admission Date Jun 29, 2019 at 10:00 Medical Diagnosis: L obturator ring fx Onset Date: Jun 28, 2019 Therapy Diagnosis Therapy Diagnosis: decreased ADL function Height/Weight Height (Feet): 5 Height (Inches): 0.00 Weight (Pounds): 112 Weight (Ounces): 4.0 Precautions Precautions/Isolations: Fall Prevention, Standard Precautions Safety Interventions: None Weight Bear Status Weight Bearing Restriction: Weight Bearing/Tolerated Referral Physician: Selina Referral Reason: Activity Tolerance, Self Care, Evaluation/Treatment, Strengthening/ROM Medical History Pertinent Medical History: Arthritis, Dementia Additional Medical History HTN, UTIs, dementia, OA, chronic back pain, degenerative disc disease. Current History Fall when reaching for the phone/ lost balance at [facility]. Pt states Reviewed History: Yes Social History Home: Single Level Current Living Status: Spouse Entry Into Home: Stairs With Railing Steps Into Home: 3 ADL-Prior Level of Function SCALE: Activities may be completed with or without assistive devices. 4-Ynotnqmhcp-snrbvgi completes the activity by him/herself with no assistance from a helper. 5-Set-up or Clean-up Assistance-helper sets up or cleans up; patient completes activity. [place] assists only prior to or following the activity. 4-Supervision or Touching Assistance-helper provides verbal cues and/or touching/steadying and/or contact guard assistance as patient completes activity. Assistance may be provided throughout the activity or intermittently. 3-Partial/Moderate Assistance-helper does LESS THAN HALF the effort. [place] lifts, holds or supports trunk or limbs, but provides less than half the effort. 2-Substantial/Maximal Assistance-helper does MORE THAN HALF the effort. [place] lifts or holds trunk or limbs and provides more than half the effort. 9-Fusnejcrn-nlhzgm does ALL the effort. Patient does none of the effort to complete the activity. Or, the assistance of 2 or more helpers is required for the patient to complete the activity. If activity was not attempted, code reason: 7-Patient Refused. 9-Not Applicable-not attempted and the patient did not perform the activity before the current illness, exacerbation or injury. 10-Not Attempted due to Environmental Limitations-(lack of equipment, weather restraints, etc.). 88-Not Attempted due to Medical Conditions or Safety Concerns. Self Care: Independent Functional Cognition: Independent DME/Equipment: Bath Chair, Grab Bars, Tub/Shower DME/Equipment Comments Utilizes FWW for functional mobility Occupation: retired Drive Self: No OT Current Status Subjective Pt seen in recliner chair, and son present through session. Pt agreeable to OT evaluation, states "some pain in bottom". Mental Status/Objective Patient Orientation: Person, Place, Situation, Normal For Age Current Glasses/Contacts: Yes Hearing Aids: No Dentures/Partials: Yes Hand Dominance: Right Upper Extremity ROM WFL BUE Upper Extremity Coordination WFL finger opposition Upper Extremity Sensation WFL, no c/o paresthesias. Upper Extremity Strength impaired bilaterally ~3+/5 ADL-Treatment Eating (QC): 6 On/Off Footwear (QC): 5 (In chair, environment/ chair s/u for success; states uncomfort with bending motion in pelvis) Other Treatments Pt oriented x3. Pt and son give history. Pt receives meals on wheels and house keeper 3x/ week. Pt states IND with FWW, takes sponge bath on shower chair within shower. Pt completes sock don/ doffing in chair, denies standing due to pain. Pt educated on ARU expectations if desire to come to 2nd, pt educated on increased motion and role of acute, rehab, and home health OT services. Pt, son, and 's questions answered. Pt left in recliner chair, feet elevated, call light in reach, all needs met. Education OT Patient Education: Correct positioning, Instructions to caregiver, Modified ADL techniques, Purpose of tx/functional activities, Reviewed precautions, Rehab process, Safety issues Teaching Recipient: Patient, Family, Significant Other Teaching Methods: Demonstration, Discussion Response to Teaching: Verbalize Understanding, Return Demonstration OT Short Term Goals Short Term Goals 1=Demonstrate adherence to instructed precautions during ADL tasks. 2=Patient will verbalize/demonstrate understanding of assistive devices/modifications for ADL. 3=Patient will improve strength/tolerance for activity to enable patient to perform ADL's. OT Associate Director Career Services Goals Associate Director Career Services Goals Time Frame: Jul 06, 2019 Eating (QC): 6 Oral Hygiene (QC): 6 Shower/Bathe Self (QC): 6 Upper Body Dressing (QC): 5 Lower Body Dressing (QC): 5 On/Off Footwear (QC): 6 Toileting Hygiene (QC): 6 Toilet/Commode Transfer (QC): 6 Additional Goals: 1-Demonstrate ADL Tasks, 2-Verbalize Understanding, 3- ImproveStrength/[place]en 1=Demonstrate adherence to instructed precautions during ADL tasks. 2=Patient will verbalize/demonstrate understanding of assistive devices/modifications for ADL. 3=Patient will improve strength/tolerance for activity to enable patient to perform ADL's. OT Education/Plan Problem List/Assessment Assessment: Decreased Activ Tolerance, Decreased UE Strength, Dependent Transfers, Impaired I ADL's, Impaired Self-Care Skills Discharge Recommendations Plan/Recommendations: Continue POC Therapy Discharge Recommendati: Post Acute OT Equpiment Recommendations-D/C: Retail Branch Manager Treatment Plan/Plan of Care Treatment,Training & Education: Yes Patient would benefit from OT for education, treatment and training to promote independence in ADL's, mobility, safety and/or upper extremity function for ADL's. Plan of Care: ADL Retraining, Caregiver Training, Concurrent Therapy, Functional Mobility, Group Exercise/Act as Ind, UE Funct Exercise/Act Treatment Duration: Jul 06, 2019 Frequency: 5 times per week Estimated Hrs Per Day: .25 hour per day Rehab Potential: Fair Time/GCodes Start Time: 14:37 Stop Time: 14:54 Total Time Billed (hr/min): 23 Billed Treatment Time 1, EVM (10), FA (13)= 23 LENA LANCE OTR Jun 29, 2019 15:07 POS
--- NOTE | 2019-06-29 15:21 | Diagnostic Imaging Report ---
PROCEDURE: CT pelvis without contrast. TECHNIQUE: Multiple contiguous axial images were obtained through the pelvis without the use of intravenous contrast. Sagittal and coronal reformations were performed. Auto Exposure Controls were utilized during the CT exam to meet ALARA standards for radiation dose reduction. INDICATION: Pain after fall. FINDINGS: There is a comminuted fracture of the right superior pubic ramus and medial aspect of the left inferior pubic ramus. These are essentially nondisplaced. Proximal left femur is intact. Sacral ala and SI joints are intact. Both acetabular banks are intact. There are degenerative changes in the lower lumbar spine. There has been a previous lower lumbar kyphoplasty. IMPRESSION: Comminuted minimally displaced fractures of the left obturator ring as described. Proximal femurs are intact. Dictated by: Dictated on workstation # [id number]
[2019-06-29] MEDS: hydrOXYzine (ATARAX) 10 MG TAB PO PRN ×2 (15:36→21:12)
--- NOTE | 2019-06-29 15:59 | NUR ---
RD ASSESSMENT PMHx: hypercholesterolemia; dementia PT INTERACTION: Pt was awake and pleasant during consult for MST score. Note pt has hx of dementia and AMS, and was present. states pt has had poor appetite for the past several weeks. Note pt avg PO intake of 50% x1d, per chart review. states pt follows a regular diet at home, and currently has no issues with chewing/swallowing food at this time. states pt has had several episodes of n/v recently. states pt has had no recent issues with constipation or diarrhea. Note no BM has been recorded, and pt not currently on bowel regimen. states pt has lost "about 10#" x3mon. Note unable to determine recent wt hx, per chart review. Given pt's PO intake and wt hx, pt is at risk for malnutrition but currently does not meet criteria per ASPEN guidelines. ABNORMAL NUTRITION-RELATED LAB VALUES: Na 132 (L); K 3.5 (L); Cl 95 (L); glu 159 (H) Est. kcal needs: 5301-7928 kcal (25-30 kcal/kg) Est. Pro needs: 50-60 g Pro (1.0-1.2 g Pro/kg) PES STATEMENT: Inadequate oral intake (NI-2.1) related to loss of appetite | nausea | vomiting as evidenced by pt () interview INTERVENTION: Continue with current diet order of Regular diet. Encouraged pt to eat when able. Pt may benefit from nutrition supplementation if PO intake declines. MONITOR/EVALUATE: PO Intake; Plan of Care; Hydration Status; Weight Status; Lab Values Michele [place], MS, RD, LD Ext. [phone]
[2019-06-29 16:46] VITALS: BP 134/70
--- NOTE | 2019-06-29 18:14 | Consultation ---
History of Present Illness History of Present Illness Patient Consulted On(nuno/time) 06/29/19 18:09 Date Seen by Provider: Jun 29, 2019 Time Seen by Provider: 18:09 Reason for Visit: fall History of Present Illness 88 y/o white female known to me, recent onset of upper back pain, chest pain, seen in ED on 06/25/19 and was to follow up with me in office for T7 fracture, but fell again at home and developed a pelvic rami fracture and admitted for pain control. She is otherwise awake, alert and cooperative with exam. and son supplement the history. State that her pain was/is severe and is only better because she is on fentanyl otherwise would be unbearable. Allergies and Home Medications Allergies Coded Allergies: cephalexin (Verified Allergy, Mild, 03/10/19) nitrofurantoin (Verified Allergy, Mild, 03/10/19) codeine (Verified Allergy, Unknown, pt takes Tramadol at home, 03/10/19) sulfamethoxazole (Verified Allergy, Unknown, 03/10/19) Home Medications Acetaminophen 500 Mg Tablet, 500 MG PO Q4H PRN for PAIN-MILD, (Reported) Atorvastatin Calcium 20 Mg Tablet, 20 MG PO HS, (Reported) Estrogens Conjugated 30 Gm Cr, VG MoWeFr, (Reported) Meclizine HCl 25 Mg Tablet, 25 MG PO Q6H PRN for DIZZINESS, (Reported) Polyvinyl Alcohol/Povidone 15 Ml Drops, 1 DROP OU TID PRN for DRY EYES, (Reported) Trimethoprim 100 Mg Tablet, 100 MG PO HS, (Reported) Patient Home Medication List Home Medication List Reviewed: Yes Past Jbsirbh-Rvtcio-Flwhxn Hx Past Med/Social Hx: Reviewed Nursing Past Med/Soc Hx Patient Social History Alcohol Use: Denies Use Recreational Drug Use: No Smoking Status: Unknown if Ever Smoked 2nd Hand Smoke Exposure: No Recent Foreign Travel: No Contact w/Someone Who Travel: No Recent Infectious Disease Expo: No Recent Hopitalizations: Yes (KYPHOPLASTY) Immunizations Up To Date Tetanus Booster (TDap): Less than 5yrs PED Vaccines UTD: No Date of Pneumonia Vaccine: May 25, 2015 Seasonal Allergies Seasonal Allergies: No Past Medical History Surgeries: Yes (L4 KYPHOPLASTY 03/09/[address] 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: Menopausal Genitourinary: Yes Bladder Infection Gastrointestinal: No Musculoskeletal: Yes (L4 COMPRESSION FRACTURE--S/P KYPHOPLASTY 03/09/17) Degenerate Disk Disease, Osteoporosis, Arthritis, Chronic Back Pain, Fractures Endocrine: No HEENT: No Cancer: No Psychosocial: No Integumentary: No Family Medical History Reviewed Nursing Family Hx Arthritis 19 FATHER Kidney disease 19 MOTHER Review of Systems-General Constitutional: weakness EENTM: see HPI Respiratory: no symptoms reported Cardiovascular: chest pain Gastrointestinal: no symptoms reported Genitourinary: no symptoms reported Musculoskeletal: back pain, joint pain Skin: no symptoms reported Psychiatric/Neurological: No Symptoms Reported Physical Exam-General Problems Physical Exam Vital Signs Vital Signs - First Documented 06/28/19 06/28/19 13:08 17:04 Temp 36.9 Pulse 103 Resp 18 B/P (MAP) 179/101 (127) Pulse Ox 95 O2 Delivery Room Air Capillary Refill : Less Than 3 SecondsLess Than 3 Seconds General Appearance: WD/WN, mild distress Eyes: Bilateral Eye Normal Inspection HEENT: PERRL/EOMI Neck: non-tender, supple Respiratory: chest non-tender, no respiratory distress, no accessory muscle use Cardiovascular: normal peripheral pulses Gastrointestinal: non tender, soft Back: vertebral tenderness Extremities: pelvis stable, other (pelvis painful) Neurologic/Psychiatric: no motor/sensory deficits Skin: normal color, warm/dry Lymphatic: no adenopathy Comments CT scan of pelvis, shows left pubic rami fracture CT scan of t spine, shows age indeterminant T7 fracture Assessment/Plan Assessment/Plan Admission Diagnosis/Plan T7 Compression fracture Plan: MRI scan T spine to assess age of fracture and if kyphoplasty appropriate. Clinical Quality Measures DVT/VTE Risk/Contraindication: Risk Factor Score Per Nursin RFS Level Per Nursing on Admit: 4+=Very High MIREYA HOLM MD Jun 29, 2019 18:14 POS
[2019-06-29 19:49] VITALS: BP 129/76
[2019-06-29] MEDS: ENOXAPARIN 40 MG/0.4 ML (LOVENOX) SYR SQ SCH (20:35)
[2019-06-29] MEDS ORDERED: PATIENT MAY USE OWN MEDS, ALL MC SCH (21:00)
[2019-06-29] MEDS ORDERED: ARTIFICAL TEARS 0.4 ML UNIT DOSE (REFRESH PLUS) OU PRN (21:00)
[2019-06-29] MEDS ORDERED: NON-FORMULARY MEDICATION 1 EA EA (Trimethoprim 100 MG) PO SCH (21:00)
[2019-06-29] MEDS ORDERED: MECLIZINE 25 MG (ANTIVERT) TAB PO PRN (21:00)
[2019-06-30 00:08] VITALS: BP 122/74
[2019-06-30] MEDS: fentaNYL INJECTION 100 MCG/2 ML AMP IV PRN ×5 (00:54→21:44)
[2019-06-30 04:00] VITALS: BP 129/73
[2019-06-30] MEDS: ONDANSETRON 4 MG/2 ML (SDV) Z0FRAN IV PRN (06:27)
[2019-06-30] MEDS: CATHETER FLUSH 10 ML SYR IV SCH ×3 (06:28→19:57)
[2019-06-30 08:00] VITALS: BP 129/73
[2019-06-30] MEDS: ACETAMINOPHEN 500 MG TAB (TYLENOL) PO PRN ×2 (09:14→19:53)
--- NOTE | 2019-06-30 09:48 | Physical Therapy Daily Note ---
PT Daily Note-Current Subjective Patient in bed pre tx, agrees to PT, has unrated pelvic pain. Appearance Patient in recliner post tx with nurse call, phone, tray, all needs met, family in the room. Mental Status Patient Orientation: Person, Place, Situation Attachments: Bond Catheter Transfers SCALE: Activities may be completed with or without assistive devices. 8-Gurravypdd-tjeqsbj completes the activity by him/herself with no assistance from a helper. 5-Set-up or Clean-up Assistance-helper sets up or cleans up; patient completes activity. [place] assists only prior to or following the activity. 4-Supervision or Touching Assistance-helper provides verbal cues and/or touching/steadying and/or contact guard assistance as patient completes activity. Assistance may be provided throughout the activity or intermittently. 3-Partial/Moderate Assistance-helper does LESS THAN HALF the effort. [place] lifts, holds or supports trunk or limbs, but provides less than half the effort. 2-Substantial/Maximal Assistance-helper does MORE THAN HALF the effort. [place] lifts or holds trunk or limbs and provides more than half the effort. 1-Jbsqozfep-hfieac does ALL the effort. Patient does none of the effort to complete the activity. Or, the assistance of 2 or more helpers is required for the patient to complete the activity. If activity was not attempted, code reason: 7-Patient Refused. 9-Not Applicable-not attempted and the patient did not perform the activity before the current illness, exacerbation or injury. 10-Not Attempted due to Environmental Limitations-(lack of equipment, weather restraints, etc.). 88-Not Attempted due to Medical Conditions or Safety Concerns. Roll Left to Right (QC): 3 Sit to Lying (QC): 3 Sit to Stand (QC): 4 Chair/Hbe-cl-Hqtsr Xfer(QC): 4 Min assist for supine to sit Weight Bearing Right Lower Extremity: Right Weight Bearing/Tolerated Left Lower Extremity: Left Weight Bearing/Tolerated Gait Training Distance: 20' Walk 10 feet (QC): 4 Gait Persons Needed: 1 Gait Assistive Device: FWW Patient ambulated 20' with CGA, she is not able to bear much weight on her left leg, poor step through. Exercises Seated Therapy Exercises: Ankle pumps, Long arc quads Seated Reps: 15 Treatments LE exercise, bed mobility and transfers, ambulation Assessment Current Status: Fair Progress improving ambulation PT Group Home Goals Cutter First Goals PT Group Home Goals Time Frame: Jul 06, 2019 Sit to Lying (QC): 6 Lying-Sitting on Side/Bed(QC): 6 Sit to Stand (QC): 6 Roll Left to Right (QC): 6 Chair/Tkz-nk-Frqpb Xfer(QC): 6 Does the Patient Walk: Yes Distance: 200' Walk 10 feet (QC): 6 Walk 10ft-Uneven Surface(QC): 6 Walk 50ft with 2 Turns (QC): 6 Walk 150 ft (QC): 6 Gait Assistive Device: FWW PT Plan Problem List Problem List: Activity Tolerance, Functional Strength, Safety, Balance, Gait, Transfer, Bed Mobility, ROM Treatment/Plan Treatment Plan: Continue Plan of Care Treatment Plan: Bed Mobility, Education, Functional Activity Ayleen, Functional Strength, Gait, Safety, Therapeutic Exercise, Transfers Treatment Duration: Jul 06, 2019 Frequency: 11 times per week Estimated Hrs Per Day: .5 hour per day Patient and/or Family Agrees t: Yes Safety Risks/Education Patient Education: Gait Training, Transfer Techniques, Correct Positioning, Safety Issues Teaching Recipient: Patient Teaching Methods: Demonstration, Discussion Response to Teaching: Reinforcement Needed Time/GCodes Time In: 908 Time Out: 924 Total Billed Treatment Time: 16 Total Billed Treatment 1 visit FA 16' ENOC ZHAO PT Jun 30, 2019 09:48 POS
--- NOTE | 2019-06-30 09:58 | Occupational Ther Daily Note ---
OT Current Status-Daily Note Subjective Pt upright in recliner, agreeable to OT tx this AM. Pt stated her left hip/pelvis area was hurting but did not provide rating during visit. Mental Status/Objective Attachments: Bond Catheter, IV ADL-Treatment Therapy Code Descriptions/Definitions Functional Boyd Measure: 0=Not Assessed/NA 4=Minimal Assistance 1=Total Assistance 5=Supervision or Setup 2=Maximal Assistance 6=Modified Boyd 3=Moderate Assistance 7=Complete IndependenceSCALE: Activities may be completed with or without assistive devices. 5-Dwmxwlgnua-xsltcgv completes the activity by him/herself with no assistance from a helper. 5-Set-up or Clean-up Assistance-helper sets up or cleans up; patient completes activity. [place] assists only prior to or following the activity. 4-Supervision or Touching Assistance-helper provides verbal cues and/or touching/steadying and/or contact guard assistance as patient completes activity. Assistance may be provided throughout the activity or intermittently. 3-Partial/Moderate Assistance-helper does LESS THAN HALF the effort. [place] lifts, holds or supports trunk or limbs, but provides less than half the effort. 2-Substantial/Maximal Assistance-helper does MORE THAN HALF the effort. [place] lifts or holds trunk or limbs and provides more than half the effort. 8-Pjtbdgmtt-dumepn does ALL the effort. Patient does none of the effort to complete the activity. Or, the assistance of 2 or more helpers is required for the patient to complete the activity. If activity was not attempted, code reason: 7-Patient Refused. 9-Not Applicable-not attempted and the patient did not perform the activity before the current illness, exacerbation or injury. 10-Not Attempted due to Environmental Limitations-(lack of equipment, weather restraints, etc.). 88-Not Attempted due to Medical Conditions or Safety Concerns. Oral Hygiene (QC): 5 (Pt completed oral hygiene at recliner with set up.) Upper Body Dressing (QC): 3 (Pt doffed/donned robe and hospital gown. Pt able to doff robe & gown, and threaded BUE into gown. Pt required assistance with tying hospital gown. Pt able to then thread LUE into robe, requiring assistance with RUE due to not being able to find arm hole.) Other Treatment Pt upright in recliner throughout session. Pt completed sponge bath with set up. Pt able to wash arms, face, neck and buttocks/perineal area. When asked if she wanted to wash her legs, pt replied she was too tired and did not wish to at this time, declining OT assistance with task. Pt stated she would rather complete the rest of the sponge bath this afternoon. After sponge bath, pt changed hospital gown. Min A for balance during stand as pt donned/doffed robe. Pt then completed oral hygiene and brushed her hair at the recliner. Post OT session, pt upright in recliner, call light and tray table in reach and all needs met. Education OT Patient Education: Correct positioning, Energy conservation, Modified ADL techniques, Progress toward Goal/Update tx plan, Purpose of tx/functional activities, Transfer techniques Teaching Recipient: Patient Teaching Methods: Demonstration, Discussion Response to Teaching: Verbalize Understanding OT Short Term Goals Short Term Goals 1=Demonstrate adherence to instructed precautions during ADL tasks. 2=Patient will verbalize/demonstrate understanding of assistive devices/modifications for ADL. 3=Patient will improve strength/tolerance for activity to enable patient to perform ADL's. OT Usp Goals Usp Goals Time Frame: Jul 06, 2019 Eating (QC): 6 Oral Hygiene (QC): 6 Shower/Bathe Self (QC): 6 Upper Body Dressing (QC): 5 Lower Body Dressing (QC): 5 On/Off Footwear (QC): 6 Toileting Hygiene (QC): 6 Toilet/Commode Transfer (QC): 6 Additional Goals: 1-Demonstrate ADL Tasks, 2-Verbalize Understanding, 3- ImproveStrength/Ayleen 1=Demonstrate adherence to instructed precautions during ADL tasks. 2=Patient will verbalize/demonstrate understanding of assistive d evices/modifications for ADL. 3=Patient will improve strength/tolerance for activity to enable patient to perform ADL's. OT Education/Plan Problem List/Assessment Assessment: Decreased Activ Tolerance, Decreased UE Strength, Impaired Funct Balance, Impaired I ADL's, Impaired Self-Care Skills Discharge Recommendations Plan/Recommendations: Continue POC Treatment Plan/Plan of Care Treatment,Training & Education: Yes Patient would benefit from OT for education, treatment and training to promote independence in ADL's, mobility, safety and/or upper extremity function for ADL's. Plan of Care: ADL Retraining, Caregiver Training, Concurrent Therapy, Functional Mobility, Group Exercise/Act as Ind, UE Funct Exercise/Act Treatment Duration: Jul 06, 2019 Frequency: 5 times per week Estimated Hrs Per Day: .25 hour per day Rehab Potential: Fair Time/GCodes Start Time: 09:25 Stop Time: 09:50 Total Time Billed (hr/min): 25 Billed Treatment Time 1, ADL 2 CLARY VELIZ OT Jun 30, 2019 09:58 POS
--- NOTE | 2019-06-30 10:23 | Progress Note - Hospitalist ---
Subjective HPI/CC On Admission Date Seen by Provider: Jun 30, 2019 Time Seen by Provider: 10:09 Significant 88-year-old female with past medical history of high cholesterol and chronic UTIs who presented to the emergency department after a fall. She reports she stood up to answer the phone when she lost her balance and fell. She reports she has been quite unstable on her feet for a while. Her son is at bedside and stated this has been going on since February and she fell and had a compression fracture. She follows with Dr. Larson for this. She also has been having increasing nausea has she's been on oxycodone and tramadol at home and has not tolerated that well. She states her pain is well-controlled today with fentanyl. She is having no nausea but is taking her Zofran. Her urine did show bacteria again yesterday and she had just completed treatment for a urinary tract infection with Levaquin. Subjective/Events-last exam Pt reports doing better today. Is up in chair working with OT. Pain controlled. No complaints. Objective Exam Vital Signs Vital Signs Date Time Temp Pulse Resp B/P (MAP) Pulse Ox O2 Delivery O2 Flow Rate FiO2 06/30/19 08:00 37.0 77 18 129/73 (91) 95 Room Air Capillary Refill : Less Than 3 SecondsLess Than 3 Seconds General Appearance: No Apparent Distress, WD/WN, Thin Respiratory: Lungs Clear, No Respiratory Distress Cardiovascular: Regular Rate, Rhythm, No Murmur Gastrointestinal: Normal Bowel Sounds, Soft Neurologic/Psychiatric: Alert, Oriented x3 Results/Procedures Lab Patient resulted labs reviewed. Assessment/Plan Assessment and Plan Assess & Plan/Chief Complaint Pelvic Fracture Discussed with Dr Almonte, will see today PT/OT- walked 5 feet yesterday with PT IRF eval Continue current pain regimen Does not do well with tramadol T7 fracture MRI today Dr Moreno consulted, appreciate recs Chronic UTIs Recently treated from UTI, grew somewhat resistant e coli Discussed on 06/29 with her granddaughter who is MENTAL HEALTH NURSE PRACTITIONER for her urologist Dr Bhardwaj- as she is asymptomatic will monitor for signs of infection and defer treatment Current culture growing lactobacillus Has previously tolerated macrobid, trimethoprim, and levaquin so will remove from allergy list HLD Continue home lipitor Anxiety Family has requested anxiety medicine Hydroxyzine ordered Diagnosis/Problems Diagnosis/Problems (1) Pelvic fracture Status: Acute Qualifiers: Encounter type: initial encounter Pelvic bone location: other part of pelvis Fracture type: closed Qualified Codes: S32.89XA - Fracture of other parts of pelvis, initial encounter for closed fracture (2) Hyperlipidemia Status: Chronic Qualifiers: Hyperlipidemia type: unspecified Qualified Codes: E78.5 - Hyperlipidemia, unspecified (3) Dementia Qualifiers: Dementia type: unspecified type Dementia behavioral disturbance: without behavioral disturbance Qualified Codes: F03.90 - Unspecified dementia without behavioral disturbance (4) Recurrent UTI Status: Chronic (5) S/P kyphoplasty Status: Chronic Clinical Quality Measures DVT/VTE Risk/Contraindication: Risk Factor Score Per Nursin RFS Level Per Nursing on Admit: 4+=Very High ANASTASIA BROTHERS MD Jun 30, 2019 10:23 POS
--- NOTE | 2019-06-30 11:15 | NUR ---
NOTIFIED DR HOLM THAT MRI HAS BEEN DONE.
--- NOTE | 2019-06-30 11:21 | NUR ---
IRF Evaluation Order received to evaluate patient for the ARU. Chart review complete and findings discussed with Dr. Matute - patient accepted. Anticipate admission, 07/01 vs 07/02. Will continue to follow. Thank you for this referral. Addendum: 06/30/19 at 1515 by NOVEMBER Андрей DELGADO SS Met with patient and spouse to discuss details related to rehabilitation program. Patient somewhat familiar with program as she was on the unit in February 2019. During visit patient had two visitors arrive; therefore, conversation was left with patient and spouse to take the evening to think it over. Will follow up with patient in the morning in regards to her decision.
[2019-06-30 12:01] VITALS: BP 120/72
--- NOTE | 2019-06-30 12:08 | Diagnostic Imaging Report ---
EXAMINATION: MRI of the thoracic spine without contrast. INDICATION: Back pain. TECHNIQUE: Multiplanar images utilizing both T1 and T2-weighted sequences were obtained. COMPARISON: There are no prior MRI thoracic spine examinations available for comparison. FINDINGS: The CT thoracic spine exam of 06/25/2019 did note an age indeterminate compression deformity of T7. I agree with the interpretation of the previous exam. I would estimate that at the time of the prior study the compression fracture was in the 40-50% range. In the interval since the prior exam there has been further loss of the height of the vertebral body of T7 and the compression deformities now in the 70-80% range. Consequently I do suspect that this injury is subacute in nature. There is mild retropulsion of the compressed vertebral body of T7. The inferior endplate of C7 indents the ventral aspect of the thecal sac and narrows the AP diameter to approximately 11.1 mm. There is no nerve root encroachment identified and there is no sign of an injury to the cord itself. There is no other abnormal signal arising from the osseous structures to indicate an acute or subacute bony injury. The thecal sac is relatively generous. There is no sign of spinal stenosis or nerve root encroachment. There is no paraspinal mass visualized. IMPRESSION: 1. There is a subacute 70-80% compression fracture of T7. The inferior endplate of the compressed vertebral body of C7 does indent the ventral aspect of the thecal sac but there is no evidence for central stenosis or nerve root encroachment at this level. 2. There is no acute bony abnormality appreciated otherwise. 3. There is no sign of spinal stenosis or nerve root encroachment. Dictated by: Dictated on workstation # [id number]
--- NOTE | 2019-06-30 13:13 | Progress Note ---
Progress Note Assessment/Plan Time Seen by Provider: 13:10 Events since last exam T spine MRI done and reviewed. Assessment/Plan T7 Compression fracture Plan: I don't feel that based on the appearance of the MRI that kyphoplasty will improve significantly the symptoms that she has. She should be discharged when appropriate from her pelvis fracture and follow up with me as an outpatient, but don't think kypho is appropriate.. Vitals Last set of Vitals Signs Vital Signs Date Time Temp Pulse Resp B/P (MAP) Pulse Ox O2 Delivery O2 Flow Rate FiO2 06/30/19 12:01 37.0 78 18 120/72 (88) 96 Room Air I&O I&O Intake and Output 06/30/19 00:00 Intake Total 1800 ml Output Total 3450 ml Balance -1650 ml Intake Oral 1800 ml Output Urine Total 3450 ml Labs Microbiology 06/28/19 Urine Culture - Final, Complete Lactobacillus species Radiology Sub-acute fractures of T7 Clinical Quality Measures DVT/VTE Risk/Contraindication: Risk Factor Score Per Nursin RFS Level Per Nursing on Admit: 4+=Very High MIREYA HOLM MD Jun 30, 2019 13:13 POS
--- NOTE | 2019-06-30 15:41 | Physical Therapy Daily Note ---
PT Daily Note-Current Subjective pt in bed pre-tx with in room. Pt agrees to PT this afternoon. pt denies any pain at this time. Appearance pt in recliner post-tx with feet elevated spouse in room, tray table, call light, room phone in reach and all needs met at this time. Mental Status Patient Orientation: Person, Place, Situation Attachments: Bond Catheter, IV Transfers SCALE: Activities may be completed with or without assistive devices. 2-Zzqtgwmnny-gaqkjli completes the activity by him/herself with no assistance from a helper. 5-Set-up or Clean-up Assistance-helper sets up or cleans up; patient completes activity. [place] assists only prior to or following the activity. 4-Supervision or Touching Assistance-helper provides verbal cues and/or touching/steadying and/or contact guard assistance as patient completes activity. Assistance may be provided throughout the activity or intermittently. 3-Partial/Moderate Assistance-helper does LESS THAN HALF the effort. [place] li fts, holds or supports trunk or limbs, but provides less than half the effort. 2-Substantial/Maximal Assistance-helper does MORE THAN HALF the effort. [place] lifts or holds trunk or limbs and provides more than half the effort. 2-Yaytigzqe-lkfgrh does ALL the effort. Patient does none of the effort to complete the activity. Or, the assistance of 2 or more helpers is required for the patient to complete the activity. If activity was not attempted, code reason: 7-Patient Refused. 9-Not Applicable-not attempted and the patient did not perform the activity before the current illness, exacerbation or injury. 10-Not Attempted due to Environmental Limitations-(lack of equipment, weather restraints, etc.). 88-Not Attempted due to Medical Conditions or Safety Concerns. Sit to Stand (QC): 3 (Sanchez) pt supine to sit is CGA Weight Bearing Right Lower Extremity: Right Weight Bearing/Tolerated Left Lower Extremity: Left Weight Bearing/Tolerated Gait Training Distance: 20' Walk 10 feet (QC): 4 (CGA) Gait Assistive Device: FWW Pt ambulates with slow but steady step to pattern with the R foot. Exercises Seated Therapy Exercises: Long arc quads, Hip flexion Seated Reps: 15 Treatments pt performed bed mobility training, transfer training, skilled ambulation training, and education this date. Assessment Current Status: Fair Progress pt wants to only walk around bed to chair this afternoon. Reports she is feeling okay but doesn't want to walk farther today. Pt is pleasant and appears to have no pain. PT Residential Goals Residential Goals PT Shipper/Receiver Goals Time Frame: Jul 06, 2019 Sit to Lying (QC): 6 Lying-Sitting on Side/Bed(QC): 6 Sit to Stand (QC): 6 Roll Left to Right (QC): 6 Chair/Myl-nu-Iqzlp Xfer(QC): 6 Does the Patient Walk: Yes Distance: 200' Walk 10 feet (QC): 6 Walk 10ft-Uneven Surface(QC): 6 Walk 50ft with 2 Turns (QC): 6 Walk 150 ft (QC): 6 Gait Assistive Device: FWW PT Plan Problem List Problem List: Activity Tolerance, Functional Strength, Safety, Balance, Gait, Transfer, Bed Mobility, ROM Treatment/Plan Treatment Plan: Continue Plan of Care Treatment Plan: Bed Mobility, Education, Functional Activity Ayleen, Functional Strength, Gait, Safety, Therapeutic Exercise, Transfers Treatment Duration: Jul 06, 2019 Frequency: 11 times per week Estimated Hrs Per Day: .5 hour per day Patient and/or Family Agrees t: Yes Safety Risks/Education Patient Education: Gait Training, Transfer Techniques, Correct Positioning, Safety Issues Teaching Recipient: Patient Teaching Methods: Demonstration, Discussion Response to Teaching: Return Demonstration, Reinforcement Needed Time/GCodes Time In: 1436 Time Out: 1450 Total Billed Treatment Time: 14 Total Billed Treatment 1 visit FA 14' ENOC ZHAO PT Jun 30, 2019 15:41 POS
[2019-06-30 16:46] VITALS: BP 119/64
[2019-06-30] MEDS: ENOXAPARIN 40 MG/0.4 ML (LOVENOX) SYR SQ SCH (18:22)
[2019-06-30 19:16] VITALS: BP 138/66
[2019-06-30] MEDS: hydrOXYzine (ATARAX) 10 MG TAB PO PRN (19:52)
[2019-06-30] MEDS ORDERED: ESTROGENS CONJ. CREAM 30 GM (PREMARIN) TUBE VG SCH (21:00)
[2019-06-30] MEDS ORDERED: TRIMETHOPRIM 100 MG TAB (PROLOPRIM) NON-FORMULARY PO SCH (21:00)
[2019-07-01] VITALS: BP 102/65
[2019-07-01 04:00] VITALS: BP 142/66
[2019-07-01] MEDS: CATHETER FLUSH 10 ML SYR IV SCH (05:32)
[2019-07-01 08:00] VITALS: BP 142/79
--- NOTE | 2019-07-01 09:02 | Discharge Inst-Simple/Standard ---
Discharge Inst-Standard Reconcile Patient Problems Problems Reviewed?: Yes Discharge Medications New, Converted or Re-Newed RX: Transmitted to Pharmacy Patient Instructions/Follow Up Plan of Care/Instructions/FU: Please continue to take your medications as written. Please follow up with Dr Ortiz and Dr Moreno following your acute rehab stay. Activity as Tolerated: Yes Discharge Diet: No Restrictions Return to The Hospital For: Worsening pain, falls, confusion, fever, chest pain,shortness of breath, if you feel you are getting worse. Planned Outpatient Orders/Ref. Pneu Vac Indicated: Yes ANASTASIA BROTHERS MD Jul 01, 2019 09:02 POS
--- NOTE | 2019-07-01 09:03 | Discharge Summary ---
Diagnosis/Chief Complaint Date of Admission Jun 29, 2019 at 10:00 Date of Discharge Discharge Date: Jul 01, 2019 Admission Diagnosis Pelvic fracture Primary Care Reji Ortiz MD Discharge Diagnosis (1) Pelvic fracture Status: Acute (2) Hyperlipidemia Status: Chronic (3) Dementia (4) Recurrent UTI Status: Chronic (5) S/P kyphoplasty Status: Chronic Discharge Summary Procedures/Consulations Ortho- Dr Moreno and Dr Almonte Discharge Physical Exam Allergies: Coded Allergies: cephalexin (Verified Allergy, Mild, 03/10/19) nitrofurantoin (Verified Allergy, Mild, 03/10/19) codeine (Verified Allergy, Unknown, pt takes Tramadol at home, 03/10/19) sulfamethoxazole (Verified Allergy, Unknown, 03/10/19) Vitals & I&Os Vital Signs Date Time Temp Pulse Resp B/P (MAP) Pulse Ox O2 Delivery O2 Flow Rate FiO2 07/01/19 10:06 07/01/19 08:00 36.8 95 18 97 Room Air General Appearance: No Apparent Distress, WD/WN Respiratory: Lungs Clear, No Respiratory Distress Cardiovascular: Regular Rate, Rhythm, No Murmur Neurologic/Psychiatric: Alert, Oriented x3 Hospital Course patient was admitted afte fall and was found have a pelvic fracture. Dr. Almonte Orthopedic Surgery was consultative edema this was nonoperative. Dr. Moreno who she follows with for her thoracic compression consultative to swell secondary to pain. MRI was obtained and this is deemed to be an old fracture and not amenable to surgical repair. She was seen by PT OT. She was evaluated by inpatient rehabilitation deemed an appropriate candidate. She was transferred to inpatientabilitation in stable condition. Of note she did have asymptomatic bacteriuri. I did discuss this with the nurse practitioner at her urologist's office andultimately decided against treatment but to continue to monitor for symptoms. His follow-up with Dr. Mills as an outpatient. Labs (last 24 hrs) Microbiology 06/28/19 Urine Culture - Final, Complete Lactobacillus species Patient resulted labs reviewed. Discussion & Recommendations Discharge Planning: >30 minutes discharge planning Discharge Home Medications: Active Scripts Active Reported Tylenol Extra Strength (Acetaminophen) 500 Mg Tablet 500 Mg PO Q4H PRN Artificial Tears Drops (Polyvinyl Alcohol/Povidone) 15 Ml Drops 1 Drop OU TID PRN Meclizine HCl 25 Mg Tablet 25 Mg PO Q6H PRN Premarin (Estrogens Conjugated) 30 Gm Cr VG MOWEFR Trimethoprim 100 Mg Tablet 100 Mg PO HS Atorvastatin Calcium 20 Mg Tablet 20 Mg PO HS Instructions to patient/family Please see electronic discharge instructions given to patient. Clinical Quality Measures DVT/VTE Risk/Contraindication: Risk Factor Score Per Nursin RFS Level Per Nursing on Admit: 4+=Very High Problem Qualifiers (1) Pelvic fracture: Encounter type: initial encounter Pelvic bone location: other part of pelvis Fracture type: closed Qualified Codes: S32.89XA - Fracture of other parts of pelvis, initial encounter for closed fracture (2) Hyperlipidemia: Hyperlipidemia type: unspecified Qualified Codes: E78.5 - Hyperlipidemia, unspecified (3) Dementia: Dementia type: unspecified type Dementia behavioral disturbance: without behavioral disturbance Qualified Codes: F03.90 - Unspecified dementia without behavioral disturbance ANASTASIA BROTHERS MD Jul 01, 2019 09:03 POS
[2019-07-01] MEDS: fentaNYL INJECTION 100 MCG/2 ML AMP IV PRN (09:55)
--- NOTE | 2019-07-01 10:07 | NUR ---
Report called to ARU KAMRAN Whittaker. Patient transported to ARU by PT. Called pt's and let him know what room.
== END 2019-07-01 10:08 | DRG 536 ==
LOC: EDUNIT# 13:08 → ER 13:09 → UNDOADMOB 16:00 → 4TH 16:00 → INTOOBSV 06-29 10:00 → OBSVTOIN 06-29 10:00 → UNDODISIN 07-01 10:08
PROVIDERS: ADMIT Family Medicine; ATTEND Family Medicine
DX: S32.82XA Multiple fractures of pelvis without disruption of pelvic ring, initial encounter for closed fracture (principal); S22.060A Wedge compression fracture of T7-T8 vertebra, initial encounter for closed fracture; N39.0 Urinary tract infection, site not specified; B96.20 Unspecified Escherichia coli [E. coli] as the cause of diseases classified elsewhere; E78.5 Hyperlipidemia, unspecified; F03.90 Unspecified dementia, unspecified severity, without behavioral disturbance, psychotic disturbance, mood disturbance, and anxiety; M81.0 Age-related osteoporosis without current pathological fracture; F41.9 Anxiety disorder, unspecified; W06.XXXA Fall from bed, initial encounter; Y92.009 Unspecified place in unspecified non-institutional (private) residence as the place of occurrence of the external cause
CPT/HCPCS: 36415; 51702; 70450; 72125; 72146; 72192; 80053; 81000; 85007; 85027; 87088; G0378

== ENCOUNTER 2019-07-01 09:09 | Inpatient (IN) | payer MEDICARE ==
[~2019-07-01] VITALS: Ht 152.4 cm; Wt 49.1 kg
[~2019-07-01 09:09] MED LIST changes: +ACET-2267 PO
--- NOTE | 2019-07-01 10:00 | NUR ---
Admitted to room 233, with an admitting diagnosis of debility, on 07-01-19 from 4th floor via , accompanied by .LORRIE CHAVEZ introduced to surroundings, call light, bed controls, phone, TV, temperature control, lights, meal times, smoking policy, visitor policy, side rail policy, bathrooms and showers. Patient Rights given to patient in the handbook.LORRIE CHAVEZ verbalizes understanding that [facility] is not responsible for the loss or damage to any personal effects or valuables that are kept in the patients posession during their hospitalization. The following Patient Care Plans were discussed with the : Discharge Planning, ,, and . LORRIE CHAVEZ verbalizes understanding of Interdisciplinary Patient Education. Patient and/or family were informed about the Rapid Response Team and its purpose. Patient received Patient Rights Booklet, which includes Privacy Act Statement and Data Collection Information Summary.
[2019-07-01] MEDS ORDERED: ACETAMINOPHEN 500 MG TAB (TYLENOL) PO PRN (10:15)
[2019-07-01] MEDS ORDERED: diphenhydrAMINE 25 MG TAB (BENADRYL) PO PRN (10:15)
[2019-07-01] MEDS ORDERED: ONDANSETRON 4 MG (ZOFRAN) ORAL DISSOLVE TAB PO PRN (10:15)
[2019-07-01] MEDS ORDERED: POLYETHYLENE GLYCOL 17 GM (MIRALAX) PACK PO PRN (10:15)
[2019-07-01] MEDS ORDERED: CALCIUM CARBONATE 500 MG (TUMS) TAB.CHEW PO PRN (10:15)
[2019-07-01 10:33] VITALS: BP 167/81
[2019-07-01] MEDS: SENNA W/DOCUSATE (SENOKOT S) TABLET PO SCH ×2 (11:00→20:31)
[2019-07-01] MEDS: LACTULOSE SYRUP 10GM/15ML (ENULOSE) 30ML UDC PO SCH ×2 (11:00→20:31)
[2019-07-01] MEDS: DOCUSATE SODIUM 100 MG (COLACE) CAP PO SCH ×2 (11:00→20:31)
--- NOTE | 2019-07-01 11:02 | Physical Therapy Evaluation ---
PT Evaluation-General Medical Diagnosis Admission Date Jul 01, 2019 at 10:00 Medical Diagnosis: pelvic fx Onset Date: Jul 01, 2019 Therapy Diagnosis Therapy Diagnosis: abnormal gait Height/Weight Height (Feet): 5 Height (Inches): 0.00 Weight (Pounds): 112 Weight (Ounces): 4.0 Precautions Precautions/Isolations: Standard Precautions Referral Physician: Giovani Reason for Referral: Evaluation/Treatment Medical History Pertinent Medical History: Arthritis, Dementia Additional Medical History frequent falls, dementia, recurrent UTI, DDD, L4 kyphoplasty, osteoporosis. Current History Pt admitted to ARU post acute stay due to recent fall at home that resulted in a obturator ring fx/pelvic fx. Reviewed History: Yes Social History Home: Single Level Current Living Status: Spouse Entry Into Home: Stairs With Railing PT Steps Into Home: 3 Prior Prior Level of Function SCALE: Activities may be completed with or without assistive devices. 0-Arcwgeiobq-jhsyjro completes the activity by him/herself with no assistance from a helper. 5-Set-up or Clean-up Assistance-helper sets up or cleans up; patient completes activity. [place] assists only prior to or following the activity. 4-Supervision or Touching Assistance-helper provides verbal cues and/or touching/steadying and/or contact guard assistance as patient completes activity. Assistance may be provided throughout the activity or intermittently. 3-Partial/Moderate Assistance-helper does LESS THAN HALF the effort. [place] lif ts, holds or supports trunk or limbs, but provides less than half the effort. 2-Substantial/Maximal Assistance-helper does MORE THAN HALF the effort. [place] lifts or holds trunk or limbs and provides more than half the effort. 9-Ccowtgucy-qjbxnk does ALL the effort. Patient does none of the effort to complete the activity. Or, the assistance of 2 or more helpers is required for the patient to complete the activity. If activity was not attempted, code reason: 7-Patient Refused. 9-Not Applicable-not attempted and the patient did not perform the activity before the current illness, exacerbation or injury. 10-Not Attempted due to Environmental Limitations-(lack of equipment, weather restraints, etc.). 88-Not Attempted due to Medical Conditions or Safety Concerns. Bed Mobility: 6 Transfers (B,C,W/C): 6 Gait: 6 Stairs: 6 (3 steps to enter/exit her home) Indoor Mobility (Ambulation): Independent Stairs: Needed Some Help Prior Devices Use: Walker Pt typically uses a FWW at home. Reprots she was able to go up/down her steps with the handrail or cane and someone present. PT Evaluation-Current Subjective Pt agreeable to PT. Reports she has a slight headache. Pain Numeric Pain Scale: 4 Location Body Site: Head (gneral headache) Pain Description: Ache Objective Patient Orientation: Person, Place, Time, Situation Problem Solving: Fair ROM/Strength ROM Lower Extremities WFL Strength Lower Extremities B LE strength is grossly 4-/5 throughout. Integumentary/Posture Integumentary refer to nursing notes for full assessment Bowel Incontinence: No Bladder Incontinence: Yes Posture rounded shoulders and forward head; lacks full hip extnesion in standing. Neuromuscular (Tone, Coordination, Reflexes) intact and functional Sensory Vision: Wears Glasses Hearing: Impaired Hand Dominance: Right Sensation Right Lower Extremit: Intact Sensation Left Lower Extremity: Intact Transfers Roll Left to Right (QC): 3 Sit to Lying (QC): 3 (min assist with leg) Lying to Sitting/Side of Bed(Q: 3 (min assist with legs) Sit to Stand (QC): 3 (min assist to come to a stand with cues for hand placement) Chair/Fcl-bv-Kcvpi Xfer(QC): 4 (CGA with FWW) Car Transfer (QC): 3 in general, pt requires min jolly twith transfers; she is limited by pain and weakness with movement of her left LE. Gait Does the Patient Walk?: Yes Mode of Locomotion: Walk Anticipated Mode of Locomotion: Walk Distance: 2=707-95 ft Walk 10 feet (QC): 3 (min assist to steady her for balance. ) Walk 50 ft with 2 Turns(QC): 3 Walk 150 ft (QC): 88 Walking 10ft/uneven surface-QC: 3 Distance: 50 ft with 2 turns. Gait Assistive Device: FWW Comments/Gait Description slow gait with difficulty with weight acceptance on the left LE; decreased step through with the right LE. Wheelchair Training Does the Pt Use a Wheelchair?: No Wheel 50 ft with 2 turns (QC): 9 Wheel 150 ft (QC): 9 Stairs 1 Step (curb) (QC): 2 (mod assist to step up on the step.) 4 Steps (QC): 88 12 Steps (QC): 9 Balance Sitting Static: Fair Sitting Dynamic: Fair Standing Static: Fair Standing Dynamic: Fair Picking up an Object (QC): 9 Treatment functional transfer training with work on static and dynamic standing balance with use of FWW with initial standing as well as during gait. Education on ARU and expectations. Assessment/Needs Pt admitted post acute hospital stay post fall at home. She presents with functional weakness and impaired balance; also with complaints of pain left LE all of which contribute to impaired functional mobility and transfers. She requires assist with all mobility and is unable to care for herself at home as before. She will benefit from skilled PT to address her deficits to allow her to return to a mod indep level and return home with her spouse. Rehab Potential: Good PT Program Clinician Goals [facility] Goals PT Program Clinician Goals Time Frame: Jul 22, 2019 Sit to Lying (QC): 6 Lying-Sitting on Side/Bed(QC): 6 Sit to Stand (QC): 6 Roll Left to Right (QC): 6 Chair/Jxt-lj-Ljbmf Xfer(QC): 6 Car Transfer (QC): 5 Walk 10 feet (QC): 6 Walk 10ft-Uneven Surface(QC): 6 Walk 50ft with 2 Turns (QC): 6 Walk 150 ft (QC): 6 Gait Assistive Device: FWW Wheel 50 feet with 2 turns (QC: 9 1 Step (curb) (QC): 4 4 Steps (QC): 4 12 Steps (QC): 9 Picking up an Object (QC): 9 PT Plan Problem List Problem List: Activity Tolerance, Functional Strength, Safety, Balance, Gait, Transfer, Bed Mobility Treatment/Plan Treatment Plan: Continue Plan of Care Treatment Plan: Bed Mobility, Education, Functional Activity Ayleen, Functional Strength, Group Therapy, Gait, Safety, Therapeutic Exercise, Transfers Treatment Duration: Jul 22, 2019 Frequency: At least 5 of 7 days/Wk (IRF) Estimated Hrs Per Day: 1.5 hours per day Patient and/or Family Agrees t: Yes Safety Risks/Education Patient Education: Transfer Techniques, Safety Issues Teaching Recipient: Patient Teaching Methods: Demonstration, Discussion Response to Teaching: Reinforcement Needed Discharge Recommendations Therapy Discharge Recommendati: Post Acute PT Time/GCodes Time In: 1000 Time Out: 1100 Total Billed Treatment Time: 60 Total Billed Treatment visit EVM 15 GT 15 NM 30 VENITA FISCHER PT Jul 01, 2019 11:02 POS
--- NOTE | 2019-07-01 11:20 | NUR ---
REVIEWED MED REC IT WAS REPORTED UPON ADMISSION TO 4TH FLOOR. NO CHANGES WERE MADE WHEN THE PATIENT DISCHARGED TO REHAB.
[2019-07-01] MEDS ORDERED: ARTIFICAL TEARS 0.4 ML UNIT DOSE (REFRESH PLUS) OU PRN (12:15)
[2019-07-01] MEDS ORDERED: ONDANSETRON 4 MG/2 ML (SDV) Z0FRAN IV PRN (12:15)
[2019-07-01] MEDS ORDERED: MECLIZINE 25 MG (ANTIVERT) TAB PO PRN (12:15)
[2019-07-01] MEDS ORDERED: PATIENT MAY USE OWN MEDS, ALL MC SCH (12:15)
[2019-07-01] MEDS ORDERED: fentaNYL INJECTION 100 MCG/2 ML AMP IV PRN (12:15)
--- NOTE | 2019-07-01 14:32 | Occupational Therapy Eval ---
OT Evaluation-General/PLF Medical Diagnosis Admission Date Jul 01, 2019 at 10:00 Medical Diagnosis: pelvic fx Onset Date: Jul 01, 2019 Therapy Diagnosis Therapy Diagnosis: Weakness Height/Weight Height (Feet): 5 Height (Inches): 0.00 Weight (Pounds): 112 Weight (Ounces): 4.0 Precautions Precautions/Isolations: Fall Prevention, Standard Precautions, Pressure Ulcer Weight Bear Status Weight Bearing Restriction: Weight Bearing/Tolerated Referral Physician: Giovani Referral Reason: Activity Tolerance, Self Care, Evaluation/Treatment, Strengthening/ROM Medical History Pertinent Medical History: Arthritis, Dementia Additional Medical History Hysterectomy, kyphoplasty, DDD, gall bladder surgery Current History Pt. fell at home. Sustained a pelvic fx. Reviewed History: Yes Social History Home: Single Level Current Living Status: Spouse Entry Into Home: Stairs With Railing Steps Into Home: 3 ADL-Prior Level of Function SCALE: Activities may be completed with or without assistive devices. 7-Hsvpnzwyep-jmvfpwb completes the activity by him/herself with no assistance from a helper. 5-Set-up or Clean-up Assistance-helper sets up or cleans up; patient completes activity. [place] assists only prior to or following the activity. 4-Supervision or Touching Assistance-helper provides verbal cues and/or touching/steadying and/or contact guard assistance as patient completes activity. Assistance may be provided throughout the activity or intermittently. 3-Partial/Moderate Assistance-helper does LESS THAN HALF the effort. [place] lifts, holds or supports trunk or limbs, but provides less than half the effort. 2-Substantial/Maximal Assistance-helper does MORE THAN HALF the effort. [place] lifts or holds trunk or limbs and provides more than half the effort. 2-Squpplfep-xycqgf does ALL the effort. Patient does none of the effort to compl ete the activity. Or, the assistance of 2 or more helpers is required for the patient to complete the activity. If activity was not attempted, code reason: 7-Patient Refused. 9-Not Applicable-not attempted and the patient did not perform the activity before the current illness, exacerbation or injury. 10-Not Attempted due to Environmental Limitations-(lack of equipment, weather restraints, etc.). 88-Not Attempted due to Medical Conditions or Safety Concerns. ADL PLOF Comments Pt. states that she was independent with daily tasks previous to this injury. Self Care: Independent Functional Cognition: Independent DME/Equipment: Bath Bench, Grab Bars, Shower Hose Slice Plug Cutter Operator, Tub/Shower DME/Equipment Comments Pt. uses a walker and cane. OT Current Status Subjective Pt. reports pain in back. 01/01. Nursing to bring pain meds. Appearance Pt. up in chair. Agrees to work with OT. Mental Status/Objective Patient Orientation: Person, Place, Time, Situation Current Hand Dominance: Right Upper Extremity ROM WFL ADL-Treatment Eating (QC): 5 (Set up) Oral Hygiene (QC): 5 (Set up) Shower/Bathe Self (QC): 4 (CGA in stance to wash dmitri area. Pt. able to bring feet up to her while seated to wash bilateral LE.) Upper Body Dressing (QC): 4 (SBA) Lower Body Dressing (QC): 4 (CGA to don brief over hips. Able to don over feet seated with no difficulty. SBA to don slipper socks seated.) On/Off Footwear (QC): 4 Toileting Hygiene (QC): 4 (CGA) Toilet Transfer (QC): 4 Education OT Patient Education: Correct positioning, Modified ADL techniques, Progress toward Goal/Update tx plan, Purpose of tx/functional activities, Reviewed precautions, Rehab process, Transfer techniques, Use of adapted equipment Teaching Recipient: Patient Teaching Methods: Demonstration, Discussion Response to Teaching: Verbalize Understanding, Return Demonstration OT Short Term Goals Short Term Goals 1=Demonstrate adherence to instructed precautions during ADL tasks. 2=Patient will verbalize/demonstrate understanding of assistive devices/modifications for ADL. 3=Patient will improve strength/tolerance for activity to enable patient to perform ADL's. OT Qa Test Lead Goals Qa Test Lead Goals Time Frame: Jul 15, 2019 Eating (QC): 6 Oral Hygiene (QC): 6 Shower/Bathe Self (QC): 5 Upper Body Dressing (QC): 5 Lower Body Dressing (QC): 5 On/Off Footwear (QC): 5 Toileting Hygiene (QC): 6 Toilet/Commode Transfer (QC): 6 Additional Goals: 1-Demonstrate ADL Tasks, 2-Verbalize Understanding, 3- ImproveStrength/Ayleen 1=Demonstrate adherence to instructed precautions during ADL tasks. 2=Patient will verbalize/demonstrate understanding of assistive devices/modif ications for ADL. 3=Patient will improve strength/tolerance for activity to enable patient to perform ADL's. OT Education/Plan Problem List/Assessment Assessment: Decreased Activ Tolerance, Dependent Transfers, Impaired Funct Balance, Impaired I ADL's, Impaired Self-Care Skills Discharge Recommendations Plan/Recommendations: Continue POC Therapy Discharge Recommendati: Post Acute OT Treatment Plan/Plan of Care Treatment,Training & Education: Yes Patient would benefit from OT for education, treatment and training to promote independence in ADL's, mobility, safety and/or upper extremity function for ADL's. Plan of Care: ADL Retraining, Functional Mobility, UE Funct Exercise/Act Treatment Duration: Jul 15, 2019 Frequency: At least 5 of 7 days/Wk (IRF) Estimated Hrs Per Day: 1.5 hours per day Agreement: Yes Rehab Potential: Good Time/GCodes Start Time: 11:00 Stop Time: 12:00 Total Time Billed (hr/min): 60 Billed Treatment Time 1, EVM x 15minutes, ADL x 45minutes JOSE RAMON CÁRDENAS OT Jul 01, 2019 14:32 POS
[2019-07-01] MEDS: CATHETER FLUSH 10 ML SYR IV SCH ×2 (14:37→20:32)
--- NOTE | 2019-07-01 15:07 | Physical Therapy Daily Note ---
PT Daily Note-Current Subjective Agrees to PT. Reports she is tired this afternoon. Pt had pain meds prior to treatment. Transfers SCALE: Activities may be completed with or without assistive devices. 3-Ljpcstwcgc-mopsjqk completes the activity by him/herself with no assistance from a helper. 5-Set-up or Clean-up Assistance-helper sets up or cleans up; patient completes activity. [place] assists only prior to or following the activity. 4-Supervision or Touching Assistance-helper provides verbal cues and/or touching/steadying and/or contact guard assistance as patient completes activity. Assistance may be provided throughout the activity or intermittently. 3-Partial/Moderate Assistance-helper does LESS THAN HALF the effort. [place] lifts, holds or supports trunk or limbs, but provides less than half the effort. 2-Substantial/Maximal Assistance-helper does MORE THAN HALF the effort. [place] lifts or holds trunk or limbs and provides more than half the effort. 8-Hwqdsnzyy-ygaaql does ALL the effort. Patient does none of the effort to complete the activity. Or, the assistance of 2 or more helpers is required for the patient to complete the activity. If activity was not attempted, code reason: 7-Patient Refused. 9-Not Applicable-not attempted and the patient did not perform the activity before the current illness, exacerbation or injury. 10-Not Attempted due to Environmental Limitations-(lack of equipment, weather restraints, etc.). 88-Not Attempted due to Medical Conditions or Safety Concerns. Treatments Co treat with OT due to the need for the skill of 2 clinicians for the complexity of tasks completed. Worked on functional mobility as well as functional dynamic baalcne. OT addressed placement and use of UE as PT addressed gross transfer and static/dynamic balance in standing. Pt required mod assist to get in/out of bed with assist with legs to get in/out of bed. Sit to stand with mod assist. Pt walked forward x 8 ft x 2 reps., standing static and dynamic balance activity with ball kicking as well as weight shifting to facilitate UE reaching forward and crossover. Assessment Current Status: Good Progress Pt able to correct balance with min assist at gait belt. Pt with difficulty with WB through the left LE due to pain. Pt in bed post treatment with needs met. PT Usp Goals Usp Goals PT Usp Goals Time Frame: Jul 22, 2019 Sit to Lying (QC): 6 Lying-Sitting on Side/Bed(QC): 6 Sit to Stand (QC): 6 Roll Left to Right (QC): 6 Chair/Etj-cc-Mjdiv Xfer(QC): 6 Car Transfer (QC): 5 Walk 10 feet (QC): 6 Walk 10ft-Uneven Surface(QC): 6 Walk 50ft with 2 Turns (QC): 6 Walk 150 ft (QC): 6 Gait Assistive Device: FWW Wheel 50 feet with 2 turns (QC: 9 1 Step (curb) (QC): 4 4 Steps (QC): 4 12 Steps (QC): 9 Picking up an Object (QC): 9 PT Plan Problem List Problem List: Activity Tolerance, Functional Strength, Safety, Balance, Gait, Transfer, Bed Mobility Treatment/Plan Treatment Plan: Continue Plan of Care Treatment Plan: Bed Mobility, Education, Functional Activity Ayleen, Functional Strength, Group Therapy, Gait, Safety, Therapeutic Exercise, Transfers Treatment Duration: Jul 22, 2019 Frequency: At least 5 of 7 days/Wk (IRF) Estimated Hrs Per Day: 1.5 hours per day Patient and/or Family Agrees t: Yes Safety Risks/Education Patient Education: Safety Issues Teaching Recipient: Patient Teaching Methods: Discussion Response to Teaching: Reinforcement Needed Time/GCodes Time In: 1430 Time Out: 1500 Total Billed Treatment Time: 30 Total Billed Treatment visit FA 15 NM 15 (co treat with OT) VENITA FISCHER PT Jul 01, 2019 15:07 POS
--- NOTE | 2019-07-01 15:17 | Occupational Ther Daily Note ---
OT Current Status-Daily Note Subjective Pt. reports pain but does not report pain level. Pt. receives pain medication from nursing. Appearance Pt. in bed. Agrees to treatment. Mental Status/Objective Patient Orientation: Person, Place, Time, Situation ADL-Treatment Therapy Code Descriptions/Definitions Functional [place] Measure: 0=Not Assessed/NA 4=Minimal Assistance 1=Total Assistance 5=Supervision or Setup 2=Maximal Assistance 6=Modified [place] 3=Moderate Assistance 7=Complete IndependenceSCALE: Activities may be completed with or without assistive devices. 4-Eogehlvwfz-hotvvyz completes the activity by him/herself with no assistance from a helper. 5-Set-up or Clean-up Assistance-helper sets up or cleans up; patient completes activity. [place] assists only prior to or following the activity. 4-Supervision or Touching Assistance-helper provides verbal cues and/or touching/steadying and/or contact guard assistance as patient completes activity. Assistance may be provided throughout the activity or intermittently. 3-Partial/Moderate Assistance-helper does LESS THAN HALF the effort. [place] lifts, holds or supports trunk or limbs, but provides less than half the effort. 2-Substantial/Maximal Assistance-helper does MORE THAN HALF the effort. [place] lifts or holds trunk or limbs and provides more than half the effort. 7-Ysugxujez-ovgyqz does ALL the effort. Patient does none of the effort to complete the activity. Or, the assistance of 2 or more helpers is required for the patient to complete the activity. If activity was not attempted, code reason: 7-Patient Refused. 9-Not Applicable-not attempted and the patient did not perform the activity before the current illness, exacerbation or injury. 10-Not Attempted due to Environmental Limitations-(lack of equipment, weather restraints, etc.). 88-Not Attempted due to Medical Conditions or Safety Concerns. Pt. participates in co-treatment with PT/OT due to reported pain and fatigue. PT focuses on transfer training while OT focuses on UE ROM with emphasis on weight shifting while standing. Pt. transferred supine-sit with min assist. Mod assist sit-stand. Pt. ambulates with min assist with walker. Please see PT note for distance. Required multiple breaks. Pt. taken to therapy gym via wheelchair. Stood at walker with min assist and worked on weight shifts with kicking, and reaching to touch ball. Pt. reports fatigue. Worked on standing balance and overall endurance. Pt. transferred back to wheelchair. Taken back to room and transferred with CGA to bed. Min assist sit-supine. All needs met. Education OT Patient Education: Correct positioning, Modified ADL techniques, Progress toward Goal/Update tx plan, Purpose of tx/functional activities, Reviewed precautions, Rehab process, Transfer techniques Teaching Recipient: Patient Teaching Methods: Demonstration, Discussion Response to Teaching: Verbalize Understanding, Return Demonstration OT Short Term Goals Short Term Goals 1=Demonstrate adherence to instructed precautions during ADL tasks. 2=Patient will verbalize/demonstrate understanding of assistive devices/modifications for ADL. 3=Patient will improve strength/tolerance for activity to enable patient to perform ADL's. OT Fdc Goals Fdc Goals Time Frame: Jul 15, 2019 Eating (QC): 6 Oral Hygiene (QC): 6 Shower/Bathe Self (QC): 5 Upper Body Dressing (QC): 5 Lower Body Dressing (QC): 5 On/Off Footwear (QC): 5 Toileting Hygiene (QC): 6 Toilet/Commode Transfer (QC): 6 Additional Goals: 1-Demonstrate ADL Tasks, 2-Verbalize Understanding, 3- ImproveStrength/Ayleen 1=Demonstrate adherence to instructed precautions during ADL tasks. 2=Patient will verbalize/demonstrate understanding of assistive devices/modifications for ADL. 3=Patient will improve strength/tolerance for activity to enable patient to perform ADL's. OT Education/Plan Problem List/Assessment Assessment: Decreased Activ Tolerance, Dependent Transfers, Impaired Bed Mobility, Impaired Funct Balance, Impaired I ADL's, Impaired Self-Care Skills Discharge Recommendations Plan/Recommendations: Continue POC Therapy Discharge Recommendati: Post Acute OT Treatment Plan/Plan of Care Treatment,Training & Education: Yes Patient would benefit from OT for education, treatment and training to promote independence in ADL's, mobility, safety and/or upper extremity function for ADL's. Plan of Care: ADL Retraining, Functional Mobility, UE Funct Exercise/Act Treatment Duration: Jul 15, 2019 Frequency: At least 5 of 7 days/Wk (IRF) Estimated Hrs Per Day: 1.5 hours per day Agreement: Yes Rehab Potential: Good Time/GCodes Start Time: 14:30 Stop Time: 15:00 Total Time Billed (hr/min): 30 Billed Treatment Time 1, FA x 2 JOSE RAMON CÁRDENAS OT Jul 01, 2019 15:17 POS
[2019-07-01 16:33] VITALS: BP 153/79
--- NOTE | 2019-07-01 17:33 | PM&R Post Admission Assessment ---
PM&R HP Date of Visit: Jul 01, 2019 Time of Visit: 11:00 History of Present Illness Chief complaint: Pelvic fracture HPI: This is an 88yoWF known to me from inpatient rehab from February of 2019 after she suffered a compression fracture and required a kyphoplasty who was eventually able to go home with her who once again suffered a fall and sustained a pelvic fracture of non-surgical injury so she is in need for rehabilitation and pain control and close monitoring in order to return home with her . Her bowels have not moved so will initiate regimen for that, and is overall without complaints and she has a long way to go in order to ambulate and regain enough ADLs to be discharged from the hospital. Past Qqwsxla-Vopyvj-Jfiuou Hx Past Med/Social Hx: Reviewed Nursing Past Med/Soc Hx, Reviewed and Corrections made Patient Social History Marrital Status: Employed/Student: retired Alcohol Use: Denies Use Recreational Drug Use: No Smoking Status: Never a Smoker 2nd Hand Smoke Exposure: No Physical Abuse Screen: No Sexual Abuse: No Recent Foreign Travel: No Contact w/other who traveled: No Recent Hopitalizations: Yes (KYPHOPLASTY) Recent Infectious Disease Expo: No Immunizations Up To Date Tetanus Booster (TDap): Less than 5yrs Pediatric: No Date of Pneumonia Vaccine: May 25, 2015 Seasonal Allergies Seasonal Allergies: No Past Medical History Surgeries: Gallbladder, Hysterectomy, Orthopedic Currently Using CPAP: No Currently Using BIPAP: No Cardiac: High Cholesterol Neurological: Dementia : No Menopausal Genitourinary: Bladder Infection, UTI-Chronic Musculoskeletal: Degenerate Disk Disease, Osteoporosis, Arthritis, Chronic Back Pain, Fractures Family History Arthritis 19 FATHER Kidney disease 19 MOTHER Prior Level of Function Bed Mobility: 6 Transfers: 6 Gait: 6 Stairs: 6 (3 steps to enter/exit her home) Indoor Mobility (Ambulation): Independent Stairs: Needed Some Help Prior Devices Use: Walker Self Care: Independent Functional Cognition: Independent Occupation: retired Current Level of Fuctioning Roll Left to Right: 3 Sit to Lyin (min assist with leg) Lying to Sitting/Side of Bed: 3 (min assist with legs) Sit to Stand: 3 (min assist to come to a stand with cues for hand placement) Chair/Jdo-ex-Svgoz Xfer: 4 (CGA with FWW) Car Transfer: 3 Does the Patient Walk: Yes Mode of Locomotion: Walk Anticipated Mode of Locomotion: Walk Distance: 0=618-73 ft Walk 10 feet: 3 (min assist to steady her for balance. ) Walk 50 ft with 2 Turns: 3 Walk 150 ft: 88 Walking 10ft on uneven surface: 3 Gait Assistive Device: FWW Does the Pt Use a Wheelchair: No Wheel 50 ft with 2 turns: 9 Wheel 150 ft: 9 1 Step (curb): 2 (mod assist to step up on the step.) 4 Steps: 88 12 Steps: 9 Picking up an Object: 9 Eatin (Set up) Oral Hygiene: 5 (Set up) Shower/Bathe Self: 4 (CGA in stance to wash dmitri area. Pt. able to bring feet up to her while seated to wash bilateral LE.) Upper Body Dressin (SBA) Lower Body Dressin (CGA to don brief over hips. Able to don over feet seated with no difficulty. SBA to don slipper socks seated.) On/Off Footwear: 4 Toileting Hygiene: 4 (CGA) Toilet Transfer: 4 PM&R Allergy/Meds/Data Review Allergies Coded Allergies: cephalexin (Verified Allergy, Mild, 03/10/19) nitrofurantoin (Verified Allergy, Mild, 03/10/19) codeine (Verified Allergy, Unknown, pt takes Tramadol at home, 03/10/19) sulfamethoxazole (Verified Allergy, Unknown, 03/10/19) Home Medications Scheduled Atorvastatin Calcium (Atorvastatin Calcium), 20 MG PO HS, (Reported) Estrogens Conjugated (Premarin), VG MoWeFr, (Reported) Trimethoprim (Trimethoprim), 100 MG PO HS, (Reported) Scheduled PRN Acetaminophen (Tylenol Extra Strength), 500 MG PO Q4H PRN for PAIN-MILD, (Reported) Meclizine HCl (Meclizine HCl), 25 MG PO Q6H PRN for DIZZINESS, (Reported) Polyvinyl Alcohol/Povidone (Artificial Tears Drops), 1 DROP OU TID PRN for DRY EYES, (Reported) Discontinued Medications Acetaminophen (Acetaminophen), 500 MG PO Q4H PRN for PAIN-MILD Discontinued Reason: Duplicate Order Hydrocodone/Acetaminophen ([place] 5-325 Tablet), 1 TAB PO Q4-6HR Discontinued Reason: No Longer Taking Potassium Chloride (Potassium Chloride), 10 MEQ PO DAILY Discontinued Reason: No Longer Taking Current Medications Current Medications Reviewed Review of Systems Constitutional: see HPI, malaise, weakness EENTM: no symptoms reported Respiratory: no symptoms reported Cardiovascular: no symptoms reported Gastrointestinal: constipation Genitourinary: no symptoms reported Musculoskeletal: see HPI, back pain, joint pain Skin: no symptoms reported Psychiatric/Neurological: No Symptoms Reported All Other Systems Reviewed Negative Unless Noted: Yes Physical Exam Physical Exam Vital Signs Vital Signs - First Documented 07/01/19 10:33 Temp 37.3 Pulse 74 Resp 20 B/P (MAP) 167/81 Pulse Ox 97 O2 Delivery Room Air Capillary Refill : Less Than 3 Seconds Height, Weight, BMI Height: 5'0.00" Weight: 112lbs. 4.0oz. 50.998670ih; 20.83 BMI Method:Stated General Appearance: No Apparent Distress, WD/WN, Anxious, Chronically ill Eyes: Bilateral Eye Normal Inspection, Bilateral Eye PERRL HEENT: PERRL/EOMI, Normal ENT Inspection, Pharynx Normal Neck: Full Range of Motion, Normal Inspection, Non Tender, Supple, Carotid Bruit Respiratory: Chest Non Tender, Lungs Clear, Normal Breath Sounds, No Accessory Muscle Use, No Respiratory Distress Cardiovascular: Regular Rate, Rhythm, No Edema, No Gallop, No JVD, No Murmur, Normal Peripheral Pulses Gastrointestinal: Normal Bowel Sounds, No Organomegaly, No Pulsatile Mass, Non Tender, Soft Back: Normal Inspection, No CVA Tenderness, Decreased Range of Motion, Vertebral Tenderness Extremity: Normal Capillary Refill, Normal Inspection, Non Tender, No Calf Tenderness, No Pedal Edema, Other (limited ROM due to pelvis pain and leg and back pain) Neurologic/Psychiatric: Alert, Oriented x3, No Motor/Sensory Deficits, Normal Mood/Affect Skin: Normal Color, Warm/Dry Lymphatic: No Adenopathy PM&R Medical Assessment & Plan REHAB/MEDICAL ASSESSMENT AND PLAN: REHAB IMPAIRMENT GROUP: Debility with pelvic fracture ETIOLOGIC DIAGNOSIS: Pelvic fracture The comorbidities that impact the patients function and/or functional outcome by: Dementia, OP, HTN REHAB PLAN: The patient is being admitted to our comprehensive inpatient rehabilitation facility and can tolerate the intensity of service consisting of at least: 180 minutes of therapy a day, 5 out of 7 days a week Rehab treatment will consist of: PT and OT will increase patient's independence with ambulation and ADL's and fall risk prevention The patient/family has a good understanding of our discharge process and will benefit from an interdisciplinary inpatient rehabilitation program. The patient has potential to make improvement and is in need of at least two of the following multidisciplinary therapies including but not limited to physical, occupational, speech, and prosthetics and orthotics. Additionally the patient will need services from respiratory, nutritional services, wound care, psychology, etc. (Customize this to each patient). Given the patients complex condition and risk of further medical complications, rehabilitation services cannot be safely or effectively provided at a lower level of care such as a [facility] facility. BARRIERS TO DISCHARGE: Advanced age and age of ESTIMATED LOS: 7 days DISPOSITION: Home RELEVANT CHANGES SINCE PREADMISSION SCREENING: I have compared the patients medical and functional status at the time of the preadmission screening and there are: no changes PROGNOSIS: Good REHABILITATION GOALS: 1. Ability to ambulate without severe pain and use safety precautions to decrease risk for falls at home All the above goals were reviewed with the patient and he/she is in agreement. By signing this document, I acknowledge that I have personally performed a full physical examination on this patient within 24 hours of admission to this inpatient rehabilitation facility and have determined the patient to be able to tolerate the above course of treatment at an intensive level for a reasonable p eriod of time. I will be completing a detailed individualized Plan of Care for this patient by day #4 of the patients stay based upon the Preadmission Screen, the Post-Admission Evaluation, and the therapy evaluations. Admission Dx/Comorbidities: (1) Pelvic fracture Status: Acute ICD Codes: S32.9XXA - Fracture of unspecified parts of lumbosacral spine and pelvis, initial encounter for closed fracture (2) Recurrent UTI Status: Chronic ICD Codes: N39.0 - Urinary tract infection, site not specified (3) Hyperlipidemia Status: Chronic ICD Codes: E78.5 - Hyperlipidemia, unspecified (4) Dementia ICD Codes: F03.90 - Unspecified dementia without behavioral disturbance (5) Delirium ICD Codes: R41.0 - Disorientation, unspecified (6) Osteoporosis ICD Codes: M81.0 - Age-related osteoporosis without current pathological fracture (7) Constipation ICD Codes: K59.00 - Constipation, unspecified (8) S/P kyphoplasty Status: Chronic ICD Codes: Z98.890 - Other specified postprocedural states ROSSI WASHINGTON DO Jul 01, 2019 17:33 POS
[2019-07-01] MEDS: ENOXAPARIN 40 MG/0.4 ML (LOVENOX) SYR SQ SCH (18:29)
[2019-07-01] MEDS: ACETAMINOPHEN 500 MG TAB (TYLENOL) PO PRN (20:31)
[2019-07-01] MEDS: TRIMETHOPRIM 100 MG TAB (PROLOPRIM) NON-FORMULARY PO SCH (20:32)
[2019-07-02 05:15] LABS: BASOPHILS # (AUTO) 0.1 10^3/uL (0.0-0.1); BASOPHILS % (AUTO) 1 % (0-10); EOSINOPHILS # (AUTO) 0.1 10^3/uL (0.0-0.3); EOSINOPHILS % (AUTO) 1 % (0-10); HEMATOCRIT 32 % (35-52); HEMOGLOBIN 10.2 G/DL (11.5-16.0); LYMPHOCYTES # (AUTO) 1.7 X 10^3 (1.0-4.0); LYMPHOCYTES % (AUTO) 19 % (12-44); MEAN CORPUSCULAR HEMOGLOBIN 30 PG (25-34); MEAN CORPUSCULAR HGB CONC 32 G/DL (32-36); MEAN CORPUSCULAR VOLUME 94 FL (80-99); MEAN PLATELET VOLUME 9.3 FL (7.4-10.4); MONOCYTES # (AUTO) 1.1 X 10^3 (0.0-1.0); MONOCYTES % (AUTO) 12 % (0-12); NEUTROPHILS # (AUTO) 6.4 X 10^3 (1.8-7.8); NEUTROPHILS % (AUTO) 68 % (42-75); PLATELET COUNT 223 10^3/uL (130-400); RED CELL DISTRIBUTION WIDTH 12.7 % (10.0-14.5); WHITE BLOOD COUNT 9.3 10^3/uL (4.3-11.0)
[2019-07-02 05:35] LABS: ALANINE AMINOTRANSFERASE 21 U/L (0-55); ALBUMIN 3.5 GM/DL (3.2-4.5); ALKALINE PHOSPHATASE 86 U/L (40-136); BUN/CREATININE RATIO 23; CALCIUM 9.1 MG/DL (8.5-10.1); CARBON DIOXIDE 27 MMOL/L (21-32); CHLORIDE 96 MMOL/L (98-107); CREATININE SERUM 0.79 MG/DL (0.60-1.30); GFR ESTIMATED > 60; GLUCOSE 116 MG/DL (70-105); POTASSIUM 4.1 MMOL/L (3.6-5.0); SODIUM 133 MMOL/L (135-145); TOTAL PROTEIN 6.2 GM/DL (6.4-8.2)
[2019-07-02] MEDS: CATHETER FLUSH 10 ML SYR IV SCH ×3 (06:05→21:04)
[2019-07-02 06:30] VITALS: BP 146/84
[2019-07-02] MEDS: SENNA W/DOCUSATE (SENOKOT S) TABLET PO SCH ×2 (07:57→21:03)
[2019-07-02] MEDS: DOCUSATE SODIUM 100 MG (COLACE) CAP PO SCH ×2 (07:57→21:03)
[2019-07-02] MEDS: ACETAMINOPHEN 500 MG TAB (TYLENOL) PO PRN ×2 (08:02→16:10)
--- NOTE | 2019-07-02 09:06 | PM&R Progress Note ---
Subjective HPI/CC On Admission Date Seen by Provider: Jul 02, 2019 Time Seen by Provider: 08:30 Subjective/Events-last exam Had a small BM yesterday Labs are okay Will DC the heplock Will give very low does of Hydrocodone for pain Tylenol has been successful for the pelvic fracture pain. Conferred with RN Reviewed therapy notes Checked meds and labs Review of Systems Musculoskeletal: back pain, leg pain Objective Exam Vital Signs Vital Signs Date Time Temp Pulse Resp B/P (MAP) Pulse Ox O2 Delivery O2 Flow Rate FiO2 07/02/19 08:25 96 Room Air 07/02/19 06:30 36.6 77 16 146/84 (104) Capillary Refill : Less Than 3 Seconds General Appearance: No Apparent Distress, WD/WN, Anxious, Chronically ill HEENT: PERRL/EOMI, Normal ENT Inspection, Pharynx Normal Neck: Full Range of Motion, Normal Inspection, Non Tender, Supple, Carotid Bruit Respiratory: Chest Non Tender, Lungs Clear, Normal Breath Sounds, No Accessory Muscle Use, No Respiratory Distress Cardiovascular: Regular Rate, Rhythm, No Edema, No Gallop, No JVD, No Murmur, Normal Peripheral Pulses Gastrointestinal: Normal Bowel Sounds, No Organomegaly, No Pulsatile Mass, Non Tender, Soft Back: Normal Inspection, No CVA Tenderness, Decreased Range of Motion, Vertebral Tenderness Extremity: Normal Capillary Refill, Normal Inspection, Non Tender, No Calf Tenderness, No Pedal Edema, Other (limited ROM due to pelvis pain and leg and back pain) Neurologic/Psychiatric: Alert, Oriented x3, No Motor/Sensory Deficits, Normal Mood/Affect Skin: Normal Color, Warm/Dry Lymphatic: No Adenopathy Results/Procedures Lab Laboratory Tests 07/02/19 05:05 Patient resulted labs reviewed. FIM Transfers Therapy Code Descriptions/Definitions Functional [place] Measure: 0=Not Assessed/NA 4=Minimal Assistance 1=Total Assistance 5=Supervision or Setup 2=Maximal Assistance 6=Modified [place] 3=Moderate Assistance 7=Complete IndependenceSCALE: Activities may be completed with or without assistive devices. 4-Nljyecdbku-tapwjyf completes the activity by him/herself with no assistance from a helper. 5-Set-up or Clean-up Assistance-helper sets up or cleans up; patient completes activity. [place] assists only prior to or following the activity. 4-Supervision or Touching Assistance-helper provides verbal cues and/or touching/steadying and/or contact guard assistance as patient completes activity. Assistance may be provided throughout the activity or intermittently. 3-Partial/Moderate Assistance-helper does LESS THAN HALF the effort. [place] lifts, holds or supports trunk or limbs, but provides less than half the effort. 2-Substantial/Maximal Assistance-helper does MORE THAN HALF the effort. [place] lifts or holds trunk or limbs and provides more than half the effort. 0-Asphfgnef-wndktf does ALL the effort. Patient does none of the effort to complete the activity. Or, the assistance of 2 or more helpers is required for the patient to complete the activity. If activity was not attempted, code reason: 7-Patient Refused. 9-Not Applicable-not attempted and the patient did not perform the activity before the current illness, exacerbation or injury. 10-Not Attempted due to Environmental Limitations-(lack of equipment, weather restraints, etc.). 88-Not Attempted due to Medical Conditions or Safety Concerns. Roll Left to Right (QC): 3 Sit to Lying (QC): 3 (min assist with leg) Sit to Stand (QC): 3 (min assist to come to a stand with cues for hand lisa cement) Chair/Pmz-ct-Ebpat Xfer(QC): 4 (CGA with FWW) Car Transfer (QC): 3 Gait Training Does the Patient Walk?: Yes Distance (FIM): 7=005-38 ft Walk 10 feet (QC): 3 (min assist to steady her for balance. ) Walk 50 ft with 2 Turns(QC): 3 Walk 150 ft (QC): 88 Walking 10ft/uneven surface-QC: 3 Gait Assistive Device: FWW Wheelchair Training Does the Pt Use a Wheelchair?: No Wheel 50 ft with 2 turns (QC): 9 Wheel 150 ft (QC): 9 Stair Training 1 Step (curb) (QC): 2 (mod assist to step up on the step.) 4 Steps (QC): 88 12 Steps (QC): 9 Balance Picking up an Object (QC): 9 ADL-Treatment Eating (QC): 5 (Set up) Oral Hygiene (QC): 5 (Set up) Shower/Bathe Self (QC): 4 (CGA in stance to wash dmitri area. Pt. able to bring feet up to her while seated to wash bilateral LE.) Upper Body Dressing (QC): 4 (SBA) Lower Body Dressing (QC): 4 (CGA to don brief over hips. Able to don over feet seated with no difficulty. SBA to don slipper socks seated.) On/Off Footwear (QC): 4 Toileting Hygiene (QC): 4 (CGA) Toilet Transfer (QC): 4 Assessment/Plan Assessment and Plan Assess & Plan/Chief Complaint Assessment: Pelvic fracture Constipation OP Plan: Monitor closely IRF protocol Home at OR (1) Pelvic fracture Status: Acute (2) Recurrent UTI Status: Chronic (3) Hyperlipidemia Status: Chronic (4) Dementia (5) Delirium (6) Osteoporosis (7) Constipation (8) S/P kyphoplasty Status: Chronic ROSSI WASHINGTON DO Jul 02, 2019 09:06 POS
--- NOTE | 2019-07-02 09:15 | Physical Therapy Daily Note ---
PT Daily Note-Current Subjective Agrees to PT. Reports she feels she is doing a little better today. Reports she feels her bowels are starting to move as well. Mental Status Patient Orientation: Person, Place, Time, Situation Transfers SCALE: Activities may be completed with or without assistive devices. 8-Wisyiynham-hbantxi completes the activity by him/herself with no assistance from a helper. 5-Set-up or Clean-up Assistance-helper sets up or cleans up; patient completes activity. [place] assists only prior to or following the activity. 4-Supervision or Touching Assistance-helper provides verbal cues and/or touching/steadying and/or contact guard assistance as patient completes activity. Assistance may be provided throughout the activity or intermittently. 3-Partial/Moderate Assistance-helper does LESS THAN HALF the effort. [place] lifts, holds or supports trunk or limbs, but provides less than half the effort. 2-Substantial/Maximal Assistance-helper does MORE THAN HALF the effort. [place] lifts or holds trunk or limbs and provides more than half the effort. 2-Jughvmndq-pmxbmf does ALL the effort. Patient does none of the effort to complete the activity. Or, the assistance of 2 or more helpers is required for the patient to complete the activity. If activity was not attempted, code reason: 7-Patient Refused. 9-Not Applicable-not attempted and the patient did not perform the activity before the current illness, exacerbation or injury. 10-Not Attempted due to Environmental Limitations-(lack of equipment, weather restraints, etc.). 88-Not Attempted due to Medical Conditions or Safety Concerns. Sit to Stand (QC): 3 (min assist to stand with assist to lift and with skilled cues 50% of the time for hand placement. Marcelaitregina sit to stand transfers this v isit from multiple surfaces (recliner, toilet, wc and nu step)) Chair/Mmi-yt-Wkefc Xfer(QC): 4 (CGA with FWW ) Pt needed to toilet, working on functional transfers from toilet as she changed her depend and managed clothing. Gait Training Does the Patient Walk?: Yes Gait: 4 (CGA for safety all distances. ) Walk 10 feet (QC): 4 Walk 50 ft with 2 Turns(QC): 88 Walk 150 ft (QC): 88 Gait Assistive Device: FWW Pt walked x 20 ft x 4 reps this date with FWW with CGA for safety. Slow gait with step to gait pattern and decreased heel strike/toe off. Exercises NuStep Minutes: 12 (to facilitate LE functional strength and ROM/pain management with gentle ROM ) Treatments Functional transfers, gait, functional strength; toileting Assessment Current Status: Good Progress As patient began to move this visit, her stability and ability to walk improved. She began to WB with more ease and her gait became smoother. Progressing with functional mobiltiy. PT Halfway Goals Halfway Goals PT Lead Inspector Goals Time Frame: Jul 22, 2019 Sit to Lying (QC): 6 Lying-Sitting on Side/Bed(QC): 6 Sit to Stand (QC): 6 Roll Left to Right (QC): 6 Chair/Xta-fd-Tbnyb Xfer(QC): 6 Car Transfer (QC): 5 Walk 10 feet (QC): 6 Walk 10ft-Uneven Surface(QC): 6 Walk 50ft with 2 Turns (QC): 6 Walk 150 ft (QC): 6 Gait Assistive Device: FWW Wheel 50 feet with 2 turns (QC: 9 1 Step (curb) (QC): 4 4 Steps (QC): 4 12 Steps (QC): 9 Picking up an Object (QC): 9 PT Plan Problem List Problem List: Activity Tolerance, Functional Strength, Safety, Balance, Gait, Transfer, Bed Mobility Treatment/Plan Treatment Plan: Continue Plan of Care Treatment Plan: Bed Mobility, Education, Functional Activity Ayleen, Functional Strength, Group Therapy, Gait, Safety, Therapeutic Exercise, Transfers Treatment Duration: Jul 22, 2019 Frequency: At least 5 of 7 days/Wk (IRF) Estimated Hrs Per Day: 1.5 hours per day Patient and/or Family Agrees t: Yes Safety Risks/Education Patient Education: Gait Training, Transfer Techniques, Safety Issues Teaching Recipient: Patient Teaching Methods: Demonstration, Discussion Response to Teaching: Return Demonstration, Reinforcement Needed Discharge Recommendations Therapy Discharge Recommendati: Post Acute PT Time/GCodes Time In: 800 Time Out: 900 Total Billed Treatment Time: 60 Total Billed Treatment visit FA 30 GT 18 EX 12 VENITA FISCHER PT Jul 02, 2019 09:15 POS
--- NOTE | 2019-07-02 10:05 | NUR ---
Met with patient to complete initial assessment. She was admitted to ARU for Left Pelvic Ring Fracture, post fall at home and 3 day stay on medical acute. Prior to hospitalization patient resided with her spouse, Leroy Alcaraz. She was functionally mobile with her FWW and she describes her spouse as able and willing to assist her as needed. Leroy is primary contact at home. They have two sons, Boy Alcaraz is retired and resides in [place]. He has been instrumental and available to assist when needed also. Son Huan Alcaraz resides in [facility] and continues to work, noted because of availability. Patient's PCP is Dr. Reji Ortiz, established pharmacy is [facility]. The purpose of the Weekly Rehab Team Conference was discussed and patient indicated understanding. She does, however, hope to have been discharged back to home prior to next Friday. SUMMARY: Patient appeared slightly forgetful with a few facts this a.m. and with interrupted train of thought, history of dementia and baseline not known to commercial lines underwriter. L4 kyphoplasty by Dr. Moreno 03/09/19 and commercial lines underwriter stated that when she fell this time she was immediately concerned this could have been compromised. Diagnostics noted a T7 compression fracture, age indeterminate, and Dr. Moreno documented no intervention at this time. Patient describes comfort when sitting but pain with movement, altered gait due to pain, will be important regarding safe ambulation. DME: Patient has FWW, cane, bath bench, grab bars barrera places, hand shower wand in tub. HHC: She was apparently on service for in-home PT 3 x week but she does not remember what agency other than from [place]. This will likely be resumed at discharge, will confirm agency. Attempted to contact yung Brunson for courtesy discussion, left message.
[2019-07-02] MEDS: LACTULOSE SYRUP 10GM/15ML (ENULOSE) 30ML UDC PO SCH ×2 (10:11→21:03)
--- NOTE | 2019-07-02 11:33 | Occupational Ther Daily Note ---
OT Current Status-Daily Note Subjective No c/o of pain. Appearance Pt seated up in recliner when OT entered room. Pt agrees to therapy treatment. Mental Status/Objective Patient Orientation: Person, Place ADL-Treatment Therapy Code Descriptions/Definitions Functional [place] Measure: 0=Not Assessed/NA 4=Minimal Assistance 1=Total Assistance 5=Supervision or Setup 2=Maximal Assistance 6=Modified [place] 3=Moderate Assistance 7=Complete IndependenceSCALE: Activities may be completed with or without assistive devices. 7-Egkozqbupn-rflpoib completes the activity by him/herself with no assistance from a helper. 5-Set-up or Clean-up Assistance-helper sets up or cleans up; patient completes activity. [place] assists only prior to or following the activity. 4-Supervision or Touching Assistance-helper provides verbal cues and/or touching/steadying and/or contact guard assistance as patient completes activity. Assistance may be provided throughout the activity or intermittently. 3-Partial/Moderate Assistance-helper does LESS THAN HALF the effort. [place] lifts, holds or supports trunk or limbs, but provides less than half the effort. 2-Substantial/Maximal Assistance-helper does MORE THAN HALF the effort. [place] lifts or holds trunk or limbs and provides more than half the effort. 0-Rqlshpapx-afucfp does ALL the effort. Patient does none of the effort to complete the activity. Or, the assistance of 2 or more helpers is required for the patient to complete the activity. If activity was not attempted, code reason: 7-Patient Refused. 9-Not Applicable-not attempted and the patient did not perform the activity before the current illness, exacerbation or injury. 10-Not Attempted due to Environmental Limitations-(lack of equipment, weather restraints, etc.). 88-Not Attempted due to Medical Conditions or Safety Concerns. Oral Hygiene (QC): 6 (Pt completed oral hygiene independently seated in a w/c.) Bathing Location: L Arm, R Arm, L Upper Leg, R Upper Leg, L Lower Leg (including foot), R Lower Leg (including foot), Chest, Abdomen, Buttocks, Perineal Area Shower/Bathe Self (QC): 3 (Pt completed shower seated on a shower bench. Pt used grab bars and required mod assist in stance to cleanse buttocks and dmitri area. ) Upper Body Dressing (QC): 5 (Pt required set up to complete upper body dressing.) Lower Body Dressing (QC): 3 (Pt was able to don pants and socks while seated but required mod assist in stance to hike pants /underwear over the hips.) Toileting Hygiene (QC): 3 (Pt clense self but required min assist to doff pants off/on.) Toilet Transfer (QC): 3 (Pt required min assist to transfer to the toilet.) Footwear (QC) 5-Pt completed donning socks with set up. Other Treatment Pt transferred from the recliner with walker min assist required. Pt ambulated to the shower with w/c. Pt combed hair while seated at the sink. Pt then propelled self with w/c to therapy gym. Pt participated in standing tolerance activity and weight shifting for 8 minutes. Pt propelled back to her room. Pt transferred with walker to the recliner. Pt seated in recliner, call light/phone in reach. Pt family in the room at the end of session. Education OT Patient Education: Exercise program, Modified ADL techniques, Progress toward Goal/Update tx plan, Purpose of tx/functional activities, Reviewed precautions, Rehab process, Safety issues, Transfer techniques, W/C management Teaching Recipient: Patient Teaching Methods: Demonstration, Discussion Response to Teaching: Verbalize Understanding, Return Demonstration OT Short Term Goals Short Term Goals 1=Demonstrate adherence to instructed precautions during ADL tasks. 2=Patient will verbalize/demonstrate understanding of assistive devices/modifications for ADL. 3=Patient will improve strength/tolerance for activity to enable patient to perform ADL's. OT Care Home Goals Rock Drill Operator Goals Time Frame: Jul 15, 2019 Eating (QC): 6 Oral Hygiene (QC): 6 Shower/Bathe Self (QC): 5 Upper Body Dressing (QC): 5 Lower Body Dressing (QC): 5 On/Off Footwear (QC): 5 Toileting Hygiene (QC): 6 Toilet/Commode Transfer (QC): 6 Additional Goals: 1-Demonstrate ADL Tasks, 2-Verbalize Understanding, 3- ImproveStrength/Ayleen 1=Demonstrate adherence to instructed precautions during ADL tasks. 2=Patient will verbalize/demonstrate understanding of assistive devices/modifications for ADL. 3=Patient will improve strength/tolerance for activity to enable patient to perform ADL's. OT Education/Plan Problem List/Assessment Assessment: Decreased Activ Tolerance, Dependent Transfers, Impaired Bed Mobility, Impaired Funct Balance, Impaired I ADL's, Impaired Self-Care Skills Discharge Recommendations Plan/Recommendations: Continue POC Treatment Plan/Plan of Care Treatment,Training & Education: Yes Patient would benefit from OT for education, treatment and training to promote independence in ADL's, mobility, safety and/or upper extremity function for ADL's. Plan of Care: ADL Retraining, Functional Mobility, UE Funct Exercise/Act Treatment Duration: Jul 15, 2019 Frequency: At least 5 of 7 days/Wk (IRF) Estimated Hrs Per Day: 1.5 hours per day Agreement: Yes Rehab Potential: Good Time/GCodes Start Time: 10:00 Stop Time: 11:00 Total Time Billed (hr/min): 60 Billed Treatment Time 1, ADL x 3 EX x 1 VENITA CHASE Jul 02, 2019 11:32 POS
--- NOTE | 2019-07-02 13:45 | ST Cognitive Linguistic Eval ---
Speech Evaluation-General Medical Diagnosis pelvic fx Onset Date: Jul 01, 2019 Therapy Diagnosis Therapy Diagnosis: Cognitive-communication Referral Referring Physician: Dr. Matute Medical History Pertinent Medical History: Arthritis, Dementia Reviewed History: Yes Social History Current Living Status: Spouse Speech PLF-Current Status Prior Level of Function Patient lived at her home with her where she was independent for most of her daily needs. Subjective The patient was pleasant and cooperative with the cognitive assessment. Language Eval: Auditory Comprehends Simple Yes/No Ques: Functional Indent/Objects Multiple Zaidi: Functional Ident/Pics in Multiple Zaidi: Functional Follows 1-Step Commands: Functional Follows Complex Directions: Functional Follows General Conversations: Functional Language Eval: Verbal Language Completes Spontaneous Greeting: Functional Produces Auto, Serial Info: Functional Imitates Simple Words/Phrases: Functional Word Finding: Functional Requests Basic Needs: Functional States Basic Personal Info: Functional Expresses Complex Ideas: Functional Objective Cognitive Domain Attention: WNL Memory: Mild Problem Solving: Functional Executive Functions: WNL Visuospatial Skills: WNL Composite Severity Rating: WNL Clock Drawing Severity Rating: WNL Objective Formal/Standardized Tests [facility] Status ([facility]) Results 27/30, within normal range of function Oral Motor/Speech Production Within Normal Limits Impression The patient is a pleasant 88 year old female who was admitted to the ARU s/p pelvic fracture. She was given the UMS with a score of 27/30 obtained. This score is within the normal range of function. At this time she does not require skilled ST services. Speech Patient Assess Expression of Ideas/Wants: Expression (4) Understanding Verbal Content: Understands (4) Brief Interview-Mental Status: Yes Repetition of Three Words: Three (3) Temporal Orientation: Year: Correct (3) Temporal Orientation: Month: Accurate within 5 days(2) Temporal Orientation: Day: Correct (1) Recall : Wear to say "Sock": Yes, no cue required (2) Recall : Color: Yes, no cue required (2) Recall : Bed: Yes, no cue required (2) Memory/Recall Ability: Current season, Location of own room, That he or she is in a hsp/hsp unit Speech-Plan Patient/Family Goals Patient/Family Goals: The patient plans on returning to her home with her post rehab. Treatment Plan Speech Therapy Treatment Plan: Discontinue ST The patient does not require skilled ST services at this time. Treatment Duration: Jul 02, 2019 Frequency: 1 time per week Estimated Hrs Per Day: .25 hour per day Rehab Potential: Good Barriers to Learning: None identified Pt/Family Agrees to Plan: Yes Safety Risks/Education Teaching Recipient: Patient Teaching Methods: Discussion Response to Teaching: Verbalize Understanding Education Topics Provided: Safety within her room and communication of her wants/needs. Time Speech Therapy Time In: 11:15 Speech Therapy Time Out: 11:30 Total Billed Time: 15 Billed Treatment Time 1[address] ST Jul 02, 2019 13:45 POS
--- NOTE | 2019-07-02 14:36 | Therapy Group Daily Note ---
Therapy Daily Group Note Patient Education Topic Home Safety (winter health and safety) Exercises LE Seated Exercise, UE Exercise Session Ratio (pt:therapist): 4:1 Goal of Session: Home Safety Strategies, UE/LE Strengthing Goal Met for this Session: Yes Pt Benefit of Group: Contributions to Others, F/U Use of Strategies @Home, Increased Functional Safety, Socialization Other/Notes Pt. was an active participant in PT OT group session. Pt. introduced herself a nd shared readily regarding subject matter. Education was focused on managing winter at home and in your community, staying healthy and safe in all aspects of living during winter, ie nutrition and hydration, influenza and pnuemonia vaccines, managing depression and lonliness, staying active and safe at home during possible periods of ice, snow or power outages. Pts. all participated in seated U&L extremity exercises sharing and demonstrating exercises they recall. Pt. to from group with assistance in recline chair as pt. stated she was nauseous but agreed to go in recliner with warm blanket placed around her abdomen. Pt in bed after group with call ball at side and needs met. Start Time: 13:00 Stop Time: 14:10 Total Billed Treatment Time: 70 Total Billed Treatment 1,GRP CHRIS CISNEROS KENNEL WORKER Jul 02, 2019 14:36 POS
--- NOTE | 2019-07-02 14:56 | NUR ---
RD ASSESSMENT PMHx: hypercholesterolemia; dementia PT INTERACTION: Pt was awake and pleasant during nutrition assessment. Note intial RD assessment note on 06/29. Since that initial assessment, pt states that their appetite is better. Note pt consuming 50-75% of meals x2d, per chart review. Pt states no recent issues with n/v, though she is dealing with constipation. Note no BM recorded and pt currently on bowel regimen of colace, senna, miralax per chart review. ABNORMAL NUTRITION-RELATED LAB VALUES: Na 133 (L); glu 116 (H); Cl 96 (L); Pro 5.6 (L) Est. kcal needs: 8529-5338 kcal (25-30 kcal/kg) Est. Pro needs: 48-58 g Pro (1.0-1.2 g Pro/kg) PES STATEMENT: Inadequate oral intake (NI-2.1) related to constipation as evidenced by pt interview INTERVENTION: Continue with current diet order of Regular diet. Pt may require more aggressive bowel regimen if constipation continues. MONITOR/EVALUATE: PO Intake; Plan of Care; Hydration Status; Weight Status; Lab Values Michele [place], MS, RD, LD Ext. [phone]
[2019-07-02 16:00] VITALS: BP 163/76
--- NOTE | 2019-07-02 17:40 | Individualized Plan of Care ---
Individualized Plan of Care Rehab Nursing IPOC Order Admission Date Jul 01, 2019 at 10:00 Current Orders Orders Admission Order(Inpt,Obs,Sdc) (07/01/19 10:08) Vital Signs: Per Unit Policy ( 08,16,00 (07/01/19 10:08) Josafat Durant 09,21 (07/01/19 10:08) Sequential Compression Device Q4H (07/01/19 10:08) Diesel Automotive Technician-Inpt Rehab Con (07/01/19 10:08) Rehab Nursing Orders-Ipoc (07/01/19 10:08) Physical Therapy Rehab Orders (07/01/19 10:08) Occupational Therapy Rehab Ord (07/01/19 10:08) Speech Therapy Rehab Orders (07/01/19 10:08) General/Regular (07/01/19 Dinner) Precautions (Aru) (07/01/19 10:08) Weekly Weight WEEK (07/01/19 10:08) Rehab-Intensity Of Therapy (07/01/19 10:08) Initiate Admission Nursing Pro .admission (07/01/19 10:08) Initiate Admission Nursing Pro .admission (07/01/19 10:08) Cbc With Automated Diff (07/02/19 06:00) Comprehensive Metabolic Panel (07/02/19 06:00) Acetaminophen Tablet (Tylenol Tablet) (07/01/19 10:15) Diphenhydramine Tablet (Benadryl Tablet) (07/01/19 10:15) Calcium Carbonate Chew Tablet (Antacid C (07/01/19 10:15) Docusate Sodium Capsule (Colace Capsule) (07/01/19 10:15) Lactulose Oral Solution (Enulose Oral So (07/01/19 10:15) Polyethylene Glycol Powder Pkt (Miralax (07/01/19 10:15) Ondansetron Oral Dissolve Tab (Zofran (07/01/19 10:15) Senna S Tablet (Senokot S Tablet) (07/01/19 10:15) Admission Arrival Bed Request (07/01/19 10:00) Code/Resuscitation (07/01/19 12:15) Ambulate ,, (07/01/19 12:15) Acetaminophen Tablet (Tylenol Tablet) (07/01/19 12:15) Atorvastatin Tablet (Lipitor Tablet) (07/01/19 21:00) Carboxymethylcell Ophth Soln (Refresh Pl (07/01/19 12:15) Enoxaparin Injection (Lovenox Injection) (07/01/19 19:00) Estrogens Conjugated Vag Cream (Premarin (07/02/19 12:15) Meclizine Tablet (Antivert Tablet) (07/01/19 12:15) Ondansetron Injection (Zofran Injectio (07/01/19 12:15) Patient May Use Own Meds, All (Patient M (07/01/19 12:15) Sodium Chloride Flush (Catheter Flush Sy (07/01/19 14:00) Trimethoprim (Non-Formulary) (Proloprim (07/01/19 21:00) Fentanyl Injection (Sublimaze Injection (07/01/19 12:15) Hydroxyzine Oral (Atarax Tablet) (07/01/19 12:15) Consult Orthopedic Surgery (07/01/19 12:15) Rt Request For Service (07/01/19 12:15) Patient Visit (07/01/19 ) Pt Eval Moderate Complexity (07/01/19 ) Gait Training, Ea 15 Min (07/01/19 ) Functional Activities, Ea 15 (07/01/19 ) Ex Neuromuscular, Ea 15 Min (07/01/19 ) Patient Visit (07/02/19 ) Functional Activities, Ea 15 (07/02/19 ) Gait Training, Ea 15 Min (07/02/19 ) Exercise Therap, Ea 15 Min (07/02/19 ) Patient Visit (07/02/19 ) Speech Sound Lang Comp (07/02/19 ) Patient Visit (07/02/19 ) Therapeutic, Group (07/02/19 ) Hydrocodone/Apap 5/325 Tablet (Lortab 5 (07/02/19 16:15) Patient Visit (07/03/19 ) Gait Training, Ea 15 Min (07/03/19 ) Cbc With Automated Diff (07/05/19 06:00) Comprehensive Metabolic Panel (07/05/19 06:00) Rehab Nursing Orders: Ongoing Assess. of Cognitive Status, Ongoing Assess. of Function Status, Bladder Training, Bowel Management, Disease Management & Educaiton, DVT Prophylaxis, Fluid/Electrolyte/Nutrition Mgmt, Infection Prevention, Medication Management & Education, Management of Risks & Complicati ons, Pain Management, Patient/Family Support, Safety Management Intensity of Therapy to be met Patient to be seen: Min.3h per day/5 of 7d PT IPOC Problem List: Activity Tolerance, Functional Strength, Safety, Balance, Gait, Transfer, Bed Mobility Treatment Plan: Continue Plan of Care Bed Mobility, Education, Functional Activity Ayleen, Functional Strength, Group Therapy, Gait, Safety, Therapeutic Exercise, Transfers Treatment Duration: Jul 22, 2019 Frequency: At least 5 of 7 days/Wk (IRF) Estimated Hrs Per Day: 1.5 hours per day OT IPOC Problems: Decreased Activ Tolerance, Dependent Transfers, Impaired Bed Mobility, Impaired Funct Balance, Impaired I ADL's, Impaired Self-Care Skills OT Treatment, Training and Edu: Yes Plan of Care: ADL Retraining, Functional Mobility, UE Funct Exercise/Act Treatment Duration: Jul 15, 2019 Frequency: At least 5 of 7 days/Wk (IRF) Estimated Hrs Per Day: 1.[address] IPOC Speech Therapy Treatment Plan: Discontinue ST Treatment Duration: Jul 02, 2019 Frequency: 1 time per week Estimated Hrs Per Day: .25 hour per day Diesel Automotive Technician/Case Mgmt Diesel Automotive Technician/Case Managemen: Discharge Planning Dietitian/Mailroom Coordinator Dietitian/Mailroom Coordinator to monitor nutritional status and make changes and/or recommendations as needed and work with speech pathology on dietary upgrades as the occur. Physician IPOC Medical Issues being managed closely and that require the 24 hour availability of a physician: Patient with recent pelvic fracture in addition to compression fracture of the spine with fluctuations of the BP making it high risk for falls Medical Issues: Bowel/Bladder Function, Falls Precautions, Fluid/Electrolyte/Nutrition Balance Brief Synthesis of Preadmission Screen, Post-Admission Evaluation, and Therapy Evaluations: PT will focus on ambulation with fall risk prevention OT will focus on increasing independence in ADL's Medical Prognosis: Good Anticipated Length of Stay: 7 days ROSSI WASHINGTON DO Jul 02, 2019 17:40 POS
[2019-07-02] MEDS: ENOXAPARIN 40 MG/0.4 ML (LOVENOX) SYR SQ SCH (18:46)
[2019-07-02] MEDS: TRIMETHOPRIM 100 MG TAB (PROLOPRIM) NON-FORMULARY PO SCH (21:07)
[2019-07-03] MEDS: ACETAMINOPHEN 500 MG TAB (TYLENOL) PO PRN ×3 (02:27→18:25)
[2019-07-03 05:30] VITALS: BP 126/75
[2019-07-03] MEDS: CATHETER FLUSH 10 ML SYR IV SCH ×3 (05:59→22:00)
[2019-07-03] MEDS: SENNA W/DOCUSATE (SENOKOT S) TABLET PO SCH ×2 (09:00→21:13)
[2019-07-03] MEDS: DOCUSATE SODIUM 100 MG (COLACE) CAP PO SCH ×2 (09:00→21:12)
[2019-07-03] MEDS: LACTULOSE SYRUP 10GM/15ML (ENULOSE) 30ML UDC PO SCH ×2 (09:00→21:12)
--- NOTE | 2019-07-03 09:48 | PM&R Progress Note ---
Subjective HPI/CC On Admission Date Seen by Provider: Jul 03, 2019 Time Seen by Provider: 09:45 Subjective/Events-last exam Had 3 BM's yesterday Lab monitored closely DC IV has really helped her ability to workout in the gym Will give very low doses of Hydrocodone for pain if she really requires it Tylenol has been successful for the pelvic fracture pain. Conferred with RN Reviewed therapy notes Checked meds and labs Review of Systems General: Fatigue Musculoskeletal: leg pain Objective Exam Vital Signs Vital Signs Date Time Temp Pulse Resp B/P (MAP) Pulse Ox O2 Delivery O2 Flow Rate FiO2 07/04/19 17:35 37.2 81 16 131/69 (89) 95 Room Air Capillary Refill : Less Than 3 Seconds General Appearance: No Apparent Distress, WD/WN, Anxious, Chronically ill HEENT: PERRL/EOMI, Normal ENT Inspection, Pharynx Normal Neck: Full Range of Motion, Normal Inspection, Non Tender, Supple, Carotid Bruit Respiratory: Chest Non Tender, Lungs Clear, Normal Breath Sounds, No Accessory Muscle Use, No Respiratory Distress Cardiovascular: Regular Rate, Rhythm, No Edema, No Gallop, No JVD, No Murmur, Normal Peripheral Pulses Gastrointestinal: Normal Bowel Sounds, No Organomegaly, No Pulsatile Mass, Non Tender, Soft Back: Normal Inspection, No CVA Tenderness, Decreased Range of Motion, Vertebral Tenderness Extremity: Normal Capillary Refill, Normal Inspection, Non Tender, No Calf Tenderness, No Pedal Edema, Other (limited ROM due to pelvis pain and leg and back pain) Neurologic/Psychiatric: Alert, Oriented x3, No Motor/Sensory Deficits, Normal Mood/Affect Skin: Normal Color, Warm/Dry Lymphatic: No Adenopathy Results/Procedures Lab Patient resulted labs reviewed. FIM Transfers Therapy Code Descriptions/Definitions Functional [place] Measure: 0=Not Assessed/NA 4=Minimal Assistance 1=Total Assistance 5=Supervision or Setup 2=Maximal Assistance 6=Modified [place] 3=Moderate Assistance 7=Complete IndependenceSCALE: Activities may be completed with or without assistive devices. 0-Excdjtujaf-tnfasft completes the activity by him/herself with no assistance from a helper. 5-Set-up or Clean-up Assistance-helper sets up or cleans up; patient completes activity. [place] assists only prior to or following the activity. 4-Supervision or Touching Assistance-helper provides verbal cues and/or touching/steadying and/or contact guard assistance as patient completes activity. Assistance may be provided throughout the activity or intermittently. 3-Partial/Moderate Assistance-helper does LESS THAN HALF the effort. [place] lifts, holds or supports trunk or limbs, but provides less than half the effort. 2-Substantial/Maximal Assistance-helper does MORE THAN HALF the effort. [place] lifts or holds trunk or limbs and provides more than half the effort. 9-Qaikfmwui-scaqsf does ALL the effort. Patient does none of the effort to com plete the activity. Or, the assistance of 2 or more helpers is required for the patient to complete the activity. If activity was not attempted, code reason: 7-Patient Refused. 9-Not Applicable-not attempted and the patient did not perform the activity before the current illness, exacerbation or injury. 10-Not Attempted due to Environmental Limitations-(lack of equipment, weather restraints, etc.). 88-Not Attempted due to Medical Conditions or Safety Concerns. Roll Left to Right (QC): 3 Sit to Lying (QC): 3 (min assist with leg) Sit to Stand (QC): 3 (min assist to stand with assist to lift and with skilled cues 50% of the time for hand placement. Mulitple sit to stand transfers this visit from multiple surfaces (recliner, toilet, wc and nu step)) Chair/Iyu-mx-Nuhkh Xfer(QC): 4 (CGA with FWW ) Car Transfer (QC): 3 Gait Training Does the Patient Walk?: Yes Gait (FIM): 4 (CGA for safety all distances. ) Distance (FIM): 0=686-57 ft Walk 10 feet (QC): 4 Walk 50 ft with 2 Turns(QC): 88 Walk 150 ft (QC): 88 Walking 10ft/uneven surface-QC: 3 Gait Assistive Device: FWW Wheelchair Training Does the Pt Use a Wheelchair?: No Wheel 50 ft with 2 turns (QC): 9 Wheel 150 ft (QC): 9 Stair Training 1 Step (curb) (QC): 2 (mod assist to step up on the step.) 4 Steps (QC): 88 12 Steps (QC): 9 Balance Picking up an Object (QC): 9 ADL-Treatment Eating (QC): 5 (Set up) Oral Hygiene (QC): 6 Bathing Location: L Arm, R Arm, L Upper Leg, R Upper Leg, L Lower Leg (including foot), R Lower Leg (including foot), Chest, Abdomen, Buttocks, Perineal Area Shower/Bathe Self (QC): 3 (Pt completed shower seated on a shower bench. Pt used grab bars and required mod assist in stance to cleanse buttocks and dmitri area. ) Upper Body Dressing (QC): 5 (Pt required set up to complete upper body dressing.) Lower Body Dressing (QC): 3 (Pt was able to don pants and socks while seated but required mod assist in stance to hike pants /underwear over the hips.) On/Off Footwear (QC): 4 Toileting Hygiene (QC): 3 Toilet Transfer (QC): 3 (Pt required min assist to transfer to the toilet.) Assessment/Plan Assessment and Plan Assess & Plan/Chief Complaint Assessment: Pelvic fracture Constipation OP Plan: Monitor closely IRF protocol Home [place] Monitor bowels (1) Pelvic fracture Status: Acute (2) Recurrent UTI Status: Chronic (3) Hyperlipidemia Status: Chronic (4) Dementia (5) Delirium (6) Osteoporosis (7) Constipation (8) S/P kyphoplasty Status: Chronic ROSSI WASHINGTON DO Jul 03, 2019 09:48 POS
--- NOTE | 2019-07-03 12:24 | Physical Therapy Daily Note ---
PT Daily Note-Current Subjective Pt. states the pain is a little better today and she is surprised she can move this well today Pain Location: No Pain Reported Mental Status Patient Orientation: Normal For Age Transfers SCALE: Activities may be completed with or without assistive devices. 2-Hhisdktwzt-ybysnxk completes the activity by him/herself with no assistance from a helper. 5-Set-up or Clean-up Assistance-helper sets up or cleans up; patient completes activity. [place] assists only prior to or following the activity. 4-Supervision or Touching Assistance-helper provides verbal cues and/or touching/steadying and/or contact guard assistance as patient completes activity. Assistance may be provided throughout the activity or intermittently. 3-Partial/Moderate Assistance-helper does LESS THAN HALF the effort. [place] lifts, holds or supports trunk or limbs, but provides less than half the effort. 2-Substantial/Maximal Assistance-helper does MORE THAN HALF the effort. [place] lifts or holds trunk or limbs and provides more than half the effort. 1-Yafpgabby-hpuvxx does ALL the effort. Patient does none of the effort to complete the activity. Or, the assistance of 2 or more helpers is required for the patient to complete the activity. If activity was not attempted, code reason: 7-Patient Refused. 9-Not Applicable-not attempted and the patient did not perform the activity before the current illness, exacerbation or injury. 10-Not Attempted due to Environmental Limitations-(lack of equipment, weather restraints, etc.). 88-Not Attempted due to Medical Conditions or Safety Concerns. Transfers (B, C, W/C): 4 Roll Left to Right (QC): 5 Sit to Lying (QC): 4 Sit to Stand (QC): 4 Gait Training Does the Patient Walk?: Yes Gait: 4 Walk 10 feet (QC): 4 Walk 50 ft with 2 Turns(QC): 4 Walk 150 ft (QC): 88 Walking 10ft/uneven surface-QC: 88 Gait Persons Needed: 1 Gait Assistive Device: FWW Exercises Seated Therapy Exercises: Ankle pumps, Sit to stand, Long arc quads, Hip abd/add Seated Reps: 12 Treatments toileted managing pants and clean up with SBA Assessment Current Status: Good Progress PT Prison Goals Technical Stenographer Goals PT Technical Stenographer Goals Time Frame: Jul 22, 2019 Sit to Lying (QC): 6 Lying-Sitting on Side/Bed(QC): 6 Sit to Stand (QC): 6 Roll Left to Right (QC): 6 Chair/Rez-nn-Tqfku Xfer(QC): 6 Car Transfer (QC): 5 Walk 10 feet (QC): 6 Walk 10ft-Uneven Surface(QC): 6 Walk 50ft with 2 Turns (QC): 6 Walk 150 ft (QC): 6 Gait Assistive Device: FWW Wheel 50 feet with 2 turns (QC: 9 1 Step (curb) (QC): 4 4 Steps (QC): 4 12 Steps (QC): 9 Picking up an Object (QC): 9 PT Plan Treatment/Plan Treatment Plan: Continue Plan of Care Treatment Plan: Bed Mobility, Education, Functional Activity [place], Functional Strength, Group Therapy, Gait, Safety, Therapeutic Exercise, Transfers Treatment Duration: Jul 22, 2019 Frequency: At least 5 of 7 days/Wk (IRF) Estimated Hrs Per Day: 1.5 hours per day Patient and/or Family Agrees t: Yes Safety Risks/Education Patient Education: Gait Training, Transfer Techniques, Correct Positioning, Disease Process, Safety Issues Teaching Recipient: Patient Teaching Methods: Demonstration, Discussion Response to Teaching: Verbalize Understanding, Return Demonstration, Reinforcement Needed Time/GCodes Time In: 1140 Time Out: 1200 Total Billed Treatment Time: 20 Total Billed Treatment 1,Gt20M CHRIS CISNEROS INK TECHNICIAN Jul 03, 2019 12:24 POS
[2019-07-03 16:52] VITALS: BP 131/73
[2019-07-03] MEDS: ENOXAPARIN 40 MG/0.4 ML (LOVENOX) SYR SQ SCH (18:23)
[2019-07-03] MEDS: HYDROcodone/APAP 5 MG/325 MG (LORTAB) TAB PO PRN (20:41)
[2019-07-03] MEDS: TRIMETHOPRIM 100 MG TAB (PROLOPRIM) NON-FORMULARY PO SCH (21:15)
[2019-07-04 05:13] VITALS: BP 126/74
[2019-07-04] MEDS: CATHETER FLUSH 10 ML SYR IV SCH ×3 (06:07→20:05)
[2019-07-04] MEDS: ACETAMINOPHEN 500 MG TAB (TYLENOL) PO PRN ×3 (06:20→17:19)
[2019-07-04] MEDS: DOCUSATE SODIUM 100 MG (COLACE) CAP PO SCH ×2 (09:00→20:05)
[2019-07-04] MEDS: SENNA W/DOCUSATE (SENOKOT S) TABLET PO SCH ×2 (09:00→20:05)
[2019-07-04] MEDS: LACTULOSE SYRUP 10GM/15ML (ENULOSE) 30ML UDC PO SCH ×2 (09:00→20:05)
[2019-07-04 17:35] VITALS: BP 131/69
--- NOTE | 2019-07-04 18:04 | PM&R Progress Note ---
Subjective HPI/CC On Admission Date Seen by Provider: Jul 04, 2019 Time Seen by Provider: 17:45 Subjective/Events-last exam Had a good BM today and that seems to be reset now Did take low dose Hydrocodone last night and that seems to have helped a bit more Tylenol has been successful for the pelvic fracture pain during the day. Conferred with RN Reviewed therapy notes Checked meds and labs Review of Systems Musculoskeletal: leg pain Objective Exam Vital Signs Vital Signs Date Time Temp Pulse Resp B/P (MAP) Pulse Ox O2 Delivery O2 Flow Rate FiO2 07/04/19 17:35 37.2 81 16 131/69 (89) 95 Room Air Capillary Refill : Less Than 3 Seconds General Appearance: No Apparent Distress, WD/WN, Anxious, Chronically ill HEENT: PERRL/EOMI, Normal ENT Inspection, Pharynx Normal Neck: Full Range of Motion, Normal Inspection, Non Tender, Supple, Carotid Bruit Respiratory: Chest Non Tender, Lungs Clear, Normal Breath Sounds, No Accessory Muscle Use, No Respiratory Distress Cardiovascular: Regular Rate, Rhythm, No Edema, No Gallop, No JVD, No Murmur, Normal Peripheral Pulses Gastrointestinal: Normal Bowel Sounds, No Organomegaly, No Pulsatile Mass, Non Tender, Soft Back: Normal Inspection, No CVA Tenderness, Decreased Range of Motion, Vertebral Tenderness Extremity: Normal Capillary Refill, Normal Inspection, Non Tender, No Calf Tenderness, No Pedal Edema, Other (limited ROM due to pelvis pain and leg and back pain) Neurologic/Psychiatric: Alert, Oriented x3, No Motor/Sensory Deficits, Normal Mood/Affect Skin: Normal Color, Warm/Dry Lymphatic: No Adenopathy Results/Procedures Lab Patient resulted labs reviewed. FIM Transfers Therapy Code Descriptions/Definitions Functional [place] Measure: 0=Not Assessed/NA 4=Minimal Assistance 1=Total Assistance 5=Supervision or Setup 2=Maximal Assistance 6=Modified [place] 3=Moderate Assistance 7=Complete IndependenceSCALE: Activities may be completed with or without assistive devices. 0-Tfwznmaptd-pscywrt completes the activity by him/herself with no assistance from a helper. 5-Set-up or Clean-up Assistance-helper sets up or cleans up; patient completes activity. [place] assists only prior to or following the activity. 4-Supervision or Touching Assistance-helper provides verbal cues and/or touching/steadying and/or contact guard assistance as patient completes activity. Assistance may be provided throughout the activity or intermittently. 3-Partial/Moderate Assistance-helper does LESS THAN HALF the effort. [place] lifts, holds or supports trunk or limbs, but provides less than half the effort. 2-Substantial/Maximal Assistance-helper does MORE THAN HALF the effort. [place] lifts or holds trunk or limbs and provides more than half the effort. 4-Vcvicswkv-wwqiig does ALL the effort. Patient does none of the effort to complete the activity. Or, the assistance of 2 or more helpers is required for the patient to complete the activity. If activity was not attempted, code reason: 7-Patient Refused. 9-Not Applicable-not attempted and the patient did not perform the activity before the current illness, exacerbation or injury. 10-Not Attempted due to Environmental Limitations-(lack of equipment, weather restraints, etc.). 88-Not Attempted due to Medical Conditions or Safety Concerns. Transfers (B, C, W/C) (FIM): 4 Roll Left to Right (QC): 5 Sit to Lying (QC): 4 Sit to Stand (QC): 4 Chair/Wvl-kt-Cwjor Xfer(QC): 4 (CGA with FWW ) Car Transfer (QC): 3 Gait Training Does the Patient Walk?: Yes Gait (FIM): 4 Distance (FIM): 0=166-03 ft Walk 10 feet (QC): 4 Walk 50 ft with 2 Turns(QC): 4 Walk 150 ft (QC): 88 Walking 10ft/uneven surface-QC: 88 Gait Persons Needed: 1 Gait Assistive Device: FWW Wheelchair Training Does the Pt Use a Wheelchair?: No Wheel 50 ft with 2 turns (QC): 9 Wheel 150 ft (QC): 9 Stair Training 1 Step (curb) (QC): 2 (mod assist to step up on the step.) 4 Steps (QC): 88 12 Steps (QC): 9 Balance Picking up an Object (QC): 9 ADL-Treatment Eating (QC): 5 (Set up) Oral Hygiene (QC): 6 Bathing Location: L Arm, R Arm, L Upper Leg, R Upper Leg, L Lower Leg (including foot), R Lower Leg (including foot), Chest, Abdomen, Buttocks, Perineal Area Shower/Bathe Self (QC): 3 (Pt completed shower seated on a shower bench. Pt used grab bars and required mod assist in stance to cleanse buttocks and dmitri area. ) Upper Body Dressing (QC): 5 (Pt required set up to complete upper body deyanira ssing.) Lower Body Dressing (QC): 3 (Pt was able to don pants and socks while seated but required mod assist in stance to hike pants /underwear over the hips.) On/Off Footwear (QC): 4 Toileting Hygiene (QC): 3 Toilet Transfer (QC): 3 (Pt required min assist to transfer to the toilet.) Assessment/Plan Assessment and Plan Assess & Plan/Chief Complaint Assessment: Pelvic fracture Constipation OP Plan: Monitor closely IRF protocol Home at [facility] before pain meds (1) Pelvic fracture Status: Acute (2) Recurrent UTI Status: Chronic (3) Hyperlipidemia Status: Chronic (4) Dementia (5) Delirium (6) Osteoporosis (7) Constipation (8) S/P kyphoplasty Status: Chronic ROSSI WASHINGTON DO Jul 04, 2019 18:04 POS
[2019-07-04] MEDS: ENOXAPARIN 40 MG/0.4 ML (LOVENOX) SYR SQ SCH (18:14)
[2019-07-04] MEDS: TRIMETHOPRIM 100 MG TAB (PROLOPRIM) NON-FORMULARY PO SCH (20:04)
[2019-07-04] MEDS: HYDROcodone/APAP 5 MG/325 MG (LORTAB) TAB PO PRN (21:00)
[2019-07-05 05:07] VITALS: BP 166/82
[2019-07-05 05:11] LABS: BASOPHILS % (AUTO) 0 % (0-10); EOSINOPHILS # (AUTO) 0.1 10^3/uL (0.0-0.3); EOSINOPHILS % (AUTO) 1 % (0-10); HEMATOCRIT 30 % (35-52); HEMOGLOBIN 9.5 G/DL (11.5-16.0); LYMPHOCYTES # (AUTO) 1.6 X 10^3 (1.0-4.0); LYMPHOCYTES % (AUTO) 20 % (12-44); MEAN CORPUSCULAR HEMOGLOBIN 30 PG (25-34); MEAN CORPUSCULAR HGB CONC 32 G/DL (32-36); MEAN CORPUSCULAR VOLUME 95 FL (80-99); MEAN PLATELET VOLUME 8.9 FL (7.4-10.4); MONOCYTES # (AUTO) 0.8 X 10^3 (0.0-1.0); MONOCYTES % (AUTO) 11 % (0-12); NEUTROPHILS # (AUTO) 5.2 X 10^3 (1.8-7.8); NEUTROPHILS % (AUTO) 68 % (42-75); PLATELET COUNT 319 10^3/uL (130-400); RED CELL DISTRIBUTION WIDTH 13.2 % (10.0-14.5); WHITE BLOOD COUNT 7.7 10^3/uL (4.3-11.0)
[2019-07-05 05:40] LABS: ALANINE AMINOTRANSFERASE 28 U/L (0-55); ALBUMIN 3.6 GM/DL (3.2-4.5); ALKALINE PHOSPHATASE 84 U/L (40-136); BILIRUBIN,TOTAL 1.1 MG/DL (0.1-1.0); BUN/CREATININE RATIO 23; CALCIUM 9.2 MG/DL (8.5-10.1); CARBON DIOXIDE 25 MMOL/L (21-32); CHLORIDE 99 MMOL/L (98-107); CREATININE SERUM 0.77 MG/DL (0.60-1.30); GFR ESTIMATED > 60; GLUCOSE 119 MG/DL (70-105); POTASSIUM 4.1 MMOL/L (3.6-5.0); SODIUM 133 MMOL/L (135-145); TOTAL PROTEIN 6.5 GM/DL (6.4-8.2)
[2019-07-05] MEDS: CATHETER FLUSH 10 ML SYR IV SCH ×3 (05:52→21:32)
[2019-07-05] MEDS: HYDROcodone/APAP 5 MG/325 MG (LORTAB) TAB PO PRN ×2 (06:54→21:30)
--- NOTE | 2019-07-05 06:54 | NUR ---
dr lynn called concerning pt request lortab 2.5 mg early due to morning PT, new order to give pt lortab now
--- NOTE | 2019-07-05 09:26 | Progress Note ---
VERITOIAN VIZCARRA [facility] 07/05/19 0926: Progress Note CC: Left Pelvic fracture HPI: Pt fell trying to stand up to answer phone while waking up from a nap and being sleepy. Barriers: Pt reports using a cane and walker prior to her hip fracture She currently needs help walking requiring assistance and the walker She reports having trouble going from seated to standing requiring significant help due to pain She states she has been making progress during her stay in rehab unit, especially in her left leg flexion She lives at home with her who has some disability himself, but is able to help her with some things She has help that comes to clean and cook when she lets them She does not want to give up doing some of the things she has been doing for a long time She is in good spirits and willing to keep working hard to improve and return home BREANNA WASHINGTON DO 07/05/192028: Supervisory-Addendum Brief Verification & Attestation Participated in pt care: history, MDM, physical Personally performed: exam, history, MDM, supervision of care Care discussed with: Medical Student Procedures: n/a Results interpretation: Verified all documentation Verification and Attestation of Medical Student E/M Service A medical student performed and documented this service in my presence. I reviewed and verified all information documented by the medical student and made modifications to such information, when appropriate. I personally performed the physical exam and medical decision making. Breanna Washington, Jul 05, 2019,20:29 IAN SELLERS Jul 05, 2019 09:26 BREANNA CANTU DO Jul 05, 2019 20:29 POS
--- NOTE | 2019-07-05 09:58 | Physical Therapy Daily Note ---
PT Daily Note-Current Subjective pt in recliner pre-tx agrees to PT this morning. Pt reports no pain at this time. Appearance pt in recliner post-tx with feet elevated with son present at this time. Pt with call light, room phone, tray table in reach with all needs met at this time. Pt requested a stop in the restroom near the end of the session and was able to urinate without assist. Mental Status Patient Orientation: Person, Place, Time, Situation Transfers SCALE: Activities may be completed with or without assistive devices. 8-Oygcmsfgjv-ayaknpa completes the activity by him/herself with no assistance from a helper. 5-Set-up or Clean-up Assistance-helper sets up or cleans up; patient completes activity. [place] assists only prior to or following the activity. 4-Supervision or Touching Assistance-helper provides verbal cues and/or touching/steadying and/or contact guard assistance as patient completes activity. Assistance may be provided throughout the activity or intermittently. 3-Partial/Moderate Assistance-helper does LESS THAN HALF the effort. [place] lifts, holds or supports trunk or limbs, but provides less than half the effort. 2-Substantial/Maximal Assistance-helper does MORE THAN HALF the effort. [place] lifts or holds trunk or limbs and provides more than half the effort. 4-Flbnjulto-oqzcel does ALL the effort. Patient does none of the effort to complete the activity. Or, the assistance of 2 or more helpers is required for the patient to complete the activity. If activity was not attempted, code reason: 7-Patient Refused. 9-Not Applicable-not attempted and the patient did not perform the activity before the current illness, exacerbation or injury. 10-Not Attempted due to Environmental Limitations-(lack of equipment, weather restraints, etc.). 88-Not Attempted due to Medical Conditions or Safety Concerns. Sit to Stand (QC): 4 (SBA) Chair/Npg-yb-Izhan Xfer(QC): 4 (SBA) Gait Training Does the Patient Walk?: Yes Distance: 100'x2 Walk 10 feet (QC): 4 (CGA) Walk 50 ft with 2 Turns(QC): 4 (CGA) Gait Assistive Device: FWW Pt ambulates with very slow step through pattern. pt reports she has slowed down because she is scared that she will fall again. Pt continues to have difficulty bearing full weight on the LLE Exercises Standing: Hip Abduction (with L LE only), Heel/toe raises, Weight shifts (lateralx1 and diagonalx1) Standing Reps: 20 (10reps 2 sets) NuStep Minutes: 15 NuStep Workload: 2 Treatments pt performed transfer training, skilled ambulation training, functional LE strengthening/endurance training, and education this date. Assessment Current Status: Good Progress Pt continues to limit weight bearing in the LLE secondary to unrated pain in the L hip. Pt demonstrated B/L knees falling into a valgus position when on the NuStep that she was able to correct with 1 verbal cue. PT Residential Goals Residential Goals PT Residential Goals Time Frame: Jul 22, 2019 Sit to Lying (QC): 6 Lying-Sitting on Side/Bed(QC): 6 Sit to Stand (QC): 6 Roll Left to Right (QC): 6 Chair/Okq-td-Unbgy Xfer(QC): 6 Car Transfer (QC): 5 Walk 10 feet (QC): 6 Walk 10ft-Uneven Surface(QC): 6 Walk 50ft with 2 Turns (QC): 6 Walk 150 ft (QC): 6 Gait Assistive Device: FWW Wheel 50 feet with 2 turns (QC: 9 1 Step (curb) (QC): 4 4 Steps (QC): 4 12 Steps (QC): 9 Picking up an Object (QC): 9 PT Plan Problem List Problem List: Activity Tolerance, Functional Strength, Safety, Balance, Gait, Transfer, Bed Mobility, ROM Treatment/Plan Treatment Plan: Continue Plan of Care Treatment Plan: Bed Mobility, Education, Functional Activity Ayle[place], Functional Strength, Group Therapy, Gait, Safety, Therapeutic Exercise, Transfers Treatment Duration: Jul 22, 2019 Frequency: At least 5 of 7 days/Wk (IRF) Estimated Hrs Per Day: 1.5 hours per day Patient and/or Family Agrees t: Yes Safety Risks/Education Patient Education: Gait Training, Transfer Techniques, Correct Positioning, Safety Issues Teaching Recipient: Patient Teaching Methods: Demonstration, Discussion Response to Teaching: Return Demonstration, Reinforcement Needed Time/GCodes Time In: 900 Time Out: 1000 Total Billed Treatment Time: 60 Total Billed Treatment 1 visit FA 30' GT 15' EX 15' ENOC ZHAO PT Jul 05, 2019 09:58 POS
[2019-07-05] MEDS: LACTULOSE SYRUP 10GM/15ML (ENULOSE) 30ML UDC PO SCH ×2 (10:01→21:31)
[2019-07-05] MEDS: DOCUSATE SODIUM 100 MG (COLACE) CAP PO SCH ×2 (10:01→21:29)
[2019-07-05] MEDS: SENNA W/DOCUSATE (SENOKOT S) TABLET PO SCH ×2 (10:01→21:31)
--- NOTE | 2019-07-05 12:36 | Occupational Ther Daily Note ---
OT Current Status-Daily Note Subjective Pt stated " I feel better" when asked how she is doing. No complaint of pain. Appearance Pt seated in recliner when OT entered the room. Pt son in room. Pt agrees to therapy treatment. Mental Status/Objective Patient Orientation: Person, Place, Time, Situation ADL-Treatment Therapy Code Descriptions/Definitions Functional [place] Measure: 0=Not Assessed/NA 4=Minimal Assistance 1=Total Assistance 5=Supervision or Setup 2=Maximal Assistance 6=Modified [place] 3=Moderate Assistance 7=Complete IndependenceSCALE: Activities may be completed with or without assistive devices. 9-Tidscbslui-dghclqa completes the activity by him/herself with no assistance from a helper. 5-Set-up or Clean-up Assistance-helper sets up or cleans up; patient completes activity. [place] assists only prior to or following the activity. 4-Supervision or Touching Assistance-helper provides verbal cues and/or touch ing/steadying and/or contact guard assistance as patient completes activity. Assistance may be provided throughout the activity or intermittently. 3-Partial/Moderate Assistance-helper does LESS THAN HALF the effort. [place] lifts, holds or supports trunk or limbs, but provides less than half the effort. 2-Substantial/Maximal Assistance-helper does MORE THAN HALF the effort. [place] lifts or holds trunk or limbs and provides more than half the effort. 8-Foeiitwoa-nfaizx does ALL the effort. Patient does none of the effort to complete the activity. Or, the assistance of 2 or more helpers is required for the patient to complete the activity. If activity was not attempted, code reason: 7-Patient Refused. 9-Not Applicable-not attempted and the patient did not perform the activity before the current illness, exacerbation or injury. 10-Not Attempted due to Environmental Limitations-(lack of equipment, weather restraints, etc.). 88-Not Attempted due to Medical Conditions or Safety Concerns. Oral Hygiene (QC): 5 (Pt required set up to complete oral hygine. ) Bathing Location: L Arm, R Arm, L Upper Leg, R Upper Leg, L Lower Leg (including foot), R Lower Leg (including foot), Chest, Abdomen, Buttocks, Perineal Area Shower/Bathe Self (QC): 4 (CGA required in stance in shower to cleanse buttocks and dmitri area.) Upper Body Dressing (QC): 5 (Pt required set up to complete upper body dressing.) Lower Body Dressing (QC): 4 (CGA to hike pants over hips.) Toileting Hygiene (QC): 4 (Using grabbars and walker, pt required CGA in stance to cleanse dmitri area.) Toilet Transfer (QC): 4 (Pt required CGA to transfer from walker to the toilet.) Footwear (QC) 5 Pt required set up to don socks. Pt did not utilize any equipment. Other Treatment Pt combed hair and brushed teeth while seated at the sink. Pt then propelled self with w/c to the gym. Pt donned 1lb wrist weight on bilateral UE and participated in reaching activity for 5 minutes while standing. This task was to simulate functional standing activities with weight shifts. Pt then propelled back to her room. Pt transferred from w/c to the recliner with CGA. Pt seated in her recliner with call light/phone in reach. All needs met in the room. Education OT Patient Education: Exercise program, Modified ADL techniques, Progress toward Goal/Update tx plan, Purpose of tx/functional activities, Reviewed precautions, Rehab process, Safety issues, Transfer techniques, W/C management Teaching Recipient: Patient Teaching Methods: Demonstration, Discussion Response to Teaching: Verbalize Understanding, Return Demonstration OT Short Term Goals Short Term Goals 1=Demonstrate adherence to instructed precautions during ADL tasks. 2=Patient will verbalize/demonstrate understanding of assistive devices/modifications for ADL. 3=Patient will improve strength/tolerance for activity to enable patient to perform ADL's. OT Surgery Attendant Goals Surgery Attendant Goals Time Frame: Jul 15, 2019 Eating (QC): 6 Oral Hygiene (QC): 6 Shower/Bathe Self (QC): 5 Upper Body Dressing (QC): 5 Lower Body Dressing (QC): 5 On/Off Footwear (QC): 5 Toileting Hygiene (QC): 6 Toilet/Commode Transfer (QC): 6 Additional Goals: 1-Demonstrate ADL Tasks, 2-Verbalize Understanding, 3- ImproveStrength/[place] 1=Demonstrate adherence to instructed precautions during ADL tasks. 2=Patient will verbalize/demonstrate understanding of assistive devices/modifications for ADL. 3=Patient will improve strength/tolerance for activity to enable patient to perform ADL's. OT Education/Plan Problem List/Assessment Assessment: Decreased Activ Tolerance, Decreased UE Strength, Dependent Transfe rs, Impaired Funct Balance, Impaired I ADL's, Impaired Self-Care Skills Discharge Recommendations Plan/Recommendations: Continue POC Therapy Discharge Recommendati: Post Acute OT Treatment Plan/Plan of Care Treatment,Training & Education: Yes Patient would benefit from OT for education, treatment and training to promote independence in ADL's, mobility, safety and/or upper extremity function for ADL's. Plan of Care: ADL Retraining, Functional Mobility, UE Funct Exercise/Act Treatment Duration: Jul 15, 2019 Frequency: At least 5 of 7 days/Wk (IRF) Estimated Hrs Per Day: 1.5 hours per day Agreement: Yes Rehab Potential: Good Time/GCodes Start Time: 10:30 Stop Time: 11:30 Total Time Billed (hr/min): 60 Billed Treatment Time 1, ADL x 3 (45minutes) EX x 1 (15minutes) JOSE RAMON CÁRDENAS OT Jul 05, 2019 12:36 POS
--- NOTE | 2019-07-05 14:54 | Therapy Group Daily Note ---
Therapy Daily Group Note Patient Education Topic Other List Below (handwashing ie antibacterial agents and soap and water, memory strategies and activity) Exercises LE Seated Exercise, UE Exercise Session Ratio (pt:therapist): 4:1 Goal of Session: Memory Strategies, Other (list) (handwashing and antibacterials etc) Goal Met for this Session: Yes Pt Benefit of Group: F/U Use of Strategies @Home, Socialization Other/Notes Pt. participated in group PT OT session this date. Pt. came and went using FWW min to CGA . Pts. introduced selves and shared their place of as well as what they are most proud of. Pts. all participated in chili tasting for the [email or web address] contest and socialized. Hand washing and bacterial and viral infections was education topic with demonstration done and hand cleanser passed around. All equipment ie walkers and w/c arm rests were cleaned that were brought by pts. Memory strategies and memory activity was done today with focus on recalling and matching images. Pt.s also participated in seated U&L extremity exercises. Pt to room after group, call swain at hand, needs met Start Time: 13:00 Stop Time: 14:15 Total Billed Treatment Time: 75 Total Billed Treatment 1,GRP CHRIS CISNEROS DRAFTING TECHNICIAN Jul 05, 2019 14:54 POS
[2019-07-05] MEDS: ESTROGENS CONJ. CREAM 30 GM (PREMARIN) TUBE VG SCH (14:57)
[2019-07-05] MEDS: ACETAMINOPHEN 500 MG TAB (TYLENOL) PO PRN (14:57)
[2019-07-05 16:03] VITALS: BP 118/70
[2019-07-05] MEDS: ENOXAPARIN 40 MG/0.4 ML (LOVENOX) SYR SQ SCH (18:21)
[2019-07-05] MEDS: hydrOXYzine (ATARAX) 10 MG TAB PO PRN (18:22)
--- NOTE | 2019-07-05 20:30 | PM&R Progress Note ---
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 Sitting to stand is an issue Before she used a cane but now she uses a walker Overall she feels like she is benefitting from rehab Conferred with RN Reviewed therapy notes Checked meds and labs Review of Systems Musculoskeletal: back pain, leg pain Objective Exam Vital Signs Vital Signs Date Time Temp Pulse Resp B/P (MAP) Pulse Ox O2 Delivery O2 Flow Rate FiO2 07/05/19 16:03 36.4 95 14 118/70 (86) 96 Room Air Capillary Refill : Less Than 3 Seconds General Appearance: No Apparent Distress, WD/WN, Anxious, Chronically ill HEENT: PERRL/EOMI, Normal ENT Inspection, Pharynx Normal Neck: Full Range of Motion, Normal Inspection, Non Tender, Supple, Carotid Bruit Respiratory: Chest Non Tender, Lungs Clear, Normal Breath Sounds, No Accessory Muscle Use, No Respiratory Distress Cardiovascular: Regular Rate, Rhythm, No Edema, No Gallop, No JVD, No Murmur, Normal Peripheral Pulses Gastrointestinal: Normal Bowel Sounds, No Organomegaly, No Pulsatile Mass, Non Tender, Soft Back: Normal Inspection, No CVA Tenderness, Decreased Range of Motion, Vertebral Tenderness Extremity: Normal Capillary Refill, Normal Inspection, Non Tender, No Calf Tenderness, No Pedal Edema, Other (limited ROM due to pelvis pain and leg and back pain) Neurologic/Psychiatric: Alert, Oriented x3, No Motor/Sensory Deficits, Normal Mood/Affect Skin: Normal Color, Warm/Dry Lymphatic: No Adenopathy Results/Procedures Lab Laboratory Tests 07/05/19 05:00 Patient resulted labs reviewed. FIM Transfers Therapy Code Descriptions/Definitions Functional [place] Measure: 0=Not Assessed/NA 4=Minimal Assistance 1=Total Assistance 5=Supervision or Setup 2=Maximal Assistance 6=Modified [place] 3=Moderate Assistance 7=Complete IndependenceSCALE: Activities may be completed with or without assistive devices. 7-Ektihfbehg-qiljejk completes the activity by him/herself with no assistance from a helper. 5-Set-up or Clean-up Assistance-helper sets up or cleans up; patient completes activity. [place] assists only prior to or following the activity. 4-Supervision or Touching Assistance-helper provides verbal cues and/or to uching/steadying and/or contact guard assistance as patient completes activity. Assistance may be provided throughout the activity or intermittently. 3-Partial/Moderate Assistance-helper does LESS THAN HALF the effort. [place] lifts, holds or supports trunk or limbs, but provides less than half the effort. 2-Substantial/Maximal Assistance-helper does MORE THAN HALF the effort. [place] lifts or holds trunk or limbs and provides more than half the effort. 0-Xpyotomeg-cpapnp does ALL the effort. Patient does none of the effort to complete the activity. Or, the assistance of 2 or more helpers is required for the patient to complete the activity. If activity was not attempted, code reason: 7-Patient Refused. 9-Not Applicable-not attempted and the patient did not perform the activity before the current illness, exacerbation or injury. 10-Not Attempted due to Environmental Limitations-(lack of equipment, weather restraints, etc.). 88-Not Attempted due to Medical Conditions or Safety Concerns. Transfers (B, C, W/C) (FIM): 4 Roll Left to Right (QC): 5 Sit to Lying (QC): 4 Sit to Stand (QC): 4 (SBA) Chair/Sxt-os-Dzhpu Xfer(QC): 4 (SBA) Car Transfer (QC): 3 Gait Training Does the Patient Walk?: Yes Gait (FIM): 4 Distance (FIM): 3=495-40 ft Distance: 100'x2 Walk 10 feet (QC): 4 (CGA) Walk 50 ft with 2 Turns(QC): 4 (CGA) Walk 150 ft (QC): 88 Walking 10ft/uneven surface-QC: 88 Gait Persons Needed: 1 Gait Assistive Device: FWW Wheelchair Training Does the Pt Use a Wheelchair?: No Wheel 50 ft with 2 turns (QC): 9 Wheel 150 ft (QC): 9 Stair Training 1 Step (curb) (QC): 2 (mod assist to step up on the step.) 4 Steps (QC): 88 12 Steps (QC): 9 Balance Picking up an Object (QC): 9 ADL-Treatment Eating (QC): 5 (Set up) Oral Hygiene (QC): 5 (Pt required set up to complete oral hygine. ) Bathing Location: L Arm, R Arm, L Upper Leg, R Upper Leg, L Lower Leg (including foot), R Lower Leg (including foot), Chest, Abdomen, Buttocks, Perineal Area Shower/Bathe Self (QC): 4 (CGA required in stance in shower to cleanse buttocks and dmitri area.) Upper Body Dressing (QC): 5 (Pt required set up to complete upper body dressing.) Lower Body Dressing (QC): 4 (CGA to hike pants over hips.) On/Off Footwear (QC): 4 Toileting Hygiene (QC): 4 (Using grabbars and walker, pt required CGA in stance to cleanse dmitri area.) Toilet Transfer (QC): 4 (Pt required CGA to transfer from walker to the toilet.) Assessment/Plan Assessment and Plan Assess & Plan/Chief Complaint Assessment: Pelvic fracture Constipation OP Plan: Monitor closely IRF protocol Home at [facility] before pain meds Pain is more manageable now (1) Pelvic fracture Status: Acute (2) Recurrent UTI Status: Chronic (3) Hyperlipidemia Status: Chronic (4) Dementia (5) Delirium (6) Osteoporosis (7) Constipation (8) S/P kyphoplasty Status: Chronic ROSSI WASHINGTON DO Jul 05, 2019 20:30 POS
[2019-07-05] MEDS: TRIMETHOPRIM 100 MG TAB (PROLOPRIM) NON-FORMULARY PO SCH (21:30)
[2019-07-06] MEDS: CATHETER FLUSH 10 ML SYR IV SCH ×2 (05:48→15:11)
[2019-07-06 05:57] VITALS: BP 140/71
[2019-07-06] MEDS: LACTULOSE SYRUP 10GM/15ML (ENULOSE) 30ML UDC PO SCH ×2 (07:59→20:48)
[2019-07-06] MEDS: SENNA W/DOCUSATE (SENOKOT S) TABLET PO SCH ×2 (07:59→20:48)
--- NOTE | 2019-07-06 08:30 | PM&R Progress Note ---
Subjective HPI/CC On Admission Date Seen by Provider: Jul 06, 2019 Time Seen by Provider: 08:30 Subjective/Events-last exam Pt doing very well. Lortab use is helping her. Bowels are moving. Overall wants to go home as soon as possible. Fall risk remains. Son is very involved in her care. Slept pretty well last night. Conferred with RN Reviewed therapy notes Checked meds and labs Review of Systems General: Fatigue Musculoskeletal: back pain Objective Exam Vital Signs Vital Signs Date Time Temp Pulse Resp B/P (MAP) Pulse Ox O2 Delivery O2 Flow Rate FiO2 07/06/19 16:24 36.4 79 16 157/78 (104) 92 Room Air Capillary Refill : Less Than 3 Seconds General Appearance: No Apparent Distress, WD/WN, Anxious, Chronically ill HEENT: PERRL/EOMI, Normal ENT Inspection, Pharynx Normal Neck: Full Range of Motion, Normal Inspection, Non Tender, Supple, Carotid Bruit Respiratory: Chest Non Tender, Lungs Clear, Normal Breath Sounds, No Accessory Muscle Use, No Respiratory Distress Cardiovascular: Regular Rate, Rhythm, No Edema, No Gallop, No JVD, No Murmur, Normal Peripheral Pulses Gastrointestinal: Normal Bowel Sounds, No Organomegaly, No Pulsatile Mass, Non Tender, Soft Back: Normal Inspection, No CVA Tenderness, Decreased Range of Motion, Vertebral Tenderness Extremity: Normal Capillary Refill, Normal Inspection, Non Tender, No Calf Tenderness, No Pedal Edema, Other (limited ROM due to pelvis pain and leg and back pain) Neurologic/Psychiatric: Alert, Oriented x3, No Motor/Sensory Deficits, Normal Mood/Affect Skin: Normal Color, Warm/Dry Lymphatic: No Adenopathy Results/Procedures Lab Patient resulted labs reviewed. FIM Transfers Therapy Code Descriptions/Definitions Functional [place] Measure: 0=Not Assessed/NA 4=Minimal Assistance 1=Total Assistance 5=Supervision or Setup 2=Maximal Assistance 6=Modified [place] 3=Moderate Assistance 7=Complete IndependenceSCALE: Activities may be completed with or without assistive devices. 5-Iwbilbaisp-btekkna completes the activity by him/herself with no assistance from a helper. 5-Set-up or Clean-up Assistance-helper sets up or cleans up; patient completes activity. [place] assists only prior to or following the activity. 4-Supervision or Touching Assistance-helper provides verbal cues and/or touching/steadying and/or contact guard assistance as patient completes activity. Assistance may be provided throughout the activity or intermittently. 3-Partial/Moderate Assistance-helper does LESS THAN HALF the effort. [place] lifts, holds or supports trunk or limbs, but provides less than half the effort. 2-Substantial/Maximal Assistance-helper does MORE THAN HALF the effort. [place] lifts or holds trunk or limbs and provides more than half the effort. 2-Rillznkvj-euafsj does ALL the effort. Patient does none of the effort to complete the activity. Or, the assistance of 2 or more helpers is required for the patient to complete the activity. If activity was not attempted, code reason: 7-Patient Refused. 9-Not Applicable-not attempted and the patient did not perform the activity before the current illness, exacerbation or injury. 10-Not Attempted due to Environmental Limitations-(lack of equipment, weather restraints, etc.). 88-Not Attempted due to Medical Conditions or Safety Concerns. Transfers (B, C, W/C) (FIM): 4 Roll Left to Right (QC): 5 Sit to Lying (QC): 4 Sit to Stand (QC): 4 (SBA) Chair/Ykp-vn-Sgabt Xfer(QC): 4 (SBA) Car Transfer (QC): 3 Gait Training Does the Patient Walk?: Yes Gait (FIM): 4 Distance (FIM): 2=234-35 ft Distance: 100'x2 Walk 10 feet (QC): 4 (CGA) Walk 50 ft with 2 Turns(QC): 4 (CGA) Walk 150 ft (QC): 88 Walking 10ft/uneven surface-QC: 88 Gait Persons Needed: 1 Gait Assistive Device: FWW Wheelchair Training Does the Pt Use a Wheelchair?: No Wheel 50 ft with 2 turns (QC): 9 Wheel 150 ft (QC): 9 Stair Training 1 Step (curb) (QC): 2 (mod assist to step up on the step.) 4 Steps (QC): 88 12 Steps (QC): 9 Balance Picking up an Object (QC): 9 ADL-Treatment Eating (QC): 5 (Set up) Oral Hygiene (QC): 5 (Pt required set up to complete oral hygine. ) Bathing Location: L Arm, R Arm, L Upper Leg, R Upper Leg, L Lower Leg (including foot), R Lower Leg (including foot), Chest, Abdomen, Buttocks, Perineal Area Shower/Bathe Self (QC): 4 (CGA required in stance in shower to cleanse buttocks and dmitri area.) Upper Body Dressing (QC): 5 (Pt required set up to complete upper body dressing.) Lower Body Dressing (QC): 4 (CGA to hike pants over hips.) On/Off Footwear (QC): 4 Toileting Hygiene (QC): 4 (Using grabbars and walker, pt required CGA in stance to cleanse dmitri area.) Toilet Transfer (QC): 4 (Pt required CGA to transfer from walker to the toilet.) Assessment/Plan Assessment and Plan Assess & Plan/Chief Complaint Assessment: Pelvic fracture Constipation OP Plan: Monitor closely IRF protocol Home at [facility] before pain meds Pain is more manageable now (1) Pelvic fracture Status: Acute (2) Recurrent UTI Status: Chronic (3) Hyperlipidemia Status: Chronic (4) Dementia (5) Delirium (6) Osteoporosis (7) Constipation (8) S/P kyphoplasty Status: Chronic ROSSI WASHINGTON DO Jul 06, 2019 08:30 POS
[2019-07-06] MEDS: ESTROGENS CONJ. CREAM 30 GM (PREMARIN) TUBE VG SCH (10:01)
[2019-07-06] MEDS: DOCUSATE SODIUM 100 MG (COLACE) CAP PO SCH ×2 (10:01→20:47)
[2019-07-06] MEDS: HYDROcodone/APAP 5 MG/325 MG (LORTAB) TAB PO PRN ×3 (10:02→23:25)
--- NOTE | 2019-07-06 10:32 | Progress Note ---
[facility]: Progress Note CC: Left Pelvic fracture, Compression fracture T7 Pt reports doing okay, but still having pain at night She states she has been taking her pain medication at night and in the morning before therapy which has helped She reports still having bowel movements She states she needs help getting up from the bed and around the toilet She is able to deya the walker with only stand by assistance She states she is getting better, but it is slow process She denies any pain in her back currently and the pain is mainly in her left hip area She states that therapy was intense yesterday adn she was worn out by the end of the day and still a little tired today BREANNA WASHINGTON DO 07/06/192034: Supervisory-Addendum Brief Verification & Attestation Participated in pt care: history, MDM, physical Personally performed: exam, history, MDM, supervision of care Care discussed with: Medical Student Procedures: n/a Results interpretation: Verified all documentation Verification and Attestation of Medical Student E/M Service A medical student performed and documented this service in my presence. I reviewed and verified all information documented by the medical student and made modifications to such information, when appropriate. I personally performed the physical exam and medical decision making. Breanna Washington, Jul 06, 2019,20:35 IAN [facility] SELENA Jul 06, 2019 10:32 BREANNA CANTU DO Jul 06, 2019 20:35 POS
[2019-07-06] MEDS: ACETAMINOPHEN 500 MG TAB (TYLENOL) PO PRN ×2 (11:00→20:48)
--- NOTE | 2019-07-06 11:00 | Physical Therapy Daily Note ---
PT Daily Note-Current Subjective pt in recliner pre-tx agrees to PT this morning. pt reports pain is 5/10 in the L hip this morning. Appearance pt in recliner post-tx with feet elevated. Pt's son present for treatment this session and post-tx. pt with call light, room phone, tray table in reach with all needs met at this time. Mental Status Patient Orientation: Person, Place, Time, Situation Attachments: IV Transfers SCALE: Activities may be completed with or without assistive devices. 2-Yrowjdsueb-exohnrv completes the activity by him/herself with no assistance from a helper. 5-Set-up or Clean-up Assistance-helper sets up or cleans up; patient completes activity. [place] assists only prior to or following the activity. 4-Supervision or Touching Assistance-helper provides verbal cues and/or touching/steadying and/or contact guard assistance as patient completes activity. Assistance may be provided throughout the activity or intermittently. 3-Partial/Moderate Assistance-helper does LESS THAN HALF the effort. [place] lifts, holds or supports trunk or limbs, but provides less than half the effort. 2-Substantial/Maximal Assistance-helper does MORE THAN HALF the effort. [place] lifts or holds trunk or limbs and provides more than half the effort. 4-Pobpeqyjn-yphkdc does ALL the effort. Patient does none of the effort to complete the activity. Or, the assistance of 2 or more helpers is required for the patient to complete the activity. If activity was not attempted, code reason: 7-Patient Refused. 9-Not Applicable-not attempted and the patient did not perform the activity before the current illness, exacerbation or injury. 10-Not Attempted due to Environmental Limitations-(lack of equipment, weather restraints, etc.). 88-Not Attempted due to Medical Conditions or Safety Concerns. Sit to Stand (QC): 4 (SBA) Chair/Zyd-ax-Kabge Xfer(QC): 4 (SBA) Gait Training Does the Patient Walk?: Yes Distance: 200'x2 Walk 10 feet (QC): 4 (CGA) Walk 50 ft with 2 Turns(QC): 4 (CGA) Walk 150 ft (QC): 4 (CGA) Gait Assistive Device: FWW pt ambulates slowly with a step to pattern with decreased WB'ing through the LLE. Exercises Seated Therapy Exercises: Ankle pumps, Long arc quads, Hip flexion, Hip abd/add Seated Reps: 20 (2sets 10 reps) NuStep Minutes: 15 NuStep Workload: 3 Treatments pt performed functional LE strengthening/endurance training, transfer training, skilled ambulation training, and education this date. Assessment Current Status: Good Progress Pt continues to ambulate slowly but is able to ambulate from her room to the gym and back. pt required VC again to keep knees from falling into a valgus position on the Nustep but was able to stay in proper position after the cuing. PT Correction Goals Correction Goals PT Correction Goals Time Frame: Jul 22, 2019 Sit to Lying (QC): 6 Lying-Sitting on Side/Bed(QC): 6 Sit to Stand (QC): 6 Roll Left to Right (QC): 6 Chair/Bmx-iu-Ssysk Xfer(QC): 6 Car Transfer (QC): 5 Walk 10 feet (QC): 6 Walk 10ft-Uneven Surface(QC): 6 Walk 50ft with 2 Turns (QC): 6 Walk 150 ft (QC): 6 Gait Assistive Device: FWW Wheel 50 feet with 2 turns (QC: 9 1 Step (curb) (QC): 4 4 Steps (QC): 4 12 Steps (QC): 9 Picking up an Object (QC): 9 PT Plan Problem List Problem List: Activity Tolerance, Functional Strength, Safety, Balance, Gait, Transfer, Bed Mobility, ROM Treatment/Plan Treatment Plan: Continue Plan of Care Treatment Plan: Bed Mobility, Education, Functional Activity [place], Functional Strength, Group Therapy, Gait, Safety, Therapeutic Exercise, Transfers Treatment Duration: Jul 22, 2019 Frequency: At least 5 of 7 days/Wk (IRF) Estimated Hrs Per Day: 1.5 hours per day Patient and/or Family Agrees t: Yes Safety Risks/Education Patient Education: Gait Training, Transfer Techniques, Correct Positioning, Safety Issues Teaching Recipient: Patient Teaching Methods: Demonstration, Discussion Response to Teaching: Return Demonstration, Reinforcement Needed Time/GCodes Time In: 1000 Time Out: 1100 Total Billed Treatment Time: 60 Total Billed Treatment 1 visit GT 30' FA 15' EX 15' ENOC ZHAO PT Jul 06, 2019 11:00 POS
--- NOTE | 2019-07-06 12:31 | Occupational Ther Daily Note ---
OT Current Status-Daily Note Subjective No complaint of pain. Appearance Pt seated in the recliner. Pt's son in the room. Pt agrees to therapy treatment. Mental Status/Objective Patient Orientation: Person, Place, Time, Situation ADL-Treatment Therapy Code Descriptions/Definitions Functional [place] Measure: 0=Not Assessed/NA 4=Minimal Assistance 1=Total Assistance 5=Supervision or Setup 2=Maximal Assistance 6=Modified [place] 3=Moderate Assistance 7=Complete IndependenceSCALE: Activities may be completed with or without assistive devices. 1-Pcmpttzqeu-pmhqkrr completes the activity by him/herself with no assistance from a helper. 5-Set-up or Clean-up Assistance-helper sets up or cleans up; patient completes activity. [place] assists only prior to or following the activity. 4-Supervision or Touching Assistance-helper provides verbal cues and/or touching/steadying and/or contact guard assistance as patient completes activ ity. Assistance may be provided throughout the activity or intermittently. 3-Partial/Moderate Assistance-helper does LESS THAN HALF the effort. [place] lifts, holds or supports trunk or limbs, but provides less than half the effort. 2-Substantial/Maximal Assistance-helper does MORE THAN HALF the effort. [place] lifts or holds trunk or limbs and provides more than half the effort. 9-Axnljreop-odefbw does ALL the effort. Patient does none of the effort to complete the activity. Or, the assistance of 2 or more helpers is required for the patient to complete the activity. If activity was not attempted, code reason: 7-Patient Refused. 9-Not Applicable-not attempted and the patient did not perform the activity before the current illness, exacerbation or injury. 10-Not Attempted due to Environmental Limitations-(lack of equipment, weather restraints, etc.). 88-Not Attempted due to Medical Conditions or Safety Concerns. Eating (QC): 6 (Pt completed meal independently.) Oral Hygiene (QC): 5 (Pt completed oral hygiene seated at the sink in her w/c with set up.) Bathing Location: L Arm, R Arm, L Upper Leg, R Upper Leg, L Lower Leg (including foot), R Lower Leg (including foot), Chest, Abdomen, Buttocks, Perineal Area Shower/Bathe Self (QC): 4 (Using grabbars and hand held shower, pt completed shower while seated. Pt required supervision while completing.) Upper Body Dressing (QC): 5 (Pt required set up to complete upper body dressing.) Lower Body Dressing (QC): 4 (Pt completed dressing but required SBA to hike pants/underwear over hips when standing.) Toileting Hygiene (QC): 4 (Pt cleansed self while seated. Pt required SBA while managing clothes.) Toilet Transfer (QC): 4 (Pt required CGA to transfer.) FOOT WEAR (QC) 5 pt completed donning socks with set up. Pt did not require any AE. Other Treatment Pt transferred from recliner to the walker. Pt ambulated with the walker to the bathroom requiring CGA. Pt transferred to the toilet and then to the shower and required CGA. Pt completed shower and transferred to the w/c. Pt combed hair and brushed teeth while seated at the sink. Pt transferred from wheelchair to the recliner. Pt wasn't sure about therapy this afternoon and wanted to make phone call. OT assisted pt to make phone call to the son. Pt seated in the recliner, lunch arrived at the end of session. All needs met in the room. Education OT Patient Education: Modified ADL techniques, Progress toward Goal/Update tx plan, Purpose of tx/functional activities, Reviewed precautions, Rehab process, Transfer techniques, W/C management Teaching Recipient: Patient Teaching Methods: Demonstration, Discussion Response to Teaching: Verbalize Understanding, Return Demonstration OT Short Term Goals Short Term Goals 1=Demonstrate adherence to instructed precautions during ADL tasks. 2=Patient will verbalize/demonstrate understanding of assistive devices/modifications for ADL. 3=Patient will improve strength/tolerance for activity to enable patient to perform ADL's. OT Project Architect Goals Project Architect Goals Time Frame: Jul 15, 2019 Eating (QC): 6 Oral Hygiene (QC): 6 Shower/Bathe Self (QC): 5 Upper Body Dressing (QC): 5 Lower Body Dressing (QC): 5 On/Off Footwear (QC): 5 Toileting Hygiene (QC): 6 Toilet/Commode Transfer (QC): 6 Additional Goals: 1-Demonstrate ADL Tasks, 2-Verbalize Understanding, 3- ImproveStrength/[place] 1=Demonstrate adherence to instructed precautions during ADL tasks. 2=Patient will verbalize/demonstrate understanding of assistive devices/candace fications for ADL. 3=Patient will improve strength/tolerance for activity to enable patient to perform ADL's. OT Education/Plan Problem List/Assessment Assessment: Decreased Activ Tolerance, Dependent Transfers, Impaired Funct Balance, Impaired I ADL's, Impaired Self-Care Skills Discharge Recommendations Plan/Recommendations: Continue POC Therapy Discharge Recommendati: Post Acute OT Treatment Plan/Plan of Care Treatment,Training & Education: Yes Patient would benefit from OT for education, treatment and training to promote independence in ADL's, mobility, safety and/or upper extremity function for ADL's. Plan of Care: ADL Retraining, Functional Mobility, UE Funct Exercise/Act Treatment Duration: Jul 15, 2019 Frequency: At least 5 of 7 days/Wk (IRF) Estimated Hrs Per Day: 1.5 hours per day Agreement: Yes Rehab Potential: Good Time/GCodes Start Time: 11:00 Stop Time: 12:00 Total Time Billed (hr/min): 60 Billed Treatment Time 1, ADL x4 60 Minutes JOSE RAMON CÁRDENAS OT Jul 06, 2019 12:31 POS
--- NOTE | 2019-07-06 14:12 | Occupational Ther Daily Note ---
OT Current Status-Daily Note Subjective No complaint of pain. Appearance Pt seated in the recliner when OT entered the room. Pt family present. Pt agrees to therapy treatment. Mental Status/Objective Patient Orientation: Person, Place, Time, Situation ADL-Treatment Therapy Code Descriptions/Definitions Functional [place] Measure: 0=Not Assessed/NA 4=Minimal Assistance 1=Total Assistance 5=Supervision or Setup 2=Maximal Assistance 6=Modified [place] 3=Moderate Assistance 7=Complete IndependenceSCALE: Activities may be completed with or without assistive devices. 0-Ayejclikvq-qrtmvej completes the activity by him/herself with no assistance from a helper. 5-Set-up or Clean-up Assistance-helper sets up or cleans up; patient completes activity. [place] assists only prior to or following the activity. 4-Supervision or Touching Assistance-helper provides verbal cues and/or touching/steadying and/or contact guard assistance as patient completes activity. Assistance may be provided throughout the activity or intermittently. 3-Partial/Moderate Assistance-helper does LESS THAN HALF the effort. [place] lifts, holds or supports trunk or limbs, but provides less than half the effort. 2-Substantial/Maximal Assistance-helper does MORE THAN HALF the effort. [place] lifts or holds trunk or limbs and provides more than half the effort. 4-Lpntpgvbt-kcpkxr does ALL the effort. Patient does none of the effort to complete the activity. Or, the assistance of 2 or more helpers is required for the patient to complete the activity. If activity was not attempted, code reason: 7-Patient Refused. 9-Not Applicable-not attempted and the patient did not perform the activity before the current illness, exacerbation or injury. 10-Not Attempted due to Environmental Limitations-(lack of equipment, weather restraints, etc.). 88-Not Attempted due to Medical Conditions or Safety Concerns. Other Treatment Pt transfered from the recliner to the wheelchair and required CGA. Pt propelled to therapy gym with w/c. Pt participated in arm bike exercise for 10 minutes at min resistance to improve activity tolerance for functional tasks. Pt then propelled back to her room with wheelchair. Pt transferred from the w/c to the toilet requiring CGA. Pt in the toilet with the nurse at the end of session. Education OT Patient Education: Home exercise program, Modified ADL techniques, Progress toward Goal/Update tx plan, Purpose of tx/functional activities, Reviewed precautions, Rehab process, Safety issues, Transfer techniques, W/C management Teaching Recipient: Patient Teaching Methods: Demonstration, Discussion Response to Teaching: Verbalize Understanding, Return Demonstration OT Short Term Goals Short Term Goals 1=Demonstrate adherence to instructed precautions during ADL tasks. 2=Patient will verbalize/demonstrate understanding of assistive devices/modifications for ADL. 3=Patient will improve strength/tolerance for activity to enable patient to perform ADL's. OT Intermediate Goals Intermediate Goals Time Frame: Jul 15, 2019 Eating (QC): 6 Oral Hygiene (QC): 6 Shower/Bathe Self (QC): 5 Upper Body Dressing (QC): 5 Lower Body Dressing (QC): 5 On/Off Footwear (QC): 5 Toileting Hygiene (QC): 6 Toilet/Commode Transfer (QC): 6 Additional Goals: 1-Demonstrate ADL Tasks, 2-Verbalize Understanding, 3- ImproveStrength/Ayleen 1=Demonstrate adherence to instructed precautions during ADL tasks. 2=Patient will verbalize/demonstrate understanding of assistive devices/modif ications for ADL. 3=Patient will improve strength/tolerance for activity to enable patient to perform ADL's. OT Education/Plan Problem List/Assessment Assessment: Decreased Activ Tolerance, Decreased UE Strength, Dependent Transfers, Impaired Funct Balance, Impaired Self-Care Skills Discharge Recommendations Plan/Recommendations: Continue POC Therapy Discharge Recommendati: Post Acute OT Treatment Plan/Plan of Care Treatment,Training & Education: Yes Patient would benefit from OT for education, treatment and training to promote independence in ADL's, mobility, safety and/or upper extremity function for ADL's. Plan of Care: ADL Retraining, Functional Mobility, UE Funct Exercise/Act Treatment Duration: Jul 15, 2019 Frequency: At least 5 of 7 days/Wk (IRF) Estimated Hrs Per Day: 1.5 hours per day Agreement: Yes Rehab Potential: Good Time/GCodes Start Time: 13:00 Stop Time: 13:30 Total Time Billed (hr/min): 30 Billed Treatment Time EX x 2 30 Minutes JOSE RAMON CÁRDENAS OT Jul 06, 2019 14:12 POS
--- NOTE | 2019-07-06 15:06 | Physical Therapy Daily Note ---
PT Daily Note-Current Subjective pt in recliner pre-tx with in recliner next to her. pt agrees to PT and reports pain is " not too far up there, probably a 7/10". Appearance pt in recliner post-tx with feet elevated and still present. pt with call light, room phone, tray table in reach and all needs met at this time. Mental Status Patient Orientation: Person, Place, Time, Situation Transfers SCALE: Activities may be completed with or without assistive devices. 2-Laaaeyljsg-lxnoudi completes the activity by him/herself with no assistance from a helper. 5-Set-up or Clean-up Assistance-helper sets up or cleans up; patient completes activity. [place] assists only prior to or following the activity. 4-Supervision or Touching Assistance-helper provides verbal cues and/or touching/steadying and/or contact guard assistance as patient completes activity. Assistance may be provided throughout the activity or intermittently. 3-Partial/Moderate Assistance-helper does LESS THAN HALF the effort. [place] lifts, holds or supports trunk or limbs, but provides less than half the effort. 2-Substantial/Maximal Assistance-helper does MORE THAN HALF the effort. [place] lifts or holds trunk or limbs and provides more than half the effort. 8-Meslbchjs-hzdytm does ALL the effort. Patient does none of the effort to complete the activity. Or, the assistance of 2 or more helpers is required for the patient to complete the activity. If activity was not attempted, code reason: 7-Patient Refused. 9-Not Applicable-not attempted and the patient did not perform the activity before the current illness, exacerbation or injury. 10-Not Attempted due to Environmental Limitations-(lack of equipment, weather restraints, etc.). 88-Not Attempted due to Medical Conditions or Safety Concerns. Sit to Stand (QC): 5 Gait Training Distance: 80'x2 Walk 10 feet (QC): 4 (SBA) Walk 50 ft with 2 Turns(QC): 4 (SBA) Gait Assistive Device: FWW Pt uses very slow step through pattern that progresses to a short step through pattern as she takes a few steps. Pt continues to limit the amount of weight she accepts on the LLE at this time. Exercises Supine Ex: Quad Set, Glut sets Supine Reps: 30 (2sets 15reps) Seated Therapy Exercises: Ankle pumps, Long arc quads, Hip flexion, Hip abd/add Seated Reps: 30 (2sets 15reps) Treatments pt performed skilled ambulation training, transfer training, functional LE strengthening, and education this date. Assessment Current Status: Fair Progress Pt demonstrates fatigue this afternoon and ambulates with a slower pace. Pt continues to demonstrate turning the LLE/L knee in during ambulation despite verbal cuing. PT Intermediate Goals Flask Cleaner Goals PT Flask Cleaner Goals Time Frame: Jul 22, 2019 Sit to Lying (QC): 6 Lying-Sitting on Side/Bed(QC): 6 Sit to Stand (QC): 6 Roll Left to Right (QC): 6 Chair/Gst-fe-Pudzo Xfer(QC): 6 Car Transfer (QC): 5 Walk 10 feet (QC): 6 Walk 10ft-Uneven Surface(QC): 6 Walk 50ft with 2 Turns (QC): 6 Walk 150 ft (QC): 6 Gait Assistive Device: FWW Wheel 50 feet with 2 turns (QC: 9 1 Step (curb) (QC): 4 4 Steps (QC): 4 12 Steps (QC): 9 Picking up an Object (QC): 9 PT Plan Problem List Problem List: Activity Tolerance, Functional Strength, Safety, Balance, Gait, Transfer, Bed Mobility, ROM Treatment/Plan Treatment Plan: Continue Plan of Care Treatment Plan: Bed Mobility, Education, Functional Activity Ayleen, Functional Strength, Group Therapy, Gait, Safety, Therapeutic Exercise, Transfers Treatment Duration: Jul 22, 2019 Frequency: At least 5 of 7 days/Wk (IRF) Estimated Hrs Per Day: 1.5 hours per day Patient and/or Family Agrees t: Yes Safety Risks/Education Patient Education: Gait Training, Transfer Techniques, Correct Positioning, Safety Issues Teaching Recipient: Patient Teaching Methods: Demonstration, Discussion Response to Teaching: Return Demonstration, Reinforcement Needed Time/GCodes Time In: 1415 Time Out: 1445 Total Billed Treatment Time: 30 Total Billed Treatment 1 visit GT 15' FA 15' ENOC ZHAO PT Jul 06, 2019 15:06 POS
[2019-07-06 16:24] VITALS: BP 157/78
[2019-07-06] MEDS: ENOXAPARIN 40 MG/0.4 ML (LOVENOX) SYR SQ SCH (18:00)
[2019-07-06] MEDS: TRIMETHOPRIM 100 MG TAB (PROLOPRIM) NON-FORMULARY PO SCH (20:48)
[2019-07-07 05:10] VITALS: BP 152/81
[2019-07-07] MEDS: HYDROcodone/APAP 5 MG/325 MG (LORTAB) TAB PO PRN ×3 (07:53→21:36)
--- NOTE | 2019-07-07 08:31 | NUR ---
Follow up visit by Chaplain Sol Hampton. Pt is Jehovah'S Witness. Primary support is her son,
[2019-07-07] MEDS: LACTULOSE SYRUP 10GM/15ML (ENULOSE) 30ML UDC PO SCH ×2 (08:58→20:56)
[2019-07-07] MEDS: SENNA W/DOCUSATE (SENOKOT S) TABLET PO SCH ×2 (08:58→20:56)
--- NOTE | 2019-07-07 10:31 | Progress Note ---
IAN [facility] 07/07/19 1031: Progress Note CC: Left pelvic fracture She states that her hip is still painful especially when she is trying to stand from seated She is able to walk slowly using the walker, but states it is still a little painful during walking She was able to take a shower and clean herself independently yesterday only needing assistance with the standing up from the shower chair She did state that her shower at home is a Tub Shower that would require her to step into it She states her son has put up a bunch of hand rails to help her with getting into it safely She is still having BM She was able to go up and down the stair in therapy, but reports it was not the smoothest movements She states that the sit to stand is the biggest obstacle at this time, but it is slowly getting better BREANNA WASHINGTON DO 07/07/19 2018: Supervisory-Addendum Brief Verification & Attestation Participated in pt care: history, MDM, physical Personally performed: exam, history, MDM, supervision of care Care discussed with: Medical Student Procedures: n/a Results interpretation: Verified all documentation Verification and Attestation of Medical Student E/M Service A medical student performed and documented this service in my presence. I reviewed and verified all information documented by the medical student and made modifications to such information, when appropriate. I personally performed the physical exam and medical decision making. Breanna Washington, Jul 07, 2019,20:18 [facility] Jul 07, 2019 10:31 BREANNA CANTU DO Jul 07, 2019 20:18 POS
[2019-07-07] MEDS: DOCUSATE SODIUM 100 MG (COLACE) CAP PO SCH ×2 (11:00→20:15)
[2019-07-07] MEDS: ESTROGENS CONJ. CREAM 30 GM (PREMARIN) TUBE VG SCH (11:58)
--- NOTE | 2019-07-07 12:02 | PM&R Progress Note ---
Subjective HPI/CC On Admission Date Seen by Provider: Jul 07, 2019 Time Seen by Provider: 08:15 Subjective/Events-last exam Increased pain requiring Hydrocodone every four hours half of a pill She declines the full pill Very slow but walking 70ft with rest breaks Very frail She took 4 steps today Son is very involved in her care Conferred with RN Reviewed therapy notes Checked meds and labs Review of Systems Musculoskeletal: back pain, leg pain Objective Exam Vital Signs Vital Signs Date Time Temp Pulse Resp B/P (MAP) Pulse Ox O2 Delivery O2 Flow Rate FiO2 07/07/19 17:39 37.2 87 20 148/73 (98) 97 Room Air Capillary Refill : Less Than 3 Seconds General Appearance: No Apparent Distress, WD/WN, Anxious, Chronically ill HEENT: PERRL/EOMI, Normal ENT Inspection, Pharynx Normal Neck: Full Range of Motion, Normal Inspection, Non Tender, Supple, Carotid Bruit Respiratory: Chest Non Tender, Lungs Clear, Normal Breath Sounds, No Accessory Muscle Use, No Respiratory Distress Cardiovascular: Regular Rate, Rhythm, No Edema, No Gallop, No JVD, No Murmur, Normal Peripheral Pulses Gastrointestinal: Normal Bowel Sounds, No Organomegaly, No Pulsatile Mass, Non Tender, Soft Back: Normal Inspection, No CVA Tenderness, Decreased Range of Motion, Vertebral Tenderness Extremity: Normal Capillary Refill, Normal Inspection, Non Tender, No Calf Tenderness, No Pedal Edema, Other (limited ROM due to pelvis pain and leg and back pain) Neurologic/Psychiatric: Alert, Oriented x3, No Motor/Sensory Deficits, Normal Mood/Affect Skin: Normal Color, Warm/Dry Lymphatic: No Adenopathy Results/Procedures Lab Patient resulted labs reviewed. FIM Transfers Therapy Code Descriptions/Definitions Functional [place] Measure: 0=Not Assessed/NA 4=Minimal Assistance 1=Total Assistance 5=Supervision or Setup 2=Maximal Assistance 6=Modified [place] 3=Moderate Assistance 7=Complete IndependenceSCALE: Activities may be completed with or without assistive devices. 8-Rhpnpyicxw-rviiqzj completes the activity by him/herself with no assistance from a helper. 5-Set-up or Clean-up Assistance-helper sets up or cleans up; patient completes activity. [place] assists only prior to or following the activity. 4-Supervision or Touching Assistance-helper provides verbal cues and/or touching/steadying and/or contact guard assistance as patient completes activity. Assistance may be provided throughout the activity or intermittently. 3-Partial/Moderate Assistance-helper does LESS THAN HALF the effort. [place] lifts, holds or supports trunk or limbs, but provides less than half the effort. 2-Substantial/Maximal Assistance-helper does MORE THAN HALF the effort. [place] lifts or holds trunk or limbs and provides more than half the effort. 3-Bxxhgnzea-gkfgai does ALL the effort. Patient does none of the effort to complete the activity. Or, the assistance of 2 or more helpers is required for the patient to complete the activity. If activity was not attempted, code reason: 7-Patient Refused. 9-Not Applicable-not attempted and the patient did not perform the activity before the current illness, exacerbation or injury. 10-Not Attempted due to Environmental Limitations-(lack of equipment, weather restraints, etc.). 88-Not Attempted due to Medical Conditions or Safety Concerns. Transfers (B, C, W/C) (FIM): 4 Roll Left to Right (QC): 5 Sit to Lying (QC): 4 Sit to Stand (QC): 5 Chair/Hzj-la-Zinbu Xfer(QC): 4 (SBA) Car Transfer (QC): 3 Gait Training Does the Patient Walk?: Yes Gait (FIM): 4 Distance (FIM): 5=523-50 ft Distance: 80'x2 Walk 10 feet (QC): 4 (SBA) Walk 50 ft with 2 Turns(QC): 4 (SBA) Walk 150 ft (QC): 4 (CGA) Walking 10ft/uneven surface-QC: 88 Gait Persons Needed: 1 Gait Assistive Device: FWW Wheelchair Training Does the Pt Use a Wheelchair?: No Wheel 50 ft with 2 turns (QC): 9 Wheel 150 ft (QC): 9 Stair Training 1 Step (curb) (QC): 2 (mod assist to step up on the step.) 4 Steps (QC): 88 12 Steps (QC): 9 Balance Picking up an Object (QC): 9 ADL-Treatment Eating (QC): 6 (Pt completed meal independently.) Oral Hygiene (QC): 5 (Pt completed oral hygiene seated at the sink in her w/c with set up.) Bathing Location: L Arm, R Arm, L Upper Leg, R Upper Leg, L Lower Leg (including foot), R Lower Leg (including foot), Chest, Abdomen, Buttocks, Perineal Area Shower/Bathe Self (QC): 4 (Using grabbars and hand held shower, pt completed shower while seated. Pt required supervision while completing.) Upper Body Dressing (QC): 5 (Pt required set up to complete upper body dressing.) Lower Body Dressing (QC): 4 (Pt completed dressing but required SBA to hike pants/underwear over hips when standing.) On/Off Footwear (QC): 4 Toileting Hygiene (QC): 4 (Pt cleansed self while seated. Pt required SBA while managing clothes.) Toilet Transfer (QC): 4 (Pt required CGA to transfer.) Assessment/Plan Assessment and Plan Assess & Plan/Chief Complaint Assessment: Pelvic fracture Constipation OP Plan: Monitor closely IRF protocol Home at [facility] before pain meds Pain is more manageable now (1) Pelvic fracture Status: Acute (2) Recurrent UTI Status: Chronic (3) Hyperlipidemia Status: Chronic (4) Dementia (5) Delirium (6) Osteoporosis (7) Constipation (8) S/P kyphoplasty Status: Chronic ROSSI WASHINGTON DO Jul 07, 2019 12:02 POS
--- NOTE | 2019-07-07 12:15 | Physical Therapy Daily Note ---
PT Daily Note-Current Subjective Patient agrees to PT at this time. Patient reports L hip pain. Nursing reports patient has been concerned about performing steps to go home. Nursing advised of pts. pain rating. Pain Numeric Pain Scale: 8 Location: Left Location Body Site: Hip Pain Description: Ache Mental Status Patient Orientation: Person, Place, Time, Situation Transfers SCALE: Activities may be completed with or without assistive devices. 8-Dhjcehqqzf-gkouflq completes the activity by him/herself with no assistance from a helper. 5-Set-up or Clean-up Assistance-helper sets up or cleans up; patient completes activity. [place] assists only prior to or following the activity. 4-Supervision or Touching Assistance-helper provides verbal cues and/or touching/steadying and/or contact guard assistance as patient completes activity. Assistance may be provided throughout the activity or intermittently. 3-Partial/Moderate Assistance-helper does LESS THAN HALF the effort. [place] lifts, holds or supports trunk or limbs, but provides less than half the effort. 2-Substantial/Maximal Assistance-helper does MORE THAN HALF the effort. [place] lifts or holds trunk or limbs and provides more than half the effort. 8-Qmqeuiqwz-kaqoxz does ALL the effort. Patient does none of the effort to complete the activity. Or, the assistance of 2 or more helpers is required for the patient to complete the activity. If activity was not attempted, code reason: 7-Patient Refused. 9-Not Applicable-not attempted and the patient did not perform the activity befo re the current illness, exacerbation or injury. 10-Not Attempted due to Environmental Limitations-(lack of equipment, weather re straints, etc.). 88-Not Attempted due to Medical Conditions or Safety Concerns. Transfers (B, C, W/C): 4 Roll Left to Right (QC): 4 Sit to Lying (QC): 4 Sit to Stand (QC): 4 Car Transfer (QC): 4 SBA transfers Gait Training Does the Patient Walk?: Yes Gait: 4 Distance: 75' x2; 30' x2 Walk 10 feet (QC): 4 Walk 50 ft with 2 Turns(QC): 4 Gait Assistive Device: FWW CGA; slow step to pattern; decreased WB on LLE Stair Training Stair Training: Handrails/: 1 handrail #of Steps: 4 1 Step (curb) (QC): 3 4 Steps (QC): 3 Stairs: Pattern: Step to Difficulty WB LLE Exercises Supine Ex: Ankle pumps, Quad Set, Glut sets, Heel Slides, Short Arc Quads, Hip abd/add Supine Reps: 10 Seated Therapy Exercises: Ankle pumps, Long arc quads Seated Reps: 10 NuStep Minutes: 15 NuStep Workload: 4 Assessment Patient completing toileting and dressing independently, demonstrating good seated balance to pull pants on over legs and good standing balance while washing hands. Patient stood SBA and ambulated CGA with FWW. During session, patient ambulated 30' x2 and 75' x2, requiring rest after the longer ambulation times. During ambulation, patient demonstrates a slow step to pattern and decreased weight bearing on the LLE. Patient completed 15 minutes on NuStep at load 4 to improve LE strength and mobility. Patient completed 4 stairs using one railing and step to pattern with moderate assistance. Patient used both hands on one railing, as she only has one railing at home, and required cues for proper stepping pattern ascending and descending. While descending, patient had some weakness while weight bearing on LLE. Patient performed car transfer SBA without needing cues or manual assistance. Patient seated in chair upon return to room. PT Staffing Mgr Goals [facility] Goals PT Staffing Mgr Goals Time Frame: Jul 22, 2019 Sit to Lying (QC): 6 Lying-Sitting on Side/Bed(QC): 6 Sit to Stand (QC): 6 Roll Left to Right (QC): 6 Chair/Yzo-gc-Ccwti Xfer(QC): 6 Car Transfer (QC): 5 Walk 10 feet (QC): 6 Walk 10ft-Uneven Surface(QC): 6 Walk 50ft with 2 Turns (QC): 6 Walk 150 ft (QC): 6 Gait Assistive Device: FWW Wheel 50 feet with 2 turns (QC: 9 1 Step (curb) (QC): 4 4 Steps (QC): 4 12 Steps (QC): 9 Picking up an Object (QC): 9 PT Plan Treatment/Plan Treatment Plan: Continue Plan of Care Treatment Plan: Bed Mobility, Education, Functional Activity Ayleen, Functional Strength, Group Therapy, Gait, Safety, Therapeutic Exercise, Transfers Treatment Duration: Jul 22, 2019 Frequency: At least 5 of 7 days/Wk (IRF) Estimated Hrs Per Day: 1.5 hours per day Patient and/or Family Agrees t: Yes Safety Risks/Education Patient Education: Gait Training, Steps, Disease Process Teaching Recipient: Patient Teaching Methods: Demonstration, Discussion Response to Teaching: Verbalize Understanding, Return Demonstration Time/GCodes Time In: 800 Time Out: 930 Total Billed Treatment Time: 90 Total Billed Treatment 1 visit GT x2 25min FA x2 30min EX x2 35min CHRIS [facility] [employer] Jul 07, 2019 12:15 POS
[2019-07-07] MEDS ORDERED: HYDROcodone/APAP 5 MG/325 MG (LORTAB) TAB ONE (12:34)
--- NOTE | 2019-07-07 14:56 | Occupational Ther Daily Note ---
OT Current Status-Daily Note Subjective No c/o of pain. Appearance Doctor in room when OT entered the room. Pt agrees to therapy treatment. Mental Status/Objective Patient Orientation: Person, Place, Time, Situation ADL-Treatment Therapy Code Descriptions/Definitions Functional [place] Measure: 0=Not Assessed/NA 4=Minimal Assistance 1=Total Assistance 5=Supervision or Setup 2=Maximal Assistance 6=Modified [place] 3=Moderate Assistance 7=Complete IndependenceSCALE: Activities may be completed with or without assistive devices. 3-Rsfkbljpid-fkhgwlw completes the activity by him/herself with no assistance from a helper. 5-Set-up or Clean-up Assistance-helper sets up or cleans up; patient completes activity. [place] assists only prior to or following the activity. 4-Supervision or Touching Assistance-helper provides verbal cues and/or touching/steadying and/or contact guard assistance as patient completes activity. Assistance may be provided throughout the activity or intermittently. 3-Partial/Moderate Assistance-helper does LESS THAN HALF the effort. [place] lifts, holds or supports trunk or limbs, but provides less than half the effort. 2-Substantial/Maximal Assistance-helper does MORE THAN HALF the effort. [place] lifts or holds trunk or limbs and provides more than half the effort. 2-Segxqomkf-hoxoqq does ALL the effort. Patient does none of the effort to complete the activity. Or, the assistance of 2 or more helpers is required for the patient to complete the activity. If activity was not attempted, code reason: 7-Patient Refused. 9-Not Applicable-not attempted and the patient did not perform the activity before the current illness, exacerbation or injury. 10-Not Attempted due to Environmental Limitations-(lack of equipment, weather restraints, etc.). 88-Not Attempted due to Medical Conditions or Safety Concerns. Oral Hygiene (QC): 5 (Pt required set up to complete.) Bathing Location: L Arm, R Arm, L Upper Leg, R Upper Leg, L Lower Leg (including foot), R Lower Leg (including foot), Chest, Abdomen, Buttocks, Perineal Area Shower/Bathe Self (QC): 4 (Pt after set up, pt completed shower with supervisio n.) Upper Body Dressing (QC): 5 (Pt required set up to complete UB dressing.) Lower Body Dressing (QC): 4 (Pt required CGA in stance to hike pants over hips.) Toileting Hygiene (QC): 7 (Pt declined using toilet at this time.) Toilet Transfer (QC): 7 Pt completed foot wear with set up. Pt did not require AE. Other Treatment Pt transferred to the walker from the recliner with SBA. Pt completed shower while seated on the bench. Using grabbers, and hand held shower, pt completed shower with supervision. Pt transferred to the w/c. Pt completed combing hair and brushing teeth while seated at the sink. Pt. ambulated with CGA and walker to therapy gym. Requires several brief rest breaks. Pt. participated in reaching activities to simulate functional tasks when in kitchen, such as retrieving items from high cabinets and low cabinets. Pt. ambulated back to room with walker and CGA. Pt then transferred to the toilet with SBA. Pt on the toilet at the end of session. Nurse notified. Education OT Patient Education: Home exercise program, Modified ADL techniques, Progress toward Goal/Update tx plan, Purpose of tx/functional activities, Reviewed precautions, Rehab process, Safety issues, Transfer techniques, W/C management Teaching Recipient: Patient Teaching Methods: Demonstration, Discussion Response to Teaching: Verbalize Understanding, Return Demonstration OT Short Term Goals Short Term Goals 1=Demonstrate adherence to instructed precautions during ADL tasks. 2=Patient will verbalize/demonstrate understanding of assistive de vices/modifications for ADL. 3=Patient will improve strength/tolerance for activity to enable patient to perform ADL's. OT Customer Experience Manager Goals [facility] Goals Time Frame: Jul 15, 2019 Eating (QC): 6 Oral Hygiene (QC): 6 Shower/Bathe Self (QC): 5 Upper Body Dressing (QC): 5 Lower Body Dressing (QC): 5 On/Off Footwear (QC): 5 Toileting Hygiene (QC): 6 Toilet/Commode Transfer (QC): 6 Additional Goals: 1-Demonstrate ADL Tasks, 2-Verbalize Understanding, 3- ImproveStrength/[place] 1=Demonstrate adherence to instructed precautions during ADL tasks. 2=Patient will verbalize/demonstrate understanding of assistive devices/modifications for ADL. 3=Patient will improve strength/tolerance for activity to enable patient to perform ADL's. OT Education/Plan Problem List/Assessment Assessment: Decreased Activ Tolerance, Dependent Transfers, Impaired Funct Balance, Impaired I ADL's, Impaired Self-Care Skills Discharge Recommendations Plan/Recommendations: Continue POC Therapy Discharge Recommendati: Post Acute OT Treatment Plan/Plan of Care Treatment,Training & Education: Yes Patient would benefit from OT for education, treatment and training to promote independence in ADL's, mobility, safety and/or upper extremity function for ADL's. Plan of Care: ADL Retraining, Functional Mobility, UE Funct Exercise/Act Treatment Duration: Jul 15, 2019 Frequency: At least 5 of 7 days/Wk (IRF) Estimated Hrs Per Day: 1.5 hours per day Agreement: Yes Rehab Potential: Good Time/GCodes Start Time: 09:30 Stop Time: 11:00 Total Time Billed (hr/min): 90 Billed Treatment Time 1, ADL x 4 (60minutes) FA x 2 (30minutes) JOSE RAMON CÁRDENAS OT Jul 07, 2019 14:56 POS
[2019-07-07 17:39] VITALS: BP 148/73
[2019-07-07] MEDS: ENOXAPARIN 40 MG/0.4 ML (LOVENOX) SYR SQ SCH (18:44)
[2019-07-07] MEDS: TRIMETHOPRIM 100 MG TAB (PROLOPRIM) NON-FORMULARY PO SCH (20:15)
[2019-07-08 05:09] VITALS: BP 147/70
[2019-07-08 06:32] LABS: HEMOGLOBIN 10.3 G/DL (11.5-16.0); MEAN PLATELET VOLUME 8.9 FL (7.4-10.4); RED CELL DISTRIBUTION WIDTH 13.6 % (10.0-14.5); WHITE BLOOD COUNT 7.4 10^3/uL (4.3-11.0)
--- NOTE | 2019-07-08 07:59 | Physical Therapy Daily Note ---
PT Daily Note-Current Subjective Pt agreeable to PT session. States she feels she overdid it yesterday with PT. Had a lot of indigestion. Feeling pretty tired right now, not really any pain at rest, just when getting up and putting wt on L leg. Pain Numeric Pain Scale: 0-No Pain Comment: L leg with WB, 04/03 Appearance Upon arrival, pt sitting up in chair with nurse present. States she just finished breakfast. Pt requesting and assisted to bathroom. At end of session, pt sitting up in recliner with call light, phone and bedside table within reach. Mental Status Patient Orientation: Person, Place, Time, Eyes Open, Situation Transfers SCALE: Activities may be completed with or without assistive devices. 7-Nkjhhzeinu-kegjrug completes the activity by him/herself with no assistance from a helper. 5-Set-up or Clean-up Assistance-helper sets up or cleans up; patient completes activity. [place] assists only prior to or following the activity. 4-Supervision or Touching Assistance-helper provides verbal cues and/or touching/steadying and/or contact guard assistance as patient completes activity. Assistance may be provided throughout the activity or intermittently. 3-Partial/Moderate Assistance-helper does LESS THAN HALF the effort. [place] lifts, holds or supports trunk or limbs, but provides less than half the effort. 2-Substantial/Maximal Assistance-helper does MORE THAN HALF the effort. [place] lifts or holds trunk or limbs and provides more than half the effort. 8-Koucenbzx-rdexrh does ALL the effort. Patient does none of the effort to complete the activity. Or, the assistance of 2 or more helpers is required for the patient to complete the activity. If activity was not attempted, code reason: 7-Patient Refused. 9-Not Applicable-not attempted and the patient did not perform the activity before the current illness, exacerbation or injury. 10-Not Attempted due to Environmental Limitations-(lack of equipment, weather restraints, etc.). 88-Not Attempted due to Medical Conditions or Safety Concerns. Sit to Stand (QC): 4 very slow cautious and guarded, skilled inst provided and pt able to follow through with hand placement and walker positioning for safety and to improve ease of transition Gait Training Does the Patient Walk?: Yes Distance: 110 x2 Walk 10 feet (QC): 4 Walk 50 ft with 2 Turns(QC): 4 Gait Persons Needed: 1 Gait Assistive Device: FWW CGA to SBA, slow guarded gait, antalgic, decreased stance time LLE, slight IR RLE, skilled inst with pt follow through for posture, very stiff and decreased step length 1st 5-10 ft each time, no LOB, unsteady x1 episode Exercises Seated Therapy Exercises: Ankle pumps (20), Sit to stand (up to FWW x4, x6), Long arc quads (2 x10, decreased knee ext), Hip flexion (2 x10), Hip abd/add (2 x10) Standing: Marching (x10, increased pain with WB LLE, increasing ROM with each rep LLE), Mini squats (2 x10) NuStep Minutes: 9 (fatigue) NuStep Workload: 2 (seat 5, arms 5) Treatments education, safety, transfers, gait, toileting, dmitri care, balance, strength, activity tolerance, functional mobility Assessment Current Status: Good Progress slow, guarded and painful with all transitions and gait but able to complete with SBA to CGA with skilled inst in hand placement, safety, walker placement, rest breaks, posture, gait technique and ex technique PT Prison Goals Prison Goals PT Prison Goals Time Frame: Jul 22, 2019 Sit to Lying (QC): 6 Lying-Sitting on Side/Bed(QC): 6 Sit to Stand (QC): 6 Roll Left to Right (QC): 6 Chair/Xej-cj-Mbjfk Xfer(QC): 6 Car Transfer (QC): 5 Walk 10 feet (QC): 6 Walk 10ft-Uneven Surface(QC): 6 Walk 50ft with 2 Turns (QC): 6 Walk 150 ft (QC): 6 Gait Assistive Device: FWW Wheel 50 feet with 2 turns (QC: 9 1 Step (curb) (QC): 4 4 Steps (QC): 4 12 Steps (QC): 9 Picking up an Object (QC): 9 PT Plan Treatment/Plan Treatment Plan: Continue Plan of Care Treatment Plan: Bed Mobility, Education, Functional Activity [place], Functional Strength, Group Therapy, Gait, Safety, Therapeutic Exercise, Transfers Treatment Duration: Jul 22, 2019 Frequency: At least 5 of 7 days/Wk (IRF) Estimated Hrs Per Day: 1.5 hours per day Patient and/or Family Agrees t: Yes Safety Risks/Education Patient Education: Gait Training, Transfer Techniques, Safety Issues Teaching Recipient: Patient Teaching Methods: Demonstration, Discussion Response to Teaching: Verbalize Understanding, Return Demonstration, Reinforcement Needed Time/GCodes Time In: 755 Time Out: 925 Total Billed Treatment Time: 90 Total Billed Treatment 1 visit, GT x30 min, EX x45 min, FA x15 min AVEL KOHLI PRETZEL TWISTING MACHINE OPERATOR Jul 08, 2019 07:59 POS
[2019-07-08] MEDS: HYDROcodone/APAP 5 MG/325 MG (LORTAB) TAB PO PRN ×2 (08:05→18:38)
--- NOTE | 2019-07-08 08:57 | PM&R Progress Note ---
Subjective HPI/CC On Admission Date Seen by Provider: Jul 08, 2019 Time Seen by Provider: 08:00 Subjective/Events-last exam Pt requiring hydrocodone on a regular basis but that really helps her. Slept pretty well last night. No significant condition problems. Slow but walking well and much better. Participating in all therapies. Wants to go home soon and that will be accomplished very soon depending on abili ty of her son and to be prepared for her at home. Conferred with RN Reviewed therapy notes Checked meds and labs Review of Systems General: Fatigue Objective Exam Vital Signs Vital Signs Date Time Temp Pulse Resp B/P (MAP) Pulse Ox O2 Delivery O2 Flow Rate FiO2 07/08/19 17:32 37.3 100 16 136/72 (93) 96 Room Air Capillary Refill : Less Than 3 Seconds General Appearance: No Apparent Distress, WD/WN, Anxious, Chronically ill HEENT: PERRL/EOMI, Normal ENT Inspection, Pharynx Normal Neck: Full Range of Motion, Normal Inspection, Non Tender, Supple, Carotid Bruit Respiratory: Chest Non Tender, Lungs Clear, Normal Breath Sounds, No Accessory Muscle Use, No Respiratory Distress Cardiovascular: Regular Rate, Rhythm, No Edema, No Gallop, No JVD, No Murmur, Normal Peripheral Pulses Gastrointestinal: Normal Bowel Sounds, No Organomegaly, No Pulsatile Mass, Non Tender, Soft Back: Normal Inspection, No CVA Tenderness, Decreased Range of Motion, Vertebral Tenderness Extremity: Normal Capillary Refill, Normal Inspection, Non Tender, No Calf Tenderness, No Pedal Edema, Other (limited ROM due to pelvis pain and leg and back pain) Neurologic/Psychiatric: Alert, Oriented x3, No Motor/Sensory Deficits, Normal Mood/Affect Skin: Normal Color, Warm/Dry Lymphatic: No Adenopathy Results/Procedures Lab Laboratory Tests 07/08/19 06:18 Patient resulted labs reviewed. FIM Transfers Therapy Code Descriptions/Definitions Functional [place] Measure: 0=Not Assessed/NA 4=Minimal Assistance 1=Total Assistance 5=Supervision or Setup 2=Maximal Assistance 6=Modified [place] 3=Moderate Assistance 7=Complete IndependenceSCALE: Activities may be completed with or without assistive devices. 0-Vabnspkrpp-olhguqe completes the activity by him/herself with no assistance from a helper. 5-Set-up or Clean-up Assistance-helper sets up or cleans up; patient completes activity. [place] assists only prior to or following the activity. 4-Supervision or Touching Assistance-helper provides verbal cues and/or touching/steadying and/or contact guard assistance as patient completes activity. Assistance may be provided throughout the activity or intermittently. 3-Partial/Moderate Assistance-helper does LESS THAN HALF the effort. [place] lifts, holds or supports trunk or limbs, but provides less than half the effort. 2-Substantial/Maximal Assistance-helper does MORE THAN HALF the effort. [place] lifts or holds trunk or limbs and provides more than half the effort. 4-Uhfvmfxho-dketup does ALL the effort. Patient does none of the effort to complete the activity. Or, the assistance of 2 or more helpers is required for the patient to complete the activity. If activity was not attempted, code reason: 7-Patient Refused. 9-Not Applicable-not attempted and the patient did not perform the activity before the current illness, exacerbation or injury. 10-Not Attempted due to Environmental Limitations-(lack of equipment, weather restraints, etc.). 88-Not Attempted due to Medical Conditions or Safety Concerns. Transfers (B, C, W/C) (FIM): 4 Roll Left to Right (QC): 4 Sit to Lying (QC): 4 Sit to Stand (QC): 4 Chair/Phw-ae-Clilp Xfer(QC): 4 (SBA) Car Transfer (QC): 4 Gait Training Does the Patient Walk?: Yes Gait (FIM): 4 Distance (FIM): 2=488-67 ft Distance: 75' x2; 30' x2 Walk 10 feet (QC): 4 Walk 50 ft with 2 Turns(QC): 4 Walk 150 ft (QC): 4 (CGA) Walking 10ft/uneven surface-QC: 88 Gait Persons Needed: 1 Gait Assistive Device: FWW Wheelchair Training Does the Pt Use a Wheelchair?: No Wheel 50 ft with 2 turns (QC): 9 Wheel 150 ft (QC): 9 Stair Training Stair Training: Handrails/: 1 handrail #of Steps: 4 1 Step (curb) (QC): 3 4 Steps (QC): 3 12 Steps (QC): 9 Stairs: Pattern: Step to Balance Picking up an Object (QC): 9 ADL-Treatment Eating (QC): 6 (Pt completed meal independently.) Oral Hygiene (QC): 5 (Pt required set up to complete.) Bathing Location: L Arm, R Arm, L Upper Leg, R Upper Leg, L Lower Leg (including foot), R Lower Leg (including foot), Chest, Abdomen, Buttocks, Perineal Area Shower/Bathe Self (QC): 4 (Pt after set up, pt completed shower with supervision.) Upper Body Dressing (QC): 5 (Pt required set up to complete UB dressing.) Lower Body Dressing (QC): 4 (Pt required CGA in stance to hike pants over hips.) On/Off Footwear (QC): 4 Toileting Hygiene (QC): 7 (Pt declined using toilet at this time.) Toilet Transfer (QC): 7 Assessment/Plan Assessment and Plan Assess & Plan/Chief Complaint Assessment: Pelvic fracture Constipation OP Plan: Monitor closely IRF protocol Home at [facility] before pain meds Pain is more manageable now (1) Pelvic fracture Status: Acute (2) Recurrent UTI Status: Chronic (3) Hyperlipidemia Status: Chronic (4) Dementia (5) Delirium (6) Osteoporosis (7) Constipation (8) S/P kyphoplasty Status: Chronic ROSSI WASHINGTON DO Jul 08, 2019 08:57 POS
[2019-07-08] MEDS: SENNA W/DOCUSATE (SENOKOT S) TABLET PO SCH ×2 (09:00→21:08)
[2019-07-08] MEDS: LACTULOSE SYRUP 10GM/15ML (ENULOSE) 30ML UDC PO SCH ×2 (09:00→21:08)
[2019-07-08] MEDS: DOCUSATE SODIUM 100 MG (COLACE) CAP PO SCH ×2 (09:00→20:31)
--- NOTE | 2019-07-08 11:14 | NUR ---
Reviewed weekly Rehab Team Conference Summary with patient. She is in agreement to a continued stay with targeted discharge of 07/14/19. No changes in the earlier noted proposed post hospital care plan at this time.
--- NOTE | 2019-07-08 12:36 | Occupational Ther Daily Note ---
OT Current Status-Daily Note Subjective No c/o of pain. Appearance Pt in the recliner when OT entered the room. Pt agrees to therapy treatment. Mental Status/Objective Patient Orientation: Person, Place, Time ADL-Treatment Therapy Code Descriptions/Definitions Functional [place] Measure: 0=Not Assessed/NA 4=Minimal Assistance 1=Total Assistance 5=Supervision or Setup 2=Maximal Assistance 6=Modified [place] 3=Moderate Assistance 7=Complete IndependenceSCALE: Activities may be completed with or without assistive devices. 5-Husbeitnxu-ooqfegd completes the activity by him/herself with no assistance from a helper. 5-Set-up or Clean-up Assistance-helper sets up or cleans up; patient completes activity. [place] assists only prior to or following the activity. 4-Supervision or Touching Assistance-helper provides verbal cues and/or touching/steadying and/or contact guard assistance as patient completes activity. Assistance may be provided throughout the activity or intermittently. 3-Partial/Moderate Assistance-helper does LESS THAN HALF the effort. [place] lifts, holds or supports trunk or limbs, but provides less than half the effort. 2-Substantial/Maximal Assistance-helper does MORE THAN HALF the effort. [place] lifts or holds trunk or limbs and provides more than half the effort. 2-Ummozpmip-aezqvi does ALL the effort. Patient does none of the effort to complete the activity. Or, the assistance of 2 or more helpers is required for the patient to complete the activity. If activity was not attempted, code reason: 7-Patient Refused. 9-Not Applicable-not attempted and the patient did not perform the activity before the current illness, exacerbation or injury. 10-Not Attempted due to Environmental Limitations-(lack of equipment, weather restraints, etc.). 88-Not Attempted due to Medical Conditions or Safety Concerns. Oral Hygiene (QC): 5 (Seat up from seated position.) Shower/Bathe Self (QC): 7 (Pt declined shower.) Upper Body Dressing (QC): 7 (Pt declined to change UB clothing.) Lower Body Dressing (QC): 4 (Pt able to thread LE clothing over feet, and required SBA in stance to hike pants/underwear over hips.) Toileting Hygiene (QC): 4 (Pt required SBA when managing clothes.) Toilet Transfer (QC): 4 (using grabbars pt required SBA to transfer to/from toilet from the chair.) Other Treatment Pt declined shower/sponge bath but agrees to change her clothes and brush teeth. Pt verbalizes the she is worried about her . States that he had a spider bite and her son was looking after him. Pt completed dressing while seated in her recliner. Pt used walker to stand from recliner to don/doff LB clothing. Pt required SBA while completing LB dressing. Pt required extended time to complete ADL's. Pt then transferred to wheelchair with walker and required SBA assist. Pt then transferred on the toilet and required SBA while managing LE clothing. Pt completed combing hair and brushing teeth while seated at the sink. Pt verbalized concern that she feels that she needs to do a lot of exercises to go home quicker. Pt. is encouraged that while exercise and movement is very important, and that she can take her time and have rest breaks. Pt demonstrated understanding. OT took pt to therapy gym via wheelchair and she participated in bilateral UE strengthening tasks with fine motor activities using therapy clothes pins. Pt. taken back to room by OT via wheelchair, but pt propelled self from outside her room to the bedside. Pt then transferred to bed with walker and required CGA in stance from w/c to bed. Pt laying in bed at end of the session. All needs met in the room. Education OT Patient Education: Exercise program, Home exercise program, Modified ADL techniques, Progress toward Goal/Update tx plan, Purpose of tx/functional activities, Reviewed precautions, Rehab process, Safety issues, Transfer techniques, W/C management Teaching Recipient: Patient Teaching Methods: Demonstration, Discussion Response to Teaching: Verbalize Understanding, Return Demonstration OT Short Term Goals Short Term Goals 1=Demonstrate adherence to instructed precautions during ADL tasks. 2=Patient will verbalize/demonstrate understanding of assistive devices/modifications for ADL. 3=Patient will improve strength/tolerance for activity to enable patient to perform ADL's. OT Quarry Supervisor [employer] Goals [facility] Goals Time Frame: Jul 15, 2019 Eating (QC): 6 Oral Hygiene (QC): 6 Shower/Bathe Self (QC): 5 Upper Body Dressing (QC): 5 Lower Body Dressing (QC): 5 On/Off Footwear (QC): 5 Toileting Hygiene (QC): 6 Toilet/Commode Transfer (QC): 6 Additional Goals: 1-Demonstrate ADL Tasks, 2-Verbalize Understanding, 3- ImproveStrength/[place] 1=Demonstrate adherence to instructed precautions during ADL tasks. 2=Patient will verbalize/demonstrate understanding of assistive devices/modifications for ADL. 3=Patient will improve strength/tolerance for activity to enable patient to perform ADL's. OT Education/Plan Problem List/Assessment Assessment: Decreased Activ Tolerance, Decreased UE Strength, Dependent Transfers, Impaired Funct Balance, Impaired I ADL's, Impaired Self-Care Skills Discharge Recommendations Plan/Recommendations: Continue POC Therapy Discharge Recommendati: Post Acute OT Treatment Plan/Plan of Care Treatment,Training & Education: Yes Patient would benefit from OT for education, treatment and training to promote independence in ADL's, mobility, safety and/or upper extremity function for ADL's. Plan of Care: ADL Retraining, Functional Mobility, UE Funct Exercise/Act Treatment Duration: Jul 15, 2019 Frequency: At least 5 of 7 days/Wk (IRF) Estimated Hrs Per Day: 1.5 hours per day Agreement: Yes Rehab Potential: Good Time/GCodes Start Time: 09:30 Stop Time: 11:00 Total Time Billed (hr/min): 90 Billed Treatment Time 1, ADL x 4 (60 Minutes) FA x 2 (30 Minutes) JOSE RAMON CÁRDENAS OT Jul 08, 2019 12:36 POS
[2019-07-08 17:32] VITALS: BP 136/72
[2019-07-08] MEDS: ENOXAPARIN 40 MG/0.4 ML (LOVENOX) SYR SQ SCH (18:38)
[2019-07-08] MEDS: TRIMETHOPRIM 100 MG TAB (PROLOPRIM) NON-FORMULARY PO SCH (20:31)
[2019-07-09 05:03] VITALS: BP 173/81
[2019-07-09] MEDS: LACTULOSE SYRUP 10GM/15ML (ENULOSE) 30ML UDC PO SCH ×2 (07:42→20:57)
[2019-07-09] MEDS: ACETAMINOPHEN 500 MG TAB (TYLENOL) PO PRN ×3 (08:36→22:07)
[2019-07-09] MEDS: SENNA W/DOCUSATE (SENOKOT S) TABLET PO SCH ×2 (08:36→21:00)
[2019-07-09] MEDS: DOCUSATE SODIUM 100 MG (COLACE) CAP PO SCH ×2 (08:36→20:54)
[2019-07-09] MEDS: HYDROcodone/APAP 5 MG/325 MG (LORTAB) TAB PO PRN ×3 (09:23→22:07)
--- NOTE | 2019-07-09 09:23 | PM&R Progress Note ---
Subjective HPI/CC On Admission Date Seen by Provider: Jul 09, 2019 Time Seen by Provider: 08:30 Subjective/Events-last exam Pt doing pretty well today It helps not having such a vigorous pace for therapy Nausea resolved Overall doing well Bowels are moving No narcotic bowel noted Pain control is much better DC is planned tomorrow Conferred with RN Reviewed therapy notes Checked meds and labs Review of Systems Musculoskeletal: back pain, leg pain Objective Exam Vital Signs Vital Signs Date Time Temp Pulse Resp B/P (MAP) Pulse Ox O2 Delivery O2 Flow Rate FiO2 07/09/19 08:20 Room Air 07/09/19 05:03 36.8 92 18 173/81 (111) 96 Capillary Refill : Less Than 3 Seconds General Appearance: No Apparent Distress, WD/WN, Anxious, Chronically ill HEENT: PERRL/EOMI, Normal ENT Inspection, Pharynx Normal Neck: Full Range of Motion, Normal Inspection, Non Tender, Supple, Carotid Bruit Respiratory: Chest Non Tender, Lungs Clear, Normal Breath Sounds, No Accessory Muscle Use, No Respiratory Distress Cardiovascular: Regular Rate, Rhythm, No Edema, No Gallop, No JVD, No Murmur, Normal Peripheral Pulses Gastrointestinal: Normal Bowel Sounds, No Organomegaly, No Pulsatile Mass, Non Tender, Soft Back: Normal Inspection, No CVA Tenderness, Decreased Range of Motion, Vertebral Tenderness Extremity: Normal Capillary Refill, Normal Inspection, Non Tender, No Calf Tenderness, No Pedal Edema, Other (limited ROM due to pelvis pain and leg and back pain) Neurologic/Psychiatric: Alert, Oriented x3, No Motor/Sensory Deficits, Normal Mood/Affect Skin: Normal Color, Warm/Dry Lymphatic: No Adenopathy Results/Procedures Lab Patient resulted labs reviewed. FIM Transfers Therapy Code Descriptions/Definitions Functional [place] Measure: 0=Not Assessed/NA 4=Minimal Assistance 1=Total Assistance 5=Supervision or Setup 2=Maximal Assistance 6=Modified [place] 3=Moderate Assistance 7=Complete IndependenceSCALE: Activities may be completed with or without assistive devices. 3-Hgzjvaasam-hcssfym completes the activity by him/herself with no assistance from a helper. 5-Set-up or Clean-up Assistance-helper sets up or cleans up; patient completes activity. [place] assists only prior to or following the activity. 4-Supervision or Touching Assistance-helper provides verbal cues and/or touching/steadying and/or contact guard assistance as patient completes activity. Assistance may be provided throughout the activity or intermittently. 3-Partial/Moderate Assistance-helper does LESS THAN HALF the effort. [place] lifts, holds or supports trunk or limbs, but provides less than half the effort. 2-Substantial/Maximal Assistance-helper does MORE THAN HALF the effort. [place] lifts or holds trunk or limbs and provides more than half the effort. 9-Slisqnmot-mvnzro does ALL the effort. Patient does none of the effort to complete the activity. Or, the assistance of 2 or more helpers is required for the patient to complete the activity. If activity was not attempted, code reason: 7-Patient Refused. 9-Not Applicable-not attempted and the patient did not perform the activity before the current illness, exacerbation or injury. 10-Not Attempted due to Environmental Limitations-(lack of equipment, weather restraints, etc.). 88-Not Attempted due to Medical Conditions or Safety Concerns. Transfers (B, C, W/C) (FIM): 4 Roll Left to Right (QC): 4 Sit to Lying (QC): 4 Sit to Stand (QC): 4 Chair/Ajp-em-Jhpee Xfer(QC): 4 (SBA) Car Transfer (QC): 4 Gait Training Does the Patient Walk?: Yes Gait (FIM): 4 Distance (FIM): 2=274-17 ft Distance: 110 x2 Walk 10 feet (QC): 4 Walk 50 ft with 2 Turns(QC): 4 Walk 150 ft (QC): 4 (CGA) Walking 10ft/uneven surface-QC: 88 Gait Persons Needed: 1 Gait Assistive Device: FWW Wheelchair Training Does the Pt Use a Wheelchair?: No Wheel 50 ft with 2 turns (QC): 9 Wheel 150 ft (QC): 9 Stair Training Stair Training: Handrails/: 1 handrail #of Steps: 4 1 Step (curb) (QC): 3 4 Steps (QC): 3 12 Steps (QC): 9 Stairs: Pattern: Step to Balance Picking up an Object (QC): 9 ADL-Treatment Eating (QC): 6 (Pt completed meal independently.) Oral Hygiene (QC): 5 (Seat up from seated position.) Bathing Location: L Arm, R Arm, L Upper Leg, R Upper Leg, L Lower Leg (including foot), R Lower Leg (including foot), Chest, Abdomen, Buttocks, Perineal Area Shower/Bathe Self (QC): 7 Upper Body Dressing (QC): 7 Lower Body Dressing (QC): 4 (Pt able to thread LE clothing over feet, and required SBA in stance to hike pants/underwear over hips.) On/Off Footwear (QC): 4 Toileting Hygiene (QC): 4 Toilet Transfer (QC): 4 (using grabbars pt required SBA to transfer to/from toilet from the chair.) Assessment/Plan Assessment and Plan Assess & Plan/Chief Complaint Assessment: Pelvic fracture Constipation OP Plan: Monitor closely IRF protocol Home at [facility] before pain meds Pain is more manageable now Discharge plan soon (1) Pelvic fracture Status: Acute (2) Recurrent UTI Status: Chronic (3) Hyperlipidemia Status: Chronic (4) Dementia (5) Delirium (6) Osteoporosis (7) Constipation (8) S/P kyphoplasty Status: Chronic ROSSI WASHINGTON DO Jul 09, 2019 09:23 POS
--- NOTE | 2019-07-09 09:33 | Physical Therapy Daily Note ---
PT Daily Note-Current Subjective Pt agreeable to PT session, states she is not feeling as stiff today and just received her pain med Pain Numeric Pain Scale: 6 Location: Left Location Body Site: Pelvic Pain Description: Sharp Comment: from my 2 fractures Appearance Pt finishing in bathroom upon arrival. At end of session, pt sitting up in recliner with call light, phone and bedside table within reach. Mental Status Patient Orientation: Person, Place, Time, Eyes Open, Situation Transfers SCALE: Activities may be completed with or without assistive devices. 0-Kittqydozk-tglayol completes the activity by him/herself with no assistance from a helper. 5-Set-up or Clean-up Assistance-helper sets up or cleans up; patient completes activity. [place] assists only prior to or following the activity. 4-Supervision or Touching Assistance-helper provides verbal cues and/or cruz edilberto/steadying and/or contact guard assistance as patient completes activity. Assistance may be provided throughout the activity or intermittently. 3-Partial/Moderate Assistance-helper does LESS THAN HALF the effort. [place] lifts, holds or supports trunk or limbs, but provides less than half the effort. 2-Substantial/Maximal Assistance-helper does MORE THAN HALF the effort. [place] lifts or holds trunk or limbs and provides more than half the effort. 7-Mnsyvayua-wprmqa does ALL the effort. Patient does none of the effort to complete the activity. Or, the assistance of 2 or more helpers is required for the patient to complete the activity. If activity was not attempted, code reason: 7-Patient Refused. 9-Not Applicable-not attempted and the patient did not perform the activity before the current illness, exacerbation or injury. 10-Not Attempted due to Environmental Limitations-(lack of equipment, weather restraints, etc.). 88-Not Attempted due to Medical Conditions or Safety Concerns. Sit to Stand (QC): 5 pt performing several sit to from stand transfers from various chairs, with use of armrests and with hands on seat of chair requiring a little more effort but able to complete upon 1st attempt each time. Gait Training Does the Patient Walk?: Yes Distance: 157, 125, 152 Walk 10 feet (QC): 4 Walk 50 ft with 2 Turns(QC): 4 Walk 150 ft (QC): 4 Walking 10ft/uneven surface-QC: 4 Gait Persons Needed: 1 Gait Assistive Device: FWW slight antalgic gait, very slow, no LOB or unsteadiness on tiled manav, mat and small rug. Lowered walker height, improved posture and decreased strain on shoulders, upper back and leg Stair Training Stair Training: Handrails/: 1 handrail #of Steps: 4 1 Step (curb) (QC): 4 4 Steps (QC): 4 Stairs: Pattern: Step to (leading RLE ascending, LLE descending) Level of Assist: 4 Pt able to follow through with skilled instruction for technique and sequencing Exercises Seated Therapy Exercises: Ankle pumps (simultaneously, knees extended x30), Sit to stand (Hands on armrests 10, 5 x2. Hands on seat of chair x5), Long arc quads (BLE's simultaneously, x20), Hip flexion (alternating LE's, x20), Hip abd/add (knees extended, x20) NuStep Minutes: 10 NuStep Workload: 3 (seat 6) Treatments education, safety, activity tolerance, functional mobility, transfers, gait, strength, balance, stairs Assessment Current Status: Good Progress PT Fpc Goals Fpc Goals PT Job Press Operator Goals Time Frame: Jul 22, 2019 Sit to Lying (QC): 6 Lying-Sitting on Side/Bed(QC): 6 Sit to Stand (QC): 6 Roll Left to Right (QC): 6 Chair/Bcx-ob-Seaix Xfer(QC): 6 Car Transfer (QC): 5 Walk 10 feet (QC): 6 Walk 10ft-Uneven Surface(QC): 6 Walk 50ft with 2 Turns (QC): 6 Walk 150 ft (QC): 6 Gait Assistive Device: FWW Wheel 50 feet with 2 turns (QC: 9 1 Step (curb) (QC): 4 4 Steps (QC): 4 12 Steps (QC): 9 Picking up an Object (QC): 9 PT Plan Treatment/Plan Treatment Plan: Continue Plan of Care Treatment Plan: Bed Mobility, Education, Functional Activity Ayleen, Functional Strength, Group Therapy, Gait, Safety, Therapeutic Exercise, Transfers Treatment Duration: Jul 22, 2019 Frequency: At least 5 of 7 days/Wk (IRF) Estimated Hrs Per Day: 1.5 hours per day Patient and/or Family Agrees t: Yes Safety Risks/Education Patient Education: Gait Training, Transfer Techniques, Steps, Safety Issues Teaching Recipient: Patient Teaching Methods: Demonstration, Discussion Response to Teaching: Verbalize Understanding, Return Demonstration Time/GCodes Time In: 930 Time Out: 1100 Total Billed Treatment Time: 90 Total Billed Treatment 1 visit, GT x30 min, EX x30 min, FA x30 min AVEL KOHLI PTA Jul 09, 2019 09:33 POS
--- NOTE | 2019-07-09 09:56 | Progress Note ---
VERITOIAN VIZCARRA [facility] 07/09/19 0956: Progress Note CC: Left Pelvic fracture Pt reports that her pain has been better the last day She still has pain mainly with the sit to stand motion She reports some pain with walking movement but not as severe as the sit to stand pain She has been sleeping and eating good She was able to do some stairs with difficulty She is confident she would be able to go home and succeed She thinks that with the hand rail at home she would be able to get into the tub to shower I asked if she was able to bend over and pick something off the floor if she would drop it at home, and she says she has not tried to do that yet in therapy She states that if she did drop something at home she would likely just ask for help form her or son She states that her son will be able to help her at home a lot since he is retired as well as her at home BREANNA WASHINGTON DO 07/09/19 1619: Supervisory-Addendum Brief Verification & Attestation Participated in pt care: history, MDM, physical Personally performed: exam, history, MDM, supervision of care Care discussed with: Medical Student Procedures: n/a Results interpretation: Verified all documentation Verification and Attestation of Medical Student E/M Service A medical student performed and documented this service in my presence. I re viewed and verified all information documented by the medical student and made modifications to such information, when appropriate. I personally performed the physical exam and medical decision making. Breanna Washington, Jul 09, 2019,16:19 [facility] Jul 09, 2019 09:56 BREANNA CANTU DO Jul 09, 2019 16:19 POS
--- NOTE | 2019-07-09 12:20 | Occupational Ther Daily Note ---
OT Current Status-Daily Note Subjective No c/o of pain. Appearance Pt seated in her recliner when OT entered the room. Pt agrees to therapy treatment. Mental Status/Objective Patient Orientation: Person, Place, Time, Situation ADL-Treatment Therapy Code Descriptions/Definitions Functional [place] Measure: 0=Not Assessed/NA 4=Minimal Assistance 1=Total Assistance 5=Supervision or Setup 2=Maximal Assistance 6=Modified [place] 3=Moderate Assistance 7=Complete IndependenceSCALE: Activities may be completed with or without assistive devices. 3-Thatkzceua-hzoawjs completes the activity by him/herself with no assistance from a helper. 5-Set-up or Clean-up Assistance-helper sets up or cleans up; patient completes activity. [place] assists only prior to or following the activity. 4-Supervision or Touching Assistance-helper provides verbal cues and/or touching/steadying and/or contact guard assistance as patient completes activity. Assistance may be provided throughout the activity or intermittently. 3-Partial/Moderate Assistance-helper does LESS THAN HALF the effort. [place] lifts, holds or supports trunk or limbs, but provides less than half the effort. 2-Substantial/Maximal Assistance-helper does MORE THAN HALF the effort. [place] lifts or holds trunk or limbs and provides more than half the effort. 4-Trbgdnjtd-vmkzee does ALL the effort. Patient does none of the effort to complete the activity. Or, the assistance of 2 or more helpers is required for the patient to complete the activity. If activity was not attempted, code reason: 7-Patient Refused. 9-Not Applicable-not attempted and the patient did not perform the activity before the current illness, exacerbation or injury. 10-Not Attempted due to Environmental Limitations-(lack of equipment, weather restraints, etc.). 88-Not Attempted due to Medical Conditions or Safety Concerns. Oral Hygiene (QC): 5 (Pt completed oral hygiene with set up.) Bathing Location: L Arm, R Arm, L Upper Leg, R Upper Leg, L Lower Leg (including foot), R Lower Leg (including foot), Chest, Abdomen, Buttocks, Perineal Area Shower/Bathe Self (QC): 5 (using grabbars, handheld shower, pt was able to complete shower with set up.) Upper Body Dressing (QC): 5 (Pt completed UB dressing with set up.) Lower Body Dressing (QC): 4 (Pt required SBA in stance to hike pants/underwear over hip. Pt completed dressing seated in wheelchair.) Toileting Hygiene (QC): 4 (Pt used grabbars to stand to cleanse dmitri area. Pt required supervision when completing the tasks.) Toilet Transfer (QC): 4 (Pt required CGA to transfer from toilet to shower bench with walker.) Other Treatment Pt is worried about her and she want to get better to be with him. Pt reported that son is taking care of him. After the shower, pt completed combing hair and brushing her teeth, setup to retrieve toothpaste, while seated on wheelchair at the sink. Pt then ambulated with walker and sat on the bed SBA required. Pt practiced sit to stand then walking with walker to the door. Pt's son walked in while pt/OT were ending the session and reported to his mom that pt 's hand is swollen way too much that they had to stop the antibiotics. Pt in recliner with call light/phone in reach. Pt son present at the end of session. All needs met in room. Education OT Patient Education: Modified ADL techniques, Progress toward Goal/Update tx plan, Purpose of tx/functional activities, Reviewed precautions, Rehab process, Safety issues, Transfer techniques, W/C management Teaching Recipient: Patient Teaching Methods: Demonstration, Discussion Response to Teaching: Verbalize Understanding, Return Demonstration OT Short Term Goals Short Term Goals 1=Demonstrate adherence to instructed precautions during ADL tasks. 2=Patient will verbalize/demonstrate understanding of assistive devices/modifications for ADL. 3=Patient will improve strength/tolerance for activity to enable patient to perform ADL's. OT Senior Care Goals Medical Biller Goals Time Frame: Jul 15, 2019 Eating (QC): 6 Oral Hygiene (QC): 6 Shower/Bathe Self (QC): 5 Upper Body Dressing (QC): 5 Lower Body Dressing (QC): 5 On/Off Footwear (QC): 5 Toileting Hygiene (QC): 6 Toilet/Commode Transfer (QC): 6 Additional Goals: 1-Demonstrate ADL Tasks, 2-Verbalize Understanding, 3- ImproveStrength/Ayleen 1=Demonstrate adherence to instructed precautions during ADL tasks. 2=Patient will verbalize/demonstrate understanding of assistive devices/modifications for ADL. 3=Patient will improve strength/tolerance for activity to enable patient to perform ADL's. OT Education/Plan Problem List/Assessment Assessment: Decreased Activ Tolerance, Decreased UE Strength, Impaired I ADL's, Impaired Self-Care Skills Discharge Recommendations Plan/Recommendations: Continue POC Treatment Plan/Plan of Care Treatment,Training & Education: Yes Patient would benefit from OT for education, treatment and training to promote independence in ADL's, mobility, safety and/or upper extremity function for ADL's. Plan of Care: ADL Retraining, Functional Mobility, UE Funct Exercise/Act Treatment Duration: Jul 15, 2019 Frequency: At least 5 of 7 days/Wk (IRF) Estimated Hrs Per Day: 1.5 hours per day Agreement: Yes Rehab Potential: Good Time/GCodes Start Time: 11:00 Stop Time: 12:00 Total Time Billed (hr/min): 60 Billed Treatment Time 1 ADL x 3 (40 Min) FA x 1 (20 Min) VENITA CHASE Jul 09, 2019 12:20 POS
[2019-07-09] MEDS: ESTROGENS CONJ. CREAM 30 GM (PREMARIN) TUBE VG SCH (12:47)
--- NOTE | 2019-07-09 14:21 | Occupational Ther Daily Note ---
OT Current Status-Daily Note Subjective No c/o of pain. Appearance Pt seated in the recliner when OT entered the room. Pt agrees to therapy treatment. Mental Status/Objective Patient Orientation: Person, Place, Time, Situation ADL-Treatment Therapy Code Descriptions/Definitions Functional [place] Measure: 0=Not Assessed/NA 4=Minimal Assistance 1=Total Assistance 5=Supervision or Setup 2=Maximal Assistance 6=Modified [place] 3=Moderate Assistance 7=Complete IndependenceSCALE: Activities may be completed with or without assistive devices. 3-Nvjyyudvly-zozafha completes the activity by him/herself with no assistance from a helper. 5-Set-up or Clean-up Assistance-helper sets up or cleans up; patient completes activity. [place] assists only prior to or following the activity. 4-Supervision or Touching Assistance-helper provides verbal cues and/or touching/steadying and/or contact guard assistance as patient completes activity. Assistance may be provided throughout the activity or intermittently. 3-Partial/Moderate Assistance-helper does LESS THAN HALF the effort. [place] lifts, holds or supports trunk or limbs, but provides less than half the effort. 2-Substantial/Maximal Assistance-helper does MORE THAN HALF the effort. [place] lifts or holds trunk or limbs and provides more than half the effort. 8-Mtnqccgdy-dvstci does ALL the effort. Patient does none of the effort to complete the activity. Or, the assistance of 2 or more helpers is required for the patient to complete the activity. If activity was not attempted, code reason: 7-Patient Refused. 9-Not Applicable-not attempted and the patient did not perform the activity before the current illness, exacerbation or injury. 10-Not Attempted due to Environmental Limitations-(lack of equipment, weather restraints, etc.). 88-Not Attempted due to Medical Conditions or Safety Concerns. Toileting Hygiene (QC): 4 (Pt required SBA in stance to cleanse dmitri area.) Toilet Transfer (QC): 4 (Pt required SBA when transferring from the toilet to the walker.) Other Treatment Pt transferred from the recliner to the walker requiring SBA. Pt used the toilet and washed hands standing with walker at the sink. Pt then ambulated to therapy gym with walker and required SBA. Pt donned 1lb wrist weight to improve Bilateral UE Strength and participated in fine motor activity for functional tasks. Pt then ambulated back to her room with walker requiring SBA. Pt seated in recliner with call light/phone in reach. All needs met in the room. Education OT Patient Education: Energy conservation, Exercise program, Modified ADL techniques, Progress toward Goal/Update tx plan, Purpose of tx/functional activities, Reviewed precautions, Rehab process, Safety issues, Transfer techni ques Teaching Recipient: Patient Teaching Methods: Demonstration, Discussion Response to Teaching: Verbalize Understanding, Return Demonstration OT Short Term Goals Short Term Goals 1=Demonstrate adherence to instructed precautions during ADL tasks. 2=Patient will verbalize/demonstrate understanding of assistive devices/modifications for ADL. 3=Patient will improve strength/tolerance for activity to enable patient to perform ADL's. OT Air Hoist Operator Goals Air Hoist Operator Goals Time Frame: Jul 15, 2019 Eating (QC): 6 Oral Hygiene (QC): 6 Shower/Bathe Self (QC): 5 Upper Body Dressing (QC): 5 Lower Body Dressing (QC): 5 On/Off Footwear (QC): 5 Toileting Hygiene (QC): 6 Toilet/Commode Transfer (QC): 6 Additional Goals: 1-Demonstrate ADL Tasks, 2-Verbalize Understanding, 3- ImproveStrength/Ayleen 1=Demonstrate adherence to instructed precautions during ADL tasks. 2=Patient will verbalize/demonstrate understanding of assistive devices/modifi cations for ADL. 3=Patient will improve strength/tolerance for activity to enable patient to perform ADL's. OT Education/Plan Problem List/Assessment Assessment: Decreased Activ Tolerance, Decreased UE Strength, Impaired Self- Care Skills Discharge Recommendations Plan/Recommendations: Continue POC Therapy Discharge Recommendati: Post Acute OT Treatment Plan/Plan of Care Treatment,Training & Education: Yes Patient would benefit from OT for education, treatment and training to promote independence in ADL's, mobility, safety and/or upper extremity function for ADL's. Plan of Care: ADL Retraining, Functional Mobility, UE Funct Exercise/Act Treatment Duration: Jul 15, 2019 Frequency: At least 5 of 7 days/Wk (IRF) Estimated Hrs Per Day: 1.5 hours per day Agreement: Yes Rehab Potential: Good Time/GCodes Start Time: 13:00 Stop Time: 13:30 Total Time Billed (hr/min): 30 Billed Treatment Time 1, EX x 1 (20 Min ) ADL x 1 (10 min) KUNCE,VENITA MIKY Jul 09, 2019 14:21 POS
--- NOTE | 2019-07-09 15:24 | NUR ---
RD ASSESSMENT PMHx: hypercholesterolemia; dementia PT INTERACTION: Pt was awake and pleasant during follow-up. Note pt has dementia, per chart review. Pt states they have been eating "okay" since last assessment. Note avg PO intake of 25-50% x3d, per chart review. Pt states tolerating nutrition supplementation "okay" as well. Pt states no recent issues with n/v/c/d since last assessment. Note last BM was 07/08, and pt currently on bowel regimen of colace BID, miralax PRN, senna BID, per chart review. ABNORMAL NUTRITION-RELATED LAB VALUES: (taken 07/05) Na 133 (L); glu 119 (H); bili 1.1 (H) Est. kcal needs: 4908-6064 kcal | 25-30 kcal/kg Est. Pro needs: 59-68 g Pro | 1.2-1.4 g Pro/kg PES STATEMENT: Inadequate oral intake (NI-2.1) related to loss of appetite as evidenced by pt interview | avg PO intake 25-50% x3d INTERVENTION: Continue with current diet order of Regular diet. Continue with current supplementation order of Ensure Enlive with meals TID. Provides 350 kcal and 13 g Pro per serving. Will continue to follow and reassess as pt needs and status change. MONITOR/EVALUATE: PO Intake; Plan of Care; Hydration Status; Weight Status; Lab Values Michele [place], MS, RD, LD
[2019-07-09 16:00] VITALS: BP 165/75
[2019-07-09] MEDS: ENOXAPARIN 40 MG/0.4 ML (LOVENOX) SYR SQ SCH (18:12)
--- NOTE | 2019-07-09 19:25 | NUR ---
bedside report received from JUDY ANDREW, assume care of pt
--- NOTE | 2019-07-09 20:54 | NUR ---
pt refused Enulose & Senokot, took Colace
[2019-07-09] MEDS: TRIMETHOPRIM 100 MG TAB (PROLOPRIM) NON-FORMULARY PO SCH (21:00)
--- NOTE | 2019-07-09 22:07 | NUR ---
c/o chest discomfort level 8/10 on numeric scale, given Tylenol 500mg & Lortab 0.5mg given Addendum: 07/10/19 at 0311 by ANYA TOVAR RN Lortab 2.5mg
--- NOTE | 2019-07-09 22:45 | NUR ---
resting quietly in bed, pain level 0/10 on flacc scale
[2019-07-10] MEDS: HYDROcodone/APAP 5 MG/325 MG (LORTAB) TAB PO PRN (03:05)
--- NOTE | 2019-07-10 03:05 | NUR ---
c/o chest discomfort, pain level 7/10 on numeric scale, Lortab 2.5mg given
--- NOTE | 2019-07-10 03:50 | NUR ---
resting quietly in bed, pain level 0/10 on flacc scale
[2019-07-10 05:29] VITALS: BP 130/74
--- NOTE | 2019-07-10 07:25 | NUR ---
bedside report given to DEEPA ANDREW
[2019-07-10] MEDS: LACTULOSE SYRUP 10GM/15ML (ENULOSE) 30ML UDC PO SCH ×2 (08:50→21:28)
[2019-07-10] MEDS: DOCUSATE SODIUM 100 MG (COLACE) CAP PO SCH ×2 (08:50→21:27)
[2019-07-10] MEDS: SENNA W/DOCUSATE (SENOKOT S) TABLET PO SCH ×2 (08:50→21:28)
[2019-07-10] MEDS: ACETAMINOPHEN 500 MG TAB (TYLENOL) PO PRN ×3 (08:50→21:27)
--- NOTE | 2019-07-10 12:07 | PM&R Progress Note ---
Subjective HPI/CC On Admission Date Seen by Provider: Jul 10, 2019 Time Seen by Provider: 11:00 Subjective/Events-last exam Pt doing pretty well today Son at bedside Nausea resolved Overall doing well Bowels are moving No narcotic bowel noted Pain control is much better DC is planned soon Conferred with RN Reviewed therapy notes Checked meds and labs Review of Systems Musculoskeletal: leg pain Objective Exam Vital Signs Vital Signs Date Time Temp Pulse Resp B/P (MAP) Pulse Ox O2 Delivery O2 Flow Rate FiO2 07/11/19 09:00 Room Air 07/11/19 06:19 36.4 70 16 149/78 (101) 97 Capillary Refill : Less Than 3 Seconds General Appearance: No Apparent Distress, WD/WN, Anxious, Chronically ill HEENT: PERRL/EOMI, Normal ENT Inspection, Pharynx Normal Neck: Full Range of Motion, Normal Inspection, Non Tender, Supple, Carotid Bruit Respiratory: Chest Non Tender, Lungs Clear, Normal Breath Sounds, No Accessory Muscle Use, No Respiratory Distress Cardiovascular: Regular Rate, Rhythm, No Edema, No Gallop, No JVD, No Murmur, Normal Peripheral Pulses Gastrointestinal: Normal Bowel Sounds, No Organomegaly, No Pulsatile Mass, Non Tender, Soft Back: Normal Inspection, No CVA Tenderness, Decreased Range of Motion, Vertebral Tenderness Extremity: Normal Capillary Refill, Normal Inspection, Non Tender, No Calf Tenderness, No Pedal Edema, Other (limited ROM due to pelvis pain and leg and back pain) Neurologic/Psychiatric: Alert, Oriented x3, No Motor/Sensory Deficits, Normal Mood/Affect Skin: Normal Color, Warm/Dry Lymphatic: No Adenopathy Results/Procedures Lab Patient resulted labs reviewed. FIM Transfers Therapy Code Descriptions/Definitions Functional [place] Measure: 0=Not Assessed/NA 4=Minimal Assistance 1=Total Assistance 5=Supervision or Setup 2=Maximal Assistance 6=Modified [place] 3=Moderate Assistance 7=Complete IndependenceSCALE: Activities may be completed with or without assistive devices. 0-Drhupgoidk-lbgszuy completes the activity by him/herself with no assistance from a helper. 5-Set-up or Clean-up Assistance-helper sets up or cleans up; patient completes activity. [place] assists only prior to or following the activity. 4-Supervision or Touching Assistance-helper provides verbal cues and/or touching/steadying and/or contact guard assistance as patient completes activity. Assistance may be provided throughout the activity or intermittently. 3-Partial/Moderate Assistance-helper does LESS THAN HALF the effort. [place] lifts, holds or supports trunk or limbs, but provides less than half the effort. 2-Substantial/Maximal Assistance-helper does MORE THAN HALF the effort. [place] lifts or holds trunk or limbs and provides more than half the effort. 7-Blrtagsyb-mqdbxo does ALL the effort. Patient does none of the effort to complete the activity. Or, the assistance of 2 or more helpers is required for the patient to complete the activity. If activity was not attempted, code reason: 7-Patient Refused. 9-Not Applicable-not attempted and the patient did not perform the activity before the current illness, exacerbation or injury. 10-Not Attempted due to Environmental Limitations-(lack of equipment, weather restraints, etc.). 88-Not Attempted due to Medical Conditions or Safety Concerns. Transfers (B, C, W/C) (FIM): 4 Roll Left to Right (QC): 4 Sit to Lying (QC): 4 Sit to Stand (QC): 5 Chair/Gdo-pu-Rhshv Xfer(QC): 4 (SBA) Car Transfer (QC): 4 Gait Training Does the Patient Walk?: Yes Gait (FIM): 4 Distance (FIM): 1=950-33 ft Distance: 157, 125, 152 Walk 10 feet (QC): 4 Walk 50 ft with 2 Turns(QC): 4 Walk 150 ft (QC): 4 Walking 10ft/uneven surface-QC: 4 Gait Persons Needed: 1 Gait Assistive Device: FWW Wheelchair Training Does the Pt Use a Wheelchair?: No Wheel 50 ft with 2 turns (QC): 9 Wheel 150 ft (QC): 9 Stair Training Stair Training: Handrails/: 1 handrail #of Steps: 4 1 Step (curb) (QC): 4 4 Steps (QC): 4 12 Steps (QC): 9 Stairs: Pattern: Step to (leading RLE ascending, LLE descending) Level of Assist: 4 Balance Picking up an Object (QC): 9 ADL-Treatment Eating (QC): 6 (Pt completed meal independently.) Oral Hygiene (QC): 5 (Pt completed oral hygiene with set up.) Bathing Location: L Arm, R Arm, L Upper Leg, R Upper Leg, L Lower Leg (including foot), R Lower Leg (including foot), Chest, Abdomen, Buttocks, Perineal Area Shower/Bathe Self (QC): 5 (using grabbars, handheld shower, pt was able to complete shower with set up.) Upper Body Dressing (QC): 5 (Pt completed UB dressing with set up.) Lower Body Dressing (QC): 4 (Pt required SBA in stance to hike pants/underwear over hip. Pt completed dressing seated in wheelchair.) On/Off Footwear (QC): 4 Toileting Hygiene (QC): 4 (Pt required SBA in stance to cleanse dmitri area.) Toilet Transfer (QC): 4 (Pt required SBA when transferring from the toilet to the walker.) Assessment/Plan Assessment and Plan Assess & Plan/Chief Complaint Assessment: Pelvic fracture Constipation OP Plan: Monitor closely IRF protocol Home at [facility] before pain meds Pain is more manageable now Discharge plan soon (1) Pelvic fracture Status: Acute (2) Recurrent UTI Status: Chronic (3) Hyperlipidemia Status: Chronic (4) Dementia (5) Delirium (6) Osteoporosis (7) Constipation (8) S/P kyphoplasty Status: Chronic ROSSI WASHINGTON DO Jul 10, 2019 12:07 POS
--- NOTE | 2019-07-10 12:58 | Physical Therapy Daily Note ---
PT Daily Note-Current Subjective Pt agreeable to PT visit. Pain Numeric Pain Scale: 0-No Pain Comment: denies pain at rest, states increased a little with WB Appearance Pt sitting up in recliner upon arrival. Family present during tx session. Pt requesting and assisted to bathroom. At end of session, pt sitting at side of bed with 4 family members present, call light, phone and bedside table within reach Mental Status Patient Orientation: Normal For Age Transfers SCALE: Activities may be completed with or without assistive devices. 5-Gxkucgixwa-rftemvf completes the activity by him/herself with no assistance from a helper. 5-Set-up or Clean-up Assistance-helper sets up or cleans up; patient completes activity. [place] assists only prior to or following the activity. 4-Supervision or Touching Assistance-helper provides verbal cues and/or touching/steadying and/or contact guard assistance as patient completes activity. Assistance may be provided throughout the activity or intermittently. 3-Partial/Moderate Assistance-helper does LESS THAN HALF the effort. [place] lifts, holds or supports trunk or limbs, but provides less than half the effort. 2-Substantial/Maximal Assistance-helper does MORE THAN HALF the effort. [place] lifts or holds trunk or limbs and provides more than half the effort. 1-Qwaseldmi-weovti does ALL the effort. Patient does none of the effort to complete the activity. Or, the assistance of 2 or more helpers is required for the patient to complete the activity. If activity was not attempted, code reason: 7-Patient Refused. 9-Not Applicable-not attempted and the patient did not perform the activity before the current illness, exacerbation or injury. 10-Not Attempted due to Environmental Limitations-(lack of equipment, weather restraints, etc.). 88-Not Attempted due to Medical Conditions or Safety Concerns. Sit to Stand (QC): 5 Gait Training Does the Patient Walk?: Yes Distance: 150 x2 Walk 10 feet (QC): 4 Walk 50 ft with 2 Turns(QC): 4 Walk 150 ft (QC): 4 Gait Persons Needed: 1 Gait Assistive Device: FWW fair gait speed, antalgic, decreased stance time due to pain, No LOB or unsteadiness, with fatigue Stair Training Stair Training: Handrails/: 1 handrail (L side with BUE's) #of Steps: 4 (x2) 4 Steps (QC): 4 Stairs: Pattern: Step to (ascend lead with RLE, descend lead with LLE) Level of Assist: 4 pt son present and able to provide CG training with pt on stairs, son verbalizes understanding of technique Treatments education, safety, transfers, toileting, gait, stairs, CG training, activity tolerance, functional mobility Assessment Current Status: Good Progress PT Long-Term Goals Long-Term Goals PT [place] Goals Time Frame: Jul 22, 2019 Sit to Lying (QC): 6 Lying-Sitting on Side/Bed(QC): 6 Sit to Stand (QC): 6 Roll Left to Right (QC): 6 Chair/Zlm-pt-Chquk Xfer(QC): 6 Car Transfer (QC): 5 Walk 10 feet (QC): 6 Walk 10ft-Uneven Surface(QC): 6 Walk 50ft with 2 Turns (QC): 6 Walk 150 ft (QC): 6 Gait Assistive Device: FWW Wheel 50 feet with 2 turns (QC: 9 1 Step (curb) (QC): 4 4 Steps (QC): 4 12 Steps (QC): 9 Picking up an Object (QC): 9 PT Plan Treatment/Plan Treatment Plan: Continue Plan of Care Treatment Plan: Bed Mobility, Education, Functional Activity [place], Functional Strength, Group Therapy, Gait, Safety, Therapeutic Exercise, Transfers Treatment Duration: Jul 22, 2019 Frequency: At least 5 of 7 days/Wk (IRF) Estimated Hrs Per Day: 1.5 hours per day Patient and/or Family Agrees t: Yes Safety Risks/Education Patient Education: Gait Training, Transfer Techniques, Steps, Safety Issues Teaching Recipient: Patient, Family Teaching Methods: Demonstration, Discussion Response to Teaching: Verbalize Understanding, Return Demonstration Time/GCodes Time In: 1036 Time Out: 1105 Total Billed Treatment Time: 31 Total Billed Treatment 1 visit, GT x1 unit, FA x1 unit AVEL KOHLI V[employer] MECHANIC Jul 10, 2019 12:57 POS
[2019-07-10] MEDS: hydrOXYzine (ATARAX) 10 MG TAB PO PRN (16:34)
[2019-07-10 17:09] VITALS: BP 151/82
[2019-07-10] MEDS: ENOXAPARIN 40 MG/0.4 ML (LOVENOX) SYR SQ SCH (18:14)
--- NOTE | 2019-07-10 19:16 | NUR ---
bedside report received from DEEPA ANDREW, assume care of pt
[2019-07-10] MEDS: TRIMETHOPRIM 100 MG TAB (PROLOPRIM) NON-FORMULARY PO SCH (21:27)
--- NOTE | 2019-07-10 21:27 | NUR ---
pt refused enulose & senoskot but took colace, c/o chest & back discomfort level 4/10 on numeric scale, Tylenol 500mg given
--- NOTE | 2019-07-10 22:05 | NUR ---
resting quietly in bed, pain level 0/10 on flacc scale
[2019-07-11] MEDS: ACETAMINOPHEN 500 MG TAB (TYLENOL) PO PRN ×3 (03:05→18:13)
--- NOTE | 2019-07-11 03:05 | NUR ---
c/o chest discomfort, pain level 5/10 on numeric scale, Tylenol 500mg given
--- NOTE | 2019-07-11 03:40 | NUR ---
resting quietly in bed, pain level 0/10 on flacc scale
[2019-07-11 06:19] VITALS: BP 149/78
--- NOTE | 2019-07-11 07:19 | NUR ---
bedside report given to DEEPA ANDREW
[2019-07-11] MEDS: LACTULOSE SYRUP 10GM/15ML (ENULOSE) 30ML UDC PO SCH ×2 (08:23→21:20)
[2019-07-11] MEDS: SENNA W/DOCUSATE (SENOKOT S) TABLET PO SCH ×2 (08:23→21:20)
[2019-07-11] MEDS: DOCUSATE SODIUM 100 MG (COLACE) CAP PO SCH ×2 (08:26→21:20)
--- NOTE | 2019-07-11 16:18 | PM&R Progress Note ---
Subjective HPI/CC On Admission Date Seen by Provider: Jul 11, 2019 Time Seen by Provider: 11:30 Subjective/Events-last exam Patient doing well today Minimal narcs taken now is in the hospital for left hand infection so this may delay DC BM+ Overall more optimistic Conferred with RN Reviewed therapy notes Checked meds and labs Review of Systems Musculoskeletal: back pain, leg pain Objective Exam Vital Signs Vital Signs Date Time Temp Pulse Resp B/P (MAP) Pulse Ox O2 Delivery O2 Flow Rate FiO2 07/11/19 09:00 Room Air 07/11/19 06:19 36.4 70 16 149/78 (101) 97 Capillary Refill : Less Than 3 Seconds General Appearance: No Apparent Distress, WD/WN, Anxious, Chronically ill HEENT: PERRL/EOMI, Normal ENT Inspection, Pharynx Normal Neck: Full Range of Motion, Normal Inspection, Non Tender, Supple, Carotid Bruit Respiratory: Chest Non Tender, Lungs Clear, Normal Breath Sounds, No Accessory Muscle Use, No Respiratory Distress Cardiovascular: Regular Rate, Rhythm, No Edema, No Gallop, No JVD, No Murmur, Normal Peripheral Pulses Gastrointestinal: Normal Bowel Sounds, No Organomegaly, No Pulsatile Mass, Non Tender, Soft Back: Normal Inspection, No CVA Tenderness, Decreased Range of Motion, Vertebral Tenderness Extremity: Normal Capillary Refill, Normal Inspection, Non Tender, No Calf Tenderness, No Pedal Edema, Other (limited ROM due to pelvis pain and leg and back pain) Neurologic/Psychiatric: Alert, Oriented x3, No Motor/Sensory Deficits, Normal Mood/Affect Skin: Normal Color, Warm/Dry Lymphatic: No Adenopathy Results/Procedures Lab Patient resulted labs reviewed. FIM Transfers Therapy Code Descriptions/Definitions Functional [place] Measure: 0=Not Assessed/NA 4=Minimal Assistance 1=Total Assistance 5=Supervision or Setup 2=Maximal Assistance 6=Modified [place] 3=Moderate Assistance 7=Complete IndependenceSCALE: Activities may be completed with or without assistive devices. 5-Ajnxiywban-dnjjjvc completes the activity by him/herself with no assistance from a helper. 5-Set-up or Clean-up Assistance-helper sets up or cleans up; patient completes activity. [place] assists only prior to or following the activity. 4-Supervision or Touching Assistance-helper provides verbal cues and/or touching/steadying and/or contact guard assistance as patient completes activity. Assistance may be provided throughout the activity or intermittently. 3-Partial/Moderate Assistance-helper does LESS THAN HALF the effort. [place] lifts, holds or supports trunk or limbs, but provides less than half the effort. 2-Substantial/Maximal Assistance-helper does MORE THAN HALF the effort. [place] lifts or holds trunk or limbs and provides more than half the effort. 9-Odickckfv-esvrfg does ALL the effort. Patient does none of the effort to complete the activity. Or, the assistance of 2 or more helpers is required for the patient to complete the activity. If activity was not attempted, code reason: 7-Patient Refused. 9-Not Applicable-not attempted and the patient did not perform the activity before the current illness, exacerbation or injury. 10-Not Attempted due to Environmental Limitations-(lack of equipment, weather restraints, etc.). 88-Not Attempted due to Medical Conditions or Safety Concerns. Transfers (B, C, W/C) (FIM): 4 Roll Left to Right (QC): 4 Sit to Lying (QC): 4 Sit to Stand (QC): 5 Chair/Lvs-gr-Zmefu Xfer(QC): 4 (SBA) Car Transfer (QC): 4 Gait Training Does the Patient Walk?: Yes Gait (FIM): 4 Distance (FIM): 3=072-77 ft Distance: 150 x2 Walk 10 feet (QC): 4 Walk 50 ft with 2 Turns(QC): 4 Walk 150 ft (QC): 4 Walking 10ft/uneven surface-QC: 4 Gait Persons Needed: 1 Gait Assistive Device: FWW Wheelchair Training Does the Pt Use a Wheelchair?: No Wheel 50 ft with 2 turns (QC): 9 Wheel 150 ft (QC): 9 Stair Training Stair Training: Handrails/: 1 handrail (L side with BUE's) #of Steps: 4 (x2) 1 Step (curb) (QC): 4 4 Steps (QC): 4 12 Steps (QC): 9 Stairs: Pattern: Step to (ascend lead with RLE, descend lead with LLE) Level of Assist: 4 Balance Picking up an Object (QC): 9 ADL-Treatment Eating (QC): 6 (Pt completed meal independently.) Oral Hygiene (QC): 5 (Pt completed oral hygiene with set up.) Bathing Location: L Arm, R Arm, L Upper Leg, R Upper Leg, L Lower Leg (including foot), R Lower Leg (including foot), Chest, Abdomen, Buttocks, Per ineal Area Shower/Bathe Self (QC): 5 (using grabbars, handheld shower, pt was able to complete shower with set up.) Upper Body Dressing (QC): 5 (Pt completed UB dressing with set up.) Lower Body Dressing (QC): 4 (Pt required SBA in stance to hike pants/underwear over hip. 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
[2019-07-11] MEDS: ENOXAPARIN 40 MG/0.4 ML (LOVENOX) SYR SQ SCH (18:13)
[2019-07-11 18:25] VITALS: BP 138/83
--- NOTE | 2019-07-11 19:16 | NUR ---
bedside report received from DEEPA ANDREW, assume care of pt
--- NOTE | 2019-07-11 21:22 | NUR ---
pt refused Colace, Enulose & Senokot c/o chest & back pain level 4/10 on numeric scale, Lortab 2.5mg given
[2019-07-11] MEDS: TRIMETHOPRIM 100 MG TAB (PROLOPRIM) NON-FORMULARY PO SCH (21:23)
[2019-07-11] MEDS: HYDROcodone/APAP 5 MG/325 MG (LORTAB) TAB PO PRN (21:24)
--- NOTE | 2019-07-11 22:00 | NUR ---
resting quietly in bed, pain level 0/10 on flacc scale
[2019-07-12 05:22] LABS: BASOPHILS % (AUTO) 1 % (0-10); EOSINOPHILS # (AUTO) 0.1 10^3/uL (0.0-0.3); EOSINOPHILS % (AUTO) 1 % (0-10); HEMATOCRIT 35 % (35-52); LYMPHOCYTES # (AUTO) 1.6 X 10^3 (1.0-4.0); LYMPHOCYTES % (AUTO) 24 % (12-44); MEAN CORPUSCULAR HGB CONC 32 G/DL (32-36); MEAN CORPUSCULAR VOLUME 97 FL (80-99); MEAN PLATELET VOLUME 8.6 FL (7.4-10.4); MONOCYTES # (AUTO) 0.8 X 10^3 (0.0-1.0); MONOCYTES % (AUTO) 12 % (0-12); NEUTROPHILS # (AUTO) 4.1 X 10^3 (1.8-7.8); NEUTROPHILS % (AUTO) 62 % (42-75); PLATELET COUNT 466 10^3/uL (130-400); RED CELL DISTRIBUTION WIDTH 14.1 % (10.0-14.5); WHITE BLOOD COUNT 6.7 10^3/uL (4.3-11.0)
[2019-07-12 05:24] LABS: MEAN CORPUSCULAR HEMOGLOBIN 30 PG (25-34)
[2019-07-12 05:52] LABS: ALANINE AMINOTRANSFERASE 31 U/L (0-55); ALBUMIN 3.8 GM/DL (3.2-4.5); ALKALINE PHOSPHATASE 162 U/L (40-136); BILIRUBIN,TOTAL 0.6 MG/DL (0.1-1.0); BUN/CREATININE RATIO 22; CALCIUM 9.9 MG/DL (8.5-10.1); CARBON DIOXIDE 26 MMOL/L (21-32); CHLORIDE 101 MMOL/L (98-107); CREATININE SERUM 0.79 MG/DL (0.60-1.30); GFR ESTIMATED > 60; GLUCOSE 104 MG/DL (70-105); POTASSIUM 4.4 MMOL/L (3.6-5.0); SODIUM 136 MMOL/L (135-145); TOTAL PROTEIN 6.9 GM/DL (6.4-8.2)
[2019-07-12 06:08] VITALS: BP 155/78
--- NOTE | 2019-07-12 08:06 | PM&R Progress Note ---
Subjective HPI/CC On Admission Date Seen by Provider: Jul 12, 2019 Time Seen by Provider: 08:15 Subjective/Events-last exam Tylenol only was given this morning Minimizing Hydrocodone Vaginal cream will be assessed by the nurse and the patient to get that restarted is upstairs on IV antibiotics, may very well delay DC Looking at assisted living so that likely will be very helpful for the patient Conferred with RN Reviewed therapy notes Checked meds and labs Review of Systems General: Fatigue Musculoskeletal: back pain, leg pain Objective Exam Vital Signs Vital Signs Date Time Temp Pulse Resp B/P (MAP) Pulse Ox O2 Delivery O2 Flow Rate FiO2 07/12/19 16:00 36.4 83 14 137/79 (98) 99 Room Air Capillary Refill : Less Than 3 Seconds General Appearance: No Apparent Distress, WD/WN, Anxious, Chronically ill HEENT: PERRL/EOMI, Normal ENT Inspection, Pharynx Normal Neck: Full Range of Motion, Normal Inspection, Non Tender, Supple, Carotid Bruit Respiratory: Chest Non Tender, Lungs Clear, Normal Breath Sounds, No Accessory Muscle Use, No Respiratory Distress Cardiovascular: Regular Rate, Rhythm, No Edema, No Gallop, No JVD, No Murmur, Normal Peripheral Pulses Gastrointestinal: Normal Bowel Sounds, No Organomegaly, No Pulsatile Mass, Non Tender, Soft Back: Normal Inspection, No CVA Tenderness, Decreased Range of Motion, V ertebral Tenderness Extremity: Normal Capillary Refill, Normal Inspection, Non Tender, No Calf Tenderness, No Pedal Edema, Other (limited ROM due to pelvis pain and leg and back pain) Neurologic/Psychiatric: Alert, Oriented x3, No Motor/Sensory Deficits, Normal Mood/Affect Skin: Normal Color, Warm/Dry Lymphatic: No Adenopathy Results/Procedures Lab Laboratory Tests 07/12/19 04:53 07/12/19 04:55 Patient resulted labs reviewed. FIM Transfers Therapy Code Descriptions/Definitions Functional [place] Measure: 0=Not Assessed/NA 4=Minimal Assistance 1=Total Assistance 5=Supervision or Setup 2=Maximal Assistance 6=Modified [place] 3=Moderate Assistance 7=Complete IndependenceSCALE: Activities may be completed with or without assistive devices. 8-Lejatlvbtf-wpigvhb completes the activity by him/herself with no assistance from a helper. 5-Set-up or Clean-up Assistance-helper sets up or cleans up; patient completes activity. [place] assists only prior to or following the activity. 4-Supervision or Touching Assistance-helper provides verbal cues and/or touching/steadying and/or contact guard assistance as patient completes activ ity. Assistance may be provided throughout the activity or intermittently. 3-Partial/Moderate Assistance-helper does LESS THAN HALF the effort. [place] lifts, holds or supports trunk or limbs, but provides less than half the effort. 2-Substantial/Maximal Assistance-helper does MORE THAN HALF the effort. [place] lifts or holds trunk or limbs and provides more than half the effort. 4-Vwlksaspg-xakbdv does ALL the effort. Patient does none of the effort to complete the activity. Or, the assistance of 2 or more helpers is required for the patient to complete the activity. If activity was not attempted, code reason: 7-Patient Refused. 9-Not Applicable-not attempted and the patient did not perform the activity before the current illness, exacerbation or injury. 10-Not Attempted due to Environmental Limitations-(lack of equipment, weather restraints, etc.). 88-Not Attempted due to Medical Conditions or Safety Concerns. Transfers (B, C, W/C) (FIM): 4 Roll Left to Right (QC): 4 Sit to Lying (QC): 4 Sit to Stand (QC): 5 Chair/Tpf-se-Crekf Xfer(QC): 4 (SBA) Car Transfer (QC): 4 Gait Training Does the Patient Walk?: Yes Gait (FIM): 4 Distance (FIM): 4=071-46 ft Distance: 150 x2 Walk 10 feet (QC): 4 Walk 50 ft with 2 Turns(QC): 4 Walk 150 ft (QC): 4 Walking 10ft/uneven surface-QC: 4 Gait Persons Needed: 1 Gait Assistive Device: FWW Wheelchair Training Does the Pt Use a Wheelchair?: No Wheel 50 ft with 2 turns (QC): 9 Wheel 150 ft (QC): 9 Stair Training Stair Training: Handrails/: 1 handrail (L side with BUE's) #of Steps: 4 (x2) 1 Step (curb) (QC): 4 4 Steps (QC): 4 12 Steps (QC): 9 Stairs: Pattern: Step to (ascend lead with RLE, descend lead with LLE) Level of Assist: 4 Balance Picking up an Object (QC): 9 ADL-Treatment Eating (QC): 6 (Pt completed meal independently.) Oral Hygiene (QC): 5 (Pt completed oral hygiene with set up.) Bathing Location: L Arm, R Arm, L Upper Leg, R Upper Leg, L Lower Leg (including foot), R Lower Leg (including foot), Chest, Abdomen, Buttocks, Perineal Area Shower/Bathe Self (QC): 5 (using grabbars, handheld shower, pt was able to complete shower with set up.) Upper Body Dressing (QC): 5 (Pt completed UB dressing with set up.) Lower Body Dressing (QC): 4 (Pt required SBA in stance to hike pants/underwear over hip. 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 (1) Pelvic fracture Status: Acute (2) Recurrent UTI Status: Chronic (3) Hyperlipidemia Status: Chronic (4) Dementia (5) Delirium (6) Osteoporosis (7) Constipation (8) S/P kyphoplasty Status: Chronic ROSSI WASHINGTON DO Jul 12, 2019 08:06 POS
[2019-07-12] MEDS: ACETAMINOPHEN 500 MG TAB (TYLENOL) PO PRN ×2 (08:08→14:07)
--- NOTE | 2019-07-12 08:56 | Physical Therapy Daily Note ---
PT Daily Note-Current Subjective Pt. states she is a little bit down today as her has been admitted and is upstairs. Agrees to Rx if she can stay near her room for possible phone call Pain Location: No Pain Reported Mental Status Patient Orientation: Normal For Age Transfers SCALE: Activities may be completed with or without assistive devices. 9-Cevgotedok-pyucfzt completes the activity by him/herself with no assistance from a helper. 5-Set-up or Clean-up Assistance-helper sets up or cleans up; patient completes activity. [place] assists only prior to or following the activity. 4-Supervision or Touching Assistance-helper provides verbal cues and/or touching/steadying and/or contact guard assistance as patient completes acti vity. Assistance may be provided throughout the activity or intermittently. 3-Partial/Moderate Assistance-helper does LESS THAN HALF the effort. [place] lifts, holds or supports trunk or limbs, but provides less than half the effort. 2-Substantial/Maximal Assistance-helper does MORE THAN HALF the effort. [place] lifts or holds trunk or limbs and provides more than half the effort. 4-Fprcikzra-atufqi does ALL the effort. Patient does none of the effort to complete the activity. Or, the assistance of 2 or more helpers is required for the patient to complete the activity. If activity was not attempted, code reason: 7-Patient Refused. 9-Not Applicable-not attempted and the patient did not perform the activity before the current illness, exacerbation or injury. 10-Not Attempted due to Environmental Limitations-(lack of equipment, weather restraints, etc.). 88-Not Attempted due to Medical Conditions or Safety Concerns. Transfers (B, C, W/C): 6 Roll Left to Right (QC): 6 Sit to Lying (QC): 6 Sit to Stand (QC): 6 Chair/Skm-ze-Bvrvy Xfer(QC): 6 Bed to/from Chair: 6 Car Transfer (QC): 6 Gait Training Does the Patient Walk?: Yes Gait: 5 Walk 10 feet (QC): 5 Walk 50 ft with 2 Turns(QC): 5 Walk 150 ft (QC): 88 Gait Persons Needed: 1 Gait Assistive Device: FWW Exercises Supine Ex: Bridging, Ankle pumps, Quad Set, Rolling, Glut sets, Heel Slides, Short Arc Quads, Scooting, Straight leg raise (ssisted), Hip abd/add (ssisted left) Supine Reps: 20 Seated Therapy Exercises: Ankle pumps, Sit to stand, Long arc quads, Hip flexion, Hip abd/add Seated Reps: 20 Treatments toileted SBA Assessment Current Status: Good Progress PT Longterm Goals Fish Boning Machine Feeder Goals PT Fish Boning Machine Feeder Goals Time Frame: Jul 22, 2019 Sit to Lying (QC): 6 Lying-Sitting on Side/Bed(QC): 6 Sit to Stand (QC): 6 Roll Left to Right (QC): 6 Chair/Ufk-es-Taxow Xfer(QC): 6 Car Transfer (QC): 5 Walk 10 feet (QC): 6 Walk 10ft-Uneven Surface(QC): 6 Walk 50ft with 2 Turns (QC): 6 Walk 150 ft (QC): 6 Gait Assistive Device: FWW Wheel 50 feet with 2 turns (QC: 9 1 Step (curb) (QC): 4 4 Steps (QC): 4 12 Steps (QC): 9 Picking up an Object (QC): 9 PT Plan Treatment/Plan Treatment Plan: Continue Plan of Care Treatment Plan: Bed Mobility, Education, Functional Activity Ayleen, Functional Strength, Group Therapy, Gait, Safety, Therapeutic Exercise, Transfers Treatment Duration: Jul 22, 2019 Frequency: At least 5 of 7 days/Wk (IRF) Estimated Hrs Per Day: 1.5 hours per day Patient and/or Family Agrees t: Yes Safety Risks/Education Patient Education: Gait Training, Transfer Techniques, Correct Positioning, Disease Process, Safety Issues Teaching Recipient: Patient Teaching Methods: Demonstration, Discussion Response to Teaching: Verbalize Understanding, Return Demonstration, Reinforcement Needed Time/GCodes Time In: 800 Time Out: 900 Total Billed Treatment Time: 60 Total Billed Treatment 1,EX30m,GT15m,FA15m CHRIS CISNEROS VERTICAL LATHE OPERATOR Jul 12, 2019 08:56 POS
[2019-07-12] MEDS: DOCUSATE SODIUM 100 MG (COLACE) CAP PO SCH ×2 (09:00→20:33)
[2019-07-12] MEDS: SENNA W/DOCUSATE (SENOKOT S) TABLET PO SCH ×2 (09:00→21:18)
[2019-07-12] MEDS: LACTULOSE SYRUP 10GM/15ML (ENULOSE) 30ML UDC PO SCH ×2 (09:00→21:18)
[2019-07-12] MEDS: ESTROGENS CONJ. CREAM 30 GM (PREMARIN) TUBE VG SCH (12:15)
--- NOTE | 2019-07-12 12:38 | Occupational Ther Daily Note ---
OT Current Status-Daily Note Subjective Pt reported that she is worried about her who is admitted in hospital. No complaint of pain. Appearance Pt seated in the recliner when OT entered the room. Pt agrees to therapy treatment. Mental Status/Objective Patient Orientation: Person, Place, Time, Situation ADL-Treatment Therapy Code Descriptions/Definitions Functional [place] Measure: 0=Not Assessed/NA 4=Minimal Assistance 1=Total Assistance 5=Supervision or Setup 2=Maximal Assistance 6=Modified [place] 3=Moderate Assistance 7=Complete IndependenceSCALE: Activities may be completed with or without assistive devices. 7-Lxwhlmwivk-zcdbkad completes the activity by him/herself with no assistance from a helper. 5-Set-up or Clean-up Assistance-helper sets up or cleans up; patient completes activity. [place] assists only prior to or following the activity. 4-Supervision or Touching Assistance-helper provides verbal cues and/or touching/steadying and/or contact guard assistance as patient completes activity. Assistance may be provided throughout the activity or intermittently. 3-Partial/Moderate Assistance-helper does LESS THAN HALF the effort. [place] lifts, holds or supports trunk or limbs, but provides less than half the effort. 2-Substantial/Maximal Assistance-helper does MORE THAN HALF the effort. [place] lifts or holds trunk or limbs and provides more than half the effort. 8-Vuneizgsf-lihrdg does ALL the effort. Patient does none of the effort to complete the activity. Or, the assistance of 2 or more helpers is required for the patient to complete the activity. If activity was not attempted, code reason: 7-Patient Refused. 9-Not Applicable-not attempted and the patient did not perform the activity before the current illness, exacerbation or injury. 10-Not Attempted due to Environmental Limitations-(lack of equipment, weather restraints, etc.). 88-Not Attempted due to Medical Conditions or Safety Concerns. Oral Hygiene (QC): 6 (Pt complete oral hygiene independently.) Bathing Location: L Arm, R Arm, L Upper Leg, R Upper Leg, L Lower Leg (including foot), R Lower Leg (including foot), Chest, Abdomen, Buttocks, Perineal Area Shower/Bathe Self (QC): 4 (Pt required supervision when completing sponge bath.) Upper Body Dressing (QC): 5 (Pt required set up to complete UB dressing.) Lower Body Dressing (QC): 4 (Pt required supervision while completing LB dressing.) Toileting Hygiene (QC): 4 (Pt cleansed self while seated and required supervision while manipulating clothing.) Toilet Transfer (QC): 4 (Pt required supervision while transferring from walker to the toilet.) Other Treatment Pt agrees to sponge bath at the sink. Pt transferred from the recliner with walker and ambulated to the toilet with SBA. Pt completed sponge bath seated at the sink. Pt also completed combing and brushing her teeth independently at the sink. Pt required extended time to complete the tasks. Pt then ambulated to therapy gym with walker with CGA for safety. Pt donned 1lb wrist weights and participated in UE fine motor exercise to improve overall strength for functional tasks such as fastening/ buttoning for dressing. Pt then ambulated back to room with CGA. Pt transferred to the recliner with walker. Pt seated in recliner at the end of session with call light/phone in reach. Pt son's in room. All needs met in room. Education OT Patient Education: Correct positioning, Exercise program, Modified ADL techniques, Progress toward Goal/Update tx plan, Purpose of tx/functional activities, Reviewed precautions, Rehab process, Safety issues, Transfer techniques, W/C management Teaching Recipient: Patient Teaching Methods: Demonstration, Discussion Response to Teaching: Verbalize Understanding, Return Demonstration OT Short Term Goals Short Term Goals 1=Demonstrate adherence to instructed precautions during ADL tasks. 2=Patient will verbalize/demonstrate understanding of assistive devices/modif ications for ADL. 3=Patient will improve strength/tolerance for activity to enable patient to perform ADL's. OT Correction Goals Correction Goals Time Frame: Jul 15, 2019 Eating (QC): 6 Oral Hygiene (QC): 6 Shower/Bathe Self (QC): 5 Upper Body Dressing (QC): 5 Lower Body Dressing (QC): 5 On/Off Footwear (QC): 5 Toileting Hygiene (QC): 6 Toilet/Commode Transfer (QC): 6 Additional Goals: 1-Demonstrate ADL Tasks, 2-Verbalize Understanding, 3- ImproveStrength/Ayleen 1=Demonstrate adherence to instructed precautions during ADL tasks. 2=Patient will verbalize/demonstrate understanding of assistive devices/modifications for ADL. 3=Patient will improve strength/tolerance for activity to enable patient to perform ADL's. OT Education/Plan Problem List/Assessment Assessment: Decreased Activ Tolerance, Decreased UE Strength, Impaired Bed Mobility, Impaired Funct Balance, Impaired I ADL's, Impaired Self-Care Skills Discharge Recommendations Plan/Recommendations: Continue POC Therapy Discharge Recommendati: Post Acute OT Treatment Plan/Plan of Care Treatment,Training & Education: Yes Patient would benefit from OT for education, treatment and training to promote independence in ADL's, mobility, safety and/or upper extremity function for ADL's. Plan of Care: ADL Retraining, Functional Mobility, UE Funct Exercise/Act Treatment Duration: Jul 15, 2019 Frequency: At least 5 of 7 days/Wk (IRF) Estimated Hrs Per Day: 1.5 hours per day Agreement: Yes Rehab Potential: Good Time/GCodes Start Time: 09:15 Stop Time: 10:45 Total Time Billed (hr/min): 90 Billed Treatment Time 1, ADL x3 (45 Min) FA x3 (45 Min) JOSE RAMON CÁRDENAS OT Jul 12, 2019 12:38 POS
--- NOTE | 2019-07-12 14:54 | Physical Therapy Daily Note ---
PT Daily Note-Current Subjective Pt. agrees to Rx. States her has been released from the hospital and they will both go to [facility] after she is discharged Pain Location: No Pain Reported Mental Status Patient Orientation: Normal For Age Transfers SCALE: Activities may be completed with or without assistive devices. 1-Rbbfwfwtht-drznysn completes the activity by him/herself with no assistance from a helper. 5-Set-up or Clean-up Assistance-helper sets up or cleans up; patient completes activity. [place] assists only prior to or following the activity. 4-Supervision or Touching Assistance-helper provides verbal cues and/or touching/steadying and/or contact guard assistance as patient completes activity. Assistance may be provided throughout the activity or intermittently. 3-Partial/Moderate Assistance-helper does LESS THAN HALF the effort. [place] li fts, holds or supports trunk or limbs, but provides less than half the effort. 2-Substantial/Maximal Assistance-helper does MORE THAN HALF the effort. [place] lifts or holds trunk or limbs and provides more than half the effort. 0-Qtmabgoqx-kairzm does ALL the effort. Patient does none of the effort to complete the activity. Or, the assistance of 2 or more helpers is required for the patient to complete the activity. If activity was not attempted, code reason: 7-Patient Refused. 9-Not Applicable-not attempted and the patient did not perform the activity before the current illness, exacerbation or injury. 10-Not Attempted due to Environmental Limitations-(lack of equipment, weather restraints, etc.). 88-Not Attempted due to Medical Conditions or Safety Concerns. Transfers (B, C, W/C): 6 Roll Left to Right (QC): 6 Sit to Lying (QC): 6 Sit to Stand (QC): 6 Chair/Scj-tu-Zkysy Xfer(QC): 6 Bed to/from Chair: 6 Car Transfer (QC): 6 Gait Training Does the Patient Walk?: Yes Gait: 6 Walk 10 feet (QC): 6 Walk 50 ft with 2 Turns(QC): 6 Walk 150 ft (QC): 6 Walking 10ft/uneven surface-QC: 6 Gait Persons Needed: 0 Gait Assistive Device: FWW Stair Training Stair Training: Handrails/: 1 handrail #of Steps: 4 1 Step (curb) (QC): 5 4 Steps (QC): 5 12 Steps (QC): 7 Stairs: Pattern: Step to Level of Assist: 5 Balance Picking up an Object (QC): 88 Exercises Supine Ex: Quad Set, Rolling, Heel Slides, Hip abd/add Supine Reps: 12 Seated Therapy Exercises: Ankle pumps, Long arc quads, Hip flexion Seated Reps: 10 Assessment Current Status: Good Progress PT Halfway Goals Halfway Goals PT Halfway Goals Time Frame: Jul 22, 2019 Roll Left & Right (QC): 6 Sit to Lying (QC): 6 Lying-Sitting on Side/Bed(QC): 6 Sit to Stand (QC): 6 Chair/Leq-xi-Khrda Xfer(QC): 6 Toilet Transfer (QC): 6 Car Transfer (QC): 5 Does the Patient Walk: Yes Walk 10 feet (QC): 6 Walk 50ft with 2 Turns (QC): 6 Walk 150 ft (QC): 6 Walking 10ft on Uneven Surface: 6 1 Step (curb) (QC): 4 4 Steps (QC): 4 12 Steps (QC): 9 Picking up an Object (QC): 9 Does the Pt use WC or Scooter?: No Wheel 50 feet with 2 turns (QC: 9 Type: N/A Type: N/A PT Plan Treatment/Plan Treatment Plan: Continue Plan of Care Treatment Plan: Bed Mobility, Education, Functional Activity A[place], Functional Strength, Group Therapy, Gait, Safety, Therapeutic Exercise, Transfers Treatment Duration: Jul 22, 2019 Frequency: At least 5 of 7 days/Wk (IRF) Estimated Hrs Per Day: 1.5 hours per day Patient and/or Family Agrees t: Yes Safety Risks/Education Patient Education: Gait Training, Transfer Techniques, Steps, Correct Positioning, Disease Process, Safety Issues Teaching Recipient: Patient Teaching Methods: Demonstration, Discussion Response to Teaching: Verbalize Understanding, Return Demonstration, Reinforcement Needed Time/GCodes Time In: 1420 Time Out: 1450 Total Billed Treatment Time: 30 Total Billed Treatment 1,GT10,FA20m CHRIS CISNEROS FRESCO ARTIST Jul 12, 2019 14:54 POS
[2019-07-12 16:00] VITALS: BP 137/79
[2019-07-12] MEDS: ENOXAPARIN 40 MG/0.4 ML (LOVENOX) SYR SQ SCH (19:35)
[2019-07-12] MEDS: TRIMETHOPRIM 100 MG TAB (PROLOPRIM) NON-FORMULARY PO SCH (20:33)
[2019-07-12] MEDS: HYDROcodone/APAP 5 MG/325 MG (LORTAB) TAB PO PRN (23:03)
[2019-07-13 05:19] VITALS: BP 145/73
[2019-07-13] MEDS: ACETAMINOPHEN 500 MG TAB (TYLENOL) PO PRN ×2 (07:07→12:11)
[2019-07-13] MEDS: LACTULOSE SYRUP 10GM/15ML (ENULOSE) 30ML UDC PO SCH ×2 (08:05→21:22)
--- NOTE | 2019-07-13 08:37 | PM&R Progress Note ---
Subjective HPI/CC On Admission Date Seen by Provider: Jul 13, 2019 Time Seen by Provider: 08:15 Subjective/Events-last exam Assisted living visitation today Family at the bedside. now discharged out of the hospital. Son at the bedside. Overall doing very well. Conferred with RN Reviewed therapy notes Checked meds and labs Review of Systems Musculoskeletal: back pain, leg pain Objective Exam Vital Signs Vital Signs Date Time Temp Pulse Resp B/P (MAP) Pulse Ox O2 Delivery O2 Flow Rate FiO2 07/13/19 20:00 Room Air 07/13/19 17:33 37.2 89 18 138/76 (96) 97 Capillary Refill : Less Than 3 Seconds General Appearance: No Apparent Distress, WD/WN, Anxious, Chronically ill HEENT: PERRL/EOMI, Normal ENT Inspection, Pharynx Normal Neck: Full Range of Motion, Normal Inspection, Non Tender, Supple, Carotid Bruit Respiratory: Chest Non Tender, Lungs Clear, Normal Breath Sounds, No Accessory Muscle Use, No Respiratory Distress Cardiovascular: Regular Rate, Rhythm, No Edema, No Gallop, No JVD, No Murmur, Normal Peripheral Pulses Gastrointestinal: Normal Bowel Sounds, No Organomegaly, No Pulsatile Mass, Non Tender, Soft Back: Normal Inspection, No CVA Tenderness, Decreased Range of Motion, Vertebral Tenderness Extremity: Normal Capillary Refill, Normal Inspection, Non Tender, No Calf Tenderness, No Pedal Edema, Other (limited ROM due to pelvis pain and leg and back pain) Neurologic/Psychiatric: Alert, Oriented x3, No Motor/Sensory Deficits, Normal Mood/Affect Skin: Normal Color, Warm/Dry Lymphatic: No Adenopathy Results/Procedures Lab Patient resulted labs reviewed. FIM Transfers Therapy Code Descriptions/Definitions Functional [place] Measure: 0=Not Assessed/NA 4=Minimal Assistance 1=Total Assistance 5=Supervision or Setup 2=Maximal Assistance 6=Modified [place] 3=Moderate Assistance 7=Complete IndependenceSCALE: Activities may be completed with or without assistive devices. 0-Glbprpoyyo-vrrbcph completes the activity by him/herself with no assistance from a helper. 5-Set-up or Clean-up Assistance-helper sets up or cleans up; patient completes activity. [place] assists only prior to or following the activity. 4-Supervision or Touching Assistance-helper provides verbal cues and/or touching/steadying and/or contact guard assistance as patient completes activity. Assistance may be provided throughout the activity or intermittently. 3-Partial/Moderate Assistance-helper does LESS THAN HALF the effort. [place] lifts, holds or supports trunk or limbs, but provides less than half the effort. 2-Substantial/Maximal Assistance-helper does MORE THAN HALF the effort. [place] lifts or holds trunk or limbs and provides more than half the effort. 0-Cytvdexle-sdpgro does ALL the effort. Patient does none of the effort to complete the activity. Or, the assistance of 2 or more helpers is required for the patient to complete the activity. If activity was not attempted, code reason: 7-Patient Refused. 9-Not Applicable-not attempted and the patient did not perform the activity before the current illness, exacerbation or injury. 10-Not Attempted due to Environmental Limitations-(lack of equipment, weather restraints, etc.). 88-Not Attempted due to Medical Conditions or Safety Concerns. Transfers (B, C, W/C) (FIM): 6 Roll Left to Right (QC): 6 Sit to Lying (QC): 6 Sit to Stand (QC): 6 Chair/Fel-cv-Dlmdu Xfer(QC): 6 Bed to/from Chair: 6 Car Transfer (QC): 6 Gait Training Does the Patient Walk?: Yes Gait (FIM): 6 Distance (FIM): 6=845-71 ft Distance: 150 x2 Walk 10 feet (QC): 6 Walk 50 ft with 2 Turns(QC): 6 Walk 150 ft (QC): 6 Walking 10ft/uneven surface-QC: 6 Gait Persons Needed: 0 Gait Assistive Device: FWW Wheelchair Training Does the Pt Use a Wheelchair?: No Wheel 50 ft with 2 turns (QC): 9 Wheel 150 ft (QC): 9 Stair Training Stair Training: Handrails/: 1 handrail #of Steps: 4 1 Step (curb) (QC): 5 4 Steps (QC): 5 12 Steps (QC): 7 Stairs: Pattern: Step to Level of Assist: 5 Balance Picking up an Object (QC): 88 ADL-Treatment Eating (QC): 6 (Pt completed meal independently.) Oral Hygiene (QC): 6 (Pt complete oral hygiene independently.) Bathing Location: L Arm, R Arm, L Upper Leg, R Upper Leg, L Lower Leg (including foot), R Lower Leg (including foot), Chest, Abdomen, Buttocks, Perineal Area Shower/Bathe Self (QC): 4 (Pt required supervision when completing sponge bath.) Upper Body Dressing (QC): 5 (Pt required set up to complete UB dressing.) Lower Body Dressing (QC): 4 (Pt required supervision while completing LB dressing.) On/Off Footwear (QC): 4 Toileting Hygiene (QC): 4 (Pt cleansed self while seated and required supervision while manipulating clothing.) Toilet Transfer (QC): 4 (Pt required supervision while transferring from walker to the toilet.) Assessment/Plan Assessment and Plan Assess & Plan/Chief Complaint Assessment: Pelvic fracture Constipation OP Plan: Monitor closely IRF protocol Home at [facility] before pain meds Pain is more manageable now Discharge plan soon but 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 (1) Pelvic fracture Status: Acute (2) Recurrent UTI Status: Chronic (3) Hyperlipidemia Status: Chronic (4) Dementia (5) Delirium (6) Osteoporosis (7) Constipation (8) S/P kyphoplasty Status: Chronic ROSSI WASHINGTON DO Jul 13, 2019 08:37 POS
[2019-07-13] MEDS: SENNA W/DOCUSATE (SENOKOT S) TABLET PO SCH ×2 (10:06→21:22)
[2019-07-13] MEDS: DOCUSATE SODIUM 100 MG (COLACE) CAP PO SCH ×2 (10:06→20:33)
--- NOTE | 2019-07-13 11:40 | Physical Therapy Daily Note ---
PT Daily Note-Current Subjective 1st session: Pt agreeable to PT session. States her pain is getting a little better all the time. States she feels she is ready to go home tomorrow. 2nd session: Pt agreeable to PT session. States she is a little tired still but ok. Pain Numeric Pain Scale: 4 Location: Left Location Body Site: Pelvic Comment: pain increases with WB to 6/10 Appearance 1st session:Pt in bathroom with OT upon arrival. At end of session, pt reque sting and assisted into bed, call light, phone and bedside table within reach. 2nd session: Pt in bed awake and alert upon arrival. Requesting and assisted to bathroom. At end of session, requesting and assisted to bed, call light, phone and bedside table within reach. Mental Status Patient Orientation: Person, Place, Time, Eyes Open, Situation, Normal For Age Transfers SCALE: Activities may be completed with or without assistive devices. 0-Lzsxytxnhg-ccgzpmp completes the activity by him/herself with no assistance from a helper. 5-Set-up or Clean-up Assistance-helper sets up or cleans up; patient completes activity. [place] assists only prior to or following the activity. 4-Supervision or Touching Assistance-helper provides verbal cues and/or touching/steadying and/or contact guard assistance as patient completes activity. Assistance may be provided throughout the activity or intermittently. 3-Partial/Moderate Assistance-helper does LESS THAN HALF the effort. [place] lifts, holds or supports trunk or limbs, but provides less than half the effort. 2-Substantial/Maximal Assistance-helper does MORE THAN HALF the effort. [place] lifts or holds trunk or limbs and provides more than half the effort. 9-Aoijqrggp-meluex does ALL the effort. Patient does none of the effort to complete the activity. Or, the assistance of 2 or more helpers is required for the patient to complete the activity. If activity was not attempted, code reason: 7-Patient Refused. 9-Not Applicable-not attempted and the patient did not perform the activity before the current illness, exacerbation or injury. 10-Not Attempted due to Environmental Limitations-(lack of equipment, weather restraints, etc.). 88-Not Attempted due to Medical Conditions or Safety Concerns. Roll Left & Right (QC): 6 (rolling onto L side very painful) Sit to Lying (QC): 6 Lying to Sitting/Side of Bed(Q: 6 Sit to Stand (QC): 6 Chair/Rad-da-Hxwsp Xfer(QC): 6 Car Transfer (QC): 5 Gait Training Does the Patient Walk?: Yes Distance: 150, 300, 150 x2 Walk 10 feet (QC): 6 Walk 50 ft with 2 Turns(QC): 6 Walk 150 ft (QC): 6 Walking 10ft/uneven surface-QC: 5 Gait Persons Needed: 1 Gait Assistive Device: FWW min skilled inst and supervision provided for safety on uneven surfaces. Wheelchair Training Does the Pt Use a Wheelchair?: No Stair Training Stair Training: Handrails/: 1 handrail (L side) #of Steps: 4 1 Step (curb) (QC): 4 (SBA and skilled verb inst provided for safety) 4 Steps (QC): 4 (SBA and skilled verb inst provided for safety) Stairs: Pattern: Step to (ascend lead with RLE, descend lead with LLE) SBA and skilled verb inst for safety, technique and sequencing Balance Picking up an Object (QC): 5 Exercises Supine Ex: Bridging (2 x10), Ankle pumps (50), Rolling, Heel Slides (20), Scooting, Straight leg raise (10, pain L side), Hip abd/add (10, friction eliminated LLE, pain L side) NuStep Minutes: 10 NuStep Workload: 4 Treatments 1st session: transfers from various surfaces, gait even and uneven surfaces, education, safety, functional mobility, activity tolerance, bed mobility, stairs, curb, strength, balance. 2nd session: education, safety, bed mobility, activity tolerance, gait, transfers, functional mobility, toileting, dmitri care, strength, balance Assessment Current Status: Good Progress PT Studio Operator Goals Senior Care Goals PT Senior Care Goals Time Frame: Jul 22, 2019 Roll Left & Right (QC): 6 Sit to Lying (QC): 6 Lying-Sitting on Side/Bed(QC): 6 Sit to Stand (QC): 6 Chair/Hos-dc-Qbewc Xfer(QC): 6 Toilet Transfer (QC): 6 Car Transfer (QC): 5 Does the Patient Walk: Yes Walk 10 feet (QC): 6 Walk 50ft with 2 Turns (QC): 6 Walk 150 ft (QC): 6 Walking 10ft on Uneven Surface: 6 1 Step (curb) (QC): 4 4 Steps (QC): 4 12 Steps (QC): 9 Picking up an Object (QC): 9 Does the Pt use WC or Scooter?: No Wheel 50 feet with 2 turns (QC: 9 Type: N/A Type: N/A PT Plan Treatment/Plan Treatment Plan: Continue Plan of Care Treatment Plan: Bed Mobility, Education, Functional Activity A[place], Functional Strength, Group Therapy, Gait, Safety, Therapeutic Exercise, Transfers Treatment Duration: Jul 22, 2019 Frequency: At least 5 of 7 days/Wk (IRF) Estimated Hrs Per Day: 1.5 hours per day Patient and/or Family Agrees t: Yes Safety Risks/Education Patient Education: Gait Training, Transfer Techniques, Steps, Reviewed Use of Ice, Disease Process, Safety Issues Teaching Recipient: Patient Teaching Methods: Discussion Response to Teaching: Verbalize Understanding Time/GCodes Time In: 1100 (PM 1400) Time Out: 1200 (PM 1430) Total Billed Treatment Time: 60 (PM 30) Total Billed Treatment AM: 1 visit, GT x15 min, FA x30 min, EX x15 min. PM: 1 visit, GT x15 min, EX x10 min, FA x5 min AVEL KOHLI PTA Jul 13, 2019 11:40 POS
--- NOTE | 2019-07-13 12:07 | NUR ---
Met with patient, spouse Leroy, and son Boy this a.m. Plans are underway for patient to discharge tomorrow to home as before. IMM2 reviewed with patient, she indicates all are ready for her to return home and voiced no intention to appeal. HHC: Reviewed home health agencies in service area, coordinated for RN, PT, bath aide with patient/family preferred provider, [facility]. DME: Patient home equipment has been inventoried and reviewed during her stay, her home FWW was brought in at request of PT to insure correct sizing for petite patient. No new needs have been indicated. IN-HOME ASSISTANCE: Son Boy states he has two moravian family friends who will come to assist patient in addition to their scheduled person 3x week for vacuuming/cleaning/laundry. PENITENTIARY: Boy has pursued their move into assisted living at [facility]. [facility]/ANDERS/RN/Nevaeh came this a.m. to talk to all three about overall services and timelines. Patient/spouse have a LTC policy that is anticipated to pay most if not all of their monthly charges. Tentative date for room availability is July 25, patient/spouse to remain at home until move can be finalized. Review day of discharge, no other interventions anticipated.
--- NOTE | 2019-07-13 12:20 | Occupational Ther Daily Note ---
OT Current Status-Daily Note Subjective No c/o of pain. Appearance Pt was ambulating with walker to the bathroom when OT entered the room. Pt spouse/son present. Pt agrees to work with therapy. Mental Status/Objective Patient Orientation: Person, Place, Time, Situation ADL-Treatment Therapy Code Descriptions/Definitions Functional [place] Measure: 0=Not Assessed/NA 4=Minimal Assistance 1=Total Assistance 5=Supervision or Setup 2=Maximal Assistance 6=Modified [place] 3=Moderate Assistance 7=Complete IndependenceSCALE: Activities may be completed with or without assistive devices. 0-Yqvqxmamon-pmkczaw completes the activity by him/herself with no assistance from a helper. 5-Set-up or Clean-up Assistance-helper sets up or cleans up; patient completes activity. [place] assists only prior to or following the activity. 4-Supervision or Touching Assistance-helper provides verbal cues and/or touching/steadying and/or contact guard assistance as patient completes activity. Assistance may be provided throughout the activity or intermittently. 3-Partial/Moderate Assistance-helper does LESS THAN HALF the effort. [place] lifts, holds or supports trunk or limbs, but provides less than half the effort. 2-Substantial/Maximal Assistance-helper does MORE THAN HALF the effort. [place] lifts or holds trunk or limbs and provides more than half the effort. 0-Nnrtqlpkb-oiroet does ALL the effort. Patient does none of the effort to complete the activity. Or, the assistance of 2 or more helpers is required for the patient to complete the activity. If activity was not attempted, code reason: 7-Patient Refused. 9-Not Applicable-not attempted and the patient did not perform the activity bef ore the current illness, exacerbation or injury. 10-Not Attempted due to Environmental Limitations-(lack of equipment, weather r estraints, etc.). 88-Not Attempted due to Medical Conditions or Safety Concerns. Oral Hygiene (QC): 6 (Pt completed oral hygiene seated in a wheelchair at the sink.) Bathing Location: L Arm, R Arm, L Upper Leg, R Upper Leg, L Lower Leg (including foot), R Lower Leg (including foot), Chest, Abdomen, Buttocks, Perineal Area Shower/Bathe Self (QC): 5 (Pt completed sponge bath seated at the sink. Pt required set up to complete the task.) Upper Body Dressing (QC): 5 (Pt completed UB dressing with set up.) Lower Body Dressing (QC): 5 (Pt completed LB dressing while seated on the w/c. Pt required set up to complete.) Toileting Hygiene (QC): 6 (Pt is independent with toilet hygiene.) Toilet Transfer (QC): 6 (Pt is independent with safety concerns while transferring with walker to the toilet.) Footwear (QC) 6 Pt completed donning socks independently. Other Treatment Pt ambulated with walker from the toilet and sat at EOB. Pt declined shower but agrees to sponge bath at the sink. Pt ambulated from EOB independently (with safety concerns) with walker to the bathroom. Pt completed sponge bath with set up while seated at the sink. Pt required extended time to complete the tasks. Pt completed combing hair seated at the sink. Pt was in the bathroom with PT at the end of session. Education OT Patient Education: Modified ADL techniques, Progress toward Goal/Update tx plan, Purpose of tx/functional activities, Rehab process, Transfer techniques Teaching Recipient: Patient Teaching Methods: Demonstration, Discussion Response to Teaching: Verbalize Understanding, Return Demonstration OT Senior Living Goals Senior Living Goals Time Frame: Jul 15, 2019 Eating (QC): 6 Oral Hygiene (QC): 6 Toileting Hygiene (QC): 6 Shower/Bathe Self (QC): 5 Upper Body Dressing (QC): 5 Lower Body Dressing (QC): 5 On/Off Footwear (QC): 5 Additional Goals: 1-Demonstrate ADL Tasks, 2-Verbalize Understanding, 3- ImproveStrength/Ayleen 1=Demonstrate adherence to instructed precautions during ADL tasks. 2=Patient will verbalize/demonstrate understanding of assistive devices/m odifications for ADL. 3=Patient will improve strength/tolerance for activity to enable patient to perform ADL's. OT Education/Plan Problem List/Assessment Assessment: Decreased Activ Tolerance, Decreased UE Strength Discharge Recommendations Plan/Recommendations: Continue POC Therapy Discharge Recommendati: Post Acute OT Equpiment Recommendations-D/C: None Treatment Plan/Plan of Care Treatment,Training & Education: Yes Patient would benefit from OT for education, treatment and training to promote independence in ADL's, mobility, safety and/or upper extremity function for ADL's. Plan of Care: ADL Retraining, Functional Mobility, UE Funct Exercise/Act Treatment Duration: Jul 15, 2019 Frequency: At least 5 of 7 days/Wk (IRF) Estimated Hrs Per Day: 1.5 hours per day Agreement: Yes Rehab Potential: Good Time/GCodes Start Time: 10:20 Stop Time: 11:00 Total Time Billed (hr/min): 40 Billed Treatment Time 1, ADL x3 (40 Min ) JOSE RAMON CÁRDENAS OT Jul 13, 2019 12:20 POS
--- NOTE | 2019-07-13 13:51 | Occupational Ther Daily Note ---
OT Current Status-Daily Note Subjective No complaint of pain. Appearance Pt ambulating with walker to the toilet when OT entered the room. Nursing aid present. Mental Status/Objective Patient Orientation: Person, Place, Time, Situation ADL-Treatment Therapy Code Descriptions/Definitions Functional [place] Measure: 0=Not Assessed/NA 4=Minimal Assistance 1=Total Assistance 5=Supervision or Setup 2=Maximal Assistance 6=Modified [place] 3=Moderate Assistance 7=Complete IndependenceSCALE: Activities may be completed with or without assistive devices. 7-Rlplsktqov-ryshzwa completes the activity by him/herself with no assistance from a helper. 5-Set-up or Clean-up Assistance-helper sets up or cleans up; patient completes activity. [place] assists only prior to or following the activity. 4-Supervision or Touching Assistance-helper provides verbal cues and/or touching/steadying and/or contact guard assistance as patient completes activity. Assistance may be provided throughout the activity or intermittently. 3-Partial/Moderate Assistance-helper does LESS THAN HALF the effort. [place] lifts, holds or supports trunk or limbs, but provides less than half the effort. 2-Substantial/Maximal Assistance-helper does MORE THAN HALF the effort. [place] lifts or holds trunk or limbs and provides more than half the effort. 5-Uccskmcag-yhiykz does ALL the effort. Patient does none of the effort to complete the activity. Or, the assistance of 2 or more helpers is required for the patient to complete the activity. If activity was not attempted, code reason: 7-Patient Refused. 9-Not Applicable-not attempted and the patient did not perform the activity before the current illness, exacerbation or injury. 10-Not Attempted due to Environmental Limitations-(lack of equipment, weather restraints, etc.). 88-Not Attempted due to Medical Conditions or Safety Concerns. Toileting Hygiene (QC): 6 (Pt completed cleansing self independently while seated on the toilet.) Toilet Transfer (QC): 6 (Pt independently transferred from walker to the toilet with safety concerns.) Other Treatment Pt ambulated with walker to therapy gym. Pt donned 1 lb wrist weights and participated in bilateral UE strengthening activity to increase overall strength. Pt participated in reaching activity while reaching side to side and crossing midline for functional tasks. Pt. careful to rotate at pelvis and not thoracic area. Pt was given brief rest break when completing the activity. Pt then ambulated with walker to the room with SBA. Pt transferred to bed with walker. Pt laying down at end of session with call light/phone in reach. All needs met in room. Education OT Patient Education: Correct positioning, Exercise program, Modified ADL techniques, Progress toward Goal/Update tx plan, Purpose of tx/functional activities, Reviewed precautions, Rehab process, Safety issues, Transfer techniques Teaching Recipient: Patient Teaching Methods: Demonstration, Discussion Response to Teaching: Verbalize Understanding, Return Demonstration OT [facility] Goals [employer] Goals Time Frame: Jul 15, 2019 Eating (QC): 6 Oral Hygiene (QC): 6 Toileting Hygiene (QC): 6 Shower/Bathe Self (QC): 5 Upper Body Dressing (QC): 5 Lower Body Dressing (QC): 5 On/Off Footwear (QC): 5 Additional Goals: 1-Demonstrate ADL Tasks, 2-Verbalize Understanding, 3- ImproveStrength/Ayleen 1=Demonstrate adherence to instructed precautions during ADL tasks. 2=Patient will verbalize/demonstrate understanding of assistive devices/modifications for ADL. 3=Patient will improve strength/tolerance for activity to enable patient to perform ADL's. OT Education/Plan Problem List/Assessment Assessment: Decreased Activ Tolerance, Decreased UE Strength, Impaired Funct Balance, Impaired I ADL's, Impaired Self-Care Skills Discharge Recommendations Plan/Recommendations: Continue POC Therapy Discharge Recommendati: Post Acute OT Equpiment Recommendations-D/C: None Treatment Plan/Plan of Care Treatment,Training & Education: Yes Patient would benefit from OT for education, treatment and training to promote independence in ADL's, mobility, safety and/or upper extremity function for ADL's. Plan of Care: ADL Retraining, Functional Mobility, UE Funct Exercise/Act Treatment Duration: Jul 15, 2019 Frequency: At least 5 of 7 days/Wk (IRF) Estimated Hrs Per Day: 1.5 hours per day Agreement: Yes Rehab Potential: Good Time/GCodes Start Time: 12:50 Stop Time: 13:40 Total Time Billed (hr/min): 50 Billed Treatment Time 1, FA x 2 ( 35 Min) ADL x 1 (15 Min) JOSE RAMON CÁRDENAS OT Jul 13, 2019 13:51 POS
[2019-07-13 17:33] VITALS: BP 138/76
[2019-07-13] MEDS: ENOXAPARIN 40 MG/0.4 ML (LOVENOX) SYR SQ SCH (18:32)
[2019-07-13] MEDS: TRIMETHOPRIM 100 MG TAB (PROLOPRIM) NON-FORMULARY PO SCH (20:33)
[2019-07-13] MEDS: HYDROcodone/APAP 5 MG/325 MG (LORTAB) TAB PO PRN (20:34)
[2019-07-14] MEDS: ACETAMINOPHEN 500 MG TAB (TYLENOL) PO PRN (00:48)
[2019-07-14 05:16] VITALS: BP 151/76
--- NOTE | 2019-07-14 07:48 | PM&R Progress Note ---
Subjective HPI/CC On Admission Date Seen by Provider: Jul 14, 2019 Time Seen by Provider: 08:15 Subjective/Events-last exam Assisted living visitation today Family at the bedside. now discharged out of the hospital. Son at the bedside. Overall doing very well. Conferred with RN Reviewed therapy notes Checked meds and labs Objective Exam Vital Signs Vital Signs Date Time Temp Pulse Resp B/P (MAP) Pulse Ox O2 Delivery O2 Flow Rate FiO2 07/14/19 05:16 36.6 87 18 151/76 (101) 96 Room Air Capillary Refill : Less Than 3 Seconds General Appearance: No Apparent Distress, WD/WN, Anxious, Chronically ill HEENT: PERRL/EOMI, Normal ENT Inspection, Pharynx Normal Neck: Full Range of Motion, Normal Inspection, Non Tender, Supple, Carotid Bruit Respiratory: Chest Non Tender, Lungs Clear, Normal Breath Sounds, No Accessory Muscle Use, No Respiratory Distress Cardiovascular: Regular Rate, Rhythm, No Edema, No Gallop, No JVD, No Murmur, Normal Peripheral Pulses Gastrointestinal: Normal Bowel Sounds, No Organomegaly, No Pulsatile Mass, Non Tender, Soft Back: Normal Inspection, No CVA Tenderness, Decreased Range of Motion, Vertebral Tenderness Extremity: Normal Capillary Refill, Normal Inspection, Non Tender, No Calf Tenderness, No Pedal Edema, Other (limited ROM due to pelvis pain and leg and back pain) Neurologic/Psychiatric: Alert, Oriented x3, No Motor/Sensory Deficits, Normal Mood/Affect Skin: Normal Color, Warm/Dry Lymphatic: No Adenopathy Results/Procedures Lab Patient resulted labs reviewed. FIM Transfers Therapy Code Descriptions/Definitions Functional [place] Measure: 0=Not Assessed/NA 4=Minimal Assistance 1=Total Assistance 5=Supervision or Setup 2=Maximal Assistance 6=Modified [place] 3=Moderate Assistance 7=Complete IndependenceSCALE: Activities may be completed with or without assistive devices. 4-Qejzkyckym-xsbbxin completes the activity by him/herself with no assistance from a helper. 5-Set-up or Clean-up Assistance-helper sets up or cleans up; patient completes activity. [place] assists only prior to or following the activity. 4-Supervision or Touching Assistance-helper provides verbal cues and/or touching/steadying and/or contact guard assistance as patient completes activity. Assistance may be provided throughout the activity or intermittently. 3-Partial/Moderate Assistance-helper does LESS THAN HALF the effort. [place] lifts, holds or supports trunk or limbs, but provides less than half the effort. 2-Substantial/Maximal Assistance-helper does MORE THAN HALF the effort. [place] lifts or holds trunk or limbs and provides more than half the effort. 8-Lfnrnesyx-upnjpz does ALL the effort. Patient does none of the effort to complete the activity. Or, the assistance of 2 or more helpers is required for the patient to complete the activity. If activity was not attempted, code reason: 7-Patient Refused. 9-Not Applicable-not attempted and the patient did not perform the activity before the current illness, exacerbation or injury. 10-Not Attempted due to Environmental Limitations-(lack of equipment, weather restraints, etc.). 88-Not Attempted due to Medical Conditions or Safety Concerns. Transfers (B, C, W/C) (FIM): 6 Roll Left to Right (QC): 6 (rolling onto L side very painful) Sit to Lying (QC): 6 Sit to Stand (QC): 6 Chair/Kzq-dm-Oejdz Xfer(QC): 6 Bed to/from Chair: 6 Car Transfer (QC): 5 Gait Training Does the Patient Walk?: Yes Gait (FIM): 6 Distance (FIM): 4=850-04 ft Distance: 150, 300, 150 x2 Walk 10 feet (QC): 6 Walk 50 ft with 2 Turns(QC): 6 Walk 150 ft (QC): 6 Walking 10ft/uneven surface-QC: 5 Gait Persons Needed: 1 Gait Assistive Device: FWW Wheelchair Training Does the Pt Use a Wheelchair?: No Wheel 50 ft with 2 turns (QC): 9 Wheel 150 ft (QC): 9 Stair Training Stair Training: Handrails/: 1 handrail (L side) #of Steps: 4 1 Step (curb) (QC): 4 (SBA and skilled verb inst provided for safety) 4 Steps (QC): 4 (SBA and skilled verb inst provided for safety) 12 Steps (QC): 7 Stairs: Pattern: Step to (ascend lead with RLE, descend lead with LLE) Level of Assist: 5 Balance Picking up an Object (QC): 5 ADL-Treatment Eating (QC): 6 (Pt completed meal independently.) Oral Hygiene (QC): 6 (Pt completed oral hygiene seated in a wheelchair at the sink.) Bathing Location: L Arm, R Arm, L Upper Leg, R Upper Leg, L Lower Leg (incl uding foot), R Lower Leg (including foot), Chest, Abdomen, Buttocks, Perineal Area Shower/Bathe Self (QC): 5 (Pt completed sponge bath seated at the sink. Pt required set up to complete the task.) Upper Body Dressing (QC): 5 (Pt completed UB dressing with set up.) Lower Body Dressing (QC): 5 (Pt completed LB dressing while seated on the w/c. 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 (1) Pelvic fracture Status: Acute (2) Recurrent UTI Status: Chronic (3) Hyperlipidemia Status: Chronic (4) Dementia (5) Delirium (6) Osteoporosis (7) Constipation (8) S/P kyphoplasty Status: Chronic ROSSI WASHINGTON DO Jul 14, 2019 07:48 POS
[2019-07-14] MEDS: SENNA W/DOCUSATE (SENOKOT S) TABLET PO SCH (07:53)
[2019-07-14] MEDS: DOCUSATE SODIUM 100 MG (COLACE) CAP PO SCH (07:53)
[2019-07-14] MEDS: LACTULOSE SYRUP 10GM/15ML (ENULOSE) 30ML UDC PO SCH (07:53)
--- NOTE | 2019-07-14 08:44 | Discharge Summary ---
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 now with left hand infection [facility] an option 07/25/19 (1) Pelvic fracture Status: Acute (2) Recurrent UTI Status: Chronic (3) Hyperlipidemia Status: Chronic (4) Dementia (5) Delirium (6) Osteoporosis (7) Constipation (8) S/P kyphoplasty Status: Chronic Discharge Summary Discharge Physical Examination Allergies: Coded Allergies: cephalexin (Verified Allergy, Mild, 03/10/19) nitrofurantoin (Verified Allergy, Mild, 03/10/19) codeine (Verified Allergy, Unknown, pt takes Tramadol at home, 03/10/19) sulfamethoxazole (Verified Allergy, Unknown, 03/10/19) Vitals & I&Os Vital Signs Date Time Temp Pulse Resp B/P (MAP) Pulse Ox O2 Delivery O2 Flow Rate FiO2 07/14/19 09:50 07/14/19 08:00 Room Air 07/14/19 05:16 36.6 87 18 96 General Appearance: Alert, Oriented X3, Cooperative Respiratory: Clear to Auscultation Cardiovascular: Regular Rate Neuro: Normal Gait, Normal Speech, Strength at 5/5 X4 Ext Psych/Mental Status: Mental Status NL Hospital Course Was the Problem List Reviewed?: Yes Hospital Course: Pt had an uneventful 14 day hospital course after she was DC home with home health and transition with Assisted Living on 07/25/19. Pt received Hydrocodone half of a pill twice a day which was helpful with pain in addition to the Tylenol. She was able to participate in therapy and we worked diligently on fall risk prevention and will be monitored closely in the meantime paulina story close follow up with Dr. Ortiz. Labs (last 24 hrs) Laboratory Tests 07/02/19 05:05: White Blood Count 9.3, Red Blood Count 3.35L, Hemoglobin 10.2L, Hematocrit 32L, Mean Corpuscular Volume 94, Mean Corpuscular Hemoglobin 30, Mean Corpuscular Hemoglobin Concent 32, Red Cell Distribution Width 12.7, Platelet Count 223, Mean Platelet Volume 9.3, Neutrophils (%) (Auto) 68, Lymphocytes (%) (Auto) 19, Monocytes (%) (Auto) 12, Eosinophils (%) (Auto) 1, Basophils (%) (Auto) 1, Neutrophils # (Auto) 6.4, Lymphocytes # (Auto) 1.7, Monocytes # (Auto) 1.1H, Eosinophils # (Auto) 0.1, Basophils # (Auto) 0.1, Sodium Level 133L, Potassium Level 4.1, Chloride Level 96L, Carbon Dioxide Level 27, Anion Gap 10, Blood Urea Nitrogen 18, Creatinine 0.79, Estimat Glomerular Filtration Rate > 60, BUN/Creatinine Ratio 23, Glucose Level 116H, Calcium Level 9.1, Corrected Calcium 9.5, Total Bilirubin 1.0, Aspartate Amino Transf (AST/SGOT) 27, Alanine Aminotransferase (ALT/SGPT) 21, Alkaline Phosphatase 86, Total Protein 6.2L, Albumin 3.5 07/05/19 05:00: White Blood Count 7.7, Red Blood Count 3.16L, Hemoglobin 9.5L, Hematocrit 30L, Mean Corpuscular Volume 95, Mean Corpuscular Hemoglobin 30, Mean Corpuscular Hemoglobin Concent 32, Red Cell Distribution Width 13.2, Platelet Count 319, Mean Platelet Volume 8.9, Neutrophils (%) (Auto) 68, Lymphocytes (%) (Auto) 20, Monocytes (%) (Auto) 11, Eosinophils (%) (Auto) 1, Basophils (%) (Auto) 0, Neutrophils # (Auto) 5.2, Lymphocytes # (Auto) 1.6, Monocytes # (Auto) 0.8, Eosinophils # (Auto) 0.1, Basophils # (Auto) 0.0, Sodium Level 133L, Potassium Level 4.1, Chloride Level 99, Carbon Dioxide Level 25, Anion Gap 9, Blood Urea Nitrogen 18, Creatinine 0.77, Estimat Glomerular Filtration Rate > 60, BUN/Creatinine Ratio 23, Glucose Level 119H, Calcium Level 9.2, Corrected Calcium 9.5, Total Bilirubin 1.1H, Aspartate Amino Transf (AST/SGOT) 33, Alanine Aminotransferase (ALT/SGPT) 28, Alkaline Phosphatase 84, Total Protein 6.5, Albumin 3.6 07/08/19 06:18: White Blood Count 7.4, Red Blood Count 3.35L, Hemoglobin 10.3L, Hematocrit 32L, Mean Corpuscular Volume 95, Mean Corpuscular Hemoglobin 31, Mean Corpuscular Hemoglobin Concent 32, Red Cell Distribution Width 13.6, Platelet Count 393, Mean Platelet Volume 8.9, Creatinine 0.78 07/12/19 04:53: Sodium Level 136, Potassium Level 4.4, Chloride Level 101, Carbon Dioxide Level 26, Anion Gap 9, Blood Urea Nitrogen 17, Creatinine 0.79, Estimat Glomerular Filtration Rate > 60, BUN/Creatinine Ratio 22, Glucose Level 104, Calcium Level 9.9, Corrected Calcium 10.1, Total Bilirubin 0.6, Aspartate Amino Transf (AST/SGOT) 31, Alanine Aminotransferase (ALT/SGPT) 31, Alkaline Phosphatase 162H , Total Protein 6.9, Albumin 3.8 07/12/19 04:55: White Blood Count 6.7, Red Blood Count 3.61L, Hemoglobin 11.0L, Hematocrit 35, Mean Corpuscular Volume 97, Mean Corpuscular Hemoglobin 30, Mean Corpuscular Hemoglobin Concent 32, Red Cell Distribution Width 14.1, Platelet Count 466H, Mean Platelet Volume 8.6, Neutrophils (%) (Auto) 62, Lymphocytes (%) (Auto) 24, Monocytes (%) (Auto) 12, Eosinophils (%) (Auto) 1, Basophils (%) (Auto) 1, Neutrophils # (Auto) 4.1, Lymphocytes # (Auto) 1.6, Monocytes # (Auto) 0.8, Eosinophils # (Auto) 0.1, Basophils # (Auto) 0.0 Pending Labs Laboratory Tests 07/02/19 05:05: White Blood Count 9.3, Red Blood Count 3.35, Hemoglobin 10.2, Hematocrit 32, Mean Corpuscular Volume 94, Mean Corpuscular Hemoglobin 30, Mean Corpuscular Hemoglobin Concent 32, Red Cell Distribution Width 12.7, Platelet Count 223, Mean Platelet Volume 9.3, Neutrophils (%) (Auto) 68, Lymphocytes (%) (Auto) 19, Monocytes (%) (Auto) 12, Eosinophils (%) (Auto) 1, Basophils (%) (Auto) 1, Neutrophils # (Auto) 6.4, Lymphocytes # (Auto) 1.7, Monocytes # (Auto) 1.1, Eosinophils # (Auto) 0.1, Basophils # (Auto) 0.1, Sodium Level 133, Potassium Level 4.1, Chloride Level 96, Carbon Dioxide Level 27, Anion Gap 10, Blood Urea Nitrogen 18, Creatinine 0.79, Estimat Glomerular Filtration Rate > 60, BUN/Creatinine Ratio 23, Glucose Level 116, Calcium Level 9.1, Corrected Calcium 9.5, Total Bilirubin 1.0, Aspartate Amino Transf (AST/SGOT) 27, Alanine Aminotransferase (ALT/SGPT) 21, Alkaline Phosphatase 86, Total Protein 6.2, Al bumin 3.5 07/05/19 05:00: White Blood Count 7.7, Red Blood Count 3.16, Hemoglobin 9.5, Hematocrit 30, Mean Corpuscular Volume 95, Mean Corpuscular Hemoglobin 30, Mean Corpuscular Hemoglobin Concent 32, Red Cell Distribution Width 13.2, Platelet Count 319, Mean Platelet Volume 8.9, Neutrophils (%) (Auto) 68, Lymphocytes (%) (Auto) 20, Monocytes (%) (Auto) 11, Eosinophils (%) (Auto) 1, Basophils (%) (Auto) 0, Neutrophils # (Auto) 5.2, Lymphocytes # (Auto) 1.6, Monocytes # (Auto) 0.8, Eos inophils # (Auto) 0.1, Basophils # (Auto) 0.0, Sodium Level 133, Potassium Level 4.1, Chloride Level 99, Carbon Dioxide Level 25, Anion Gap 9, Blood Urea Nitrogen 18, Creatinine 0.77, Estimat Glomerular Filtration Rate > 60, BUN/Creatinine Ratio 23, Glucose Level 119, Calcium Level 9.2, Corrected Calcium 9.5, Total Bilirubin 1.1, Aspartate Amino Transf (AST/SGOT) 33, Alanine Aminot ransferase (ALT/SGPT) 28, Alkaline Phosphatase 84, Total Protein 6.5, Albumin 3.6 07/08/19 06:18: White Blood Count 7.4, Red Blood Count 3.35, Hemoglobin 10.3, Hematocrit 32, Mean Corpuscular Volume 95, Mean Corpuscular Hemoglobin 31, Mean Corpuscular Hemoglobin Concent 32, Red Cell Distribution Width 13.6, Platelet Count 393, Mean Platelet Volume 8.9, Creatinine 0.78 07/12/19 04:53: Sodium Level 136, Potassium Level 4.4, Chloride Level 101, Carbon Dioxide Level 26, Anion Gap 9, Blood Urea Nitrogen 17, Creatinine 0.79, Estimat Glomerular Filtration Rate > 60, BUN/Creatinine Ratio 22, Glucose Level 104, Calcium Level 9.9, Corrected Calcium 10.1, Total Bilirubin 0.6, Aspartate Amino Transf (AST/SGOT) 31, Alanine Aminotransferase (ALT/SGPT) 31, Alkaline Phosphatase 162, Total Protein 6.9, Albumin 3.8 07/12/19 04:55: White Blood Count 6.7, Red Blood Count 3.61, Hemoglobin 11.0, Hematocrit 35, Mean Corpuscular Volume 97, Mean Corpuscular Hemoglobin 30, Mean Corpuscular Hemoglobin Concent 32, Red Cell Distribution Width 14.1, Platelet Count 466, Mean Platelet Volume 8.6, Neutrophils (%) (Auto) 62, Lymphocytes (%) (Auto) 24, Monocytes (%) (Auto) 12, Eosinophils (%) (Auto) 1, Basophils (%) (Auto) 1, Angelica trophils # (Auto) 4.1, Lymphocytes # (Auto) 1.6, Monocytes # (Auto) 0.8, Eosinophils # (Auto) 0.1, Basophils # (Auto) 0.0 Discharge Home Medications: Active Scripts Active Hydrocodone/Acetaminophen 5/325mg Tablet (Acetaminophen/Hydrocodone Bitart) 1 Tab Tab 0.5-1 Tab PO Q4HR PRN Reported Tylenol Extra Strength (Acetaminophen) 500 Mg Tablet 500 Mg PO Q4H PRN Artificial Tears Drops (Polyvinyl Alcohol/Povidone) 15 Ml Drops 1 Drop OU TID PRN Meclizine HCl 25 Mg Tablet 25 Mg PO Q6H PRN Premarin (Estrogens Conjugated) 30 Gm Cr VG MOWEFR Trimethoprim 100 Mg Tablet 100 Mg PO HS Atorvastatin Calcium 20 Mg Tablet 20 Mg PO HS Instructions to patient/family Please see electronic discharge instructions given to patient. Diagnosis/Problems Diagnosis/Problems (1) Pelvic fracture Status: Acute (2) Recurrent UTI Status: Chronic (3) Hyperlipidemia Status: Chronic (4) Dementia (5) Delirium (6) Osteoporosis (7) Constipation (8) S/P kyphoplasty Status: Chronic Clinical Quality Measures DVT/VTE Risk/Contraindication: Risk Factor Score Per Nursin RFS Level Per Nursing on Admit: 4+=Very High ROSSI WASHINGTON DO Jul 14, 2019 08:44 POS
[2019-07-14] MEDS ORDERED: ACHD5005 PO (08:45)
--- NOTE | 2019-07-14 08:46 | D/C HH Face to Face Order ---
D/C Face to Face Orders Reconcile Patient Problems Problems Reviewed?: Yes Instructions for Patient Via [facility], Patient Instructions/FollowUp: Dr. Ortiz in 1 week Physician to follow Patient: Dr. Ortiz Discharge Diet for Home: No Restrictions Patient Problems: Pelvic fracture Compression fractures of the spine Goals for Patient: Return to independent living Patient Data-Allergies,Ht & Wt Patient Allergies: Coded Allergies: cephalexin (Verified Allergy, Mild, 03/10/19) nitrofurantoin (Verified Allergy, Mild, 03/10/19) codeine (Verified Allergy, Unknown, pt takes Tramadol at home, 03/10/19) sulfamethoxazole (Verified Allergy, Unknown, 03/10/19) Height (Feet): 5 Height (Inches): 0.00 Weight (Pounds): 112 Weight (Ounces): 4.0 Home Health Need/Face to Face Date of Face to Face: Jul 14, 2019 Clinical Findings: Generalized weakness and fatigue, Instability, Muscle weakness, Pain with ambulation, Unsteady gait I have seen Pt [id number]: Yes Discharged To: Home Diagnosis/Conditions: Pelvic fracture Compression fractures of the spine Patient is Homebound due to: CognItive deficits, Gideon fall risk due to instabilty, Muscle weakness, Pain w/ambulation Homebound Status Due to the above stated illness, injury or surgical procedure (medical condition or diagnosis) and associated clinical findings, the patient is homebound because of his/her inability to leave home except with aid of a supportive device and/or person AND leaving the home requires a considerable and taxing effort or is medically contraindicated. Pt req the following assistanc: Walker Home Health Nursing Orders Home Health Services Order: Nursing Services, Guest Relations Agent-Evaluate & Treat, Physical Therapy-Evaluate & Treat Certify Stmt I certify that this patient is under my care and that I, a nurse practitioner or a physician; a office services assistant working with me, had a face to face encounter that - meets the physician face to face encounter requirements with this patient as dated. ROSSI WASHINGTON DO Jul 14, 2019 08:46 POS
--- NOTE | 2019-07-14 10:13 | NUR ---
Final discharge arrangements. HHC: Referral finalized with [facility] as planned, including RN, PT, OT, bath aid. All other discharge activities/interventions completed unless situation changes to warrant additional review or assistance. Unit RN aware of discharge, family will independently schedule machine operator hop picker time.
--- NOTE | 2019-07-14 12:43 | Therapy Team Discharge Summary ---
Therapy Discharge Summary Discharge Recommendations Date of Discharge Jul 14, 2019 at 09:50 Therapy D/C Recommendations: Occupational Therapy Home Care Occupational Therapy Pt. has been seen by occupational therapy to increase overall strength and independence with daily tasks. Pt. has met all goals. Pt. requires supervision/set up with bathing/dressing, and is independent with some safety concerns with toileting and ADL transfers. Pt. has discharged home with spouse and son that will check on her frequently. Pt. has all needed equipment. All needs met at this facility. Decreased Activ Tolerance PT Transportation Equipment Painter Goals Longterm Goals PT Longterm Goals Time Frame: Jul 22, 2019 Roll Left to Right (QC): 6 Sit to Lying (QC): 6 Lying-Sitting on Side/Bed(QC): 6 Sit to Stand (QC): 6 Chair/[id number]-Gwwhr Xfer(QC): 6 Car Transfer (QC): 5 Does the Patient Walk: Yes Walk 10 feet (QC): 6 Walk 10ft-Uneven Surface(QC): 6 Walk 50ft with 2 Turns (QC): 6 Walk 150 ft (QC): 6 Gait Assistive Device: FWW Does the Pt use WC or Scooter?: No Wheel 50 feet with 2 turns (QC: 9 1 Step (curb) (QC): 4 4 Steps (QC): 4 12 Steps (QC): 9 Picking up an Object (QC): 9 OT Transportation Equipment Painter Goals Longterm Goals Time Frame: Jul 15, 2019 Eating (QC): 6 (met) Oral Hygiene (QC): 6 (met) Shower/Bathe Self (QC): 5 (met) Upper Body Dressing (QC): 5 (met) Lower Body Dressing (QC): 5 (met) On/Off Footwear (QC): 5 (met) Toileting Hygiene (QC): 6 (met) Toilet/Commode Transfer (QC): 6 (met) Additional Goals: 1-Demonstrate ADL Tasks, 2-Verbalize Understanding, 3- ImproveStrength/Ayleen 1=Demonstrate adherence to instructed precautions during ADL tasks. 2=Patient will verbalize/demonstrate understanding of assistive devices/modifications for ADL. 3=Patient will improve strength/tolerance for activity to enable patient to perform ADL's. JOSE RAMON CÁRDENAS OT Jul 14, 2019 12:43 POS
--- NOTE | 2019-07-15 10:19 | Therapy Team Discharge Summary ---
Therapy Discharge Summary Discharge Recommendations Date of Discharge Jul 14, 2019 at 09:50 Therapy D/C Recommendations: Occupational Therapy Home Care Physical Therapy Patient came to rehab with a pelvic fracture. Upon evaluation patient performed bed mobility and transfers with min assist, car transfer min assist, ambulated 50' with a rolling walker with min assist (including 50' with at least 2 turns of 90 degrees and 10' over an uneven surface), and went up and down 1 step using a rolling walker with mod assist. Patient has been performing bed mobility and transfer training, balance and endurance training, functional strengthening, stair training, gait training, and education. Patient has made good progress and has met all of her joint terminal attack controller goals except is not quite independent ambulating over an uneven surface. Now, patient performs bed mobility and transfers with independence, car transfer with setup, ambulates 300' with a rolling walker with independence (including 50' with at least 2 turns of 90 degrees and 10' over an uneven surface with setup), and can go up and down 4 steps using 1 handrail with SBA, and can picker tender an object from the floor with setup. Patient has been discharged from this facility and will be discharged from PT at this time. Occupational Therapy Decreased Activ Tolerance PT Residential Goals Residential Goals PT Regenerator Operator Goals Time Frame: Jul 22, 2019 Roll Left to Right (QC): 6 Sit to Lying (QC): 6 Lying-Sitting on Side/Bed(QC): 6 Sit to Stand (QC): 6 Chair/Ifx-xv-Zfkar Xfer(QC): 6 Car Transfer (QC): 5 Does the Patient Walk: Yes Walk 10 feet (QC): 6 Walk 10ft-Uneven Surface(QC): 6 Walk 50ft with 2 Turns (QC): 6 Walk 150 ft (QC): 6 Gait Assistive Device: FWW Does the Pt use WC or Scooter?: No Wheel 50 feet with 2 turns (QC: 9 1 Step (curb) (QC): 4 4 Steps (QC): 4 12 Steps (QC): 9 Picking up an Object (QC): 9 OT Residential Goals Residential Goals Time Frame: Jul 15, 2019 Eating (QC): 6 (met) Oral Hygiene (QC): 6 (met) Shower/Bathe Self (QC): 5 (met) Upper Body Dressing (QC): 5 (met) Lower Body Dressing (QC): 5 (met) On/Off Footwear (QC): 5 (met) Toileting Hygiene (QC): 6 (met) Toilet/Commode Transfer (QC): 6 (met) Additional Goals: 1-Demonstrate ADL Tasks, 2-Verbalize Understanding, 3- ImproveStrength/Ayleen 1=Demonstrate adherence to instructed precautions during ADL tasks. 2=Patient will verbalize/demonstrate understanding of assistive d evices/modifications for ADL. 3=Patient will improve strength/tolerance for activity to enable patient to perform ADL's. ENOC ZHAO PT Jul 15, 2019 10:19 POS
== END 2019-07-14 09:50 | disposition home health service (06) | DRG 560 ==
PROVIDERS: ADMIT Internal Medicine; ATTEND Internal Medicine
DX: S32.82XD Multiple fractures of pelvis without disruption of pelvic ring, subsequent encounter for fracture with routine healing (principal); M81.0 Age-related osteoporosis without current pathological fracture; N39.0 Urinary tract infection, site not specified; E78.5 Hyperlipidemia, unspecified; F03.90 Unspecified dementia, unspecified severity, without behavioral disturbance, psychotic disturbance, mood disturbance, and anxiety; Z66 Do not resuscitate; M19.91 Primary osteoarthritis, unspecified site; K59.00 Constipation, unspecified; W06.XXXD Fall from bed, subsequent encounter; Y92.009 Unspecified place in unspecified non-institutional (private) residence as the place of occurrence of the external cause
CPT/HCPCS: 36415; 80053; 82565; 85025; 85027